=== PATIENT | female | born 1975 | race Caucasian/White ===

== ENCOUNTER 2018-06-28 20:27 | Observation (INO) | payer MEDICAID, SELFPAY ==
[2018-06-28 20:28] VITALS: BP 150/109; PULSE 119; RESP 19; TEMP 36.7; O2SAT 94; BMI 29.0
--- NOTE | 2018-06-28 20:49 | EKG12_ITS ---
Test Reason : Blood Pressure : / mmHG Vent. Rate : 109 BPM Atrial Rate : 109 BPM P-R Int : 140 ms QRS Dur : 074 ms QT Int : 334 ms P-R-T Axes : 060 033 069 degrees QTc Int : 449 ms Sinus tachycardia Possible Left atrial enlargement Borderline ECG Confirmed by FERNANDO TOPETE, ARUN ([id number]), editorial specialist ABDON KEITH ([id number]) on 07/03/2018 3:49:26 PM Referred By: Mani Rachel Confirmed By:ARNU KING MD
--- NOTE | 2018-06-28 20:49 | CT_ITS ---
STUDY: CT BRAIN WITHOUT CONTRAST REASON FOR EXAM: Female, 43 years old. Syncope RADIATION DOSAGE (If Supplied By Facility): CTDIvol = ( 44.99 ) mGy, DLP = ( 745.49 ) mGycm TECHNIQUE: Transaxial CT imaging of the brain was performed without administration of intravenous contrast material. Individualized dose optimization techniques were used for this CT. COMPARISON: None. FINDINGS: There are old left cerebellar infarct with encephalomalacia. There is no acute bleed or infarct. There are normal white matter tracts. The ventricles are normal in configuration. There is no hydrocephalus. The visualized paranasal sinuses are clear. The mastoid air cells are well aerated. There is no skull fracture. CT/Brain/Head without Contrast IMPRESSION: No acute intracranial abnormality. 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 Electronically Signed: Smith Crabtree, at 21:46 EST Tel , Service support ,
[2018-06-28 20:58] LABS: Absolute Lymphocyte Count 2.36 X10^3/ul (0.83-4.51); Absolute Neutrophil Count 4.5 X10^3/uL (2.0-7.7); Basophil# 0.14 X10^3/uL; Basophil% 1.5 % (0-1); Eosinophil# 1.28 X10^3/uL; Hematocrit 39.2 % (37-47); Hemoglobin 13.1 g/dl (12.0-15.0); Lymphocyte # 2.36 X10^3/ul (4.0); Lymphocyte % 25.8 % (19-41); Mean Corp Hgb Conc 33.4 g/gl (32-36); Mean Corpuscular Hgb 34.1 pg (27.0-32.0); Mean Corpuscular Volume 102.1 fL (81-99); Mean Platelet Vol. 10.7 fl (6.2-12.0); Monocyte# 0.89 X10^3/uL; Monocyte% 9.7 % (0-10); Neutrophil # 4.46 X10^3/uL (2.7-7.7); Neutrophil % 48.9 % (47-70); Platelet Count 368 K/mm3 (150-450); RBC Distribution Width CV 13.5 % (11.6-14.6); RBC Distribution Width SD 50.8 fl (35.1-43.9); Red Blood Count 3.84 M/mm3 (4.2-5.4); White Blood Count 9.1 K/mm3 (4.4-11.0)
[2018-06-28 20:59] LABS: POSITIVE COUNT NO; POSITIVE DIFFERENTIAL NO; POSITIVE MORPHOLOGY NO
--- NOTE | 2018-06-28 21:02 | ED.DCSUM_ITS ---
- ER Visit Summary Date of Service: 06/28/18 Chief Complaint: Syncope History of Present Illness: The patient is a 43 F who is brought in by EMS for syncope. Patient states the last thing she remembers was sitting on the couch watching a [employer] movie. Father states that he came down the stairs and found her on the ground on her back laid right next to the couch. She was unresponsive. He tried to stimulate her and was not successful. He states he went out to call 911 when he came back her eyes were open but she was not really responding then she was responding but confused and now seems to be back at her baseline. On the June 15 she went and had her last alcoholic drink. She went to rehab and was discharged on Sunday. While at rehab she was on phenobarbital. On Sunday she received a Vivitrol shot. She states that she did not have DTs. She had a seizure many years ago but is not currently treated for any. She denies any current pain. She denies any headache. She denies any bleeding or injuries from tonight's events. Physical Examination: 150/109 heart rate of 119 respirations are 19 and pulse ox is 94% and patient is afebrile Gen: Well-nourished well-developed Head: Normocephalic atraumatic Eyes: Perrl EOMI ENT: TMs clear no rhinorrhea moist mucous membranes Neck: Supple no lymphadenopathy no JVD nontender CVS: Regular rate tachycardia rhythm no murmurs normal S1-S2 Respiratory: No distress clear to auscultation bilaterally chest nontender Abdomen: Soft nontender nondistended normal bowel sounds no masses Back: Nontender Extremity: Nontender no edema Skin: Normal color no rash Neuro: alert orientated ?3 CN II-XII intact normal strength sensation reflexes gait cerebellar Psych: Normal affect normal mood Test Results: EKG demonstrates a sinus tachycardia at a rate of 109. Lactic acid is elevated 5.4. Troponin negative. Alcohol level negative. Toxicology shows barbiturates (most likely from phenobarbital). CT of the brain demonstrates a area in the left cerebellum shows some encephalomalacia. Emergency Department Course and Treatment: Seizure precautions were implemented. Patient was placed on the monitor. While in the department the patient had a approximate 30-minute generalized seizure with postictal period. She received a milligram of Ativan and 1 g of Keppra. I spoke with neurology who recommends admission for MRI EEG and recommend she be started on 750 mg of Keppra twice daily. Impression: 1. Seizure This note was generated with [employer] dictation software. It may contain incorrect words, spelling, and punctuation that were not noted in review of the chart prior to signing ED Disposition - Plan for ED Patient: Chief Complaint: Syncope Referrals: Nasima Zhu, MAGNETO SPECIALIST-C [Primary Care Provider] -
--- NOTE | 2018-06-28 21:05 | RAD_ITS ---
STUDY: X-RAY CHEST REASON FOR EXAM: Female, 43 years old. Syncope TECHNIQUE: Frontal and lateral views of the chest COMPARISON: None. FINDINGS: The lungs are clear. There are no pleural effusions. There is no pneumothorax. The heart is normal in size. The visualized osseous structures are within normal limits. RAD/Chest PA and Lateral IMPRESSION: No acute thoracic pathology. Electronically Signed: Smith Crabtree, at 21:23 EST Tel , Service support ,
[2018-06-28 21:22] VITALS: PULSE 97; RESP 18
[2018-06-28 21:22] LABS: AST(SGOT) 33 U/L (15-37); Alanine Aminotransfer ALT/SGPT 34 U/L (13-56); Albumin, Serum 3.8 g/dL (3.2-5.0); Alkaline Phosphatase 93 U/L (45-117); Anion Gap 15 (5-15); BUN 6 mg/dL (7-18); BUN/Creat Ratio 5.3 RATIO (10-20); Calcium,Total 8.9 mg/dL (8.5-10.1); Chloride 109 mmol/L (98-107); Creatinine, Serum 1.13 mg/dL (0.55-1.02); EST Glomerular Filtration Rate 56 mL/min (>60); Est Glom Filt Rate - Afr Amer 68 mL/min (>60); Estimated Creatinine Clearance 67.54 ml/min; Globulin 3.9 g/dL (2.2-4.2); Glucose 113 mg/dL (74-106); Potassium 4.1 mmol/L (3.5-5.1); Protein, Total 7.7 g/dL (6.4-8.2); Sodium Level 143 mmol/L (136-145)
[2018-06-28] MEDS: Ipratropium/Albuterol Sulfate 3 ML AMPUL.NEB INHALATION (21:22)
[2018-06-28 21:26] LABS: Lactic Acid 5.4 mmol/L (0.4-2.0)
[2018-06-28] MEDS: LORazepam 2 MG/ML Syringe 1 MG IV (21:57)
[2018-06-28] MEDS: 0.9% Normal Saline 1,000 ML 999 ML IV (21:57)
--- NOTE | 2018-06-28 22:05 | ED.RN ---
PATIENT HAD A 35 SECOND TONIC CLONIC SEIZURE. MADE AWARE AND ATIVAN WAS GIVEN.
[2018-06-28] MEDS: levETIRAcetam IV 1,000 MG/100 ML BAG 400 MG IV (22:08)
[2018-06-28 22:25] LABS: Bacteria 0 SEEN /hpf (None Seen); Mucous, Urine 0 SEEN /hpf (<or=2+); Red Blood Cells-Urine 0 SEEN /hpf (0-5); White Blood Cells 0 SEEN /hpf (0-5)
[2018-06-28 22:27] VITALS: BP 122/89; PULSE 109; RESP 19; O2SAT 97
[2018-06-28 22:29] LABS: Color, Urine Yellow (Yellow); Glucose, Dipstick Normal (Normal); Ketone-Dipstick 15 mg/dl (Negative); Leukocyte Esterase-Dipstick Negative /ul (Negative); Nitrite-Dipstick Negative (Negative); Occult Blood-Urine Negative /ul (Negative); Protein-Dipstick 15 mg/dl (Negative); Urine Bilirubin Dipstick Negative (Negative); Urine Clarity Clear (Clear); Urine Urobilinogen Normal (Normal)
[2018-06-28 22:34] LABS: Internal QC Validated? YES +Cl - CLEAR BKGD; Pregnancy, Urine Negative Negative
[2018-06-28 22:38] LABS: Squamous Epithelial Cells - UA 0-5 SEEN /hpf (5-10)
[2018-06-28 22:48] LABS: Amphetamine Urine VISTA NEGATIVE (<1000 ng/mL); Barbiturate Urine VISTA POSITIVE (< 200 ng/mL); Benzodiazepine Urine VISTA NEGATIVE (< 200 ng/mL); Cocaine Urine VISTA NEGATIVE (< 300 ng/mL); Ecstacy Urine VISTA NEGATIVE (< 500 ng/mL); Methadone Urine VISTA NEGATIVE (< 300 ng/mL); PCP Urine VISTA NEGATIVE (< 25 ng/mL); THC Urine VISTA NEGATIVE (< 50 ng/mL); Vista UDS pH Range 6
--- NOTE | 2018-06-28 23:25 | PCM.HP.STD ---
Problem List (1) Seizure Status: Acute (2) Moderate persistent asthma Status: Acute (3) Rhinitis Status: Acute History of Present Illness Date of Admission: 06/28/18 Chief Complaint: unresponsiveness The patient is a 43 year old F with a significant history of anxiety; hypertension; asthma; and previous alcoholism who presented to the emergency department because of unresponsiveness a few hours prior to presentation. Patient lives at home with his father. His father heard a noise like somebody falling for which reason patient's father checked on patient. Patient father realized that patient was lying down, incoherent and although was breathing she was not responding to commands. The paramedics were called. Patient actually got more responsive before arrival at the emergency department. At emergency department patient was coherent however she had a witnessed tonic clonic seizure. At no point did patient have any bowel or bladder incontinence; or a biting of the tongue. Her initial lactic acid at emergency department was 5.4. Patient reported that she spent 1 week at [place], [place], for detoxification from ethanol. She was discharged from detoxification center about 4 days ago. Six days ago patient took a dose of phenobarbital while at [facility] detoxification center. Also upon release from detoxification center patient took Vivitrol. Vivitrol was taken 2 days prior to presentation. She received the Vivitrol at 180. At emergency department EMANI 10 was positive for barbiturates. Because of the witness seizure at the ED, patient was given IV Ativan and a dose of Keppra while at the Emergency Department. Emergency Department doctor discussed case with neurologist. Emergency department doctor reported neurologist recommendation as: Keppra 750 mg twice daily; EEG; MRI of the brain; and no driving. Patient reported that when she was a child, at about age 8 years she had a one time episode of seizure. Further, patient reports that she has had increasing shortness of breath that she attributes to her asthma worsening secondary to the cold. At the emergency department she was given a breathing treatments because she complained of shortness of breath. Also, she reports rhinorrhea and cold sore on her mouth. Her cold sore on her mouth is improving. Reportedly patient had a divorce in February 2018 and has been more anxious; worsening her drinking behavior. However, she had a new niece in the family, for which reason she has been motivated to quit drinking Past Medical History Medical History: Medical History (Last Updated 06/29/18 @ 03:48 by Mani Rachel MD) Alcohol abuse F10.10 Asthma J45.909 Allergies amoxicillin Allergy (Verified 06/28/18 20:34) Hives Home Medications: Ambulatory Orders Medication Instructions Recorded Albuterol Inhaler [Ventolin Hfa 1 - 2 puff INHALATION Q4H PRN PRN 06/28/18 (SP)] Clonazepam 0.5 mg PO BID PRN 06/28/18 Lisinopril [Zestril] 10 mg PO DAILY 06/28/18 Pantoprazole Sodium [Protonix] 40 mg PO BID 06/28/18 Norgestimate-Ethinyl Estradiol 1 tab PO DAILY 06/29/18 [Previfem] Surgical History: tonsillectomy, - - Surgery on the face to remove precancerous birthmark Lives: With Family Smoking Status: Never smoker Alcohol: Sober - *Family History Paternal Family History: Family History (Last Reviewed 06/29/18 @ 05:07 by Mani Rachel MD) Father Myocardial infarction Review of Systems Constitutional: Denies: Chills, Fever, Weight Change HEENT: Reports: Sinus Drainage. Denies: Head Aches Cardiovascular: Denies: Chest Pain, Palpitations Respiratory: Reports: Shortness of Breath. Denies: Cough Gastrointestinal: Denies: Abdominal Pain, Nausea, Vomiting Genitourinary: Denies: Dysuria Musculoskeletal: Denies: Joint Pain, Joint Tenderness Skin: Denies: Rash, Wounds Neurological: Denies: Numbness, Tingling, Focal weakness Psychiatric: Denies: Anxiety, Depression, Homicidal Ideations, Suicidal Ideations Hematologic/ Lymphatic: Denies: Easy Bruising, Easy Bleeding VTE Information - Inpt Only VTE Present on Admission: No VTE Mechan Device Prophylaxis: None VTE Pharm Prophylaxis ordered?: Yes Patient Problems: Active and Suspected Problems (Last Updated 06/29/18 @ 03:48 by Mani Rachel MD) Seizure (Acute) Moderate persistent asthma (Acute) Rhinitis (Acute) - Physical Exam General: Alert, Oriented x3, Cooperative HEENT: Atraumatic, PERRLA, EOMI, Normocephalic, - - blister on lip Neck: Supple, No JVD, Negative Carotid Bruits Lungs: Clear to auscultation, Normal air movement Cardiovascular: Regular rate, No murmurs Abdomen: Bowel Sounds Present, Soft, Non Tender Extremities: No edema, Capillary Refill Less than 3 Seconds Skin: No rashes, No breakdown Musculoskeletal: No Tenderness to Palpation of Joints or Extremities Neurological: Neuro grossly intact Psych/Mental Status: Normal Affect, Appropriate Vital Signs Temp Pulse Resp BP Pulse Ox 98.1 F 109 H 19 H 122/89 H 97 06/28/18 20:28 06/28/18 22:27 06/28/18 22:27 06/28/18 22:27 06/28/18 22:27 Oxygen Delivery Method Room Air Weight: 65.3 kg Body Mass Index (BMI) 29.0 Laboratory Tests Past 24 Hrs 06/28/18 06/28/18 06/28/18 20:34 20:34 20:34 WBC 9.1 RBC 3.84 L Hgb 13.1 Hct 39.2 MCV 102.1 H MCH 34.1 H MCHC 33.4 RDW 13.5 RDW Differential 50.8 H Plt Count 368 MPV 10.7 Immature Gran % (Auto) 0.100 Neut % (Auto) 48.9 Lymph % (Auto) 25.8 Estill % (Auto) 9.7 Eos % (Auto) 14.0 H Baso % (Auto) 1.5 H Absolute Neuts (auto) 4.5 Absolute Lymphs (auto) 2.36 Total Counted Not Reportable Sodium 143 Potassium 4.1 Chloride 109 H Carbon Dioxide 19.0 L Anion Gap 15 BUN 6 L Creatinine 1.13 H Estim Creat Clear Calc 67.54 Est GFR (MDRD) Af Amer 68 Est GFR (MDRD) Non-Af 56 L BUN/Creatinine Ratio 5.3 L Glucose 113 H Lactic Acid 5.4 H* Calcium 8.9 Total Bilirubin 0.20 AST 33 ALT 34 Alkaline Phosphatase 93 Troponin I < 0.015 Total Protein 7.7 Albumin 3.8 Globulin 3.9 Albumin/Globulin Ratio 1.0 Urine Color Urine Clarity Urine pH Ur Specific [place] Urine Protein Urine Glucose (UA) Urine Ketones Urine Occult Blood Urine Nitrite Urine Bilirubin Urine Urobilinogen Ur Leukocyte Esterase Urine RBC Urine WBC Ur Squamous Epith Cells Urine Bacteria Urine Mucus Urine Test Urine Opiates Screen Urine Methadone Screen Ur Barbiturates Screen Ur Phencyclidine Scrn Ur Amphetamines Screen U Methamphetamin-MDMA U Benzodiazepines Scrn Urine Cocaine Screen U Cannabinoids Screen Ur Drug Screen Comment Ethyl Alcohol 06/28/18 06/28/18 06/28/18 21:00 22:20 22:20 WBC RBC Hgb Hct MCV MCH MCHC RDW RDW Differential Plt Count MPV Immature Gran % (Auto) Neut % (Auto) Lymph % (Auto) Estill % (Auto) Eos % (Auto) Baso % (Auto) Absolute Neuts (auto) Absolute Lymphs (auto) Total Counted Sodium Potassium Chloride Carbon Dioxide Anion Gap BUN Creatinine Estim Creat Clear Calc Est GFR (MDRD) Af Amer Est GFR (MDRD) Non-Af BUN/Creatinine Ratio Glucose Lactic Acid Calcium Total Bilirubin AST ALT Alkaline Phosphatase Troponin I Total Protein Albumin Globulin Albumin/Globulin Ratio Urine Color Yellow Urine Clarity Clear Urine pH 6.0 Ur Specific [place] 1.020 Urine Protein 15 H Urine Glucose (UA) Normal Urine Ketones 15 H Urine Occult Blood Negative Urine Nitrite Negative Urine Bilirubin Negative Urine Urobilinogen Normal Ur Leukocyte Esterase Negative Urine RBC 0 SEEN Urine WBC 0 SEEN Ur Squamous Epith Cells 0-5 SEEN Urine Bacteria 0 SEEN Urine Mucus 0 SEEN Urine Test Negative Urine Opiates Screen Urine Methadone Screen Ur Barbiturates Screen Ur Phencyclidine Scrn Ur Amphetamines Screen U Methamphetamin-MDMA U Benzodiazepines Scrn Urine Cocaine Screen U Cannabinoids Screen Ur Drug Screen Comment Ethyl Alcohol 3.0 06/28/18 22:20 WBC RBC Hgb Hct MCV MCH MCHC RDW RDW Differential Plt Count MPV Immature Gran % (Auto) Neut % (Auto) Lymph % (Auto) Estill % (Auto) Eos % (Auto) Baso % (Auto) Absolute Neuts (auto) Absolute Lymphs (auto) Total Counted Sodium Potassium Chloride Carbon Dioxide Anion Gap BUN Creatinine Estim Creat Clear Calc Est GFR (MDRD) Af Amer Est GFR (MDRD) Non-Af BUN/Creatinine Ratio Glucose Lactic Acid Calcium Total Bilirubin AST ALT Alkaline Phosphatase Troponin I Total Protein Albumin Globulin Albumin/Globulin Ratio Urine Color Urine Clarity Urine pH Ur Specific [place] Urine Protein Urine Glucose (UA) Urine Ketones Urine Occult Blood Urine Nitrite Urine Bilirubin Urine Urobilinogen Ur Leukocyte Esterase Urine RBC Urine WBC Ur Squamous Epith Cells Urine Bacteria Urine Mucus Urine Test Urine Opiates Screen NEGATIVE Urine Methadone Screen NEGATIVE Ur Barbiturates Screen POSITIVE H Ur Phencyclidine Scrn NEGATIVE Ur Amphetamines Screen NEGATIVE U Methamphetamin-MDMA NEGATIVE U Benzodiazepines Scrn NEGATIVE Urine Cocaine Screen NEGATIVE U Cannabinoids Screen NEGATIVE Ur Drug Screen Comment Ethyl Alcohol Assessment/Plan All Active Problems (Last Updated 06/29/18 @ 03:48 by Mani Rachel MD) Seizure (Acute) Moderate persistent asthma (Acute) Rhinitis (Acute) The patient is a 43 year old F with a significant history of anxiety; hypertension; asthma; and alcoholism who is trying to turn her life around from alcoholism and was recently released from detoxification center where she received phenobarbital ; and Vivitrol after discharge; and with a remote one-time episode of seizure at age 8 years who fell at home and was unresponsive for a while; and later had a witnessed seizure at the emergency department. Seizure With lactic acidosis; increased anion gap metabolic acidosis and a witnessed seizure likely her first episode of falling and incoherence was also from a seizure. Patient received Keppra 1000 mg IV at emergency department. Will follow neurologist recommendation and start patient on Keppra p.o. 750 mg twice daily; EEG; and MRI. Per neurologist patient is not to drive. Neurology to clarify how long patient to stay without driving. Ativan as needed for seizure Seizure precautions in place. Will consult neurologist. Lactic acidosis Likely secondary to seizure Resolved with IV fluids. Anion gap metabolic acidosis Likely due to lactic acidosis. Trend BMP. Anticipate it will resolve with resolved lactic acidosis. Moderate persistent asthma. Because of her increasing symptoms likely her asthma is worsening because of the weather. Will escalate her asthma regimen by adding inhaled corticosteroids. Scheduled Albuterol and as needed. On discharged consider long-acting beta agonists and inhaled corticosteroids to her home as needed beta agonist ZANE Patient with creatinine of 1.13 and with GFR of 56. Mild Likely prerenal from seizures. Anticipate resolution with IV fluids after the emergency department Trend BMP. We will continue lisinopril at this time. Rhinitis Flonase ordered. Alcoholism Patient counseled not to go back and drink. Hypertension On admission blood pressure was not within goal. Continue home lisinopril If creatinine increases any further consider discontinuing lisinopril. Trend blood pressure and adjust blood pressure medication as necessary. Anxiety Klonopin continued DVT prophylaxis Subcutaneous heparin.. Code Visit Inpatient E&M: 03391 Init Hosp L3
[2018-06-29] VITALS (13 sets, daily range): BP systolic 114–134; BP diastolic 75–89; PULSE 72–106; RESP 18–20; TEMP 36.6–36.9; O2SAT 96–99; BMI 28.0
[2018-06-29 00:54] LABS: Reflex Lactate? Y
[2018-06-29 01:41] LABS: Lactic Acid 0.9 mmol/L (0.4-2.0)
--- NOTE | 2018-06-29 02:23 | MRI_ITS ---
STUDY: MRI BRAIN WITH AND WITHOUT CONTRAST REASON FOR EXAM: Female, 43 years old. Seizure TECHNIQUE: Standardized multiplanar fat and water weighted pulse sequences were obtained. 6 ml of Gadavist contrast material was administered intravenously for the contrast portion of the examination. COMPARISON: Head CT 06/28/2018 FINDINGS: Normal size of the ventricles and extra-axial spaces for the patient's age. Normal white matter tracts of the supratentorial brain. Normal bilateral basal ganglia. Normal thalami. There is no extra-axial fluid accumulation. Normal flow voids within the major intracranial circulation suggesting patency by spin echo criteria. Normal venous enhancement. There is no enhancing intra-axial or extra-axial abnormality. Normal sella turcica, pituitary gland, infundibular stalk, optic chiasm and hypothalamus. Normal tectal plate and pineal gland. Normal midbrain, susana and medulla. 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 Normal basal cisterns. Normal bilateral temporal bones. Normal bilateral internal auditory canals. No demonstrated orbital abnormality, within the constraints of a routine brain study. Normal visualized paranasal sinuses. Normal calvarium and skull base. Normal visualized soft tissue structures. Normal visualized upper cervical spine. MRI/Brain W/WO Contrast IMPRESSION: No evidence of acute infarct, hemorrhage, mass, or abnormal enhancement. No temporal lobe lesions are seen. 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 Electronically Signed: Serg Portillo MD at 0:42 EST Tel , Service support ,
[2018-06-29] MEDS: Albuterol 2.5 MG/3 ML VIAL.NEB. INHALATION ×4 (04:08→15:13)
[2018-06-29] MEDS: Budesonide Respules 0.5 MG/2 ML AMPUL.NEB. INHALATION (04:08)
[2018-06-29 08:15] LABS: Anion Gap 9 (5-15); BUN 4 mg/dL (7-18); BUN/Creat Ratio 6.3 RATIO (10-20); Calcium,Total 8.4 mg/dL (8.5-10.1); Chloride 112 mmol/L (98-107); Creatinine, Serum 0.64 mg/dL (0.55-1.02); EST Glomerular Filtration Rate 110 mL/min (>60); Est Glom Filt Rate - Afr Amer 133 mL/min (>60); Glucose 95 mg/dL (74-106); Potassium 3.8 mmol/L (3.5-5.1); Sodium Level 144 mmol/L (136-145)
[2018-06-29] MEDS: Fluticasone 0.05% 1 SPRAY NASAL.SRY NASAL (09:16)
[2018-06-29] MEDS: Pantoprazole Sodium 40 MG Tablet PO (09:17)
[2018-06-29] MEDS: Lisinopril 10 MG Tablet PO (09:17)
[2018-06-29] MEDS: levETIRAcetam 750 MG Tablet PO ×2 (09:17→17:58)
[2018-06-29] MEDS: clonazePAM 0.5 MG Tablet PO (10:43)
--- NOTE | 2018-06-29 11:34 | DCINST_ITS ---
- Discharge Diagnoses Current Active Problems: Current Active and Chronic Problems (Last Updated 06/29/18 @ 03:48 by Mani Rachel MD) Seizure (Acute) Moderate persistent asthma (Acute) Rhinitis (Acute) You will use the following diet at home:: Cardiac, Other - no alcohol at all Your food should be the consistency of: Regular Your liquids should be the consistency of: Regular/Thin Discharge Activity: Return to Normal Activity Additional Instructions: NO Driving until cleared to drive by Neurology. Allergies/Adverse Reactions: Allergies amoxicillin Allergy (Verified 06/28/18 20:34) Hives Medications to take at Discharge Albuterol Inhaler [Ventolin Hfa] 1 - 2 puff INHALATION Q4H PRN PRN 06/28/18 Clonazepam 0.5 mg PO BID PRN 06/28/18 Lisinopril [Zestril] 10 mg PO DAILY 06/28/18 Pantoprazole Sodium [Protonix] 40 mg PO BID 06/28/18 Norgestimate-Ethinyl Estradiol [Previfem] 1 tab PO DAILY 06/29/18 levETIRAcetam tablet [Keppra tablet] 750 mg PO BID #60 tablet 06/29/18 The following prescriptions were given: levETIRAcetam tablet [Keppra tablet] 750 mg PO BID #60 tablet Primary Care Physician: Nasmia Zhu NP-C [Primary Care Provider] - Please follow up with your Primary Care Physician in: 1-2 weeks Test Results: Test results from this visit will be discussed in further detail at your follow- up appointment, if applicable. Please Follow Up With: Gerald Acosta MD When: 1-2 weeks Proposed Discharge Date: 06/29/18
--- NOTE | 2018-06-29 13:12 | CASEMGMT ---
SOCIAL WORK: Referral identified by nursing staff this date; patient expressed concerns about not being allowed to drive due to diagnosis of seizure. Chart reviewed. This SW met with patient in her room; she voiced agreement with this SW talking with her with father and sister present in the room. Introduced self and SW role at [facility]. Patient plans to return home with her Dad upon discharge. She shares that she was just released from [facility] on 06/24/18, after a week long stay for inpatient detox for alcoholism. She reports that she has already had an intake and assessment appointment at [facility] and that she has a counseling appointment there on 07/01/18. She has [facility] Medicaid however does not currently have any income. She voices being upset about the driving restriction until being cleared by Neurologist. Her Dad spoke up and confirmed that he is completely available to assist with all transportation needs for his daughter until she is cleared to drive. This SW reinforced importance of following medical recommendation for personal safety and safety of others until cleared by physician to drive, and patient voiced understanding and agreement. Father and sister also voiced that they are able to help patient financially until she is able to find a job. Patient's pharmacy of preference is [facility]. She is active with [facility]. CM provided her with listing of local physicians in this area in the event that she would like to transition to a PCP office. She is aware of need to call providers to ask if they are a provider for her [facility] Medicaid. Patient denies any other needs, issues or concerns. No issues identified by family. Niurka PACHECO,KEVIN
--- NOTE | 2018-06-29 18:30 | DS.PCM_ITS ---
Discharge Date and Diagnosis - Problem List Patient Problems: Active and Suspected Problems (Last Updated 06/29/18 @ 03:48 by Mani Rachel MD) Seizure (Acute) Moderate persistent asthma (Acute) Rhinitis (Acute) Date of Admission: 06/28/18 Date of Discharge: 06/29/18 - Primary Discharge Diagnosis Active and Suspected Problems (Last Updated 06/29/18 @ 03:48 by Mani Rachel MD) Seizure Alcoholism with recent detox ZANE metabolic acidosis 2/2 seizure HTN Moderate persistent asthma (Acute) Rhinitis (Acute) Hospital Course and Treatment Imaging Results: CT/Brain/Head without Contrast IMPRESSION: No acute intracranial abnormality. 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 RAD/Chest PA and Lateral IMPRESSION: No acute thoracic pathology. MRI final report pending EEG final report pending. Consults: [facility] - Neuro Procedures: Electroencephalogram Summary of Care Provided: Hospital Course: The patient is a 43 year old F with pmhx of seizure during childhood, alcoholism with recent detox, asthma, htn, anxiety, who presented to the ER with c/o seizure. Hear father heard her collapse and went to check on her, found her unconscious, not shaking. She awoke after several minutes of him trying to wake her, when she came to she was very confused and gradually returned to normal. She then later had a witnessed episode where she became unresponsive while sitting had muscle contractions and shaking. She also gradually returned to normal after waking up confused. No incontinence. She had recently been discharged from [facility] where she was treated for alcohol withdrawal. She had received phenobarb and most recently vivitrol. She had been sober since discharge per her father. She was admitted for seizure. She had elevated lactate and meatbolic acidosis. She also had ZANE. She was given fluids and keppra. Acidosis and ZANE resolved overnight. Neuro was consulted. CT brain was negative, followed by negative MRI brain and EEG (which final reports are pending at this time - reportedly normal per neuro). She had no further seizure activity. She was cleared by neurology for discharge on keppra 750 BID, and she was dc'd home in stable condition. She was placed on a driving restriction. She will need follow up with her PCP and Neurologist. Alcohol abstinence was re- emphasized. This patient was seen by Donell Pittman PA-C under the supervision of Dr. Carey [] Patient Problems: Active and Suspected Problems (Last Updated 06/29/18 @ 03:48 by Mani Rachel MD) Seizure (Acute) Moderate persistent asthma (Acute) Rhinitis (Acute) - Physical Exam General: Alert, Oriented x3, Cooperative HEENT: Atraumatic, PERRLA, EOMI, Normocephalic Neck: Supple, No JVD, Negative Carotid Bruits Lungs: Clear to auscultation, Normal air movement Cardiovascular: Regular rate, No murmurs Abdomen: Bowel Sounds Present, Soft, Non Tender Extremities: No edema, Capillary Refill Less than 3 Seconds Skin: No rashes, No breakdown Musculoskeletal: No Tenderness to Palpation of Joints or Extremities Neurological: Cranial nerves II-XII grossly intact Psych/Mental Status: Normal Affect, Appropriate, Alert and oriented to time, place, person, mood and affect Vital Signs Temp Pulse Resp BP Pulse Ox 98.3 F 83 18 119/80 99 06/29/18 17:54 06/29/18 17:54 06/29/18 17:54 06/29/18 17:54 06/29/18 17:54 Oxygen Delivery Method Room Air Weight: 139 lb 3.198 oz Body Mass Index (BMI) 28.0 Intake and Output for Last 24 Hours 06/27/18 06/28/18 06/29/18 23:59 23:59 23:59 Intake Total 960 / 960 Balance 960 / 960 Laboratory Tests Past 24 Hrs 06/28/18 06/28/18 06/28/18 20:34 20:34 20:34 WBC 9.1 RBC 3.84 L Hgb 13.1 Hct 39.2 MCV 102.1 H MCH 34.1 H MCHC 33.4 RDW 13.5 RDW Differential 50.8 H Plt Count 368 MPV 10.7 Immature Gran % (Auto) 0.100 Neut % (Auto) 48.9 Lymph % (Auto) 25.8 Gordon % (Auto) 9.7 Eos % (Auto) 14.0 H Baso % (Auto) 1.5 H Absolute Neuts (auto) 4.5 Absolute Lymphs (auto) 2.36 Total Counted Not Reportable Sodium 143 Potassium 4.1 Chloride 109 H Carbon Dioxide 19.0 L Anion Gap 15 BUN 6 L Creatinine 1.13 H Estim Creat Clear Calc 67.54 Est GFR (MDRD) Af Amer 68 Est GFR (MDRD) Non-Af 56 L BUN/Creatinine Ratio 5.3 L Glucose 113 H Lactic Acid 5.4 H* Calcium 8.9 Total Bilirubin 0.20 AST 33 ALT 34 Alkaline Phosphatase 93 Troponin I < 0.015 Total Protein 7.7 Albumin 3.8 Globulin 3.9 Albumin/Globulin Ratio 1.0 Urine Color Urine Clarity Urine pH Ur Specific [place] Urine Protein Urine Glucose (UA) Urine Ketones Urine Occult Blood Urine Nitrite Urine Bilirubin Urine Urobilinogen Ur Leukocyte Esterase Urine RBC Urine WBC Ur Squamous Epith Cells Urine Bacteria Urine Mucus Urine Test Urine Opiates Screen Urine Methadone Screen Ur Barbiturates Screen Ur Phencyclidine Scrn Ur Amphetamines Screen U Methamphetamin-MDMA U Benzodiazepines Scrn Urine Cocaine Screen U Cannabinoids Screen Ur Drug Screen Comment Ethyl Alcohol 06/28/18 06/28/18 06/28/18 21:00 22:20 22:20 WBC RBC Hgb Hct MCV MCH MCHC RDW RDW Differential Plt Count MPV Immature Gran % (Auto) Neut % (Auto) Lymph % (Auto) Gordon % (Auto) Eos % (Auto) Baso % (Auto) Absolute Neuts (auto) Absolute Lymphs (auto) Total Counted Sodium Potassium Chloride Carbon Dioxide Anion Gap BUN Creatinine Estim Creat Clear Calc Est GFR (MDRD) Af Amer Est GFR (MDRD) Non-Af BUN/Creatinine Ratio Glucose Lactic Acid Calcium Total Bilirubin AST ALT Alkaline Phosphatase Troponin I Total Protein Albumin Globulin Albumin/Globulin Ratio Urine Color Yellow Urine Clarity Clear Urine pH 6.0 Ur Specific [place] 1.020 Urine Protein 15 H Urine Glucose (UA) Normal Urine Ketones 15 H Urine Occult Blood Negative Urine Nitrite Negative Urine Bilirubin Negative Urine Urobilinogen Normal Ur Leukocyte Esterase Negative Urine RBC 0 SEEN Urine WBC 0 SEEN Ur Squamous Epith Cells 0-5 SEEN Urine Bacteria 0 SEEN Urine Mucus 0 SEEN Urine Test Negative Urine Opiates Screen Urine Methadone Screen Ur Barbiturates Screen Ur Phencyclidine Scrn Ur Amphetamines Screen U Methamphetamin-MDMA U Benzodiazepines Scrn Urine Cocaine Screen U Cannabinoids Screen Ur Drug Screen Comment Ethyl Alcohol 3.0 06/28/18 06/29/18 06/29/18 22:20 01:10 06:47 WBC RBC Hgb Hct MCV MCH MCHC RDW RDW Differential Plt Count MPV Immature Gran % (Auto) Neut % (Auto) Lymph % (Auto) Gordon % (Auto) Eos % (Auto) Baso % (Auto) Absolute Neuts (auto) Absolute Lymphs (auto) Total Counted Sodium 144 Potassium 3.8 Chloride 112 H Carbon Dioxide 23.0 Anion Gap 9 BUN 4 L Creatinine 0.64 Estim Creat Clear Calc 115.30 Est GFR (MDRD) Af Amer 133 Est GFR (MDRD) Non-Af 110 BUN/Creatinine Ratio 6.3 L Glucose 95 Lactic Acid 0.9 Calcium 8.4 L Total Bilirubin AST ALT Alkaline Phosphatase Troponin I Total Protein Albumin Globulin Albumin/Globulin Ratio Urine Color Urine Clarity Urine pH Ur Specific [place] Urine Protein Urine Glucose (UA) Urine Ketones Urine Occult Blood Urine Nitrite Urine Bilirubin Urine Urobilinogen Ur Leukocyte Esterase Urine RBC Urine WBC Ur Squamous Epith Cells Urine Bacteria Urine Mucus Urine Test Urine Opiates Screen NEGATIVE Urine Methadone Screen NEGATIVE Ur Barbiturates Screen POSITIVE H Ur Phencyclidine Scrn NEGATIVE Ur Amphetamines Screen NEGATIVE U Methamphetamin-MDMA NEGATIVE U Benzodiazepines Scrn NEGATIVE Urine Cocaine Screen NEGATIVE U Cannabinoids Screen NEGATIVE Ur Drug Screen Comment Ethyl Alcohol Discharge Diet: Low fat/ Low Cholesterol, 2000 mg Sodium Diet Discharge Activity: - - No driving, no alcohol Home Medications: Medications to take at Discharge Albuterol Inhaler [Ventolin Hfa] 1 - 2 puff INHALATION Q4H PRN PRN 06/28/18 Clonazepam 0.5 mg PO BID PRN 06/28/18 Lisinopril [Zestril] 10 mg PO DAILY 06/28/18 Pantoprazole Sodium [Protonix] 40 mg PO BID 06/28/18 Norgestimate-Ethinyl Estradiol [Previfem] 1 tab PO DAILY 06/29/18 levETIRAcetam tablet [Keppra tablet] 750 mg PO BID #60 tablet 06/29/18 Following Prescrptions Were Given to Patient: levETIRAcetam tablet [Keppra tablet] 750 mg PO BID #60 tablet Primary Care Physician: Nasima Zhu NP-C [Primary Care Provider] - Please follow up with your Primary Care Physician in: 1-2 weeks Please Follow Up With: Gerald Acosta MD When: 1-2 weeks Disposition: Home Minutes spent on discharge:: 40 Patient Condition:: Stable Medical Necessity - Tobacco Use Smoking Status: Never smoker Meaningful Use Info Meaningful Use Diagnoses (Choose all that apply): None applicable
--- NOTE | 2018-06-30 13:15 | EEG ---
- Electroencephalogram Date of service 06/29/18 This is an 18 channel electron esophagram performed utilizing the International 10-20 electrode placement protocol on this 43-year-old female with history of seizure and possible withdrawal. Hyperventilation, photic stimulation and EKG reference leads were also obtained. The patient did experience light sleep during the recording. Background activity is 9 Hz symmetrically in the posterior leads which attenuates with eye-opening. Hyperventilation is performed for 2 minutes with good effort with no lateralizing or epileptiform changes and the post hyperventilatory phase is unremarkable. The patient did drowse during the recording with no lateralizing or epileptiform changes. EKG is normal sinus rhythm throughout the recording. Extremity relation generates a normal symmetric driving response. Impression: Normal awake and asleep electroencephalogram.
--- OUTSIDE RECORDS SUMMARY | 2018-10-02 07:52 | XMS RPT_ITS | Clinical Summary ---
:1975 Author Organization Formerly [facility], [facility] Address [address] [place] [phone] Phone Care Team Providers Name Role Phone Kateryna Liang Unavailable Unavailable Conditions or Problems Problem Name Problem Onset Status Entry Provider Comment Standard Annotate Code Date Date Description Alcohol abuse 59621300 Active Perry A Alcohol abuse (SNOMED CT) / Garrett BUFFET ATTENDANT-C Hypokalemia 10099239 Active Perry A Hypokalemia (SNOMED CT) / Garrett BUFFET ATTENDANT-C Elevated ALT 209577138 Active Perry A ALT (SGPT) (SNOMED CT) / Garrett level raised BUFFET ATTENDANT-C Alcoholic 347971636 Active Perry A Alcoholic hepatitis (SNOMED CT) / Garrett hepatitis BUFFET ATTENDANT-C Jaundice 86815896 Active Perry A Jaundice (SNOMED CT) / Garrett BUFFET ATTENDANT-C Tachycardia 9239753 Active Perry A Tachycardia (SNOMED CT) / Garrett BUFFET ATTENDANT-C Cough 92782789 Active Perry A Cough (SNOMED CT) / Garrett BUFFET ATTENDANT-C Acute 15399939 Active Kosta D Acute sinusitis (SNOMED CT) / Jeramie YEE sinusitis Asthma, with 376048149 Active Kosta D Exacerbation acute (SNOMED CT) / Jeramie YEE of asthma exacerbation Medications Medication Instructions Start Stop Generic Name NDC Provider Date Date DOXYCYCLINE One tablet by / DOXYCYCLINE [id number] Perry A MONOHYDRATE mouth twice 22 MONOHYDRATE Garrett 100 MG CAPS daily BUFFET ATTENDANT-C PREDNISONE 20 Two tablet by / PREDNISONE 78556591842 Perry A MG TABS mouth daily 22 Garrett BUFFET ATTENDANT-C ZITHROMAX Take 2 pills on AZITHROMYCIN 84870304452 Kosta James Z-TAZ 250 MG day 1 then 1 08/06 Jeramie YEE TABS pill days 2 through 5 MEDROL 4 MG Take as METHYLPREDNISOLONE 07337113618 Kosta D TBPK directed 08/06 Jeramie YEE DILTIAZEM HCL One tablet by / DILTIAZEM HCL TABS 96534427469 Perry A TABS mouth daily 22 Garrett BUFFET ATTENDANT-C KLONOPIN 1 MG One tablet by / CLONAZEPAM 24885140007 Perry A TABS mouth daily as 22 Garrett needed BUFFET ATTENDANT-C SINGULAIR 10 One tablet by / MONTELUKAST SODIUM 12954641425 Perry A MG TABS mouth daily 22 Garrett BUFFET ATTENDANT-C DOXYCYCLINE One tablet by DOXYCYCLINE 10175655792 Perry A MONOHYDRATE mouth twice 08/06 MONOHYDRATE Garrett 100 MG CAPS daily BUFFET ATTENDANT-C VENTOLIN HFA as directed / ALBUTEROL SULFATE 11286594302 Flor N AERS 17 AERS Johnny FIELD PLACEMENT DIRECTOR SPRINTEC 28 as directed / NORGESTIMATE-ETH [id number] Flor Marlow TABS 17 ESTRADIOL TABS Johnny FIELD PLACEMENT DIRECTOR KLOR-CON M20 One tablet by / POTASSIUM CHLORIDE 01380704346 Perry A 20 MEQ CR-TABS mouth daily 22 CHRISTIE ER Garrett BUFFET ATTENDANT-C Medications Administered No information available. Allergies, Adverse Reactions, Alerts Allergy Name Reaction Description Start Date Severity Status Provider AMOXICILLIN hives Critical Active Flor Turner FIELD PLACEMENT DIRECTOR Results Date Name Value Unit Range Flag Description Office Visit: Asthma exacerbation, sinusitis alcoholic hepatitis, elevated AST MEDS REVIEW Done Documentation of current medications (procedure) FALLRSKASSES No Fall risk assessment SMOK STATUS Never smoker Tobacco use [facility] Lab Report: CBC W/Diff, Automated LYMPHCT AUTO 1.18 X10 3/UL 10*3/mm3 0.83-4.51 lymphocyte count, blood, automated ANC 6.4 X10 3/UL 10*3/mm3 2.0-7.7 neutrophil count, blood IMM GRANU % 0.400 % 0.0-0.9 immature granulocytes, percentage of total cells, blood BASOPHIL % 0.4 % 0-1 basophils as percent of blood leukocytes EOSINOPHIL % 0.1 % 0-5 eosinophils as percent of blood leukocytes MONOCYTE % 9.2 % 0-10 monocytes as percent of blood leukocytes LYMPHS % 14.1 % 19-41 L lymphocytes as percent of blood leukocytes PMN % 75.8 % 47-70 H neutrophils as percent of blood leukocytes MPV 12.3 fL 6.2-12.0 H mean platelet volume PLATELETS 149 10*3/mm3 150-450 L platelet count RDW-SD 54.6 fL 35.1-43.9 H red blood cell distribution width, size density RDW 14.3 % 11.6-14.6 red blood cell distribution width MCHC RBC 33.4 G/GL g/dL 32-36 mean corpuscular hemoglobin concentration, RBC MCH 35.8 pg 27.0-32.0 H mean corpuscular hemoglobin, RBC MCV 107.1 fL 81-99 H mean corpuscular volume, RBC HCT 44.0 % 37-47 hematocrit, blood HGB 14.7 g/dL 12.0-15.0 hemoglobin, blood RBC M/UL 4.11 10*6/uL 4.2-5.4 L red blood count WBC BLOOD 8.4 10*9/L 4.4-11.0 leukocyte (white blood cells) count, blood Plan of Care Type Date Detail Appointment 09:30 AM Perry JENKINS-Kelley, [address] [facility], [address], [place], [address], Appointment 01:00 PM Toni Serrano MD, [address] [facility], [address], [place], [address], Referral Gastroenterology Referral Damir Rowley, [address] [facility], [address], [place], [address] Pending order *CMP Complete Metabolic Panel Pending order GGT Pending order Amylase Pending order *Lipase Pending order Follow Up Appt 2 weeks Pending order X-Ray, Chest, PA & Lateral Pending order *CBC with Differential Pending order *CMP Complete Metabolic Panel Pending order *TSH Pending order *T4 free Pending order GGT Pending order Follow Up with Primary Care Physician Procedures Code Procedure Name Date Entry Date 183-07 *CBC with Differential Vital Signs Date Name Value Unit Description BMI (Body Mass Index) 28.71 kg/m2 Body Mass Index [Ratio] Body Temperature 96.7 [degF] temperature E&M BP Diastolic 78 mm[Hg] blood pressure, diastolic - 8462-4 BP Systolic 118 mm[Hg] blood pressure, systolic - 8480-6 Heart Rate 118 /min pulse rate E&M - 8867-4 Height 60 [in_us] height E&M - 8302-2 Respiratory Rate 16 /min respiratory rate E&M - 9279-1 Weight Measured 147 [lb_av] weight E&M - 3141-9
--- OUTSIDE RECORDS SUMMARY | 2018-10-02 07:52 | XMS RPT_ITS | Clinical Summary ---
:1975 Author Organization Formerly [facility] Address [address] [place] [address] Phone Care Team Providers Name Role Phone Kosta Ortega Unavailable Conditions or Problems Problem Name Problem Onset Status Entry Provider Comment Standard Annotate Code Date Date Description Acute 52614792 Active Kosta James Acute sinusitis (SNOMED CT) / Jeramie YEE sinusitis Asthma, with 094076678 Active Kosta James Exacerbation acute (SNOMED CT) / Jeramie YEE of asthma exacerbation Medications Medication Instructions Start Stop Generic Name NDC Provider Date Date ZITHROMAX Take 2 pills on AZITHROMYCIN [id number] Kosta James Z-TAZ 250 MG day 1 then 1 Jeramie YEE TABS pill days 2 through 5 MEDROL 4 MG Take as METHYLPREDNISOLONE 30411692778 Kosta James TBPK directed Jeramie YEE VENTOLIN HFA as directed / ALBUTEROL SULFATE 58942754442 Flor Marlow AERS 17 AERS Johnny GENERAL EDUCATION INSTRUCTOR SPRINTEC 28 as directed / NORGESTIMATE-ETH 47042410561 Flor Marlow TABS 17 ESTRADIOL TABS Johnny GENERAL EDUCATION INSTRUCTOR Medications Administered No information available. Allergies, Adverse Reactions, Alerts Allergy Name Reaction Description Start Date Severity Status Provider AMOXICILLIN hives Critical Active Flor Marlow Johnny GENERAL EDUCATION INSTRUCTOR Results Date Name Value Unit Range Flag Description Office Visit: UC: URI MEDS REVIEW Done Documentation of current medications (procedure) FALLRSKASSES No Fall risk assessment SMOK STATUS Never smoker Tobacco use [facility] Plan of Care Type Date Detail Pending order Follow Up with Primary Care Physician Procedures No information available. Vital Signs Date Name Value Unit Description BMI (Body Mass Index) 30.45 kg/m2 Body Mass Index [Ratio] Body Temperature 98.2 [degF] temperature E&M BP Diastolic 84 mm[Hg] blood pressure, diastolic - 8462-4 BP Systolic 124 mm[Hg] blood pressure, systolic - 8480-6 Heart Rate 108 /min pulse rate E&M - 8867-4 Height 59 [in_us] height E&M - 8302-2 Respiratory Rate 15 /min respiratory rate E&M - 9279-1 Weight Measured 150.8 [lb_av] weight E&M - 3141-9
--- OUTSIDE RECORDS SUMMARY | 2018-10-02 07:52 | XMS RPT_ITS | Clinical Summary ---
:1975 Author Organization [facility], [facility] Address [address] [place] [address] Phone Care Team Providers Name Role Phone Garrett HOMELAND SECURITY PROGRAM SPECIALIST-C, Perry A Unavailable 330 Conditions or Problems Problem Name Problem Onset Status Entry Provider Comment Standard Annotate Code Date Date Description Alcohol abuse 28648569 Active Perry A Alcohol abuse (SNOMED CT) / Garrett HOMELAND SECURITY PROGRAM SPECIALIST-C Hypokalemia 86189908 Active Perry A Hypokalemia (SNOMED CT) / Garrett HOMELAND SECURITY PROGRAM SPECIALIST-C Elevated ALT 116862550 Active Perry A ALT (SGPT) (SNOMED CT) / Garrett level raised HOMELAND SECURITY PROGRAM SPECIALIST-C Alcoholic 673687103 Active Perry A Alcoholic hepatitis (SNOMED CT) / Garrett hepatitis HOMELAND SECURITY PROGRAM SPECIALIST-C Jaundice 24262537 Active Perry A Jaundice (SNOMED CT) / Garrett HOMELAND SECURITY PROGRAM SPECIALIST-C Tachycardia 5199020 Active Perry A Tachycardia (SNOMED CT) / Garrett HOMELAND SECURITY PROGRAM SPECIALIST-C Cough 30616208 Active Perry A Cough (SNOMED CT) / Garrett HOMELAND SECURITY PROGRAM SPECIALIST-C Acute 63816005 Active Kosta D Acute sinusitis (SNOMED CT) / Jeramie YEE sinusitis Asthma, with 503781849 Active Kosta D Exacerbation acute (SNOMED CT) / Jeramie YEE of asthma exacerbation Medications Medication Instructions Start Stop Generic Name NDC Provider Date Date DOXYCYCLINE One tablet by / DOXYCYCLINE 20932206068 Perry A MONOHYDRATE mouth twice 22 MONOHYDRATE Garrett 100 MG CAPS daily HOMELAND SECURITY PROGRAM SPECIALIST-C PREDNISONE 20 Two tablet by / PREDNISONE 24967151412 Perry A MG TABS mouth daily 22 Garrett HOMELAND SECURITY PROGRAM SPECIALIST-C ZITHROMAX Take 2 pills on AZITHROMYCIN 06825901292 Kosta James Z-TAZ 250 MG day 1 then 1 08/06 Jeramie YEE TABS pill days 2 through 5 MEDROL 4 MG Take as METHYLPREDNISOLONE 75476007076 Kosta James TBPK directed 08/06 Jeramie YEE DILTIAZEM HCL One tablet by / DILTIAZEM HCL TABS 76321580373 Perry A TABS mouth daily 22 Garrett HOMELAND SECURITY PROGRAM SPECIALIST-C KLONOPIN 1 MG One tablet by / CLONAZEPAM 32130507887 Perry A TABS mouth daily as 22 Garrett needed HOMELAND SECURITY PROGRAM SPECIALIST-C SINGULAIR 10 One tablet by / MONTELUKAST SODIUM 12625374069 Perry A MG TABS mouth daily 22 Garrett HOMELAND SECURITY PROGRAM SPECIALIST-C DOXYCYCLINE One tablet by DOXYCYCLINE 81901948375 Perry A MONOHYDRATE mouth twice 08/06 MONOHYDRATE Garrett 100 MG CAPS daily HOMELAND SECURITY PROGRAM SPECIALIST-C VENTOLIN HFA as directed / ALBUTEROL SULFATE 37934971625 Flor N AERS 17 AERS Johnny SERVICE DEPARTMENT MANAGER SPRINTEC 28 as directed / NORGESTIMATE-ETH 54606963814 Flor Marlow TABS 17 ESTRADIOL TABS Johnny SERVICE DEPARTMENT MANAGER KLOR-CON M20 One tablet by / POTASSIUM CHLORIDE 22181470304 Perry A 20 MEQ CR-TABS mouth daily 22 CHRSITIE ER Garrett HOMELAND SECURITY PROGRAM SPECIALIST-C Medications Administered No information available. Allergies, Adverse Reactions, Alerts Allergy Name Reaction Description Start Date Severity Status Provider AMOXICILLIN hives Critical Active Flor Turner LPN Results Date Name Value Unit Range Flag Description Office Visit: Asthma exacerbation, sinusitis alcoholic hepatitis, elevated AST MEDS REVIEW Done Documentation of current medications (procedure) FALLRSKASSES No Fall risk assessment SMOK STATUS Never smoker Tobacco use [facility] Lab Report: CBC W/Diff, Automated LYMPHCT [...] 4.4-11.0 leukocyte (white blood cells) count, blood Lab Report: Thyroid Stim Hormone (TSH) TSH 3.91 u[iU]/mL 0.358-3.74 H thyroid stimulating hormone, serum Lab Report: T4 Free Direct T4, FREE 1.29 ng/dL 0.76-1.46 thyroxine, serum, free Replaced Document: Comprehensive Metabolic Profil ANION GAP 15 5-15 anion gap, serum CO2 29.0 mmol/L 21.0-32.0 carbon dioxide, venous blood CHLORIDE 91 mmol/L 98-107 L chloride, serum POTASSIUM 3.6 mmol/L 3.5-5.1 potassium, serum SODIUM 135 mmol/L 136-145 L sodium, serum BILI TOTAL 12.50 mg/dL 0.20-1.00 H bilirubin, serum, total SGPT (ALT) 124 U/L 12-78 H alanine aminotransferase (SGPT), serum ALK PHOS 241 U/L 45-117 H alkaline phosphatase, serum SGOT (AST) 195 U/L 15-37 H aspartate aminotransferase (SGOT), serum CALCIUM 9.7 mg/dL 8.5-10.1 calcium, serum A/G RATIO 0.7 RATIO 0.9-2.4 L albumin/globulin ratio, serum GLOBULIN TOT 3.5 g/dL 2.2-4.2 globulins, serum, total ALBUMIN 2.5 g/dL 3.4-5.0 L albumin, serum PROTEIN, TOT 6.0 g/dL 6.4-8.2 L protein, total, serum BUN/CREAT 7.1 RATIO 10-20 L urea nitrogen/creatinine ratio, serum GFRAA 69 mL/min >60 Glomerular Filtration rate GFR EST 57 mL/min >60 L estimated glomerular filtration rate CREATININE 1.12 mg/dL 0.55-1.02 H creatinine, serum BUN 8 mg/dL 7-18 urea nitrogen, blood GLUCOSE SER 91 mg/dL 70-110 blood glucose Lab Report: Amylase AMYLASE 47 U/L 25-115 amylase, serum Lab Report: Lipase LIPASE SERUM 217 U/L 73-393 lipase, serum Lab Report: GGTP GGT 4151 U/L 5-55 H gamma glutamyl transferase, serum Plan of Care Type Date Detail Appointment 01:00 PM Toni Serrano MD, [address] [facility], [address], [place], [address], Referral Gastroenterology Referral Lolialfred Hugheswilber, [address] [facility], [address], [place], [address] Pending order *CMP Complete Metabolic Panel Pending [...] Procedures Code Procedure Name Date Entry Date CPT-61564 GGT CPT-90706 Amylase 3040-3 *Lipase 0786-1 *CMP Complete Metabolic Panel 0786-1 *CMP Complete Metabolic Panel 3024-7 *T4 free 3016-3 *TSH 0184-1 *CBC with Differential CPT-05228 X-Ray, Chest, PA & Lateral CPT-76885 GGT [id number] Gastroenterology Referral FUA 2 weeks Follow Up Appt 2 weeks Vital Signs Date Name Value Unit Description [...]
--- OUTSIDE RECORDS SUMMARY | 2018-10-02 07:52 | XMS RPT_ITS | Clinical Summary ---
:1975 Author Organization [facility] Address [address] [place] [address] Phone Care Team Providers Name Role Phone Jeramie YEE, Kosta James Unavailable Conditions or Problems Problem Name Problem Onset Status Entry Provider Comment Standard Annotate Code Date Date Description Acute 81918418 Active Kosta James Acute sinusitis (SNOMED CT) / Jeramie YEE sinusitis Asthma, with 636462657 Active Kosta James Exacerbation acute (SNOMED CT) / Jeramie YEE of asthma exacerbation Medications Medication Instructions Start Stop Generic Name NDC Provider Date Date ZITHROMAX Take 2 pills on AZITHROMYCIN 81259375601 Kosta James Z-TAZ 250 MG day 1 then 1 Jeramie YEE TABS pill days 2 through 5 MEDROL 4 MG Take as METHYLPREDNISOLONE 63040959031 Kosta D TBPK directed Jeramie YEE VENTOLIN HFA as directed / ALBUTEROL SULFATE 06680689492 Flor Marlow AERS 17 AERS Johnny SENIOR CLINICAL DATA COORDINATOR SPRINTEC 28 as directed / NORGESTIMATE-ETH 11566752264 Flor Marlow TABS 17 ESTRADIOL TABS Johnny SENIOR CLINICAL DATA COORDINATOR Medications Administered No information available. Allergies, Adverse Reactions, Alerts Allergy Name Reaction Description Start Date Severity Status Provider AMOXICILLIN hives Critical Active Flor Marlow Johnny SENIOR CLINICAL DATA COORDINATOR Results Date Name Value Unit Range Flag Description Office Visit: UC: URI MEDS REVIEW Done Documentation of current medications (procedure) FALLRSKASSES No Fall risk assessment SMOK STATUS Never smoker Tobacco use [facility] Plan of Care Type Date Detail Appointment 09:30 AM Perry JENKINS-Kelley, [address] [facility], [address], [place], [address], Pending order Follow Up with Primary Care [...]
--- OUTSIDE RECORDS SUMMARY | 2018-10-02 07:53 | XMS RPT_ITS | Clinical Summary ---
:1975 Author Organization [facility], [facility] Address [address] [place] [address] Phone Care Team Providers Name Role Phone Ivette Prakash LPN Unavailable Conditions or Problems Problem Name Problem Onset Status Entry Provider Comment Standard Annotate Code Date Date Description Alcohol abuse 50399363 Active Perry A Alcohol abuse (SNOMED CT) / Garrett FRONT DESK PERSON-C Hypokalemia 43832987 Active Perry A Hypokalemia (SNOMED CT) / Garrett FRONT DESK PERSON-C Elevated ALT 264158362 Active Perry A ALT (SGPT) (SNOMED CT) / Garrett level raised FRONT DESK PERSON-C Alcoholic 965095407 Active Perry A Alcoholic hepatitis (SNOMED CT) / Garrett hepatitis FRONT DESK PERSON-C Jaundice 94325599 Active Perry A Jaundice (SNOMED CT) / Garrett FRONT DESK PERSON-C Tachycardia 5470590 Active Perry A Tachycardia (SNOMED CT) / Garrett FRONT DESK PERSON-C Cough 69782329 Active Perry A Cough (SNOMED CT) / Garrett FRONT DESK PERSON-C Acute 66267922 Active Kosta D Acute sinusitis (SNOMED CT) / Jeramie YEE sinusitis Asthma, with 656592942 Active Kosta D Exacerbation acute (SNOMED CT) / Jeramie YEE of asthma exacerbation Medications Medication Instructions Start Stop Generic Name NDC Provider Date Date DOXYCYCLINE One tablet by / DOXYCYCLINE 52828550001 Perry A MONOHYDRATE mouth twice 22 MONOHYDRATE Garrett 100 MG CAPS daily FRONT DESK PERSON-C PREDNISONE 20 Two tablet by / PREDNISONE 01687235729 Perry A MG TABS mouth daily 22 Garrett FRONT DESK PERSON-C ZITHROMAX Take 2 pills on AZITHROMYCIN 00385576160 Kosta James Z-TAZ 250 MG day 1 then 1 08/06 Jeramie YEE TABS pill days 2 through 5 MEDROL 4 MG Take as METHYLPREDNISOLONE 80608327262 Kosta James TBPK directed 08/06 Jeramie YEE DILTIAZEM HCL One tablet by / DILTIAZEM HCL TABS 27374820736 Perry A TABS mouth daily 22 Garrett FRONT DESK PERSON-C KLONOPIN 1 MG One tablet by / CLONAZEPAM 88801333291 Perry A TABS mouth daily as 22 Garrett needed FRONT DESK PERSON-C SINGULAIR 10 One tablet by / MONTELUKAST SODIUM 08431461432 Perry A MG TABS mouth daily 22 Garrett FRONT DESK PERSON-C DOXYCYCLINE One tablet by DOXYCYCLINE 18928197748 Perry A MONOHYDRATE mouth twice 08/06 MONOHYDRATE Garrett 100 MG CAPS daily FRONT DESK PERSON-C VENTOLIN HFA as directed / ALBUTEROL SULFATE 08532596875 Flor N AERS 17 AERS Johnny KNIFE CHANGER SPRINTEC 28 as directed / NORGESTIMATE-ETH 52624482875 Flor Marlow TABS 17 ESTRADIOL TABS Johnny KNIFE CHANGER KLOR-CON M20 One tablet by / POTASSIUM CHLORIDE 28861750650 Perry A 20 MEQ CR-TABS mouth daily 22 CHRISTIE ER Garrett FRONT DESK PERSON-C Medications Administered No information available. Allergies, Adverse Reactions, Alerts Allergy Name Reaction Description Start Date Severity Status Provider AMOXICILLIN hives Critical Active Flor Turner KNIFE CHANGER Results Date Name Value Unit Range Flag Description Office Visit: Asthma exacerbation, sinusitis alcoholic hepatitis, elevated AST MEDS REVIEW Done Documentation of current medications (procedure) FALLRSKASSES No Fall risk assessment SMOK STATUS Never smoker Tobacco smoking status [facility] Lab Report: CBC W/Diff, Automated LYMPHCT AUTO [...] serum Plan of Care Type Date Detail Referral Gastroenterology Referral Damir Rowley, [address] [facility], [address], [place], [address] Pending order Liver Pending order *CMP Complete Metabolic Panel Pending [...] Procedures Code Procedure Name Date Entry Date CPT-67306 GGT CPT-12489 Amylase 3040-3 *Lipase 0786-1 *CMP Complete Metabolic Panel 0786-1 *CMP Complete Metabolic Panel 3024-7 *T4 free 3016-3 *TSH 0184-1 *CBC with Differential CPT-37131 X-Ray, Chest, PA & Lateral CPT-70972 GGT [id number] Gastroenterology Referral FUA 2 weeks Follow Up [...]
--- OUTSIDE RECORDS SUMMARY | 2018-10-02 07:53 | XMS RPT_ITS ---
:1975 Author Organization OHIP Care Team Providers Name Role Phone CECELIA AGUILAR ([employer]) Attending Unavailable MALACHI KEARNEY ([employer]) Referring Unavailable Hali Gaxiola . Attending Unavailable PROVIDER, UNKNOWN Referring Unavailable No, PCP Primary Care Unavailable Nasima Pat Primary Care Unavailable Agyepong, Mani Admitting Unavailable Agyepong, Mani Referring Unavailable Jani, Meri S. Consulting Unavailable Irene Carey Attending Unavailable Agyepong, Mani Admitting Unavailable Agyepong, Mani Attending Unavailable Agyepong, Mani Referring Unavailable Audra ELLIS, Nasima Primary Care Unavailable Jani, Meri S. Consulting Unavailable Agyepong, Mani Consulting Unavailable Damir Rowley Attending Unavailable Primay Care Physicia, No Primary Care Unavailable Agyepong, Mani Admitting Unavailable Agyepong, Mani Referring Unavailable Audra ELLIS, Nasima Primary Care Unavailable Jani, Meri S. Consulting Unavailable Agyepong, Mani Attending Unavailable Irene Carey Consulting Unavailable PROBLEMS PROBLEMS DATE TYPE CONDITION / CODE ATTENDING STATUS SOURCE 07/11/2018 Unknown R55 - Syncope Agrsoepong, Mani Active [place] and collapse / Community R55(ICD-10) Hospital Repository PROCEDURES PROCEDURES No Procedure Records FoundRESULTS RESULTS DISCHARGE SUMMARY Observed: 07/11/2018 Status: F Source: [place] 2:40 PM [facility] REPOSITORY [facility] Medical Records Department [address] [place] [address] Discharge Summary 06/29/18 1820 MR#: [id number] Acct: [id number] Name: NANCY HELLER Rep #: [id number] : 1975 43 From: Donell YEE PCP: Nasima Pat Status: DIS NAYANA Y Location: [place] [address] ADDENDUM by Irene Carey on 07/11/18 at 1440 Code Visit This patient was seen in conjunction with Zain YEE. I have independently interviewed and examined the patient and reviewed pertinent historical, laboratory and other data. Please refer to discharge summary note for details of this patient's presentation, findings and recommendations. I have reviewed Donell's note and concur fully with documented findings. In brief, patient is a 43YO male admitted with seizure. she has been abusing ETOH but, had not had a drink in at least 3 weeks and this made ETOH withdrawal very unlikely. Lactic acid was elevated at 5.4 at admission and the serum bicarb was 19. She was afebrile with a white blood cell count of 9.1 and 14% eosinophils. An EEG was done and was a normal awake and asleep EEG. CT brain was a negative. MRI of the brain showed no evidence of acute infarct, hemorrhage, mass or abnormal enhancement. There was a remote infarct in the left cerebellar hemisphere. She had no seizure activity while in the hospital. She was seen by neurology and was discharged on 750 mg of Keppra twice daily. She was instructed not to drive until seen in follow-up by neurology. Physical examination: I agree with the physical examination as documented by Donell Pittman below. Cranial nerves II were grossly intact and the remainder of the neuro exam was unremarkable. Assessment: 1. Probable seizure disorder 2. History of EtOH abuse -but the seizure was not in close approximation to the recent detox and discontinuation of alcohol consumption. I have discussed my assessment with Donell and orders have been written. OBSV E AND M: [id number] Observation care discharge 07/11/18 1440 <Electronically signed by Madi aCrey DO> Date Madi Carey DO cc: JOSELITO Pittman; Irene Carey; Nasima ELLIS; Gerald Acosta MD * Signed Discharge Date and Diagnosis - Problem List Patient Problems: Active and Suspected Problems (Last Updated 06/29/18 @ 03:48 by Mani Rachel MD) Seizure (Acute) Moderate persistent asthma (Acute) Rhinitis (Acute) Date of Admission: 06/28/18 Date of Discharge: 06/29/18 - Primary Discharge Diagnosis Active and Suspected Problems (Last Updated 06/29/18 @ 03:48 by Mani Rachel MD) Seizure Alcoholism with recent detox ZANE metabolic acidosis 2/2 seizure HTN Moderate persistent asthma (Acute) Rhinitis (Acute) Hospital Course and Treatment Imaging Results: CT/Brain/Head without Contrast IMPRESSION: No acute intracranial abnormality. 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 RAD/Chest PA and Lateral IMPRESSION: No acute thoracic pathology. MRI final report pending EEG final report pending. Consults: Karla - Neuro Procedures: Electroencephalogram Summary of Care Provided: Hospital Course: The patient is a 43 year old F with pmhx of seizure during childhood, alcoholism with recent detox, asthma, htn, anxiety, who presented to the ER with c/o seizure. Hear father heard her collapse and went to check on her, found her unconscious, not shaking. She awoke after several minutes of him trying to wake her, when she came to she was very confused and gradually returned to normal. She then later had a witnessed episode where she became unresponsive while sitting had muscle contractions and shaking. She also gradually returned to normal after waking up confused. No incontinence. She had recently been discharged from [facility] where she was treated for alcohol withdrawal. She had received phenobarb and most recently vivitrol. She had been sober since discharge per her father. She was admitted for seizure. She had elevated lactate and meatbolic acidosis. She also had ZANE. She was given fluids and keppra. Acidosis and ZANE resolved overnight. Neuro was consulted. CT brain was negative, followed by negative MRI brain and EEG (which final reports are pending at this time - reportedly normal per neuro). She had no further seizure activity. She was cleared by neurology for discharge on keppra 750 BID, and she was dc'd home in stable condition. She was placed on a driving restriction. She will need follow up with her PCP and Neurologist. Alcohol abstinence was re-emphasized. This patient was seen by Donell Pittman PA-C under the supervision of Dr. Carey [] Patient Problems: Active and Suspected Problems (Last Updated 06/29/18 @ 03:48 by Mani Rachel MD) Seizure (Acute) Moderate persistent asthma (Acute) Rhinitis (Acute) - Physical Exam General: Alert, Oriented x3, Cooperative HEENT: Atraumatic, PERRLA, EOMI, Normocephalic Neck: Supple, No JVD, Negative Carotid Bruits Lungs: Clear to auscultation, Normal air movement Cardiovascular: Regular rate, No murmurs Abdomen: Bowel Sounds Present, Soft, Non Tender Extremities: No edema, Capillary Refill Less than 3 Seconds Skin: No rashes, No breakdown Musculoskeletal: No Tenderness to Palpation of Joints or Extremities Neurological: Cranial nerves II-XII grossly intact Psych/Mental Status: Normal Affect, Appropriate, Alert and oriented to time, place, person, mood and affect Vital Signs Temp Pulse Resp BP Pulse Ox 98.3 F 83 18 119/80 99 06/29/18 17:54 06/29/18 17:54 06/29/18 17:54 06/29/18 17:54 06/29/18 17:54 Oxygen Delivery Method Room Air Weight: 139 lb 3.198 oz Body Mass Index (BMI) 28.0 Intake and Output for Last 24 Hours Intake Total 960 / 960 Balance 960 / 960 Laboratory Tests Past 24 Hrs WBC 9.1 RBC 3.84 L WBC RBC Hgb Hct MCV MCH MCHC RDW RDW Differential Plt Count MPV Immature Gran % (Auto) WBC RBC Hgb Hct MCV MCH MCHC RDW RDW Differential Plt Count MPV Immature Gran % (Auto) Discharge Diet: Low fat/ Low Cholesterol, 2000 mg Sodium Diet Discharge Activity: - - No driving, no alcohol Home Medications: Medications to take at Discharge Albuterol Inhaler [Ventolin Hfa] 1 - 2 puff INHALATION Q4H PRN PRN 06/28/18 Clonazepam 0.5 mg PO BID PRN 06/28/18 Lisinopril [Zestril] 10 mg PO DAILY 06/28/18 Pantoprazole Sodium [Protonix] 40 mg PO BID 06/28/18 Norgestimate-Ethinyl Estradiol [Previfem] 1 tab PO DAILY 06/29/18 levETIRAcetam tablet [Keppra tablet] 750 mg PO BID #60 tablet 06/29/18 Following Prescrptions Were Given to Patient: levETIRAcetam tablet [Keppra tablet] 750 mg PO BID #60 tablet Primary Care Physician: Nasima Zhu NP-C [Primary Care Provider] - Please follow up with your Primary Care Physician in: 1-2 weeks Please Follow Up With: Gerald Acosta MD When: 1-2 weeks Disposition: Home Minutes spent on discharge:: 40 Patient Condition:: Stable Medical Necessity - Tobacco Use Smoking Status: Never smoker Meaningful Use Info Meaningful Use Diagnoses (Choose all that apply): None applicable 06/29/18 298 <Electronically signed by Donell YEE> Date Donell YEE 07/11/18 1434<Electronically signed by Madi Carey DO> Cosigner Signature (if applicable): Date Madi Carey DO CC: JOSELITO Pittman; Irene Carey; Nasima ELLIS; Gerald Acosta MD Signed 12 LEAD ELECTROCARDIOGRAM Observed: 07/03/2018 Status: F Source: [place] 3:50 PM [facility] REPOSITORY [facility] Cardiovascular Services [address] [place] [address] 12 Lead EKG 06/28/182038 MR#: [id number] Acct: [id number] Name: NANCY HELLER Rep #: [id number] : 1975 43 From: Greg Edwards MD Attending Dr: Irene Carey Status: DIS NAYANA Ordering Dr: Ronni Santos DO Date: 06/28/18 Location: [facility] Sex: F C Admitted: 06/29/18 Test Reason : Blood Pressure : / mmHG Vent. Rate : 109 BPM Atrial Rate : 109 BPM P-R Int : 140 ms QRS Dur : 074 ms QT Int : 334 ms P-R-T Axes : 060 033 069 degrees QTc Int : 449 ms Sinus tachycardia Possible Left atrial enlargement Borderline ECG Confirmed by GREG EDWARDS MD ([id number]), photographic editor ABDON KEITH ([id number]) on 07/03/2018 3:49:26 PM Referred By: Mani Rachel Confirmed By:GREG EDWARDS MD 07/03/18 1549 Date Greg Edwards MD CC: Irene Carey; Ronni Santos DO; Nasima ELLIS; Mani Rachel MD Signed EMERGENCY DEPARTMENT Observed: 07/02/2018 Status: F Source: [place] SUMMARY 12:00 AM [facility] REPOSITORY [facility] Medical Records Department [address] [place] [address] Emergency Department Summary 06/28/182058 MR#: [id number] Acct: [id number] Name: NANCY HELLER Rep #: [id number] : 1975 43 From: Ronni Santos DO PCP: Nasima Pat Status: DIS NAYANA - ER Visit Summary Date of Service: 06/28/18 Chief Complaint: Syncope History of Present Illness: The patient is a 43 F who is brought in by EMS for syncope. Patient states the last thing she remembers was sitting on the couch watching a [employer] movie. Father states that he came down the stairs and found her on the ground on her back laid right next to the couch. She was unresponsive. He tried to stimulate her and was not successful. He states he went out to call 911 when he came back her eyes were open but she was not really responding then she was responding but confused and now seems to be back at her baseline. On the June 15 she went and had her last alcoholic drink. She went to rehab and was discharged on Sunday. While at rehab she was on phenobarbital. On Sunday she received a Vivitrol shot. She states that she did not have DTs. She had a seizure many years ago but is not currently treated for any. She denies any current pain. She denies any headache. She denies any bleeding or injuries from tonight's events. Physical Examination: 150/109 heart rate of 119 respirations are 19 and pulse ox is 94% and patient is afebrile Gen: Well-nourished well-developed Head: Normocephalic atraumatic Eyes: Perrl EOMI ENT: TMs clear no rhinorrhea moist mucous membranes Neck: Supple no lymphadenopathy no JVD nontender CVS: Regular rate tachycardia rhythm no murmurs normal S1-S2 Respiratory: No distress clear to auscultation bilaterally chest nontender Abdomen: Soft nontender nondistended normal bowel sounds no masses Back: Nontender Extremity: Nontender no edema Skin: Normal color no rash Neuro: alert orientated 3 CN II-XII intact normal strength sensation reflexes gait cerebellar Psych: Normal affect normal mood Test Results: EKG demonstrates a sinus tachycardia at a rate of 109. Lactic acid is elevated 5.4. Troponin negative. Alcohol level negative. Toxicology shows barbiturates (most likely from phenobarbital). CT of the brain demonstrates a area in the left cerebellum shows some encephalomalacia. Emergency Department Course and Treatment: Seizure precautions were implemented. Patient was placed on the monitor. While in the department the patient had a approximate 30-minute generalized seizure with postictal period. She received a milligram of Ativan and 1 g of Keppra. I spoke with neurology who recommends admission for MRI EEG and recommend she be started on 750 mg of Keppra twice daily. Impression: 1. Seizure This note was generated with [employer] dictation software. It may contain incorrect words, spelling, and punctuation that were not noted in review of the chart prior to signing ED Disposition - Plan for ED Patient: Chief Complaint: Syncope Referrals: Nasima Zhu, [employer]YMAN-C [Primary Care Provider] - What to do if you have Problems For any increased pain, shortness of breath, bleeding, nausea or vomiting, chest pain, or any unexpected problems, contact your Primary Care Provider. Call [facility] ([phone]) or report to the closest Emergency Room. Call 911 if necessary. 07/02/18 0000 <Electronically signed by Ronni Santos DO> Date Ronni Santos DO Cosigner Signature (If Indicated): Date CC: Nasima ELLIS ELECTROENCEPHALOGRAM Observed: 06/30/2018 Status: F Source: [place] 2:03 PM [facility] REPOSITORY [facility] Pulmonary Services/Neurology [address] [place] [address] MR#: [id number] Acct: [id number] Name: NANCY HELLER Rep #: [id number] : 1975 43 From: Gerald Acosta MD Referring Dr: Irene Carey Status: DIS IN Ordering Dr: Date: Location: [address] Sex: F C - Electroencephalogram Date of service 06/29/18 This is an 18 channel electron esophagram performed utilizing the International 10-20 electrode placement protocol on this 43-year-old female with history of seizure and possible withdrawal. Hyperventilation, photic stimulation and EKG reference leads were also obtained. The patient did experience light sleep during the recording. Background activity is 9 Hz symmetrically in the posterior leads which attenuates with eye-opening. Hyperventilation is performed for 2 minutes with good effort with no lateralizing or epileptiform changes and the post hyperventilatory phase is unremarkable. The patient did drowse during the recording with no lateralizing or epileptiform changes. EKG is normal sinus rhythm throughout the recording. Extremity relation generates a normal symmetric driving response. Impression: Normal awake and asleep electroencephalogram. 06/30/18 1403 <Electronically signed by Gerald cAosta MD> Date Gerald Acosta MD CC: Irene Carey; Nasima ELLIS; Mani Rachel MD; Gerald Acosta MD Date Dictated: 06/30/18 131 Date Transcribed: 06/30/181314 Director Of Retention: GRECIA Signed DISCHARGE INSTRUCTION Observed: 06/29/2018 Status: F Source: [place] 11:34 AM [facility] REPOSITORY [facility] Medical Records Department [address] [place] [id number] Instructions for Home/Discharge Instructions 06/29/18 1133 MR#: [id number] Acct: [id number] Name: NANCY HELLER Rep #: [id number] : 1975 43 From: Donell YEE PCP: Nasima Pat Status: ADM IN - Discharge Diagnoses Current Active Problems: Current Active and Chronic Problems (Last Updated 06/29/18 @ 03:48 by Mani Rachel MD) Seizure (Acute) Moderate persistent asthma (Acute) Rhinitis (Acute) You will use the following diet at home:: Cardiac, Other - no alcohol at all Your food should be the consistency of: Regular Your liquids should be the consistency of: Regular/Thin Discharge Activity: Return to Normal Activity Additional Instructions: NO Driving until cleared to drive by Neurology. Allergies/Adverse Reactions: Allergies amoxicillin Allergy (Verified 06/28/18 20:34) Hives Medications to take at Discharge Albuterol Inhaler [Ventolin Hfa] 1 - 2 puff INHALATION Q4H PRN PRN 06/28/18 Clonazepam 0.5 mg PO BID PRN 06/28/18 Lisinopril [Zestril] 10 mg PO DAILY 06/28/18 Pantoprazole Sodium [Protonix] 40 mg PO BID 06/28/18 Norgestimate-Ethinyl Estradiol [Previfem] 1 tab PO DAILY 06/29/18 levETIRAcetam tablet [Keppra tablet] 750 mg PO BID #60 tablet 06/29/18 The following prescriptions were given: levETIRAcetam tablet [Keppra tablet] 750 mg PO BID #60 tablet Primary Care Physician: Nasima Zhu, ADDIE-C [Primary Care Provider] - Please follow up with your Primary Care Physician in: 1-2 weeks Test Results: Test results from this visit will be discussed in further detail at your follow-up appointment, if applicable. Please Follow Up With: Gerald Acosta MD When: 1-2 weeks Proposed Discharge Date: 06/29/18 06/29/18 1134 <Electronically signed by Donell YEE> Date Donell YEE CC: Suellen Gunter MD; Nasima ELLIS BASIC METABOLIC Collected: 06/29/2018 Status: F Source: [place] PROFILE (BMP) 6:47 AM [facility] REPOSITORY TYPE CODE TESTS RESULT OUT OF RANGE REFERENCE UNITS LAB L501.0100 74-106 mg/dL Normal GLU 95 Result Comment: Please note revised GLUCOSE reference range effective 2017. LAB L501.1000 7-18 mg/dL Low BUN 4 LAB L501.1100 0.55-1.02 mg/dL Normal CREAT,SERUM 0.64 Result Comment: The validity of the calculated GFR AND GFRAA in patients over 70 years has not been determined. Clinical correlation is essential. LAB L501.1110 >60 mL/min Normal EST GFR 110 Result Comment: Non- GFR Calc LAB L501.1115 >60 mL/min Normal EST GFR - AA 133 Result Comment: GFR Calc LAB L501.1255 ml/min Normal Estimated CRCL 115.30 LAB L501.1300 10-20 RATIO Low BUN/CRE 6.3 LAB L501.2200 8.5-10 mg/dL Low .1 CA 8.4 LAB L501.5300 136-14 mmol/L 5 NA Normal 144 LAB L501.5600 3.5-5. mmol/L 1 K Normal 3.8 LAB L501.5900 98-107 mmol/L High CL 112 LAB L501.6100 21.0-3 mmol/L 2.0 CO2 Normal 23.0 LAB L501.6200 5-15 GAP Normal 9 Performed By: #### L500.2500 #### [facility] [address] [place], [address] HISTORY AND PHYSICAL Observed: 06/29/2018 Status: F Source: [place] EXAM 5:13 AM [facility] REPOSITORY [facility] Medical Records Department [address] [place] [address] History and Physical 06/28/18 2325 MR#: [id number] Acct: [id number] Name: NANCY HELLER Rep #: [id number] : 1975 43 From: Mani Rachel MD PCP: Nasima Pat Status: ADM IN Location: [place] [id number] Problem List (1) Seizure Status: Acute (2) Moderate persistent asthma Status: Acute (3) Rhinitis Status: Acute History of Present Illness Date of Admission: 06/28/18 Chief Complaint: unresponsiveness The patient is a 43 year old F with a significant history of anxiety; hypertension; asthma; and previous alcoholism who presented to the emergency department because of unresponsiveness a few hours prior to presentation. Patient lives at home with his father. His father heard a noise like somebody falling for which reason patient's father checked on patient. Patient father realized that patient was lying down, incoherent and although was breathing she was not responding to commands. The paramedics were called. Patient actually got more responsive before arrival at the emergency department. At emergency department patient was coherent however she had a witnessed tonic clonic seizure. At no point did patient have any bowel or bladder incontinence; or a biting of the tongue. Her initial lactic acid at emergency department was 5.4. Patient reported that she spent 1 week at [place], [place], for detoxification from ethanol. She was discharged from detoxification center about 4 days ago. Six days ago patient took a dose of phenobarbital while at [facility] detoxification center. Also upon release from detoxification center patient took Vivitrol. Vivitrol was taken 2 days prior to presentation. She received the Vivitrol at 180. At emergency department EMANI 10 was positive for barbiturates. Because of the witness seizure at the ED, patient was given IV Ativan and a dose of Keppra while at the Emergency Department. Emergency Department doctor discussed case with neurologist. Emergency department doctor reported neurologist recommendation as: Keppra 750 mg twice daily; EEG; MRI of the brain; and no driving. Patient reported that when she was a child, at about age 8 years she had a one time episode of seizure. Further, patient reports that she has had increasing shortness of breath that she attributes to her asthma worsening secondary to the cold. At the emergency department she was given a breathing treatments because she complained of shortness of breath. Also, she reports rhinorrhea and cold sore on her mouth. Her cold sore on her mouth is improving. Reportedly patient had a divorce in February 2018 and has been more anxious; worsening her drinking behavior. However, she had a new niece in the family, for which reason she has been motivated to quit drinking Past Medical History Medical History: Medical History (Last Updated 06/29/18 @ 03:48 by Mani Rachel MD) Alcohol abuse F10.10 Asthma J45.909 Allergies amoxicillin Allergy (Verified 06/28/18 20:34) Hives Home Medications: Ambulatory Orders Medication Instructions Recorded Albuterol Inhaler [Ventolin Hfa 1 - 2 puff INHALATION Q4H PRN PRN 06/28/18 (SP)] Clonazepam 0.5 mg PO BID PRN 06/28/18 Surgical History: tonsillectomy, - - Surgery on the face to remove precancerous birthmark Lives: With Family Smoking Status: Never smoker Alcohol: Sober - *Family History Paternal Family History: Family History (Last Reviewed 06/29/18 @ 05:07 by Mani Rachel MD) Father Myocardial infarction Review of Systems Constitutional: Denies: Chills, Fever, Weight Change HEENT: Reports: Sinus Drainage. Denies: Head Aches Cardiovascular: Denies: Chest Pain, Palpitations Respiratory: Reports: Shortness of Breath. Denies: Cough Gastrointestinal: Denies: Abdominal Pain, Nausea, Vomiting Genitourinary: Denies: Dysuria Musculoskeletal: Denies: Joint Pain, Joint Tenderness Skin: Denies: Rash, Wounds Neurological: Denies: Numbness, Tingling, Focal weakness Psychiatric: Denies: Anxiety, Depression, Homicidal Ideations, Suicidal Ideations Hematologic/ Lymphatic: Denies: Easy Bruising, Easy Bleeding VTE Information - Inpt Only VTE Present on Admission: No VTE Mechan Device Prophylaxis: None VTE Pharm Prophylaxis ordered?: Yes Patient Problems: Active and Suspected Problems (Last Updated 06/29/18 @ 03:48 by Mani Rachel MD) Seizure (Acute) Moderate persistent asthma (Acute) Rhinitis (Acute) - Physical Exam General: Alert, Oriented x3, Cooperative HEENT: Atraumatic, PERRLA, EOMI, Normocephalic, - - blister on lip Neck: Supple, No JVD, Negative Carotid Bruits Lungs: Clear to auscultation, Normal air movement Cardiovascular: Regular rate, No murmurs Abdomen: Bowel Sounds Present, Soft, Non Tender Extremities: No edema, Capillary Refill Less than 3 Seconds Skin: No rashes, No breakdown Musculoskeletal: No Tenderness to Palpation of Joints or Extremities Neurological: Neuro grossly intact Psych/Mental Status: Normal Affect, Appropriate Vital Signs Temp Pulse Resp BP Pulse Ox 98.1 F 109 H 19 H 122/89 H 97 06/28/18 20:28 06/28/18 22:27 06/28/18 22:27 06/28/18 22:27 06/28/18 22:27 Oxygen Delivery Method Room Air Weight: 65.3 kg Body Mass Index (BMI) 29.0 Laboratory Tests Past 24 Hrs WBC 9.1 RBC 3.84 L WBC RBC Hgb Hct MCV MCH MCHC RDW RDW Differential Plt Count MPV Immature Gran % (Auto) WBC RBC Hgb Hct MCV MCH MCHC RDW RDW Differential Plt Count MPV Immature Gran % (Auto) Neut % (Auto) Assessment/Plan All Active Problems (Last Updated 06/29/18 @ 03:48 by Mani Rachel MD) Seizure (Acute) Moderate persistent asthma (Acute) Rhinitis (Acute) The patient is a 43 year old F with a significant history of anxiety; hypertension; asthma; and alcoholism who is trying to turn her life around from alcoholism and was recently released from detoxification center where she received phenobarbital ; and Vivitrol after discharge; and with a remote one-time episode of seizure at age 8 years who fell at home and was unresponsive for a while; and later had a witnessed seizure at the emergency department. Seizure With lactic acidosis; increased anion gap metabolic acidosis and a witnessed seizure likely her first episode of falling and incoherence was also from a seizure. Patient received Keppra 1000 mg IV at emergency department. Will follow neurologist recommendation and start patient on Keppra p.o. 750 mg twice daily; EEG; and MRI. Per neurologist patient is not to drive. Neurology to clarify how long patient to stay without driving. Ativan as needed for seizure Seizure precautions in place. Will consult neurologist. Lactic acidosis Likely secondary to seizure Resolved with IV fluids. Anion gap metabolic acidosis Likely due to lactic acidosis. Trend BMP. Anticipate it will resolve with resolved lactic acidosis. Moderate persistent asthma. Because of her increasing symptoms likely her asthma is worsening because of the weather. Will escalate her asthma regimen by adding inhaled corticosteroids. Scheduled Albuterol and as needed. On discharged consider long-acting beta agonists and inhaled corticosteroids to her home as needed beta agonist ZANE Patient with creatinine of 1.13 and with GFR of 56. Mild Likely prerenal from seizures. Anticipate resolution with IV fluids after the emergency department Trend BMP. We will continue lisinopril at this time. Rhinitis Flonase ordered. Alcoholism Patient counseled not to go back and drink. Hypertension On admission blood pressure was not within goal. Continue home lisinopril If creatinine increases any further consider discontinuing lisinopril. Trend blood pressure and adjust blood pressure medication as necessary. Anxiety Klonopin continued DVT prophylaxis Subcutaneous heparin.. Code Visit Inpatient E AND M: 24640 Init Hosp L3 06/29/18 0513 <Electronically signed by Mani Rachel MD> Date [facility] Rachel MD [facility] Signature: Date (if applicable) CC: Nasima ELLIS; Mani Rachel MD Signed BRAIN W/WO CONTRAST Observed: 06/29/2018 Status: F Source: [place] 2:24 AM [facility] REPOSITORY [facility] Imaging Services [address] [place] [address] Brain W/WO Contrast MR#: [id number] Acct: [id number] Name: NANCY HELLER Rep #: [id number] : 1975 F 43 From: Serg Portillo MD PCP: Nasima Pat Status: DIS IN Study: Brain W/WO Contrast Date of Exam: 06/29/18 Exam# [id number] Ordering Dr: Mani Rachel MD STUDY: MRI BRAIN WITH AND WITHOUT CONTRAST REASON FOR EXAM: Female, 43 years old. Seizure TECHNIQUE: Standardized multiplanar fat and water weighted pulse sequences were obtained. 6 ml of Gadavist contrast material was administered intravenously for the contrast portion of the examination. COMPARISON: Head CT 06/28/2018 FINDINGS: Normal size of the ventricles and extra-axial spaces for the patient's age. Normal white matter tracts of the supratentorial brain. Normal bilateral basal ganglia. Normal thalami. There is no extra-axial fluid accumulation. Normal flow voids within the major intracranial circulation suggesting patency by spin echo criteria. Normal venous enhancement. There is no enhancing intra-axial or extra-axial abnormality. Normal sella turcica, pituitary gland, infundibular stalk, optic chiasm and hypothalamus. Normal tectal plate and pineal gland. Normal midbrain, susana and medulla. 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 Normal basal cisterns. Normal bilateral temporal bones. Normal bilateral internal auditory canals. No demonstrated orbital abnormality, within the constraints of a routine brain study. Normal visualized paranasal sinuses. Normal calvarium and skull base. Normal visualized soft tissue structures. Normal visualized upper cervical spine. MRI/Brain W/WO Contrast IMPRESSION: No evidence of acute infarct, hemorrhage, mass, or abnormal enhancement. No temporal lobe lesions are seen. 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 Electronically Signed: Serg Portillo MD at 0:42 EST Tel , Service support , CC: Nasima ELLIS; Mani Rachel MD Director Of Retention: Signed LACTIC ACID Collected: 06/29/2018 Status: F Source: [place] 1:10 AM [facility] REPOSITORY TYPE CODE TESTS RESULT OUT OF RANGE REFERENCE UNITS LAB L503.6005 0.4-2.0 mmol/L Normal LACTIC ACID 0.9 Performed By: #### L503.6005 #### [facility] [address] [place], [place], [id number] URINE DRUG SCREEN Collected: 06/28/2018 Status: F Source: [place]IANE (VISTA) 10:20 PM [facility] REPOSITORY TYPE CODE TESTS RESULT OUT OF RANGE REFERENCE UNITS LAB L505.0075 TO BE Normal CONFIRMED Result Comment: CONFIRMATORY TESTING FOR ALL POSITIVE URINE DRUG SCREEN RESULTS WILL ONLY BE SENT OUT UPON PHYSICIAN ORDER. VISTA Urine Drug Screen methods provide only preliminary analytical test results. A more specific alternate chemical method must be used in order to obtain a confirmed analytical result. Gas chromatography/mass spectrometery (GC/MS) is the preferred confirmatory method. Clinical consideration and professional judgement should be applied to any drug of abuse test result, particularly when preliminary positive results are used. URINE TCA TESTING MUST BE ORDERED SEPARATELY. USE TEST MNEMONIC: [facility] LAB L505.5005 VISTA UDS PH 6 Normal LAB L505.5015 <1000 ng/mL AMPHETAMINES Normal NEGATIVE LAB L505.5025 < 200 High ng/mL BARBITIURATES POSITIVE LAB L505.5035 < 200 ng/mL BENZODIAZIPINE Normal NEGATIVE LAB L505.5045 < 300 ng/mL COCAINE Normal NEGATIVE LAB L505.5055 < 500 ng/mL ECSTACY Normal NEGATIVE LAB L505.5065 < 300 ng/mL METHADONE Normal NEGATIVE LAB L505.5075 < 300 ng/mL OPIATES Normal NEGATIVE LAB L505.5085 < 25 ng/mL PCP Normal NEGATIVE LAB L505.5095 < 50 ng/mL THC Normal NEGATIVE Performed By: #### L505.5000 #### [facility] [address] [facility]. [place], [place], [id number] URINALYSIS, COMPLETE Collected: 06/28/2018 Status: F Source: [place] 10:20 PM [facility] REPOSITORY Order Comment: How was Urine Obtained? CLEAN CATCH TYPE CODE TESTS RESULT OUT OF RANGE REFERENCE UNITS LAB L400.3000 Yellow COLOR Normal Yellow LAB L400.3050 Clear Normal CLARITY Clear LAB L400.3200 Normal mg/dl Normal GLUCOSE, UR Normal LAB L400.3300 Negative mg/dL Normal BILIRUBIN URINE Negative LAB L400.3400 Negative mg/dl High 15 KETONE UR LAB L400.3465 1.002-1.030 Normal SP.GR. DIPSTX 1.020 LAB L400.3550 5.0 - 8.0 pH UR Normal 6.0 LAB L400.3600 Negative mg/dl High PROT 15 DIPSTX LAB L400.3700 Normal mg/dl Normal UROBILI Normal LAB L400.3750 Negative Normal NITRITE UR Negative LAB L400.3780 Negative /ul Normal OCCULT BLOOD-UR Negative LAB L400.3800 Negative /ul LEUK Normal ESTERASE Negative LAB L400.4050 0-5 /hpf WBC 0 Normal SEEN LAB L400.4100 0-5 /hpf 0 Normal RBC-UA SEEN LAB L400.4150 5-10 /hpf SQUAM Normal EPI 0-5 SEEN LAB L400.4300 None Seen /hpf 0 Normal BACTERIA SEEN LAB L400.4350 <or=2+ /hpf 0 Normal MUCUS, URINE SEEN Performed By: #### L400.0001 #### [facility] [address] [facility]. [place], [place], [id number] ,URINE Collected: 06/28/2018 Status: F Source: [place] 10:20 PM [facility] REPOSITORY TYPE CODE TESTS RESULT OUT OF REFERENCE UNITS RANGE LAB L400.8000 Negative Normal HCGUQUAL Negative Result Comment: Very dilute urine specimens, as indicated by a low specific gravity, may not contain appeals representative levels of hCG. If is still suspected, a first morning urine specimen should be collected 48 hours later and tested. Performed By: #### L400.7600 #### [facility] [address] [facility] [place], [address] ALCOHOL, BLOOD Collected: 06/28/2018 Status: F Source: [place] (MEDICAL)-SERUM 9:00 PM [facility] REPOSITORY TYPE CODE TESTS RESULT OUT OF RANGE REFERENCE UNITS LAB L501.9100 mg/dL Normal SERUM 3.0 ETOH Result Comment: The serum:whole blood ethanol ratio is approximately 1.14 and varies slightly with hematocrit. Medical Alcohol reference interval and critical value in non-tolerant individuals; 50 - 100 Impairment 100 Intoxication 100 - 250 Severe Poisoning 250 - 400 Deep/possible fatal coma Performed By: #### L501.9100 #### [facility] [address] [place], [address] CHEST PA AND LATERAL Observed: 06/28/2018 Status: F Source: [place] 8:50 PM [facility] REPOSITORY [facility] Imaging Services [address] [place] [address] Chest PA and Lateral MR#: [id number] Acct: [id number] Name: NANCY HELLER Rep #: [id number] : 1975 F 43 From: Smith Crabtree MD PCP: Nasima Pat Status: REG ER Study: Chest PA and Lateral Date of Exam: 06/28/18 Exam# [id number] Ordering Dr: Ronni Santos DO STUDY: X-RAY CHEST REASON FOR EXAM: Female, 43 years old. Syncope TECHNIQUE: Frontal and lateral views of the chest COMPARISON: None. FINDINGS: The lungs are clear. There are no pleural effusions. There is no pneumothorax. The heart is normal in size. The visualized osseous structures are within normal limits. RAD/Chest PA and Lateral IMPRESSION: No acute thoracic pathology. Electronically Signed: Smith Crabtree, at 21:23 EST Tel , Service support , CC: Ronni Santos DO; Nasima ELLIS Director Of Retention: Signed BRAIN/HEAD WITHOUT Observed: 06/28/2018 Status: F Source: [place] CONTRAST 8:50 PM [facility] REPOSITORY [facility] Imaging Services [address] [place] [address] Brain/Head without Contrast MR#: [id number] Acct: [id number] Name: NANCY HELLER Rep #: [id number] : 1975 F 43 From: Smith Crabtree MD PCP: Nasima Pat Status: REG ER Study: Brain/Head without Contrast Date of Exam: 06/28/18 Exam# [id number] Ordering Dr: Ronni Santos DO STUDY: CT BRAIN WITHOUT CONTRAST REASON FOR EXAM: Female, 43 years old. Syncope RADIATION DOSAGE (If Supplied By Facility): CTDIvol = ( 44.99 ) mGy, DLP = ( 745.49 ) mGycm TECHNIQUE: Transaxial CT imaging of the brain was performed without administration of intravenous contrast material. Individualized dose optimization techniques were used for this CT. COMPARISON: None. FINDINGS: There are old left cerebellar infarct with encephalomalacia. There is no acute bleed or infarct. There are normal white matter tracts. The ventricles are normal in configuration. There is no hydrocephalus. The visualized paranasal sinuses are clear. The mastoid air cells are well aerated. There is no skull fracture. CT/Brain/Head without Contrast IMPRESSION: No acute intracranial abnormality. 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 Electronically Signed: Smith Crabtree, at 21:46 EST Tel , Service support , CC: Ronni ELLIS Director Of Retention: Signed CBC W/DIFF, AUTOMATED Collected: 06/28/2018 Status: F Source: [place] 8:34 PM [facility] REPOSITORY TYPE CODE TESTS RESULT OUT OF RANGE REFERENCE UNITS LAB L100.1000 4.4-11.0 K/mm3 Normal WBC 9.1 LAB L100.1200 4.2-5.4 M/mm3 Low RBC 3.84 LAB L100.1300 12.0-15.0 g/dl Normal HGB 13.1 LAB L100.1400 37-47 % Normal HCT 39.2 LAB L100.1500 81-99 fL High MCV 102.1 LAB L100.1600 27.0-32.0 pg High MCH 34.1 LAB L100.1700 32-36 g/gl Normal MCHC 33.4 LAB L100.1810 11.6-14.6 % Normal RDW CV 13.5 LAB L100.1820 35.1-43.9 fl High RDW SD 50.8 LAB L100.1900 150-450 K/mm3 Normal PLT 368 LAB L100.2000 6.2-12.0 fl Normal MPV 10.7 LAB L100.2100 47-70 % Normal NEUT% 48.9 LAB L100.2200 19-41 % Normal LY% 25.8 LAB L100.2300 0-10 % Normal MONO% 9.7 LAB L100.2400 0-5 % High EO% 14.0 LAB L100.2500 0-1 % High BASO% 1.5 LAB L100.2550 0.0-0.9 % Normal IM GRAN % 0.100 Result Comment: IG% - Immature Granulocytes (promyelocytes, myelocytes and metamyelocytes) > 1% indicates that a LEFT SHIFT is Present. LAB L100.2620 2.0-7.7 X10 3/uL Normal Absolute Neut 4.5 LAB L100.2720 0.83-4.51 X10 3/ul Normal Absolute Lymph 2.36 Performed By: #### L100.0100 #### [facility] [address] [place], [address] COMPREHENSIVE METABOLIC Collected: 06/28/2018 Status: F Source: [place]E [place]EL[place] 8:34 PM [facility] REPOSITORY TYPE CODE TESTS RESULT OUT OF RANGE REFERENCE UNITS LAB L501.0100 74-106 mg/dL High GLU 113 Result Comment: Fasting Glucose result from 100 to 125 mg/dL suggests IMPAIRED HOMEOSTASIS per A.D.A. criteria. Please note revised GLUCOSE reference range effective 2017. LAB L501.1000 7-18 mg/dL Low BUN 6 LAB L501.1100 0.55-1.02 mg/dL High CREAT,SERUM 1.13 Result Comment: The validity of the calculated GFR AND GFRAA in patients over 70 years has not been determined. Clinical correlation is essential. LAB L501.1110 >60 mL/min Low EST GFR 56 Result Comment: Non- GFR Calc LAB L501.1115 >60 mL/min Normal EST GFR - AA 68 Result Comment: GFR Calc LAB L501.1255 ml/min Normal Estimated CRCL 67.54 LAB L501.1300 10-20 RATIO Low BUN/CRE 5.3 LAB L501.1500 6.4-8. g/dL Normal 2 T PROT 7.7 LAB L501.1800 3.2-5. g/dL Normal 0 ALB 3.8 LAB L501.1950 2.2-4. g/dL Normal 2 GLOB 3.9 LAB L501.2000 0.9-2. RATIO Normal 4 A/G 1.0 LAB L501.2200 8.5-10 mg/dL Normal .1 CA 8.9 LAB L501.4100 15-37 U/L Normal AST 33 LAB L501.4305 45-117 U/L Normal ALK P 93 LAB L501.4405 13-56 U/L Normal ALT 34 LAB L501.4600 0.20-1 mg/dL Normal .00 T BILI 0.20 LAB L501.5300 136-14 mmol/L Normal 5 NA 143 LAB L501.5600 3.5-5. mmol/L Normal 1 K 4.1 LAB L501.5900 98-107 mmol/L High CL 109 LAB L501.6100 21.0-3 mmol/L Low 2.0 CO2 19.0 LAB L501.6200 5-15 Normal GAP 15 Performed By: #### L500.4050, L501.4010 #### [facility] [address] [place], [address] TROPONIN-I Collected: 06/28/2018 Status: F Source: [place] 8:34 PM [facility] REPOSITORY TYPE CODE TESTS RESULT OUT OF RANGE REFERENCE UNITS LAB L501.4010 <0.045 ng/mL Normal < 0.015 TROPONIN-I Result Comment: TROPONIN-I EXPECTED VALUES <0.045 Negative 0.045 - 0.590 Consistent with Cardiac Damage > OR = 0.600 Critical Value Not every elevated troponin is indicative of DE. These values should be used with clinical judgement in examining the patient's clinical picture for diagnosis. To establish a diagnosis of DE versus myocardial injury, there must be a demonstrated rise and/or fall in the troponin values, in addition to ischemic symptoms, EKG changes, new regional wall motion abnormality, and/or angiographical evidence. PLEASE NOTE: REFERENCE RANGES EDITED 17 Performed By: #### L500.4050, L501.4010 #### [facility] [address] [facility] [place], [address] LACTIC ACID Collected: 06/28/2018 Status: F Source: [place] 8:34 [facility] REPOSITORY Order Comment: Yes/No query for Sepsis Lactate Rule Y TYPE CODE TESTS RESULT OUT OF REFERENCE UNITS RANGE LAB L503.6005 0.4-2.0 mmol/L High alert LACTIC ACID 5.4 Result Comment: Critical Result(s) Called at: 21:27:34 06/28/2018 by: Emy WU Performed By: #### L503.6005 #### [facility] [address] [facility]. [place], [place], [address] ADD ON TEST FROM Collected: 06/17/2018 Status: F Source: [place] [facility] 10:02 PM SYSTEM REPOSITORY TYPE CODE TESTS RESULT OUT OF REFERENCE UNITS RANGE LAB ADDON NA Add Accepted on test from HIS Result Comment: Specimen available & acceptable for analysis. Performed By: #### ADDON #### [id number] [address] [place] [phone] HEMOGRAM Collected: 06/17/2018 Status: F Source: [place] 12:40 PM SYSTEM REPOSITORY TYPE CODE TESTS RESULT OUT OF RANGE REFERENCE UNITS LAB IWBC 3.6-10.7 10*3/uL WBC Normal 9.1 LAB RBC 3.80-5.20 10*6/uL Low RBC 3.74 LAB HGB 11.7-16.0 g/dL Normal Hemoglobin 13.4 LAB HCT 35.0-47.0 % Normal Hematocrit 39.0 LAB MCV 79.0-98.0 fL High MCV 104.2 LAB MCH 26.0-34.0 pg High MCH 35.8 LAB MCHC 32.0-36.0 % MCHC Normal 34.3 LAB RDW 11.5-14.5 % High RDW 15.7 LAB PLT 140-440 10*3/uL Platelet Normal 315 LAB MPV 7.4-10.4 fL MPV Normal 8.9 Performed By: #### HEMOG, CMP3, ETOH4 #### [facility] [address] [place] [phone] COMP METABOLIC PANEL Collected: 06/17/2018 Status: F Source: [place] 12:40 PM SYSTEM REPOSITORY TYPE CODE TESTS RESULT OUT OF RANGE REFERENCE UNITS LAB NA3 137-145 mmol/L Sodium Normal 138 LAB K3 3.5-5.1 mmol/L Normal Potassium 3.7 LAB CL3 98-107 mmol/L Chloride Normal 105 LAB CO23 22-30 mmol/L Carbon Normal Dioxide 22 LAB ANIN3 NA Anion Gap 12 LAB GLUC3 70-100 mg/dL Glucose Normal 77 LAB BUN3 7-20 mg/dL Urea Normal Nitrogen 9 LAB CRET3 0.52-1.25 mg/dL Normal Creatinine 0.71 LAB GF3BR >60 mL/min eGFR > 60.0 LAB GF3WR >60 mL/min eGFR OTHER > 60.0 Result Comment: Source- MDRD equation with creatinine calibration to IDMS(NKDEP) eGFR not recommended for drug dose adjustment LAB CA3 8.4-10.4 mg/dL Calcium Normal 8.7 LAB ALB3 3.5-5.0 g/dL Albumin, Serum Normal 4.5 LAB TP3 6.3-8.2 g/dL Total Protein Normal 7.7 LAB BILT3 0.2-1.3 mg/dL Normal Bilirubin,Total 0.7 LAB ALKP3 38-126 U/L Alkaline Normal Phosphatase 75 LAB ALT3 13-69 U/L ALT (SGPT) Normal 51 LAB AST3 15-46 U/L High AST (SGOT) 67 Performed By: #### HEMOG, CMP3, ETOH4 #### [id number] [address] [place] [phone] ETHANOL SERUM/PLASMA Collected: 06/17/2018 Status: F Source: [place] 12:40 PM SYSTEM REPOSITORY TYPE CODE TESTS RESULT OUT OF RANGE REFERENCE UNITS LAB ETOH3 0.000-0.010 g/dL Normal < 0.010 Ethanol-Seru m/Plasma Result Comment: NOTE: This result is for medical treatment only. Analysis performed using non-forensic procedures. Performed By: #### HEMOG, CMP3, ETOH4 #### [id number] [address] [place] [phone] URINALYSIS,MACRO Collected: 06/17/2018 Status: F Source: [place] 12:40 PM SYSTEM REPOSITORY TYPE CODE TESTS RESULT OUT OF REFERENCE UNITS RANGE LAB APPUR Clear NA Appearance Clear LAB COLUR Lt. Yellow NA Color Yellow LAB USG 1.005-1.030 NA Specific Normal [place],Urine 1.020 LAB UPH 5.0-8.0 NA pH,Urine Normal 5.0 LAB ULUK Negative NA Leukocytes NEG LAB UNIT Negative NA Nitrites NEG LAB UPRO Negative mg/dL Total Protein,Urine 25 LAB UGLU Negative mg/dL Glucose,Urine NORM LAB UKET Negative mg/dL Ketone,Urine 1 + LAB UURO 0-1 mg/dL Urobilinogen 1 LAB UBIL Negative NA Bilirubin,Ur 1 LAB UBLD Negative {RBC}/uL Occult Blood,Ur NEG Performed By: #### UAMAC, UAMIC, DRGA4, HCGUR, C/UR #### [id number] [address] [place] [phone] URINALYSIS,MICROSCOPIC Collected: Status: F Source: [place] 06/17/2018 12:40 PM [facility] REPOSITORY TYPE CODE TESTS RESULT OUT OF REFERENCE UNITS RANGE LAB WBCU 0-5 /[HPF] 0 WBC,Urine - 2 LAB RBCU 0-2 /[HPF] 0 RBC,Urine - 2 LAB EPIU 3-5 /[HPF] 11 Epithelial Cells - 25 LAB SCARLETT Negative NA Bacteria Moderate (6-50) LAB MUC Negative NA Mucous Threads Moderate LAB HYL 0-1 /[LPF] Cast, 0 Hyaline - 2 Performed By: #### UAMAC, UAMIC, DRGA4, HCGUR, C/UR #### [id number] [address] [place] [address] DRUGS OF ABUSE Collected: 06/17/2018 Status: F Source: [place] 12:40 PM SYSTEM REPOSITORY TYPE CODE TESTS RESULT OUT OF REFERENCE UNITS RANGE LAB AMP3 NA Amphetamines, Ur Negative LAB BARB3 NA Barbiturates, Ur Negative LAB BENZ3 NA Benzodiazepines, Negative Ur LAB COC3 NA Cocaine, Ur Negative LAB METH3 NA Methadone, Ur Negative LAB OPI3 NA Opiates, Ur Negative LAB OXY3 NA Oxycodone/Oxymorph Negative ine,Ur LAB PCP3 NA Phencyclidine (PCP), Ur Negative Result Comment: The expected value for all of the drugs listed above is Negative. The following drugs or drug groups have been screened for by Immunoassay at the following thresholds: Amphetamine class (1000 ng/mL), Barbiturates (200 ng/mL), Benzodiazepines (200 ng/mL), Cocaine (300 ng/mL), Methadone (300 ng/mL), Opiates (300 ng/mL), Oxycodone (100 ng/mL), and PCP (25 ng/mL). NOTE: These results are for medical treatment only. Analysis performed using non-forensic procedures. POSITIVE results are NOT confirmed by a more specific alternative method unless requested. If confirmation is needed, request confirmation under separate order. Performed By: #### UAMAC, UAMIC, DRGA4, HCGUR, C/UR #### [id number] [address] [place] [address] HCG,URINE QUAL Collected: 06/17/2018 Status: F Source: [place] 12:40 PM SYSTEM REPOSITORY TYPE CODE TESTS RESULT OUT OF REFERENCE UNITS RANGE LAB HCGUR Negative NA Negative HCG,Urine Qual Result Comment: is the most common reason for HCG in urine, although choriocarcinoma, hydatidiform mole, and certain nontropho- blastic malignancies also result in detectable urinary HCG levels. Sensitivity = 20mIU/mL. Performed By: #### UAMAC, UAMIC, DRGA4, HCGUR, C/UR #### [employer] [facility] [employer] [facility] [address] [place] [address] Observed: 06/17/2018 Status: F Source: [place] CULTURE URINE 12:40 PM SYSTEM REPOSITORY CULTURE URINE --> Status: F Normal urogenital maikol present. Performed By: #### UAMAC, UAMIC, DRGA4, HCGUR, C/UR #### [employer] [facility] [employer] [facility] [address] [place] [address] ED PROVIDER NOTE Observed: 06/17/2018 Status: F Source: [place] 11:34 AM SYSTEM REPOSITORY Emergency Department Encounter [facility] EMERGENCY DEPT Patient: Nancy Heller : 1975 Date of Evaluation: 06/17/2018 ED Supervising Physician: Hali Gaxiola MD I independently examined and evaluated Nancy Heller. In brief, Nancy Heller is a 43 y.o. female that presents to the emergency department complaining of needing detox from alcohol, she drinks 5-6 glasses of wine daily, last drink was Sunday, she does feel some mild withdrawal symptoms Focused exam: No resting tremor, heart tachycardic initially but improved on reassessment Brief ED course/MDM: Patient given Ativan, phenobarbital, medically cleared for detox admission electrocardiogram interpreted by me shows sinus tachycardia 117 bpm, QTC 461, QRS 89, no acute ST or T-wave changes, no old electrocardiogram immediately available for comparison Diagnosis/Plan: Alcohol dependence and withdrawal All diagnostic, treatment, and disposition decisions were made by myself in conjunction with the CADEN/Resident. For all further details of the patient's emergency department visit, please see their documentation. Comment: Please note this report has been produced using speech recognition software and may contain errors related to that system including errors in grammar, punctuation, and spelling, as well as words and phrases that may be inappropriate. If there are any questions or concerns please feel free to contact the dictating provider for clarification. Hali Gaxiola MD Acute Care [facility] Hali Gaxiola MD 06/17/18 1359 ED PROVIDER NOTE Observed: 06/17/2018 Status: F Source: [place] 11:34 AM SYSTEM REPOSITORY Emergency DepartmentEncounter [facility] EMERGENCY DEPT Patient: Nancy Heller : 1975 Date of Evaluation: 06/17/2018 ED CADEN Provider: DAGMAR Sifuentes CNP ED care was supervised by Dr. Gaxiola who independently examined and evaluated the patient. Please see their attestation note for further details. Chief Complaint Chief Complaint Patient presents with ? Other Detox from ETOH. Drinks 5-6 drinks daily. Last drink Sunday. Appears asymptomatic MARSHALL Nancy Heller is a 43 y.o. female who presents to the emergency department for detox from alcohol. The patient was called this morning by [facility] staff and was told she has a detox bed. She reports that she has been drinking regularly (near daily) since July, approximately 5-6 drinks per day, mostly wine but she states that she recently switched to vodka. She states that she recently got in February, which triggered her drinking habits. Her last drink was on Sunday or Sunday, she is not entirely sure. She states that she feels a little anxious, otherwise she has no other medical complaints. She denies street drug use.The patient has no other medical complaints. Review of systems otherwise negative. ROS: Review of Systems At least 10 systems reviewed and otherwise acutely negative except as in the MARSHALL. Past History No past medical history on file. No past surgical history on file. Social History Social History ? Marital status: Spouse name: N/A ? Number of children: N/A ? Years of education: N/A Social History Main Topics ? Smoking status: Not on file ? Smokeless tobacco: Not on file ? Alcohol use Not on file ? Drug use: Unknown ? Sexual activity: Not on file Other Topics Concern ? Not on file Social History Narrative ? No narrative on file Medications/Allergies Previous Medications No medications on file Allergies Allergen Reactions ? Pcn [Penicillins] Rash Physical Exam ED Triage Vitals [06/17/18 1223] BP Temp Temp Source Pulse Resp SpO2 Height Weight (!) 135/116 98 ?F (36.7 ?C) Oral 137 20 100 % 4' 11 (1.499 m) 135 lb (61.2 kg) Physical Exam General: No apparent distress, answers questions appropriately HEENT: Normocephalic atraumatic, sclera white. Nose patent bilaterally. Mucous membranes pink and moist. Neck: Supple. Trachea midline. Lungs: Clear to auscultation bilaterally. No use of accessory muscles. Heart: Tachycardic and regular. No obvious murmur. Abdomen: Soft, nontender Extremities: No clubbing, cyanosis or edema. Neuro: No motor/sensory or focal deficits. Psych: Normal affect. Calm and cooperative. Diagnostics Labs: Results for orders placed or performed during the hospital encounter of 06/17/18 Comprehensive Metabolic Panel Result Value Ref Range Sodium 138 137 - 145 mmol/L Potassium 3.7 3.5 - 5.1 mmol/L Chloride 105 98 - 107 mmol/L CO2 22 22 - 30 mmol/L Anion Gap 12 NA Glucose 77 70 - 100 mg/dL BUN 9 7 - 20 mg/dL CREATININE 0.71 0.52 - 1.25 mg/dL eGFR >60.0 >60 mL/min EGFR IF NonAfrican Togolese >60.0 >60 mL/min Calcium 8.7 8.4 - 10.4 mg/dL Albumin,Serum 4.5 3.5 - 5.0 g/dL Total Protein 7.7 6.3 - 8.2 g/dL Total Bilirubin 0.7 0.2 - 1.3 mg/dL Alkaline Phosphatase 75 38 - 126 U/L ALT 51 13 - 69 U/L AST 67 (H) 15 - 46 U/L Hemogram (CBC) Result Value Ref Range WBC 9.1 3.6 - 10.7 10*3/uL RBC 3.74 (L) 3.80 - 5.20 10*6/uL Hemoglobin 13.4 11.7 - 16.0 g/dL Hematocrit 39.0 35.0 - 47.0 % MCV 104.2 (H) 79.0 - 98.0 fL MCH 35.8 (H) 26.0 - 34.0 pg MCHC 34.3 32.0 - 36.0 % RDW 15.7 (H) 11.5 - 14.5 % Platelets 315 140 - 440 10*3/uL MPV 8.9 7.4 - 10.4 fL Ethanol Result Value Ref Range Ethanol Lvl <0.010 0.000 - 0.010 g/dL Urine Drug Screen Result Value Ref Range Amphetamines, urine Negative NA Barbiturates, Ur Negative NA Benzodiazepine Ur Qual Negative NA Cocaine Metabolites, Ur Negative NA Methadone, Urine Negative NA Opiates, Urine Negative NA Oxycodone Screen, Ur Negative NA PCP, Urine Negative NA Urinalysis Result Value Ref Range Appearance Clear Clear NA Color, UA Yellow Lt. Yellow NA Specific [place], Urine 1.020 1.005 - 1.030 NA pH, Urine 5.0 5.0 - 8.0 NA LEUKOCYTES, UA NEG Negative NA Nitrite, Urine NEG Negative NA Total Protein, Urine 25 Negative mg/dL Glucose, Ur NORM Negative mg/dL Ketones, Urine 1+ Negative mg/dL Urobilinogen, Urine 1 0 - 1 mg/dL Bilirubin, Urine 1 Negative NA Occult Blood,Urine NEG Negative [RBC]/uL Urinalysis with Microscopic Result Value Ref Range WBC, UA 0-2 0 - 5 /[HPF] RBC, UA 0-2 0 - 2 /[HPF] Epithelial Cells 11-25 3 - 5 /[HPF] Bacteria, UA Moderate (6-50) Negative NA MUCOUS THREADS #/AREA URNS HPF Moderate Negative NA Hyaline Casts, UA 0-2 0 - 1 /[LPF] Radiographs: No results found. EKG: All EKG's areinterpreted by the Emergency Department Physician in the absence of a sign maintenance.?Please see their note for interpretation of EKG. ED Course and MDM The patient was initially seen by the triage provider, labs, diagnostics and medications ordered- please see triage note for further details. This patient's case was staffed with Dr. Gaxiola - see attending note for further details. See lab results and diagnostic reports. Urine culture was sent. Patient was medicated with 1 mg of Ativan po and oral phenobarbital the ED. Repeat vital signs within normal limits. Heart rate 88. At this point, the patient will be transferred to [facility] for detox, further evaluation and management. The patient was accepted by Dr. Zacarias. She is in stable condition and in agreement with treatment plan. ED Medication Orders Start Ordered Status Ordering Provider 06/17/18 1230 06/17/18 1224 PHENobarbital (LUMINAL) tablet 97.2 mg ONCE Last SEP action: Given - by FRANCESCO RUIZ on 06/17/18 at 1329 HALI GAXIOLA 06/17/18 1230 06/17/18 1224 LORazepam (ATIVAN) tablet 1 mg ONCE Last MAR action: Given - by FRANCESCO RUIZ on 06/17/18 at 1329 HALI GAXIOLA Final Impression 1. Uncomplicated alcohol dependence (HCC) DISPOSITION Admitted 06/17/2018 04:20:00 PM (Please note that portions of this note may have been completed with a voice recognition program. Efforts were made to edit the dictations but occasionally words aremis-transcribed.) DAGMAR Sifuentes CNP [employer] DAGMAR Sifuentes CNP 06/17/18 1627 PROGRESS Observed: 08/20/2017 Status: COMPLETED Source: [place] 9:19 AM [facility] [place] REPOSITORY HNO ID: [id number] Author: Cecelia (Naida) Bess Service: (none) Author Type: Nurse Practitioner Type: Progress Notes Filed: 08/20/2017 10:37 AM Note Text: 08/20/2017 Patient presents with: 2 week f/u: tachycardia SUBJECTIVE: This is a 42 year old that is here today for follow up BP. She states that she has been diagnosed with hypertension in the past and was on diltizem. She stopped taking the medication due to the fact that her soon to be ex- convinced her that she did not need them. She does not check her BP at home. She states that she was given a script for a BP cuff at last visit, but has not gotten it yet. She agrees to get one after this visit. She denies CP, SOB, palpitations, STACK, change in vision, lightheadedness, dizziness. She did check her BP at a pharmacy since her last visit and it was elevated with systolic in 150s. She also has anxiety and was previously treated with prozac and wellbutrin. She states that her soon to be ex was also a factor in this decision to stop. She states that he convinced her that she didn't need them and that she was becoming dependent on them. He lives in [place], she moved here to start over. She states that she is doing relatively well dealing with the stress, but admits that it could be a factor in her anxiety and BP. She states that she has not used any klonopin since last visit. She is open to restarting an SSRI if needed. She is concerned that she has not heard back from Dr. Aguayo after seeing him after her hospitalization for GI bleed. She states that he did labs and she has not heard back to see if she needs further testing. She would like a referral to a [facility] provider. She denies any bleeding or symptoms that she had when she went to the hospital. She is not drinking any alcohol. PAST MEDICAL HISTORY Diagnosis Date - Alcohol abuse - Asthma - Depression - Hematemesis 06/17/2017 Added automatically from request for surgery [id number] - High anion gap metabolic acidosis 06/17/2017 - Hypertension - Hypokalemia 06/17/2017 - Lactic acidosis 06/17/2017 - Macrocytosis 06/17/2017 - Prolonged Q-T interval on ECG 06/17/2017 - Seizure in childhood (HCC) One seizure when patient was 8 y/o, no further seizures - Spina bifida occulta ALLERGIES Amoxicillin MEDICATIONS Current Outpatient Prescriptions: pantoprazole DR (PROTONIX) 40 mg tablet Take 1 tablet by mouth twice daily before meals (0600/1600). albuterol HFA (PROAIR HFA) 90 mcg/actuation inhaler Inhale 1 Puff as instructed every 4 hours as needed for Wheezing/Shortness of Breath. clonazePAM (KLONOPIN) 0.5 mg tablet Take 1 tablet by mouth twice daily as needed for Anxiety for up to 90 days. Blood Pressure Monitor (BLOOD PRESSURE KIT) kit Dx: R03.0 montelukast (SINGULAIR) 10 mg tablet Take 1 tablet by mouth daily at bedtime. SPRINTEC 0.25-35 mg-mcg per tablet Take 1 tablet by mouth once daily. No current facility-administered medications for this visit. Medications and allergies reviewed by this provider. SOCIAL HISTORY Social History Marital status: Spouse name: Years of education: Number of children: Social History Main Topics Smoking status: Never Smoker Smokeless status: Never Used Alcohol use: Yes 4.5 oz/week 3 Glasses of Wine (5oz) per week Comment: Stopped drinking 06/18 Drug use: No REVIEW OF SYSTEMS GENERAL: No weight loss, malaise or fevers RESPIRATORY: Negative for cough, hemoptysis, wheezing, COPD, dyspnea or shortness of breath CARDIOVASCULAR: Hypertension, See HPI GI: No nausea, vomiting, or diarrhea, No heartburn or reflux symptoms and See HPI PSYCH: See HPI NEURO: No history of headaches, syncope, paralysis, seizures or tremors OBJECTIVE: BP 136/100 (BP Site: Left Arm, BP Position: Sitting, BP Cuff Size: Regular Adult) Pulse 102 Temp 36.8 ?C (98.2 ?F) (Right Tympanic) Resp 16 Wt 63 kg (138 lb 12.8 oz) LMP 08/13/2017 (Exact Date) SpO2 98% BMI 28.03 kg/m2. Vital signs reviewed by this provider. PHYSICAL EXAMINATION: General appearance: Well appearing, alert, in no acute distress, well-hydrated, well nourished. Skin: Skin color, texture, turgor normal, no suspicious rashes or lesions Lungs: Lungs clear to auscultation. No wheezing, rhonchi, rales Heart: RRR without murmur, gallop, or rubs. No ectopy Extremities: No deformities, edema, skin discoloration, clubbing or cyanosis. Good capillary refill. , Pulses: 2+ Neuro: Gait normal. Sensation grossly intact., Negative findings: speech normal, mental status intact, muscle tone normal, muscle strength normal Appearance: well dressed well groomed, slightly tense posture, cooperative and pleasant Behavior: good eye contact Speech: fluent and coherent Mood: euthymic Affect: appropriate Perceptions: none Thought process: goal directed Thought Content: normal Intelligence level: normal Insight: good Judgment: good ASSESSMENT/PLAN: 1. Hypertension, essential - ICD9: 401.9, ICD10: I10 (primary diagnosis) - poor control - factors affecting control of BP include stress and anxiety - Add lisinopril (Zestril/Prinivil) - Encouraged dietary sodium restriction/DASH diet - Recommended regular aerobic exercise. - Recommend home blood pressure monitoring, to bring results in on next visit - Recheck in 2 weeks with nurse visit, sooner should new symptoms or problems arise. - Reviewed risks of HTN and principles of treatment - Goal of BP <140/90 - Recommended no refined sugar, low refined starch, healthy oil intake (olive oil), healthy protein (fish) along the lines of the Mediterranean diet. - LISINOPRIL 10 MG TABLET- discussed Reason for taking medications and treatment goals. Benefits of medication therapy. How medications work. Potential side effects of medications. Importance of regularly filling prescriptions and taking medications. 2. Anxiety - ICD9: 300.00, ICD10: F41.9 - would like to start with BP control because she states that she thinks the anxiety is improving now that she is away from her soon to be ex . - discussed that the SSRI are less risk for dependence than the klonopin and reminded her that the klonopin will have this risk. - suggested that she follow up if she feels that the anxiety is not controlled and will consider restarting prozac or another SSRI for management. 3. History of GI bleed - ICD9: V12.79, ICD10: Z87.19 - stable at this time, but do not know what repeat labs showed when she was seen at outside provider. Offered lab orders, but she would like to try and get results and wait to see what may be needed by new GI provider when she schedules - CONSULT TO GASTROENTEROLOGY 4. Screening for breast cancer - ICD9: V76.10, ICD10: Z12.31 - Discussed recommendations for mammogram starting at age 40. She agrees to schedule now since she will not be establishing for a couple of months with Dr. Storm. - JONA SCREENING Cecelia Aguilar CNP The majority of the visit was spent counseling and/or coordinating care for the patient. Qxvs-ix-ejtp time was 25 minutes. PROGRESS Observed: 08/20/2017 Status: COMPLETED Source: [place] 9:16 AM [facility] REPOSITORY HNO ID: [id number] Author: Rose Mcfarland Ma Service: (none) Author Type: (none) Type: Progress Notes Filed: 08/20/2017 10:37 AM Note Text: Repeat Blood Pressure BP Pulse HR Site Cuff Size Time Date 135/100 106 --- Left Arm Regular 09:11 AM 08/20/2017 135/101 103 --- Left Arm Regular 09:11 AM 08/20/2017 BP KIMBRELY AVERAGE 136/100 102 --- Left Arm Regular 09:11 AM 08/20/2017 139/100 101 --- Left Arm Regular 09:10 AM 08/20/2017 137/98 101 --- Left Arm Regular 09:10 AM 08/20/2017 136/103 100 --- Left Arm Regular 09:10 AM 08/20/2017 144/105 99 --- Left Arm Regular 09:10 AM 08/20/2017 No orthostatic vitals data filed. No peak flow data filed. No waist measurement recorded. ALLERGIES ALLERGIES DATE TYPE / CODE NAME / CODE REACTION SEVERITY SOURCE 06/28/2018 Drug amoxicillin/I88088 Hives Unknown [facility] Allergy/416 3678(RXNORM) [facility] [id number]([facility] ED CT) Repository 04/20/2016 DRUG AMOXICILLIN HIVES [facility] INGREDI/[address] [address]645([facility] Repository ED CT) ENCOUNTERS ENCOUNTERS ADMIT/DISCHARGE ACCOUNT NUMBER ADMITTING ENCOUNTER LOCATION SOURCE CLASS 06/29/2018/06/29/20 [id number] [place], Ambulatory [place] [address] [place] [address] ding:PCURoom Repository : [id number]: 1 06/29/2018 [id number] [place], Ambulatory BMSBuilding: Christiane Singleton BMS.[facility] Repository 06/29/2018 [id number] Agy[place], Ambulatory BMSBuilding: Christiane Singleton [facility] Repository 06/17/2018 [id number] Emergency [facility] [place] [address] ERRoom: System [id number]: Repository [id number] 08/24/2017 [id number] Ambulatory [facility] ding:LAB.FUT Repository URE 08/20/2017/08/20/19 [id number] Ambulatory [address] Repository PAYERS PAYERS ENCOUNTER GUARANTOR PAYER SUBSCRIBER SOURCE 06/29/2018 NANCY Minaya Primary Insurance:[facility]ANCY HELLER818 [facility] [place] Number: [id number], [place] [id number] Repository [address]Low: (043) Date:1452-42-52ES [phone] () [address] [place] [address] [id number]: 06/29/2018 Secondary NOT GIVENUNK [place] Insurance:SELF PAY [facility] Number: Effective Repository Date:2018-06-28 06/29/2018 NANCY Minaya Primary Insurance:[facility] NANCY HELLER818 [facility] SCOVEL Number: [id number], [place] [id number] Repository 16166Vjd: (113) Date:4389-07-11WA [phone] () [address] [place] [address] [id number]: 06/29/2018 Secondary NOT GIVENUNK Christiane Insurance:SELF PAY [facility] Number: Effective Repository Date:2018-06-28 06/29/2018 NANCY Minaya Primary Insurance:[facility] NANCY [place] [id number] [facility] STARLINGDOB: Community SCOVEL Number: [id number], [place] [id number] Repository 699[address]Utw: (373) Date:6178-47-49MU [phone] () [address] [place] [address] 01827QE: 06/29/2018 Secondary NOT GIVENUNK Christiane Insurance:SELF PAY [facility] Number: Effective Repository Date:2018-06-29 06/17/2018 Nancy Minaya Primary [facility] StarlingDOB: [facility] [id number] [facility] [id number] Repository [place] Number: Effective [place], [place] Date: [address]Ljl: (HP) 08/24/2017 NANCY Minaya Primary KAM [place] [id number] [place] Insurance:ANTHEMPolicy BALEONDOB: [place] Number: [id number] 17[address]Izw: (865) [id number] Repository [phone] (HP) Date:8765-06-53[address], [place] [address]GR: 08/24/2017 Secondary NOT GIVENUNK [place] Insurance:SELF PAY [facility] Number: Effective Repository Date:2017-08-24
== END 2018-06-29 18:20 | disposition home or self-care (01) ==
LOC: ED 22:06 → PCU 06-29 00:24
PROVIDERS: Admitting Provider Hospitalist; Emergency Provider Emergency Medicine; Family Provider Nurse Practitioner Family; PCP Nurse Practitioner Family; Referring Provider Hospitalist; Visit Provider Internal Medicine
DX: R55 Syncope and collapse (principal); J45.40 Moderate persistent asthma, uncomplicated; I10 Essential (primary) hypertension; F10.21 Alcohol dependence, in remission; R56.9 Unspecified convulsions; F10.20 Alcohol dependence, uncomplicated; F41.9 Anxiety disorder, unspecified; Z79.899 Other long term (current) drug therapy; E87.2 Acidosis; N17.9 Acute kidney failure, unspecified; J31.0 Chronic rhinitis
CPT/HCPCS: 36415; 70450; 70553; 71046; 80048; 80053; 80307; 80320; 81001; 81025; 83605; 84484; 85025; 93005; 94640; 95819; 96365; 96375; 97802; 99218; 99285; A9585; J7030; A4216; G0378; G0480

== ENCOUNTER 2018-08-12 13:12 | Observation (INO) | payer MEDICAID, SELFPAY ==
[2018-06-29 00:07] VITALS: BMI 28.0
--- NOTE | 2018-08-12 13:29 | PCM.HP.STD ---
Problem List (1) Alcohol abuse Status: Chronic (2) Alcohol withdrawal Status: Acute Qualifiers: Complication of substance-induced condition: with unspecified complication Qualified Code(s): F10.239 - Alcohol dependence with withdrawal, unspecified (3) Seizure Status: Chronic (4) Moderate persistent asthma Status: Chronic Qualifiers: Asthma complication type: uncomplicated Qualified Code(s): J45.40 - Moderate persistent asthma, uncomplicated History of Present Illness Date of Admission: 08/12/18 Chief Complaint: Nausea, vomiting, tremors The patient is a 43 year old F past medical history of hypertension, seizure disorder, anxiety/depression, chronic alcohol dependence, drinks about 8 ounces of wine every day who comes in with complaints of nausea, vomiting, tremors for medical stabilization in the [facility] protocol. She last drank alcohol on 08/11/2018. Admits to last having a seizure on July 08, 2018, believes it was related to alcohol. Vital signs stable. Past Medical History Past Medical History (Chronic Problems): Chronic Problems (Last Updated 06/29/18 @ 03:48 by Mani Rachel MD) Seizure (Chronic) Moderate persistent asthma (Chronic) Alcohol abuse (Chronic) Medical History: Medical History (Last Updated 06/29/18 @ 03:48 by Mani Rachel MD) Alcohol abuse F10.10 Asthma J45.909 Allergies amoxicillin Allergy (Verified 06/28/18 20:34) Hives Home Medications: Ambulatory Orders Medication Instructions Recorded Albuterol Inhaler [Ventolin Hfa] 1 - 2 puff INHALATION Q4H PRN PRN 06/28/18 Clonazepam 0.5 mg PO BID PRN 06/28/18 Lisinopril [Zestril] 10 mg PO DAILY 06/28/18 Pantoprazole Sodium [Protonix] 40 mg PO DAILY 06/28/18 Norgestimate-Ethinyl Estradiol 1 tab PO DAILY 06/29/18 [Previfem] levETIRAcetam tablet [Keppra 750 mg PO BID 08/12/18 tablet] Surgical History: tonsillectomy, - - Surgery on the face to remove precancerous birthmark Psychiatric History: Anxiety [employer]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 Denies: Anorexia, Chills, Fever, Weight Change Eyes: Denies: Blurred vision, Cataracts, Conjunctivae Inflammation, Pain, Redness, Vision Change HEENT: Denies: Difficulty Swallowing, Head Aches, Hearing Changes, Sinus Congestion, Sinus Drainage Cardiovascular: Denies: Chest Pain, Claudication, Heaviness, Light Headedness, Orthopnea, Palpitations Respiratory: Denies: Cough, Shortness of Breath, Shortness of breath at rest, Shortness of breath upon exertion, Sputum production, Wheezing Gastrointestinal: Reports: Nausea, Vomiting. Denies: Abdominal Pain, Constipation Genitourinary: Denies: Dysuria, Frequency, Incontinence Musculoskeletal: Denies: Joint Pain, Joint Tenderness, Neck Pain, Shoulder Pain Skin: Denies: Pruritis, Rash, Wounds Neurological: Denies: Difficulty swallowing, Focal weakness, Numbness, Tingling Psychiatric: Denies: Anxiety, Depression, Homicidal Ideations, Suicidal Ideations Hematologic/ Lymphatic: Denies: Easy Bruising, Easy Bleeding VTE Information - Inpt Only VTE Present on Admission: No VTE Pharm Prophylaxis ordered?: Yes Patient Problems: Active and Suspected Problems (Last Updated 06/29/18 @ 03:48 by Mani Rachel MD) Alcohol withdrawal (Acute) - Physical Exam General: Alert, Oriented x3, Cooperative, No apparent distress, - - appears slightly anxious HEENT: Atraumatic, PERRLA, EOMI, Normocephalic Neck: Supple, No JVD, Negative Carotid Bruits Lungs: Clear to auscultation, Normal air movement Cardiovascular: Regular rate, Regular Rhythm, Normal S1, Normal S2, No murmurs Abdomen: Bowel Sounds Present, Soft, Non Tender, Non-Distended Extremities: No edema Skin: No rashes, No breakdown Musculoskeletal: No Tenderness to Palpation of Joints or Extremities Lymphatic: No Cervical, Supraclavicular, or Inguinal Adenopathy Neurological: Cranial nerves II-XII grossly intact, Neuro grossly intact Psych/Mental Status: Normal Affect, Appropriate Body Mass Index (BMI) 28.0 Assessment/Plan All Active Problems (Last Updated 06/29/18 @ 03:48 by Mani Rachel MD) Rhinitis (Acute) Alcohol withdrawal (Acute) 43 year old F past medical history of hypertension, seizure disorder, anxiety/depression, chronic alcohol dependence, drinks about 8 ounces of wine every day who comes in with complaints of nausea, vomiting, tremors for medical stabilization in the [facility] protocol. 1. Acute alcohol withdrawal, CIWA score is 23, will continue to monitor per [facility] protocol wit Ativan. Will monitor for seizures whilst patient is withdrawing. 2. Hypertension, continue on home Lisinopril, continue to monitor vitals 3. Seizure disorder, on Keppra, will check Keppra levels 4. Asthma, no signs of acute exacerbation, will monitor prn 5. Anxiety/depression, on Clonazepam 6. DVT PPx- Lovenox SC Code Visit Inpatient E&M: 12410 Init Hosp L2
[2018-08-12 13:52] VITALS: BMI 26.5
[2018-08-12 14:00] VITALS: BP 143/101; PULSE 101; RESP 18; TEMP 36.5
[2018-08-12 14:16] VITALS: PULSE 101
[2018-08-12 15:07] LABS: Absolute Lymphocyte Count 0.74 X10^3/ul (0.83-4.51); Absolute Neutrophil Count 7.6 X10^3/uL (2.0-7.7); Basophil# 0.06 X10^3/uL; Basophil% 0.7 % (0-1); Eosinophil# 0.06 X10^3/uL; Eosinophils% 0.7 % (0-5); Hematocrit 38.3 % (37-47); Hemoglobin 12.8 g/dl (12.0-15.0); Lymphocyte # 0.74 X10^3/ul (4.0); Lymphocyte % 8.1 % (19-41); Mean Corp Hgb Conc 33.4 g/gl (32-36); Mean Corpuscular Hgb 32.7 pg (27.0-32.0); Mean Platelet Vol. 9.7 fl (6.2-12.0); Monocyte# 0.58 X10^3/uL; Monocyte% 6.4 % (0-10); Neutrophil # 7.64 X10^3/uL (2.7-7.7); Neutrophil % 83.9 % (47-70); Platelet Count 189 K/mm3 (150-450); RBC Distribution Width CV 13.9 % (11.6-14.6); RBC Distribution Width SD 48.6 fl (35.1-43.9); Red Blood Count 3.91 M/mm3 (4.2-5.4); White Blood Count 9.1 K/mm3 (4.4-11.0)
[2018-08-12 15:20] LABS: Alcohol, Blood (Medical)-Serum < 3.0 mg/dL
[2018-08-12 15:21] LABS: Amphetamine Urine VISTA NEGATIVE (<1000 ng/mL); Barbiturate Urine VISTA NEGATIVE (< 200 ng/mL); Benzodiazepine Urine VISTA POSITIVE (< 200 ng/mL); Cocaine Urine VISTA NEGATIVE (< 300 ng/mL); Ecstacy Urine VISTA NEGATIVE (< 500 ng/mL); Methadone Urine VISTA NEGATIVE (< 300 ng/mL); PCP Urine VISTA NEGATIVE (< 25 ng/mL); THC Urine VISTA NEGATIVE (< 50 ng/mL); Vista UDS pH Range 6
[2018-08-12 15:24] LABS: POSITIVE COUNT NO; POSITIVE DIFFERENTIAL NO; POSITIVE MORPHOLOGY NO
[2018-08-12 15:25] LABS: ALB/GLOB Ratio 1.2 RATIO (0.9-2.4); AST(SGOT) 30 U/L (15-37); Alanine Aminotransfer ALT/SGPT 23 U/L (13-56); Albumin, Serum 4.1 g/dL (3.2-5.0); Alkaline Phosphatase 84 U/L (45-117); Anion Gap 11 (5-15); BUN 9 mg/dL (7-18); BUN/Creat Ratio 12.4 RATIO (10-20); Calcium,Total 8.8 mg/dL (8.5-10.1); Chloride 106 mmol/L (98-107); Creatinine, Serum 0.72 mg/dL (0.55-1.02); EST Glomerular Filtration Rate 94 mL/min (>60); Est Glom Filt Rate - Afr Amer 114 mL/min (>60); Estimated Creatinine Clearance 96.68 ml/min; Globulin 3.5 g/dL (2.2-4.2); Glucose 113 mg/dL (74-106); Potassium 3.5 mmol/L (3.5-5.1); Protein, Total 7.6 g/dL (6.4-8.2); Sodium Level 141 mmol/L (136-145)
[2018-08-12] MEDS: LORazepam 1 MG Tablet PO ×2 (17:25→21:13)
[2018-08-12 17:39] VITALS: BP 145/106; PULSE 99; RESP 18; TEMP 36.7; O2SAT 100
[2018-08-12 20:16] VITALS: PULSE 109
[2018-08-12 21:10] VITALS: BP 137/99; PULSE 96; RESP 16; TEMP 36.6
[2018-08-12] MEDS: traZODone 50 MG Tablet PO (21:13)
[2018-08-13] VITALS (7 sets, daily range): BP systolic 121–138; BP diastolic 87–99; PULSE 79–99; RESP 14–16; TEMP 36.5–36.7; O2SAT 98–100
[2018-08-13] MEDS: LORazepam 1 MG Tablet PO ×5 (01:44→21:12)
[2018-08-13] MEDS: 0.9% NaCl Peripheral Flush Adult/Peds IV (01:45)
[2018-08-13] MEDS: Folic Acid 1 MG Tablet PO (09:36)
[2018-08-13] MEDS: Thiamine Hydrochloride 100 MG Tablet PO (09:36)
[2018-08-13] MEDS: Multivitamins,Therapeutic Tablet 1 TABLET PO (09:36)
[2018-08-13] MEDS: Ibuprofen 600 MG Tablet PO (09:40)
--- NOTE | 2018-08-13 12:28 | PCM.PROGNOTE ---
Patient Problems: Active and Suspected Problems (Last Updated 06/29/18 @ 03:48 by Mani Rachel MD) Alcohol withdrawal (Acute) Subjective: 43-year-old female with a history of alcohol dependence admitted to the [facility] program on 08/12/2018 for medical stabilization for acute alcohol withdrawal. She went through rehab in early June 2018 and was sober for 1-1/2 months. She was following with AA and at 180. Recently her dog and she began drinking again. She has been living at home with her parents. She is not consistently employed. She does have a history of anxiety/depression/panic attacks beginning in 2010. She has been treated with Klonopin and fluoxetine but has never had counseling. She moved in with her parents a few years ago when she moved to [place] from [place] because of trouble in her marriage and she has since been . No children. 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 Not currently on an anti-depressant. Admits to decreased appetite and trouble sleeping. Wants to go to a a residential facility at [place]. She slept well last night with the Trazodone. She denies nausea, vomiting, abdominal pain, hallucinations. No seizures. She has mild tremors. Objective: PHYSICAL EXAM: GENERAL: alert, oriented X 3, Cooperative, NAD ORAL: moist mucosa, no mucosal lesions NECK: No JVD, supple, trachea midline LUNGS: CTA, symmetric chest expansion HEART: RRR, Normal S1 and S2, no rub, no gallop ABDOMEN: soft, NT, ND, BS present, no guarding with palpation EXTREMITIES: no edema, no cyanosis, no calf tenderness SKIN: No rashes, no breakdown NEUROLOGIC: no focal neurologic deficits, minimal tremors PSYCH: appropriate, normal affect, pleasant - Physical Exam Vital Signs Temp Pulse Resp BP Pulse Ox 97.8 F 84 16 125/90 H 100 08/13/18 09:54 08/13/18 09:54 08/13/18 09:56 08/13/18 09:54 08/13/18 09:54 Oxygen Delivery Method Room Air Weight: 131 lb 4.8 oz Body Mass Index (BMI) 26.5 Intake and Output for Last 24 Hours 08/11/18 08/12/18 08/13/18 23:59 23:59 23:59 Intake Total 400 / 400 980 / 980 Output Total 1000 / 1000 Balance -600 / -600 980 / 980 Laboratory Tests Past 24 Hrs 08/12/18 08/12/18 08/12/18 14:40 14:40 14:40 WBC 9.1 RBC 3.91 L Hgb 12.8 Hct 38.3 MCV 98.0 MCH 32.7 H MCHC 33.4 RDW 13.9 RDW Differential 48.6 H Plt Count 189 MPV 9.7 Immature Gran % (Auto) 0.200 Neut % (Auto) 83.9 H Lymph % (Auto) 8.1 L Wood % (Auto) 6.4 Eos % (Auto) 0.7 Baso % (Auto) 0.7 Absolute Neuts (auto) 7.6 Absolute Lymphs (auto) 0.74 L Total Counted Not Reportable Sodium Potassium Chloride Carbon Dioxide Anion Gap BUN Creatinine Estim Creat Clear Calc Est GFR (MDRD) Af Amer Est GFR (MDRD) Non-Af BUN/Creatinine Ratio Glucose Calcium Total Bilirubin AST ALT Alkaline Phosphatase Total Protein Albumin Globulin Albumin/Globulin Ratio Urine Opiates Screen NEGATIVE Urine Methadone Screen NEGATIVE Ur Barbiturates Screen NEGATIVE Levetiracetam Ur Phencyclidine Scrn NEGATIVE Ur Amphetamines Screen NEGATIVE U Methamphetamin-MDMA NEGATIVE U Benzodiazepines Scrn POSITIVE H Urine Cocaine Screen NEGATIVE U Cannabinoids Screen NEGATIVE Ur Drug Screen Comment Ethyl Alcohol < 3.0 08/12/18 08/12/18 14:40 14:40 WBC RBC Hgb Hct MCV MCH MCHC RDW RDW Differential Plt Count MPV Immature Gran % (Auto) Neut % (Auto) Lymph % (Auto) [place] % (Auto) Eos % (Auto) Baso % (Auto) Absolute Neuts (auto) Absolute Lymphs (auto) Total Counted Sodium 141 Potassium 3.5 Chloride 106 Carbon Dioxide 24.0 Anion Gap 11 BUN 9 Creatinine 0.72 Estim Creat Clear Calc 96.68 Est GFR (MDRD) Af Amer 114 Est GFR (MDRD) Non-Af 94 BUN/Creatinine Ratio 12.4 Glucose 113 H Calcium 8.8 Total Bilirubin 1.00 AST 30 ALT 23 Alkaline Phosphatase 84 Total Protein 7.6 Albumin 4.1 Globulin 3.5 Albumin/Globulin Ratio 1.2 Urine Opiates Screen Urine Methadone Screen Ur Barbiturates Screen Levetiracetam Pending Ur Phencyclidine Scrn Ur Amphetamines Screen U Methamphetamin-MDMA U Benzodiazepines Scrn Urine Cocaine Screen U Cannabinoids Screen Ur Drug Screen Comment Ethyl Alcohol Medical Necessity - Tobacco Use Smoking Status: Never smoker Tobacco Use: Non-smoker Assessment/Plan All Active Problems (Last Updated 06/29/18 @ 03:48 by Mani Rachel MD) Rhinitis (Acute) Alcohol withdrawal (Acute) Impressions 1. Acute alcohol withdrawal 2. Alcohol dependence 3. Depression 4. Seizure disorder 5. History of asthma Start Sertraline 50 mg daily Vistril PRN for anxiety Continue the Trazodone at HS She needs to have counselling in conjunction with medication for long standing Anx/dep Told her that I would not be able to prescribe her Benzo's at [place] Continue the [facility] protocol for acute alcohol withdrawal Code Visit Inpatient E&M: 12749 Subs Hosp L2
--- NOTE | 2018-08-13 12:33 | PN_ITS ---
Patient Problems: Active and Suspected Problems (Last Updated 06/29/18 @ 03:48 by Mani Rachel MD) Alcohol withdrawal (Acute) Subjective: 43-year-old female with a history of alcohol dependence admitted to the [facility] program on 08/12/2018 for medical stabilization for acute alcohol withdrawal. She went through rehab in early June 2018 and was sober for 1- 1/2 months. She was following with AA and at [facility]. Recently her dog and she began drinking again. She has been living at home with her parents. She is not consistently employed. She does have a history of anxiety/depression/panic attacks beginning in 2010. She has been treated with Klonopin and fluoxetine but has never had counseling. She moved in with her parents a few years ago when she moved to [place] from [place] because of trouble in her marriage and she has since been . No children. 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 Not currently on an anti-depressant. Admits to decreased appetite and trouble sleeping. Wants to go to a a residential facility at [place]. She slept well last night with the Trazodone. She denies nausea, vomiting, abdominal pain, hallucinations. No seizures. She has mild tremors. Objective: PHYSICAL EXAM: GENERAL: alert, oriented X 3, Cooperative, NAD ORAL: moist mucosa, no mucosal lesions NECK: No JVD, supple, trachea midline LUNGS: CTA, symmetric chest expansion HEART: RRR, Normal S1 and S2, no rub, no gallop ABDOMEN: soft, NT, ND, BS present, no guarding with palpation EXTREMITIES: no edema, no cyanosis, no calf tenderness SKIN: No rashes, no breakdown NEUROLOGIC: no focal neurologic deficits, minimal tremors PSYCH: appropriate, normal affect, pleasant - Physical Exam Vital Signs Temp Pulse Resp BP Pulse Ox 97.8 F 84 16 125/90 H 100 08/13/18 09:54 08/13/18 09:54 08/13/18 09:56 08/13/18 09:54 08/13/18 09:54 Oxygen Delivery Method Room Air Weight: 131 lb 4.8 oz Body Mass Index (BMI) 26.5 Intake and Output for Last 24 Hours 08/11/18 08/12/18 08/13/18 23:59 23:59 23:59 Intake Total 400 / 400 980 / 980 Output Total 1000 / 1000 Balance -600 / -600 980 / 980 Laboratory Tests Past 24 Hrs 08/12/18 08/12/18 08/12/18 14:40 14:40 14:40 WBC 9.1 RBC 3.91 L Hgb 12.8 Hct 38.3 MCV 98.0 MCH 32.7 H MCHC 33.4 RDW 13.9 RDW Differential 48.6 H Plt Count 189 MPV 9.7 Immature Gran % (Auto) 0.200 Neut % (Auto) 83.9 H Lymph % (Auto) 8.1 L Faulkner % (Auto) 6.4 Eos % (Auto) 0.7 Baso % (Auto) 0.7 Absolute Neuts (auto) 7.6 Absolute Lymphs (auto) 0.74 L Total Counted Not Reportable Sodium Potassium Chloride Carbon Dioxide Anion Gap BUN Creatinine Estim Creat Clear Calc Est GFR (MDRD) Af Amer Est GFR (MDRD) Non-Af BUN/Creatinine Ratio Glucose Calcium Total Bilirubin AST ALT Alkaline Phosphatase Total Protein Albumin Globulin Albumin/Globulin Ratio Urine Opiates Screen NEGATIVE Urine Methadone Screen NEGATIVE Ur Barbiturates Screen NEGATIVE Levetiracetam Ur Phencyclidine Scrn NEGATIVE Ur Amphetamines Screen NEGATIVE U Methamphetamin-MDMA NEGATIVE U Benzodiazepines Scrn POSITIVE H Urine Cocaine Screen NEGATIVE U Cannabinoids Screen NEGATIVE Ur Drug Screen Comment Ethyl Alcohol < 3.0 08/12/18 08/12/18 14:40 14:40 WBC RBC Hgb Hct MCV MCH MCHC RDW RDW Differential Plt Count MPV Immature Gran % (Auto) Neut % (Auto) Lymph % (Auto) Faulkner % (Auto) Eos % (Auto) Baso % (Auto) Absolute Neuts (auto) Absolute Lymphs (auto) Total Counted Sodium 141 Potassium 3.5 Chloride 106 Carbon Dioxide 24.0 Anion Gap 11 BUN 9 Creatinine 0.72 Estim Creat Clear Calc 96.68 Est GFR (MDRD) Af Amer 114 Est GFR (MDRD) Non-Af 94 BUN/Creatinine Ratio 12.4 Glucose 113 H Calcium 8.8 Total Bilirubin 1.00 AST 30 ALT 23 Alkaline Phosphatase 84 Total Protein 7.6 Albumin 4.1 Globulin 3.5 Albumin/Globulin Ratio 1.2 Urine Opiates Screen Urine Methadone Screen Ur Barbiturates Screen Levetiracetam Pending Ur Phencyclidine Scrn Ur Amphetamines Screen U Methamphetamin-MDMA U Benzodiazepines Scrn Urine Cocaine Screen U Cannabinoids Screen Ur Drug Screen Comment Ethyl Alcohol Medical Necessity - Tobacco Use Smoking Status: Never smoker Tobacco Use: Non-smoker Assessment/Plan All Active Problems (Last Updated 06/29/18 @ 03:48 by Mani Rachel MD) Rhinitis (Acute) Alcohol withdrawal (Acute) Impressions 1. Acute alcohol withdrawal 2. Alcohol dependence 3. Depression 4. Seizure disorder 5. History of asthma Start Sertraline 50 mg daily Vistril PRN for anxiety Continue the Trazodone at [facility] She needs to have counselling in conjunction with medication for long standing Anx/dep Told her that I would not be able to prescribe her Benzo's at [place] Continue the [facility] protocol for acute alcohol withdrawal Code Visit Inpatient E&M: 65312 Subs Hosp L2
[2018-08-13] MEDS: Sertraline 50 MG Tablet PO (15:18)
[2018-08-13] MEDS: Acetaminophen 500 MG Tablet PO (15:30)
--- NOTE | 2018-08-13 15:54 | CHAPLAIN ---
Type of Pastoral Visit _x__ Initial Visit ___ Follow-up Visit ___ On-call Visit ___ General Patient Visit ___ Spiritual Assessment ___ Family Conference ___ Bereavement ___ Rapid Response ___ Code Blue ___ Other (describe below) Pastoral Care Referral From _x__ Patient ___ Family ___ Nurse ___ Physician ___ Vulcanizer ___ Joint Terminal Attack Controller ___ Other (describe below) Sacrament/Intervention _x__ Active listening ___ Anointing ___ Religious ___ Bereavement ___ Communion _x__ Luma exploration ___ _x__ Life review _x__ Prayer ___ Reconciliation ___ Sacrament of Sick _x__ Supportive presence ___ Wedding ___ Other (describe below) Pastoral Comments patient discloses some issues that she has been dealing with and the stress that has caused; pt admits choices have been detrimental; pt makes her own suggestion that she needs to explore the spiritual/tenriism help that has been missing in her life; pt requests a Bible and asks questions about luma and God; pt welcomes prayer and further support as available
[2018-08-13] MEDS: traZODone 50 MG Tablet PO (21:12)
[2018-08-14] MEDS: LORazepam 1 MG Tablet PO ×3 (03:44→17:34)
[2018-08-14 03:45] VITALS: BP 119/87; PULSE 94; RESP 16; TEMP 36.6; O2SAT 100
[2018-08-14 04:11] VITALS: BP 119/87; PULSE 94; RESP 18; TEMP 36.6
--- NOTE | 2018-08-14 06:29 | PCM.PROGNOTE ---
Patient Problems: Active and Suspected Problems (Last Updated 06/29/18 @ 03:48 by Mani Rachel MD) Alcohol withdrawal (Acute) Subjective: All events the past 24 hours been reviewed. She is afebrile. Blood pressures are improving. No tachycardia. She is c/o some nausea today and decreased appetite but no vomiting. Slept well again last night with the Trazodone Objective: GENERAL: alert, oriented X 3, Cooperative, NAD ORAL: moist mucosa, no mucosal lesions NECK: No JVD, supple, trachea midline LUNGS: CTA, symmetric chest expansion HEART: RRR, Normal S1 and S2, no rub, no gallop ABDOMEN: soft, NT, ND, BS present and normal, no guarding with palpation EXTREMITIES: no edema, no cyanosis, no calf tenderness SKIN: No rashes, no breakdown, she has either Rosaea or Acne on her face.......favor rosacea. She has erythema, papules and some pustules. NEUROLOGIC: no focal neurologic deficits, minimal tremors PSYCH: appropriate, normal affect, pleasant - Physical Exam Vital Signs Temp Pulse Resp BP Pulse Ox 97.8 F 94 18 119/87 H 100 08/14/18 04:11 08/14/18 04:11 08/14/18 04:11 08/14/18 04:11 08/14/18 03:45 Oxygen Delivery Method Room Air Weight: 131 lb 4.8 oz Body Mass Index (BMI) 26.5 Intake and Output for Last 24 Hours 08/12/18 08/13/18 08/14/18 23:59 23:59 23:59 Intake Total 400 / 400 980 / 980 300 / 300 Output Total 1000 / 1000 Balance -600 / -600 980 / 980 300 / 300 Medical Necessity - Tobacco Use Smoking Status: Never smoker Tobacco Use: Non-smoker Assessment/Plan All Active Problems (Last Updated 06/29/18 @ 03:48 by Mani Rachel MD) Rhinitis (Acute) Alcohol withdrawal (Acute) Impressions 1. Acute alcohol withdrawal 2. Alcohol dependence 3. Depression 4. Seizure disorder - no seizures 5. History of asthma 6. rosacea - suspected Continue Sertraline and Trazodone at [place] No inpt female available in a residential facility right now........looks good for the next week though. She will be going home with her father in the interim. RX Metrogel at [place] for rosacea and have her follow up with her PCP in a few weeks. Has not had to take any Vistaril for anxiety Code Visit Inpatient E&M: 22946 Subs Hosp L2
--- NOTE | 2018-08-14 09:12 | NEWVISION ---
Patient will go to [facility] for individual counseling to address depression, anxiety, and alcohol use. Patient would like to continue with inpatient treatment. At this time inpatient facilities for females are at full capacity. Patient was given further information on these facilities so that she may continue to check in with them and continue with inpatient treatment as soon as there is a bed opening. Patient will be transported home by family at time of discharge.
[2018-08-14] MEDS: Folic Acid 1 MG Tablet PO (09:25)
[2018-08-14] MEDS: Sertraline 50 MG Tablet PO (09:25)
[2018-08-14] MEDS: Multivitamins,Therapeutic Tablet 1 TABLET PO (09:25)
[2018-08-14] MEDS: Ibuprofen 600 MG Tablet PO ×2 (09:25→17:34)
[2018-08-14] MEDS: Thiamine Hydrochloride 100 MG Tablet PO (09:25)
[2018-08-14 09:31] VITALS: BP 132/84; PULSE 84; RESP 16; TEMP 36.6
[2018-08-14] MEDS: Ondansetron 8 MG Tablet PO (09:39)
[2018-08-14 17:27] VITALS: BP 117/82; PULSE 84; RESP 18; TEMP 36.8; O2SAT 97
[2018-08-14] MEDS: Acetaminophen 500 MG Tablet PO (19:18)
[2018-08-14] MEDS: Magnesium Hydroxide 30 ML UDC PO (20:53)
[2018-08-14] MEDS: traZODone 50 MG Tablet PO (20:56)
[2018-08-14 22:00] VITALS: BP 118/74; PULSE 96; RESP 16; TEMP 36.9
[2018-08-15 02:00] VITALS: BP 109/81; PULSE 75; RESP 16; TEMP 36.6; O2SAT 98
[2018-08-15] MEDS: LORazepam 1 MG Tablet PO ×2 (02:00→09:53)
[2018-08-15 06:00] VITALS: RESP 16
--- NOTE | 2018-08-15 08:07 | PCM.PROGNOTE ---
Patient Problems: Active and Suspected Problems (Last Updated 06/29/18 @ 03:48 by Mani Rachel MD) Alcohol withdrawal (Acute) Subjective: All events of the past 24 hours of been reviewed. Afebrile since admission Vital signs stable, no tachycardia, blood pressure is normal Complaining she had a difficult time sleeping last night due to cough when she lies down. She is additionally complaining of right ear pain nausea with emesis and lower abdominal cramping. She denies any dysuria, urinary frequency or urinary urgency. She has not had a bowel movement since admission. Objective: PHYSICAL EXAM: GENERAL: alert, oriented X 3, Cooperative, NAD, lying comfortably in bed HEENT: moist mucosa, no mucosal lesions, no pharyngeal injection or exudates, bilateral TMs are normal with good cone of light and no erythema. NECK: No JVD, supple, trachea midline LUNGS: CTA, symmetric chest expansion, good air exchange HEART: RRR, Normal S1 and S2, no rub, no gallop ABDOMEN: soft, Tender in the lower quadrants , ND, normal BS present, no guarding with palpation EXTREMITIES: no edema, no cyanosis, no calf tenderness SKIN:, Pustules and papules, no breakdown NEUROLOGIC: no focal neurologic deficits PSYCH: appropriate, normal affect, pleasant - Physical Exam Vital Signs Temp Pulse Resp BP Pulse Ox 97.8 F 75 16 109/81 H 98 08/15/18 02:00 08/15/18 02:00 08/15/18 06:00 08/15/18 02:00 08/15/18 02:00 Oxygen Delivery Method Room Air Weight: 131 lb 4.8 oz Body Mass Index (BMI) 26.5 Intake and Output for Last 24 Hours 08/13/18 08/14/18 08/15/18 23:59 23:59 23:59 Intake Total 980 / 980 950 / 950 1060 / 1060 Balance 980 / 980 950 / 950 1060 / 1060 Medical Necessity - Tobacco Use Smoking Status: Never smoker Tobacco Use: Non-smoker Assessment/Plan All Active Problems (Last Updated 06/29/18 @ 03:48 by Mani Rachel MD) Rhinitis (Acute) Alcohol withdrawal (Acute) Impressions 1. Acute alcohol withdrawal 2. Alcohol dependence 3. Depression 4. Seizure disorder - no seizures 5. History of asthma 6. rosacea - suspected 7. URI suspected - likely viral 8. N/V/constipation Respiratory panel Change diet to clear liquid Add Phenergan for nausea and discontinue Zofran Milk of magnesia 30 cc now Probable DC later today if nausea and vomiting resolve with change in diet and Phenergan Code Visit Inpatient E&M: 81713 Subs Hosp L2
[2018-08-15] MEDS: Thiamine Hydrochloride 100 MG Tablet PO (08:51)
[2018-08-15] MEDS: Folic Acid 1 MG Tablet PO (08:51)
[2018-08-15] MEDS: Multivitamins,Therapeutic Tablet 1 TABLET PO (08:51)
[2018-08-15] MEDS: Sertraline 50 MG Tablet PO (08:52)
[2018-08-15] MEDS: Magnesium Hydroxide 30 ML UDC PO (08:55)
[2018-08-15 10:00] VITALS: BP 110/76; PULSE 84; RESP 18; TEMP 37.1; O2SAT 98
[2018-08-15 14:00] VITALS: BP 130/92; PULSE 92; RESP 18; TEMP 36.8; O2SAT 98
--- NOTE | 2018-08-15 15:48 | DCINST_ITS ---
- Discharge Diagnoses Current Active Problems: Current Active and Chronic Problems (This Medical Record has been edited. Action required.) Alcohol abuse (Chronic) Alcohol withdrawal (Acute) Acute rhinovirus You will use the following diet at home:: No restrictions Discharge Activity: Return to Normal Activity Call your doctor if you observe: Shortness of breath, Dizziness, Fainting spells, Chest pain Allergies/Adverse Reactions: Allergies amoxicillin Allergy (Verified 08/15/18 13:35) Hives Medications to take at Discharge Albuterol Inhaler [Ventolin Hfa] 1 - 2 puff INHALATION Q4H PRN PRN 06/17/17 Control Pills 1 tab PO DAILY 06/17/17 Albuterol Inhaler [Ventolin Hfa] 1 - 2 puff INHALATION Q4H PRN PRN 06/28/18 Clonazepam 0.5 mg PO BID PRN 06/28/18 Lisinopril [Zestril] 10 mg PO DAILY 06/28/18 Pantoprazole Sodium [Protonix] 40 mg PO DAILY 06/28/18 Norgestimate-Ethinyl Estradiol [Previfem] 1 tab PO DAILY 06/29/18 levETIRAcetam tablet [Keppra tablet] 750 mg PO BID 08/12/18 Sertraline HCl [Zoloft] 50 mg PO DAILY #30 tab 08/15/18 traZODone [Desyrel] 50 mg PO QHS #30 tab 08/15/18 The following prescriptions were given: Sertraline HCl [Zoloft] 50 mg PO DAILY #30 tab traZODone [Desyrel] 50 mg PO QHS #30 tab Primary Care Physician: Nasima Zhu NP-C [Primary Care Provider] - Please follow up with your Primary Care Physician in: 1 Week Test Results: Test results from this visit will be discussed in further detail at your follow- up appointment, if applicable. Proposed Discharge Date: 08/15/18
--- NOTE | 2018-08-15 16:07 | DS.PCM_ITS ---
Discharge Date and Diagnosis Date of Admission: 08/12/18 Date of Discharge: 08/15/18 - Primary Discharge Diagnosis Active and Suspected Problems (This Medical Record has been edited. Action required.) 1. Acute alcohol withdrawal with chronic alcohol dependence 2. Acute URI secondary to acute rhinovirus 3. Depression/anxiety 4. History of seizure disorder 5. History of asthma 6. Suspected rosacea 7. Hypertension - Secondary Discharge Diagnosis Chronic Problems (This Medical Record has been edited. Action required.) Seizure (Chronic) Moderate persistent asthma (Chronic) Alcohol abuse (Chronic) Hospital Course and Treatment Operations: None Procedures: None Summary of Care Provided: The patient is a 43 year old F admitted 08/12/2018 due to nausea, vomiting, tremors. She has a past medical history of hypertension, history of seizure disorder, anxiety, depression, chronic alcohol dependence, asthma. 1. Acute alcohol withdrawal with chronic alcohol dependence-medical stabilization per [facility] protocol. CIWA/Ativan protocol. Per [facility] front office representative, plan is for patient to go to [facility] for outpatient counseling. Patient would like to attend inpatient treatment however facilities for females are currently at full capacity. Patient was given information regarding these facilities that she can follow-up with at discharge. 2. Acute URI secondary to acute rhinovirus-continue home PRN albuterol inhaler as needed for shortness of breath/wheezing. OTC management for sx. 3. Depression/anxiety-started on Zoloft and trazodone. 4. History of seizure disorder-continue home Keppra regimen. 5. History of asthma-no acute exacerbation. Continue as needed albuterol. 6. Suspected rosacea-address with PCP. 7. Hypertension-stable, continue home lisinopril regimen. General: Alert, Oriented x3, Cooperative, No apparent distress HEENT: Atraumatic, PERRLA, EOMI, Normocephalic Neck: Supple, No JVD, Negative Carotid Bruits Lungs: Clear to auscultation, Normal air movement Cardiovascular: Regular rate, Regular Rhythm, Normal S1, Normal S2, No murmurs Abdomen: Bowel Sounds Present, Soft, Non Tender, Non-Distended Extremities: No edema Skin: No rashes, No breakdown Musculoskeletal: No Tenderness to Palpation of Joints or Extremities Lymphatic: No Cervical, Supraclavicular, or Inguinal Adenopathy Neurological: Cranial nerves II-XII grossly intact, Neuro grossly intact Psych/Mental Status: Normal Affect, Appropriate Patient seen and examined prior to discharge. Physical assessment as noted above. Patient is stable for discharge with follow up recommendations as noted above. This patient was seen by KE Joshi under the supervision of Dr. Carey. - Physical Exam Vital Signs Temp Pulse Resp BP Pulse Ox 98.2 F 92 18 130/92 H 98 08/15/18 14:00 08/15/18 14:00 08/15/18 14:00 08/15/18 14:00 08/15/18 14:00 Oxygen Delivery Method Room Air Weight: 131 lb 4.8 oz Body Mass Index (BMI) 26.5 Intake and Output for Last 24 Hours 08/13/18 08/14/18 08/15/18 23:59 23:59 23:59 Intake Total 980 / 980 950 / 950 1810 / 1810 Balance 980 / 980 950 / 950 1810 / 1810 Microbiology Past 72 Hours 08/15/18 09:10 Respiratory Panel (PCR) - Final Mucosa - Nose Rhinovirus Discharge Diet: No Restrictions Discharge Activity: Return to Normal Activity Call your doctor if you observe: Shortness of breath, Dizziness, Fainting spells, Chest pain Home Medications: Medications to take at Discharge Albuterol Inhaler [Ventolin Hfa] 1 - 2 puff INHALATION Q4H PRN PRN 06/17/17 Control Pills 1 tab PO DAILY 06/17/17 Albuterol Inhaler [Ventolin Hfa] 1 - 2 puff INHALATION Q4H PRN PRN 06/28/18 Clonazepam 0.5 mg PO BID PRN 06/28/18 Lisinopril [Zestril] 10 mg PO DAILY 06/28/18 Pantoprazole Sodium [Protonix] 40 mg PO DAILY 06/28/18 Norgestimate-Ethinyl Estradiol [Previfem] 1 tab PO DAILY 06/29/18 levETIRAcetam tablet [Keppra tablet] 750 mg PO BID 08/12/18 Ondansetron HCl [Zofran] 4 mg PO Q6H PRN #16 tab 08/15/18 Sertraline HCl [Zoloft] 50 mg PO DAILY #30 tab 08/15/18 traZODone [Desyrel] 50 mg PO QHS #30 tab 08/15/18 Following Prescrptions Were Given to Patient: Sertraline HCl [Zoloft] 50 mg PO DAILY #30 tab traZODone [Desyrel] 50 mg PO QHS #30 tab Ondansetron HCl [Zofran] 4 mg PO Q6H PRN #16 tab PRN Reason: Nausea Primary Care Physician: Nasima Zhu NP-C [Primary Care Provider] - Please follow up with your Primary Care Physician in: 1 Week Disposition: Home Minutes spent on discharge:: 35 Patient Condition:: Stable Medical Necessity - Tobacco Use Smoking Status: Never smoker Tobacco Use: Non-smoker Meaningful Use Info Meaningful Use Diagnoses (Choose all that apply): None applicable
[2018-08-15 16:43] VITALS: BP 134/89; PULSE 95; RESP 18; TEMP 37.2; O2SAT 100
[2018-08-16 11:17] LABS: KEPPRA (LEVETIRACETAM) 2.1 ug/mL (10.0-40.0)
--- OUTSIDE RECORDS SUMMARY | 2019-01-03 14:57 | XMS RPT_ITS | CCD ---
:1975 External Reference #:[id number] Author Organization [facility] Team Providers Name Role Phone Unavailable Unavailable Unavailable Allergies Reported Allergen Reaction(s) Severity Date of Onset Location amoxicillin hives, AOF Critical, Critical 04-20-2016 - [facility] radha Translations: [ (39181) AMOXICILLIN, AMOXICILLIN, AMOXICILLIN] Medications Medication Name Sig Date Prescriber Location albuterol VENTOLIN HFA AERS as 06-01-2017 [facility] (03160) directed ALBUTEROL SULFATE AERS [id number] Flor Turner CAREER TECHNOLOGY TEACHER VENTOLIN HFA AERS as directed 06-01-2017 [facility] (62588) ALBUTEROL SULFATE AERS [id number] Flor Stilesall CAREER TECHNOLOGY TEACHER VENTOLIN HFA AERS as directed 06-01-2017 [facility] (54733) ALBUTEROL SULFATE AERS [id number] Flor Stilesall CAREER TECHNOLOGY TEACHER VENTOLIN HFA AERS as directed 06-01-2017 [facility] (05603) ALBUTEROL SULFATE AERS [id number] Flor Turner CAREER TECHNOLOGY TEACHER VENTOLIN HFA AERS as directed 06-01-2017 [facility] (24367) ALBUTEROL SULFATE AERS [id number] Flor Turner LPN azithromycin ZITHROMAX Z-TAZ 250 MG 06-01-2017 - Kosta Bobo [facility] Now Clinic TABS Take 2 pills on 06-06-2017 [place] (65579) day 1 then 1 pill days 2 through 5 AZITHROMYCIN [id number] Kosta Bobo [place] clonazePAM KLONOPIN 1 MG TABS One 06-06-2017 [facility] N ow Clinic tablet by mouth daily (76772 ) as needed CLONAZEPAM [id number] Perry A Garrett [employer]ER [employer]-C KLONOPIN 1 MG TABS One tablet by mouth daily as 06-06-2017 [facility] Now Clinic (12884) needed CLONAZEPAM [id number] Perry A Garrett [employer] KLONOPIN 1 MG TABS One tablet by mouth daily as 06-06-2017 [facility] Now Clinic (31187) needed CLONAZEPAM [id number] Perry A Garrett [employer] dilTIAZem DILTIAZEM HCL TABS One tablet by mouth 06-06-2017 [facility] Now Clinic (58504) daily DILTIAZEM HCL TABS [id number] Perry A Garrett [employer] DILTIAZEM HCL TABS One tablet by mouth daily 06-06-2017 [facility] Now Clinic (20055) DILTIAZEM HCL TABS [id number] Perry A Garrett [employer] DILTIAZEM HCL TABS One tablet by mouth daily 06-06-2017 [facility] Now Clinic (33705) DILTIAZEM HCL TABS [id number] Perry A Garrett [employer] doxycycline DOXYCYCLINE MONOHYDRATE 06-06-2017 - 06-06-2017 [facility] Now Clinic 100 MG CAPS One tablet by (4 4691) mouth twice daily DOXYCYCLINE MONOHYDRATE [id number] Perry A Garrett [employer] DOXYCYCLINE MONOHYDRATE 100 MG 06-06-2017 Perry A Garrett [employer]- C [facility] Now Clinic (57086) CAPS One tablet by mouth twice daily DOXYCYCLINE MONOHYDRATE [id number] Perry A Garrett [employer] methylprednisoLONE MEDROL 4 MG TBPK Take as 06-01-2017 - Kosta James [facility] Now directed 06-06-2017 [facility] (21382) METHYLPREDNISOLONE [id number] Kosta YEE montelukast SINGULAIR 10 MG TABS One 06-06-2017 [facility] Now tablet by mouth daily Clinic MONTELUKAST (4469 1) SODIUM [id number] Perry A Garrett [employer] SINGULAIR 10 MG TABS One tablet by mouth daily 06-06-2017 [facility] Now Clinic (45431) MONTELUKAST SODIUM [id number] Perry A Garrett [employer] SINGULAIR 10 MG TABS One tablet by mouth daily 06-06-2017 [facility] Now Clinic (80444) MONTELUKAST SODIUM [id number] Perry A Garrett [employer] NORGESTIMATE-ETH ESTRADIOL SPRINTEC 28 TABS as 06-01-2017 [facility] Now Clinic TABS directed (86836) NORGESTIMATE-ETH ESTRADIOL TABS [id number] Flor Turner CAREER TECHNOLOGY TEACHER SPRINTEC 28 TABS as directed 06-01-2017 [facility] Now Clinic (86112) NORGESTIMATE-ETH ESTRADIOL TABS [id number] Flor N Johnny CAREER TECHNOLOGY TEACHER SPRINTEC 28 TABS as directed 06-01-2017 [facility] Now Clinic (48369) NORGESTIMATE-ETH ESTRADIOL TABS [id number] Flor N Johnny CAREER TECHNOLOGY TEACHER SPRINTEC 28 TABS as directed 06-01-2017 [facility] Now Clinic (90129) NORGESTIMATE-ETH ESTRADIOL TABS [id number] Flor N Johnny CAREER TECHNOLOGY TEACHER SPRINTEC 28 TABS as directed 06-01-2017 [facility] Now Clinic (10818) NORGESTIMATE-ETH ESTRADIOL TABS [id number] Flor Turner CAREER TECHNOLOGY TEACHER potassium chloride KLOR-CON M20 20 MEQ CR-TABS 06-06-2017 [facility] Now Clinic (19524) One tablet by mouth daily POTASSIUM CHLORIDE CHRISTIE ER [id number] Perry A Garrett [employer] KLOR-CON M20 20 MEQ CR-TABS One tablet by mouth 06-06-2017 [facility] Now Clinic (53952) daily POTASSIUM CHLORIDE CHRISTIE ER [id number] Perry A Garrett [employer] KLOR-CON M20 20 MEQ CR-TABS One tablet by mouth 06-06-2017 [facility] Now Clinic (22136) daily POTASSIUM CHLORIDE CHRISTIE ER [id number] Perry A Garrett [employer] predniSONE PREDNISONE 20 MG TABS Two 06-06-2017 Perry A Garrett FN P-C [facility] Now Clinic tablet by mouth daily (24088 ) PREDNISONE [id number] Perry A Garrett [employer] PREDNISONE 20 MG TABS Two tablet 06-06-2017 Perry A Garrett FN P-C [facility] Now Clinic (36041) by mouth daily PREDNISONE [id number] Perry A Garrett [employer] PREDNISONE 20 MG TABS Two tablet 06-06-2017 Perry A Garrett FN P-C [facility] Now Clinic (24331) by mouth daily PREDNISONE [id number] Perry A Garrett [employer] Problems Active Problems Category Problem Name Status Date Location Alcohol-related Alcohol abuse Active 06-06-2017 - [facility] Now Cli cara disorders (44067) Asthma Exacerbation of asthma Active 06-01-2017 - [facility] N ow Clinic (26175) Other hematologic Other specified Active 06-17-2017 - [facility] conditions diseases of blood and [facility] blood-forming organs (94754) Screening or history of Alcoholic hepatitis Active 06-06-2017 - [facility] mental health and (40201) substance abuse Septicemia Sepsis, unspecified Active 06-17-2017 - [place] (52354) Unclassified Unknown / UNK(Unknown) Active 06-17-2017 - [facility] (88941) Past or Other Problems Category Problem Name Status Date Location Acute posthemorrhagic Acute posthemorrhagic Completed 06-17-2017 [facility] (52098) Biliary tract disease Acute cholecystitis Completed 06-17-2017 [facility] (00024) Cardiac dysrhythmias Tachycardia Completed 06-06-2017 [facility] Now Clinic - (05161) Fluid and electrolyte Hypokalemia Completed 06-06-2017 [facility] No w Clinic disorders - (92132) Gastrointestinal Gastrointestinal Completed 06-17-2017 [facility] hemorrhage hemorrhage, unspecified - [facility] (13432) Other liver diseases ALT (SGPT) level raised Completed 7 [facility] Now Clinic - (92257) Other lower respiratory Cough Completed 06-06-2017 [facility] Now Clinic disease - (95505) Other upper respiratory Acute sinusitis Completed 06-01-2017 [facility] infections - (25287) Unclassified Abnormal Completed 06-17-2017 [facility] electrocardiogram [ECG] [facility] [EKG] (05811) Results Result Name Value Range Unit Interpretation Flag Date Location hemogram/diff on 01-07-05 Abs Immature Grans 0.09 0.00-0.05 thou/cmm High 06-19-2017 [facility] (00 000) Comment: Performed By: #### LAC ####A [address] [address] Abs. Baso 0.05 0.01-0.08 thou/cmm Normal 06-19-2017 [facility] (76895) Comment: Performed By: #### LAC ####A [address] [address] Abs. [place] 0.27 0.27-0.70 thou/cmm Normal 06-19-2017 [facility] (37431) Comment: Performed By: #### LAC ####A [address] [address] Abs. Neut 2.93 1.56-6.13 thou/cmm Normal 06-19-2017 [facility] (14514) Comment: Performed By: #### LAC ####A [address] [address] Basophils/100 WBC Auto (Bld) 1.2 % Normal 1 08-20-2016 [facility] (09273) Comment: Performed By: #### LAC ####A [address] [address] Eosinophils 0.11 0.00-0.31 thou/cmm Normal 06-19-[address] [facility] (92508) Comment: Performed By: #### LAC ####A [address] [address] Eosinophils/100 leukocytes 2.6 % Normal [facility] (79729) Comment: Performed By: #### LAC ####A [facility] [place], [place] [address] Erythrocyte distribution 15.8 11.7-14.4 % High 06-19 [facility] Auto Ratio (RBC) System (64694) Comment: Performed By: #### LAC ####A [facility] [place], [place] [address] Erythrocytes (RBC) 2.22 3.93-5.22 mil/cmm Low 06-19-2017 [facility] (94780) Comment: Performed By: #### LAC ####A [address] [address] Hematocrit (HCT) 25.1 34.1-44.9 % Low 06-19-2017 [facility] (58194) Comment: Performed By: #### LAC ####A [address] [address] Hemoglobin mass conc (Bld) 8.1 11.2-15.7 g/dL Low [facility] (00 000) Comment: Performed By: #### LAC ####A [address] [address] Immature Grans 2.10 % Normal 06-19-2017 [facility] (64844) Comment: Performed By: #### LAC ####A [address] [address] Lymphocytes 0.79 1.18-3.74 thou/cmm Low 06-19-2017 [facility] (67424) Comment: Performed By: #### LAC ####A [address] [address] Lymphocytes/100 leukocytes 18.6 % Normal [facility] (10799) Comment: Performed By: #### LAC ####A [address] [address] MCH 36.5 25.6-32.2 pg High 06-19-2017 [facility] (46591) Comment: Performed By: #### LAC ####A [facility] [place], [place] [address] MCHC mass conc (RBC) 32.3 31.6-34.8 % Normal 7 [facility] (64563) Comment: Performed By: #### LAC ####A [facility] [place], [place] [address] MCV 113.1 79.4-94.8 fl High 06-19-2017 [facility] (96929) Comment: Performed By: #### LAC ####A [address] [address] Monocytes/100 leukocytes 6.4 % Normal 06-19 [facility] (93879) Comment: Performed By: #### LAC ####A [address] [address] Platelet mean volume (PMV) 12.0 9.4-12.3 fl Normal [facility] (00 000) Comment: Performed By: #### LAC ####A [address] [address] Platelets 169 182-369 thou/cmm Low 06-19-2017 [facility] (07739) Comment: Performed By: #### LAC ####A [address] [address] RDW SD 65.0 36.4-46.3 fl High 06-19-2017 [facility] (34487) Comment: Performed By: #### LAC ####A [address] [address] Seg Neutrophil 69.1 % Normal 06-19-2017 [facility] (25496) Comment: Performed By: #### LAC ####A [address] [address] WBC (Leukocytes) 4.24 3.98-10.04 thou/cmm Normal 06-19-2017 [facility] (00 000) Comment: Performed By: #### LAC ####A [address] [address] office visit: uc: uri on null Documentation of Done Invalid 06-01-2017 - [facility] Now current medications Interpretation Code 06-01-2017 Clinic (procedure) (94322) Fall risk assessment No Invalid [facility] Now Interpretation Code 06-01-2017 Clinic (32294) Tobacco use CPHS Never smoker Invalid 06-01-2017 - [facility] Now Interpretation Code 06-01-2017 Clinic (21837) replaced document: comprehensive metabol ic profil on null Alanine 124 12-78 U/L High 06-11-2017 - [facility] Now Clinic aminotransferase 06-11-2017 (4 4691) (ALT) Albumin 2.5 3.4-5.0 g/dL Low 06-11-2017 [facility] Now Clinic 06-11-2017 (35903) Albumin/Globulin 0.7 0.9-2.4 {ratio Low 06-11-2017 - [facility] Now Clinic Ratio RATIO } 06-11-2017 (91779) Alkaline 241 45-117 U/L High 06-11-2017 [facility] Now Clinic phosphatase (ALP) 06-11-2017 ( 37595) Anion gap 15 5-15 mmol/L Invalid 06-11-2017 - [facility] Now Clinic Interpretation 06-11-2017 (911 16) Code Aspartate 195 15-37 U/L High 06-11-2017 [facility] Now Clinic aminotransferase 06-11-2017 (4 4691) (AST) Bilirubin (total) 12.50 0.20-1.0 mg/dL High 06-11-2017 [facility] Now Clinic 0 06-11-2017 (94739) BUN/Creatinine 7.1 10-20 Low 06-11-2017 - [facility] Now Clinic Ratio RATIO 06-11-2017 (63870) Calcium 9.7 8.5-10.1 mg/dL Invalid 06-11-2017 - [facility] Now Clinic Interpretation 06-11-2017 (839 82) Code Chloride 91 98-107 mmol/L Low 06-11-2017 - [facility] Now Clinic 06-11-2017 (85544) CO2 29.0 21.0-32. mmol/L Invalid 06-11-2017 - [facility] Now Clinic 0 Interpretation 06-11-2017 (712 38) Code Creatinine 1.12 0.55-1.0 mg/dL High 06-11-2017 - [facility] No w Clinic 2 06-11-2017 (39465) eGFR (non-black) 57 >60 mL/min Low 06-11-2017 - [facility] Now Clinic 06-11-2017 (47685) eGFR (non-black) 69 >60 mL/min Invalid 06-11-2017 - [facility] Now Clinic Interpretation 06-11-2017 (446 91) Code Globulin 3.5 2.2-4.2 g/dL Invalid 06-11-2017 - [facility] Now Clinic Interpretation 06-11-2017 (446 91) Code Glucose 91 70-110 mg/dL Invalid 06-11-2017 - [facility] Now Clinic Interpretation 06-11-2017 (446 91) Code Glucose mass conc 91 70-110 mg/dL Invalid 06-11-2017 - [facility] Interpretation 06-11-2017 Inte rnal Code Medicine (36068) Potassium 3.6 3.5-5.1 mmol/L Invalid 06-11-2017 - [facility] Now Clinic Interpretation 06-11-2017 (446 91) Code Protein 6.0 6.4-8.2 g/dL Low 06-11-2017 - [facility] Now Clinic 06-11-2017 (90634) Sodium 135 136-145 mmol/L Low 06-11-2017 [facility] Now Clinic 06-11-2017 (16961) Urea nitrogen 8 7-18 mg/dL Invalid 06-11-2017 [facility] Now Clinic Interpretation 06-11-2017 (446 91) Code mdrd gfr on 2017-06 eGFR (non-black) >60 >60mL/min/1.73m2 mL/min/{1.73_m2} Normal 06-19-2017 [facility] (97143) Comment: Result Comment: If the patie nt is , multiply the result by 1.210. Performed By: #### LAC ####A [place] [address] culture urine on 02-07-04 CULTURE URINE CULTURE URINE --> Status: F Normal 06-18-2018 [facility] Normal urogenital maikol present. (63869) Comment: Performed By: #### UAMAC, UA ADALI, DRGA4, HCGUR, C/UR ####[facility] [place] [address] office visit: asthma exacerbation, sinus itis alcoholic hepatitis, elevated ast on null Documentation of Done Invalid 06-06-2017 [facility] Now [facility] current medications Interpretation Code 06-06-2017 (87523) (procedure) Fall risk No Invalid 06-06-2017 [facility] Now Clinic assessment Interpretation Code 7 (67444) Tobacco smoking Never smoker Invalid 06-06-2017 [facility] Now Clinic status MEIS Interpretation Code 06-06-20 17 (97728) Tobacco use [facility] Never smoker Invalid 06-06-2017 - [facility] Interpretation Code 06-06-2017 [facility] ( 21492) lab report: cbc w/diff, automated on null Absolute Neut 6.4 X10 2.0-7.7 Invalid [facility]2017 [facility]/UL Interpretation 06-06-2017 Inte rnal Code Medicine (36517) Basophils/100 0.4 0-1 % Invalid 06-06-2017 [facility] Now Clinic leukocytes Interpretation 06-06-2017 (44 691) Code Eosinophils/100 0.1 0-5 % Invalid 06-06-2017 - [facility] Now Clinic leukocytes Interpretation 06-06-2017 (44 691) Code Erythrocytes 4.11 4.2-5.4 10*6/u Low 06-06-2017 [facility] Now Clinic (RBC) L 06-06-2017 (55587) Hematocrit (HCT) 44.0 37-47 % Invalid 06-06-2017 [facility] Now Clinic Interpretation 06-06-2017 (446 91) Code Hemoglobin (HGB) 14.7 12.0-15.0 g/dL Invalid 06-06-2017 [facility] Now Clinic Interpretation 06-06-2017 (446 91) Code immature 0.400 0.0-0.9 % Invalid 06-06-2017 [facility] Now Clinic granulocytes, Interpretation 06-06-2017 (98063) percentage of Code total cells, blood Immature 0.400 0.0-0.9 % Invalid 06-06-2017 [facility] granulocytes/100 Interpretation 06-06-20 Internal WBC (Bld) Code Medicine (23038) Lymphocytes 1.18 X10 0.83-4.51 Invalid 06-06-2017 [facility] N ow Clinic 3/UL Interpretation 06-06-2017 (243 91) Code Lymphocytes/100 14.1 19-41 % Low 06-06-2017 - [facility] Now Clinic leukocytes 06-06-2017 (81980) MCH 35.8 27.0-32.0 pg High 06-06-2017 - [facility] Now Clinic 06-06-2017 (78981) MCHC 33.4 32-36 Invalid 06-06-2017 - [facility] Now Clinic G/GL Interpretation 06-06-2017 (284 91) Code MCV 107.1 81-99 fL High 06-06-2017 - [facility] Now Clinic 06-06-2017 (37076) Monocytes/100 9.2 0-10 % Invalid 06-06-2017 - [facility] Now Clinic leukocytes Interpretation 06-06-2017 (13 571) Code neutrophil 6.4 X10 2.0-7.7 Invalid 06-06-2017 - [facility] No w Clinic count, blood 3/UL Interpretation 06-06-2017 ( 39759) Code Neutrophils/100 75.8 47-70 % High 06-06-2017 - [facility] Now Clinic leukocytes 06-06-2017 (78751) Platelets 149 150-450 10*3/m Low 06-06-2017 - [facility] Now Clinic m3 06-06-2017 (24393) PMV by 12.3 6.2-12.0 fL High 06-06-2017 - [facility] Now Clinic Ramez-Maryam 06-06-2017 (65179) RDW SD 54.6 35.1-43.9 fL High 06-06-2017 - [place] 06-06-2017 [facility] (76861) RDW-CA 14.3 11.6-14.6 % Invalid 06-06-2017 - [facility] Now Clinic Interpretation 06-06-2017 (422 91) Code red blood cell 54.6 35.1-43.9 fL High 06-06-2017 - [facility] Now Clinic distribution 06-06-2017 (49703 ) width, size density WBC (Leukocytes) 8.4 4.4-11.0 10*9/L Invalid 06-06-2017 - [facility] Now Clinic Interpretation 06-06-2017 (895 25) Code lab report: thyroid stim hormone (tsh) on null Thyroid stimulating 3.91 0.358-3.74 u[iU]/mL High 7 - [facility] Now Clinic hormone (TSH) 06-06-2017 (4469 1) lab report: t4 free direct on null Thyroxine (T4) 1.29 0.76-1.46 ng/dL Invalid 06-06-2017 - [facility] Now free Interpretation Code 06-06-2017 Clinic (74495) lab report: lipase on null LIPASE 217 73-393 U/L Invalid 06-11-2017 - [facility] Interpretation Code 06-11-2017 Internal [facility] (79785) lipase, serum 217 73-393 U/L Invalid 06-11-2017 - [facility] Now Clinic Interpretation Code 06-11-2017 (39798) lab report: ggtp on null Gamma glutamyl 4151 5-55 U/L High 06-11-2017 - [facility] Now Clinic transferase (83161) lab report: amylase on null Amylase 47 25-115 U/L Invalid Interpretation 017 - [facility] Now Clinic Code 06-11-2017 (17427) strep pneumoniae ag on 2017-06-19 Strep pneumoniae Ag Test performed at [facility] 06-19-2017 [facility] (62338) for pneumococcal pneumonia, suggestingno current or recent pneumococcal infection. Infection dueto S. pneumoniae cannot be ruled out since the antigenpresent in the sample may be below the detection limit ofthe test. Comment: Performed By: #### LAC ####A [address] [address] drugs of abuse on Oxycodone/Oxymorphine,Ur Negative Normal 06-17 [facility] (22850) Comment: Performed By: #### UAMAC, UA ADALI, DRGA4, HCGUR, C/UR ####[place] [address] [place] [address] Opiates, Ur Negative Normal 06-17-2018 [facility] (57351) Comment: Performed By: #### UAMAC, UA ADALI, DRGA4, HCGUR, C/UR ####[place] [address] [place], [place] Phencyclidine (PCP), Ur Negative Normal 2017 [facility] (46319) Comment: Result Comment: The expected value for all of the drugs listedabove is Negative.The following drugs or drug groups have been screenedfor by Immunoassay at the following thresholds:Amphetamine class (1000 ng/mL), Barbiturates (200 ng/mL),Robert zodiazepines (200 ng/mL), Cocaine (300 ng/mL),Methadone (300 ng/mL) , Opiates (300 ng/mL),Oxycodone (100 ng/mL), and PCP (25 ng/mL).NOTE: These r esults are for medical treatment only.Analysis performed using non-forensic procedures.POSITIVE results are NOT confirmed by a more specificalternativ e method unless requested. If confirmation isneeded, request confirmati on under separate order. Performed By: #### UAMAC, UA ADALI, DRGA4, HCGUR, C/UR ####[address] Methadone, Ur Negative Normal 06-17-2018 [facility] (69050) Comment: Performed By: #### UAMAC, UA ADALI, DRGA4, HCGUR, C/UR ####[address] Benzodiazepines, Ur Negative Normal 06-17-2018 [facility] (47208) Comment: Performed By: #### UAMAC, UA ADALI, DRGA4, HCGUR, C/UR ####[place] [place], [place] Cocaine, Ur Negative Normal 06-17-2018 [facility] (54428) Comment: Performed By: #### UAMAC, UA ADALI, DRGA4, HCGUR, C/UR ####[place] [place], [place] Barbiturates, Ur Negative Normal 06-17-2018 [facility] (67232) Comment: Performed By: #### UAMAC, UA ADALI, DRGA4, HCGUR, C/UR ####[place] [place], [place] Amphetamines, Ur Negative Normal 06-17-2018 [facility] (76718) Comment: Performed By: #### UAMAC, UA ADALI, DRGA4, HCGUR, C/UR ####[place] [address] [place], [place] ethanol serum/plasma on 2018-06-17 Ethanol-Serum/Plasma < 0.010 0.000-0.010 Normal 018 [facility] (89842) Comment: Result Comment: NOTE: This r esult is for medical treatment only. Analysis performed using non-forensic procedures. Performed By: #### HEMOG, CM P3, ETOH4 ####[place] [address] [place] [place], [place] urinalysis,microscopic on 2018-06-17 Bacteria Moderate (6-50) Negative Normal 06-17-2018 [facility] (90699) Comment: Performed By: #### UAMAC, UA ADALI, DRGA4, HCGUR, C/UR ####[place] [address] [address] [place], [place] Cast, Hyaline 0 - 2 0-1 Normal 06-17-2018 [facility] (35590) Comment: Performed By: #### UAMAC, UA ADALI, DRGA4, HCGUR, C/UR ####[address] [place], [place] Epithelial Cells 11 - 25 3-5 Normal 06-17-2018 [facility] (53197) Comment: Performed By: #### UAMAC, UA ADALI, DRGA4, HCGUR, C/UR ####[place] [address] [place], [place] Mucous Threads Moderate Negative Normal 06-17-2018 [facility] (65359) Comment: Performed By: #### UAMAC, UA ADALI, DRGA4, HCGUR, C/UR ####[address] RBC LM.HPF #/area (Urine 0 - 2 0-2 Normal 06-17 [facility] (93853) sed) Comment: Performed By: #### UAMAC, UA ADALI, DRGA4, HCGUR, C/UR ####[place] [address] [place], [place] WBC LM.HPF #/area (Urine 0 - 2 0-5 Normal 06-17 [facility] (68963) sed) Comment: Performed By: #### UAMAC, UA DAALI, DRGA4, HCGUR, C/UR ####[address] [place], [place] urinalysis,macro on 2018-06-17 Appearance Clear Clear Normal 06-17-[address] [facility] [employer] [facility] (91995) Comment: Performed By: #### UAMAC, UA ADALI, DRGA4, HCGUR, C/UR ####[place] [address] . [place], [place] Color Yellow Lt. Yellow Normal 06-17-[address] [facility] [employer] [facility] (65298) Comment: Performed By: #### UAMAC, UA ADALI, DRGA4, HCGUR, C/UR ####[place] [address] [place], [place] Bilirubin,Ur 1 Negative Normal 06-17-2018 [facility] (74350) Comment: Performed By: #### UAMAC, UA ADALI, DRGA4, HCGUR, C/UR ####[id number] . [place], [place] Glucose Ql (U) NORM Negative Normal 06-17-2018 [facility] [employer] [facility] ([id number]) Comment: Performed By: #### UAMAC, UA ADALI, DRGA4, HCGUR, C/UR ####[address] [place], [place] Ketone,Urine 1 + Negative mg/dL Normal 06-17-2018 [facility] ([id number]) Comment: Performed By: #### UAMAC, UA ADALI, DRGA4, HCGUR, C/UR ####[address] [place], [place] Leukocytes NEG Negative Normal 06-17-2018 [facility] [employer] [facility] ([id number]) Comment: Performed By: #### UAMAC, UA ADALI, DRGA4, HCGUR, C/UR ####[id number] [place], [place] Nitrites NEG Negative Normal 06-17-2018 [facility] ([id number]) Comment: Performed By: #### UAMAC, UA ADALI, DRGA4, HCGUR, C/UR ####[address] [place] [address] Occult Blood,Ur NEG Negative Normal 06-17-2018 [facility] ([id number]) Comment: Performed By: #### UAMAC, UA ADALI, DRGA4, HCGUR, C/UR ####[address] pH Test strip (U) 5.0 5.0-8.0 Normal 06-17-2018 [facility] ([id number]) Comment: Performed By: #### UAMAC, UA ADALI, DRGA4, HCGUR, C/UR ####[address] Specific [place],Urine 1.020 1.005-1.030 Normal 06-17 [facility] ([id number]) Comment: Performed By: #### UAMAC, UA ADALI, DRGA4, HCGUR, C/UR ####[address] [place], [place] Total Protein,Urine 25 Negative mg/dL Normal 06-17-2018 [facility] ([id number]) Comment: Performed By: #### UAMAC, UA ADALI, DRGA4, HCGUR, C/UR ####[address] Urobilinogen 1 0-1 mg/dL Normal 06-17-2018 [facility] (45552) Comment: Performed By: #### UAMAC, UA ADALI, DRGA4, HCGUR, C/UR ####[address] hemogram on 2018-06 Erythrocyte distribution 15.7 11.5-14.5 % High 06-17 [facility] width Auto Ratio (RBC) (23810) Comment: Performed By: #### HEMOG, CM P3, ETOH4 ####[facility] [address] [place], [place] Hematocrit Auto Volume 39.0 35.0-47.0 % Normal 018 [facility] Fraction (Bld) (0000 0) Comment: Performed By: #### HEMOG, CM P3, ETOH4 ####[facility] [address], [place] Hemoglobin mass conc 13.4 11.7-16.0 g/dL Normal 8 [facility] (Bld) (61659) Comment: Performed By: #### HEMOG, CM P3, ETOH4 ####[facility] [address] [place], [place] MCH Auto Entitic mass 35.8 26.0-34.0 pg High 06-17-20 18 [facility] (RBC) (48669) Comment: Performed By: #### HEMOG, CM P3, ETOH4 ####[facility] [address] [place], [place] MCHC Auto mass conc 34.3 32.0-36.0 % Normal 06-17-2018 [facility] (RBC) (39171) Comment: Performed By: #### HEMOG, CM P3, ETOH4 ####[facility] [address] [place], [place] MCV Auto Entitic volume 104.2 79.0-98.0 fL High 2017 [facility] (RBC) (38000) Comment: Performed By: #### HEMOG, CM P3, ETOH4 ####[facility] [address] [place], [place] Platelet mean volume Auto 8.9 7.4-10.4 fL Normal [facility] Entitic volume (Bld) (76192) Comment: Performed By: #### HEMOG, CM P3, ETOH4 ####[address] [place], [place] Platelets Auto #/vol 315 140-440 10*3/uL Normal 8 [facility] (Bld) (74020) Comment: Performed By: #### HEMOG, CM P3, ETOH4 ####[address] [place], [place] RBC Auto #/vol (Bld) 3.74 3.80-5.20 10*6/uL Low 8 [facility] (64213) Comment: Performed By: #### HEMOG, CM P3, ETOH4 ####[address] [place], [place] WBC Auto #/vol (Bld) 9.1 3.6-10.7 10*3/uL Normal 8 [facility] (36215) Comment: Performed By: #### HEMOG, CM P3, ETOH4 ####[address] hcg,urine qual on HCG.beta subunit Negative Negative Normal 06-17-2018 [facility] ( test) Ql (U) (82032) Comment: Result Comment: is the most common reason for HCG in urine, althoughchoriocarcinoma, hyd atidiform mole, and certain nontropho-blastic malignancies also result in detectable urinary HCGlevels. Sensitivity = 20mIU/mL. Performed By: #### UAMAC, UA ADALI, DRGA4, HCGUR, C/UR ####[id number] [place], [place] ed provider note on 2018-06-17 Protein mass Emergency Department EncounterACH Nor mal 06-17-2018 [facility] EMERGENCY DEPTPatient: Nancy Villa ([id number]) ArronMRN: [id number]: 1975Date of Evaluation: 06/17/2018ED Supervising Physician: VINCE Farley independently examined and evaluated Nancy Heller.In brief, Nancy Heller is a 43 y.o. female that presents to the emergencydepartment complaining of needing detox from alcohol, she drinks 5-6 glasses ofwine daily, last drink was Sunday, she does feel some mild withdrawal symptomsFocused exam: No resting tremor, heart tachycardic initially but improved onreassessmentBrief ED course/MDM: Patient given Ativan, phenobarbital, medically cleared fordetox admissionelectrocardiogram interpreted by me shows sinus tachycardia 117 bpm, QTC 461,QRS 89, no acute ST or T-wave changes, no old electrocardiogram immediatelyavailable for comparisonDiagnosis/Plan: Alcohol dependence and withdrawalAll diagnostic, treatment, and disposition decisions were made by myself inconjunction with the CADEN/Resident. For all further details of the patient'semergency department visit, please see their documentation.Comment: Please note this report has been produced using speech recognitionsoftware and may contain errors related to that system including errors ingrammar, punctuation, and spelling, as well as words and phrases that may beinappropriate. If there are any questions or concerns please feel free tocontact the dictating provider for clarification.Hali Gaxiola MD Acute Care SolutionsHoly Cross Hospitaldinora Gaxiola MD06/17/18 1359 Protein mass Emergency DepartmentEncounterAAdventHealth [facility] 06-17-2018 [facility] EMERGENCY DEPTPatient: Nancy [facility] ([id number]) ArronMRN:[id number]: 1975Date of Evaluation: 06/17/2018ED CADEN Provider: DAGMAR Sifuentes CNPED care was supervised by Dr. Gaxiola who independently examined and evaluatedthe patient. Please see their attestation note for further details.Chief ComplaintChief ComplaintPatient presents with? Other Detox from ETOH. Drinks 5-6 drinks daily. Last drink Sunday. AppearsasymptoLisa Rei Heller is a 43 y.o. female who presents to the emergency departmentfor detox from alcohol. The patient was called this morning by [facility] and was told she has a detox bed. She reports that she has been drinkingregularly (near daily) since July, approximately 5-6 drinks per day, mostlywine but she states that she recently switched to vodka. She states that sherecently got in February, which triggered her drinking habits. Her lastdrink was on Sunday or Sunday, she is not entirely sure. She states that shefeels a little anxious, otherwise she has no other medical complaints. Shedenies street drug use.The patient has no other medical complaints. Review ofsystems otherwise negative.ROS:Review of SystemsAt least 10 systems reviewed and otherwise acutely negative except as in theHOPI.Past HistoryNo past medical history on file.No past surgical history on file.Social HistorySocial History? Marital status: Spouse name: N/A? Number of children: N/A? Years of education: N/ASocial History Main Topics? Smoking status: Not on file? Smokeless tobacco: Not on file? Alcohol use Not on file? Drug use: Unknown? Sexual activity: Not on fileOther Topics Concern? Not on fileSocial History Narrative? No narrative on fileMedications/AllergiesPrevious Medications No medications on fileAllergiesAllergen Reactions? Pcn [Penicillins] RashPhysical ExamED Triage Vitals [06/17/18 1223]BP Temp Temp Source Pulse Resp SpO2 Height Weight(!) 135/116 98 ?F (36.7 ?C) Oral 137 20 100 % 4' 11 (1.499 m) 135 lb (61.2 kg)Physical ExamGeneral: No apparent distress, answers questions appropriatelyHEENT: Normocephalic atraumatic, sclera white. Nose patent bilaterally. Mucousmembranes pink and moist.Neck: Supple. Trachea midline.Lungs: Clear to auscultation bilaterally. No use of accessory muscles.Heart: Tachycardic and regular. No obvious murmur.Abdomen: Soft, nontenderExtremities: No clubbing, cyanosis or edema.Neuro: No motor/sensory or focal deficits.Psych: Normal affect. Calm and cooperative.DiagnosticsLabs:Results for orders placed or performed during the hospital encounter of 06/17/18Comprehensive Metabolic PanelResult Value Ref Range Sodium 138 137 - 145 mmol/L Potassium 3.7 3.5 - 5.1 mmol/L Chloride 105 98 - 107 mmol/L CO2 22 22 - 30 mmol/L Anion Gap 12 NA Glucose 77 70 - 100 mg/dL BUN 9 7 - 20 mg/dL CREATININE 0.71 0.52 - 1.25 mg/dL eGFR >60.0 >60 mL/min EGFR IF NonAfrican Maldivian >60.0 >60 mL/min Calcium 8.7 8.4 - 10.4 mg/dL Albumin,Serum 4.5 3.5 - 5.0 g/dL Total Protein 7.7 6.3 - 8.2 g/dL Total Bilirubin 0.7 0.2 - 1.3 mg/dL Alkaline Phosphatase 75 38 - 126 U/L ALT 51 13 - 69 U/L AST 67 (H) 15 - 46 U/LHemogram (CBC)Result Value Ref Range WBC 9.1 3.6 - [...] 440 10*3/uL MPV 8.9 7.4 - 10.4 fLEthanolResult Value Ref Range Ethanol Lvl <0.010 0.000 - 0.010 g/dLUrine Drug ScreenResult Value Ref Range Amphetamines, urine Negative NA Barbiturates, Ur Negative NA Benzodiazepine Ur Qual Negative NA Cocaine Metabolites, Ur Negative NA Methadone, Urine Negative NA Opiates, Urine Negative NA Oxycodone Screen, Ur Negative NA PCP, Urine Negative NAUrinalysisResult Value Ref Range Appearance Clear Clear NA Color, UA Yellow Lt. Yellow NA Specific [place], Urine 1.020 1.005 - 1.030 NA pH, Urine 5.0 5.0 - 8.0 NA LEUKOCYTES, UA NEG Negative NA Nitrite, Urine NEG Negative NA Total Protein, Urine 25 Negative mg/dL Glucose, Ur NORM Negative mg/dL Ketones, Urine 1+ Negative mg/dL Urobilinogen, Urine 1 0 - 1 mg/dL Bilirubin, Urine 1 Negative NA Occult Blood,Urine NEG Negative [RBC]/uLUrinalysis with MicroscopicResult Value Ref Range WBC, UA 0-2 0 - 5 /[HPF] RBC, UA 0-2 0 - 2 /[HPF] Epithelial Cells 11-25 3 - 5 /[HPF] Bacteria, UA Moderate (6-50) Negative NA MUCOUS THREADS #/AREA URNS HPF Moderate Negative NA Hyaline Casts, UA 0-2 0 - 1 /[LPF]Radiographs:No results found.EKG: All EKG's areinterpreted by the Emergency Department Physician in theabsence of a pasteurizing supervisor.?Please see their note for interpretation of EKG.ED Course and MDMThe patient was initially seen by the triage provider, labs, diagnostics andmedications ordered- please see triage note for further details.This patient's case was staffed with Dr. Gaxiola - see attending note forfurther details.See lab results and diagnostic reports. Urine culture was sent. Patient wasmedicated with 1 mg of Ativan po and oral phenobarbital the ED. Repeat vitalsigns within normal limits. Heart rate 88.At this point, the patient will be transferred to [facility] for detox, furtherevaluation and management.The patient was accepted by Dr. Zacarias. She is in stable condition and inagreement with treatment plan.ED Medication Orders Start Ordered Status Ordering Provider 06/17/18 1230 06/17/18 1224 PHENobarbital (LUMINAL) tablet 97.2 mg ONCE Last MAR action: Given - by FRANCESCO RUIZ on 06/17/18 at 1329 RAMIRO GAXIOLA 06/17/18 1230 06/17/18 1224 LORazepam (ATIVAN) tablet 1 mg ONCE Last MAR action: Given - by FRANCESCO RUIZ on 06/17/18 at 1329 HALI GAXIOLARFinal Impression1. Uncomplicated alcohol dependence (HCC)DISPOSITION Admitted 06/17/2018 04:20:00 PM(Please note that portions of this note may have been completed with a voicerecognition program. Efforts were made to edit the dictations but occasionallywords aremis-transcribed.)Jacinta Orozco APRN - NAIDA Acute Care SolutionsJacinta Orozco APRN - NAIDA06/17/18 1627 add on test from his on 2018-06-18 Add on test from HIS Accepted Normal 8 [facility] ([id number]) Comment: Result Comment: Specimen spring ilable & acceptable for analysis. Performed By: #### ADDON ### #[facility] [place] [address] chest single view o n 2017-06-18 CHEST SINGLE VIEW Performed at [facility] 06-18-2017 [facility] APPROVED BY: [facility] Ronni Rosa MD ([id number]) EXAMINATION: CHEST RADIOGRAPH (SINGLE VIEW AP OR PA) Clinical History: Abnormal dullness to percussion of chest.M: XC1_3Comparison: None RESULT: Lines, tubes, and devices: Multiple leads and wires overlie the chest. Lungs and pleura: No pneumothorax is seen. No sizable pleural effusion or confluent infiltrate. Cardiomediastinal silhouette: Normal cardiomediastinal silhouette. Other: No acute bony abnormality is seen. IMPRESSION: No acute findings radiographically. cnov on 2017-08-07 CNOV Office Visit Normal 08-07-2017 [place] and (INTMWS) --------[facility] ([id number]) 1975 FDat e Time Provider Department08/07/17 2:40 PM LUCILA SPIVEY (NAIDA) INTMWS During Clev eland your visit today, we recorde d the following information about you: Temperature Pulse Respiration (60897) Blood pressure 99.7 degrees 150/minute 14/minute 152/108 Weight 61.2 kgNaz NAIDA Spivey 08/08/2017 3:11 PM SignedCC: Bud Layton is a 42 year old female who presents today for medication issue.[facility] pharmacy did no t get prescription for Klonopin or inhalers that werefilled on 06/26. Pharmacy was supposed to pearl l this office but [facility].Elevated blood pressure: Denies history of hypertensi on. Does not check BP'sgenerally. Denies any symptoms referable to elevated blood pressure.Spec ifically denies headache, chest pain, palpitations, dyspnea, peripheraledema and fatigue. Diet: Watches diet for salt (salty snacks, added salt,processed frozen/canned foods), sugary /sweet snacks, unhealthy fats: No.Caffeine: No Water intake: 4-5 glasses of water a day Alcohol intak e: NoLast 3 Encounter BP Readings: Date: BP: 08/07/2017 152/108 06/26/2017 124/86 06/17/2017 114/79Tachycardia: Patient denies palpitations, SOB, dizziness, lightheadedness.States she i s always anxious at that doctor's office and the room feels warm.Last 4 Encounter Pulse Readings: Da te: Pulse: 08/07/2017 150 06/26/2017 96 06/17/2017 109 04/20/2016 114[facility] MEDICAL HISTORYDiagnosis Date- Alcohol abuse- Asthma- Depression- Hematemesis 06/17/2017 Added automatically from request for surgery [id number] High anion gap metabolic acidosis 06/17/2017- Hyperten alok- Hypokalemia 06/17/2017- Lactic acidosis 06/17/2017- Macrocytosis 06/17/2017- Prolonged Q-T int erval on ECG 06/17/2017- Seizure in childhood (HCC) One seizure when patient was 8 y/o, no furthe r seizures- Spina bifida occultaPAST SURGICAL HISTORYProcedure Laterality Date- IR VASCULAR ACCESS TEAM PICC INSERTION RADIO 06/20/2017ALLERGIES AmoxicillinMEDICATIONSpantop razole DR (PROTONIX) 40 mg tablet Take 1 tablet by mouth twice dailybefore meals (0600/1600 ).albuterol HFA (PROAIR HFA) 90 mcg/actuation inhaler Inhale 1 Puff as instructedevery 4 hours as n eeded for Wheezing/Shortness of Breath.clonazePAM (KLONOPIN) 0.5 mg tablet Take 1 tablet by mout h twice daily asneeded for Anxiety for up to 90 days.montelukast (SINGULAIR) 10 mg tablet Elroy e 1 tablet by mouth daily at bedtime.SPRINTEC 0.25- 35 mg-mcg per tablet Take 1 tablet by mouth once daily.No family history on file.Social HistorySubstance Use Topics- Smoking status: Never Smoker - Smokeless tobacco: Never Used- Alcohol use 4.5 oz/week 3 Glasses of Wine (5oz) per week Comment: Stopped drinking 06/18PHYSICAL EXAMBP 152/108 Pulse (!) 139 Temp 37.6 ?C (99.7 ?F) (Temporal Artery) Resp 14 Wt 61.2 kg (135 lb) SpO2 99% BMI 27.27 kg/e2Twbitjp Appearance: wel l appearing, in no acute distress, alertLungs: Lungs clear to auscultation. No wheezing, r honchi, ralesHeart: Apical 150. RR without murmur, gallop, or rubs. No ectopyASSESSMENT/PLAN:1. Tonya vated blood pressure reading - ICD9: 796.2, ICD10: R03.0 (primarydiagnosis)Transient BP elevation vs anxiety- Encouraged dietary sodium restriction/DASH diet- Recommended regular ae robic exercise.- Recommend home blood pressure monitoring, to bring results in on next visit- Re check in 2 weeks, sooner if needed.- ECG COMPLETE W INTERPRETATION2. Tachycardia - ICD9: 785.0, I CD10: R00.0Elevated HR. EKG Sinus tachycardia with V rate 130Likely to due to anxiety and stressMon itor at home and follow-up next week- ECG COMPLETE W INTERPRETATION3. Medication monitoring encoun ter - ICD9: V58.83, ICD10: Z51.81Pharmacy reporting no record of refill on Klonopin of Albuterol inh aler.Refilled todayLucila Spivey CNPDiscussed diet with plenty fruits, vegetables, lean meats and h ealthyfats/oils. Avoid processed foods, trans fats, vegetable oils and simple sugars.Watch portion sizes.Prescription instructions reviewed with patient as applicable. Potential redflag symptoms d iscussed with the patient. Reviewed appropriate action plan totake if red flag symptoms occur. Pat ient agreeable to treatment plan.Lucila Spivey CNP 08/07/2017 2:59 PM SignedClaritin or Zyrtec ove r the counterReferring Provider: SELF [[id number]]Allergies As of Date: 08/07/2017 Noted Allergy [place] ctionAMOXICILLIN 04/20/2016 4 - Hives Comments: Tolerated ceftriaxone 06/18/17Date Reviewed: 2017Reviewed by: Naa Colon Enterer - Fully AssessedPrimary Visit Diagnosis:Elevated blood pre ssure reading [R03.0] Other Visit Diagnoses:Tachycardia [R00.0] Medication monitoring encoun ter [Z51.81]Order(s):pantoprazole DR (PROTONIX) 40 mg tabletTake 1 tablet by mouth twice daily before meals (0600/1600).Disp: 60 tabletRfl: 1 albuterol HFA (PROAIR HFA) 90 mcg/actuation inhale rInhale 1 Puff as instructed every 4 hours as needed for Wheezing/Shortness of Breath .Disp: 3 InhalerRfl: 1 clonazePAM (KLONOPIN) 0.5 mg tabletTake 1 tablet by mouth twice daily as need ed for Anxiety for up to 90 days.Disp: 14 tabletRfl: 0 ECG COMPLETE W INTERPRETATION [ECG01] Order #: [id number] FUTURE Blood Pressure Monitor (BLOOD PRESSURE KIT) kitDx: R03.0Disp: 1 KitRfl: 0Prescr iptions as of 08/07/2017 Sig: PANTOPRAZOLE 40 MG TABLET,DEL* Take 1 tablet by mouth twice * ALBU TEROL SULFATE HFA 90 MCG/* Inhale 1 Puff as instructed e* CLONAZEPAM 0.5 MG TABLET Take 1 tablet by m outh twice * MONTELUKAST 10 MG TABLET Take 1 tablet by mouth daily * SPRINTEC (28) 0.25 MG-35 MCG * Take 1 tablet by mouth once d* BLOOD PRESSURE MONITOR KIT Dx: R03.0Problem List As Of Date 08/07/2017 Noted Resolved Upper GI bleed [K92.2] INVALID FOR* Jaundice [R17] INVALID FOR* Transamin itis [R74.0] INVALID FOR* Gallbladder hydrops [K82.1] INVALID FOR* Acute blood loss anemia [D62] INVA LID FOR* Sepsis (HCC) [A41.9] INVALID FOR* Acute cholecystitis [K81.0] INVALID FOR* More... Other i nstructions from your clinician: Claritin or Zyrtec over the counterPrescriptions ordered this encounter Disp Refills Start End PANTOPRAZOLE 40 MG TABLET,DELAYED RE* 60 t* 1 08/07/2017 Route : ORAL Sig: Take 1 tablet by mouth twice daily before meals (0600/1600). ALBUTEROL SULFATE HFA 90 MCG /ACTUATI* 3 In* 1 08/07/2017 Route: INHALATION Sig: Inhale 1 Puff as instructed every 4 hours as needed for Wheezing/Shortness of Breath. CLONAZEPAM 0.5 MG TABLET 14 t* 0 08/07/2017 11/05/2017 Clas s: Print RX Route: ORAL Sig: Take 1 tablet by mouth twice daily as needed for Anxiety for up to 90 days. BLOOD PRESSURE MONITOR KIT 1 Kit 0 08/07/2017 Class: Print RX Sig: Dx: R03.0Medications Di scontinued During This Encounter folic acid 1 mg tablet 30 t* 0 06/26/2017 08/07/2017 Route: ORAL Sig: Take 1 tablet by mouth once daily. Disc: Reason for discontinue is not on file. pantoprazole DR (PROTONIX) 40 mg tab* 60 t* 0 06/26/2017 08/07/2017 Route: ORAL Sig: Take 1 tabl et by mouth twice daily before meals (0600/1600). Disc: Reason for discontinue is not on file. PROAIR HFA 90 mcg/actuation inhaler 3 In* 1 06/26/2017 08/07/2017 Route: INHALATION Sig: Inhale 1 Puf f as instructed every 4 hours as needed for Wheezing/Shortness of Breath. Disc: Reason for dis continue is not on file. clonazePAM (KLONOPIN) 0.5 mg tablet 14 t* 0 06/26/2017 08/07/2017 Class: Print RX Route: ORAL Sig: Take 1 tablet by mouth twice daily as needed for Anxiety. Disc: Reason fo r discontinue is not on file. Status:Closed by LUCILA SPIVEY CNP on 08/08/17 progress on 2017-08 PROGRESS HNO ID: [id number]: Caridad Rangel 08-20-2017 [facility] ([facility] [place] RuttiService: (none)Author Tony ([id number]) Type: Nurse PractitionerType: Progress NotesFiled: 08/20/2017 10:37 AMNote Text:08/20/2017Patient presents with:2 week f/u: tachycardiaSUBJECTIVE: This is a 42 year old that is here today for follow up BP. Shestates that she has been diagnosed with hypertension in the past and wason diltizem. She stopped taking the medication due to the fact that hersoon to be ex- convinced her that she did not need them. She doesnot check her BP at home. She states that she was given a script for a BPcuff at last visit, but has not gotten it yet. She agrees to get one afterthis visit. She denies CP, SOB, palpitations, STACK, change in vision,lightheadedness, dizziness. She did check her BP at a pharmacy since herlast visit and it was elevated with systolic in 150s.She also has anxiety and was previously treated with prozac andwellbutrin. She states that her soon to be ex was also a factor in thisdecision to stop. She states that he convinced her that she didn't needthem and that she was becoming dependent on them. He lives in [place], shemoved here to start over. She states that she is doing relatively welldealing with the stress, but admits that it could be a factor in heranxiety and BP. She states that she has not used any klonopin since lastvisit. She is open to restarting an SSRI if needed.She is concerned that she has not heard back from Dr. Aguayo after seeinghim after her hospitalization for GI bleed. She states that he did labsand she has not heard back to see if she needs further testing. She wouldlike a referral to a [facility] provider. She denies any bleeding or symptomsthat she had when she went to the hospital. She is not drinking anyalcohol.PAST MEDICAL HISTORYDiagnosis Date- Alcohol abuse- Asthma- Depression- Hematemesis 06/17/2017 Added automatically from request for surgery [id number] High anion gap metabolic acidosis 06/17/2017- Hypertension- Hypokalemia 06/17/2017- Lactic acidosis 06/17/2017- Macrocytosis 06/17/2017- Prolonged Q-T interval on ECG 06/17/2017- Seizure in childhood (HCC) One seizure when patient was 8 y/o, no further seizures- Spina bifida occultaALLERGIES AmoxicillinMEDICATIONSCurrent Outpatient Prescriptions:pantoprazole DR (PROTONIX) 40 mg tablet Take 1 tablet by mouth twice dailybefore meals (0600/1600).albuterol HFA (PROAIR HFA) 90 mcg/actuation inhaler Inhale 1 Puff asinstructed every 4 hours as needed for Wheezing/Shortness of Breath.clonazePAM (KLONOPIN) 0.5 mg tablet Take 1 tablet by mouth twice daily asneeded for Anxiety for up to 90 days.Blood Pressure Monitor (BLOOD PRESSURE KIT) kit Dx: R03.0montelukast (SINGULAIR) 10 mg tablet Take 1 tablet by mouth daily atbedtime.SPRINTEC 0.25-35 mg-mcg per tablet Take 1 tablet by mouth once daily.No current facility-administered medications for this visit.Medications and allergies reviewed by this provider.SOCIAL HISTORYSocial History Marital status: Spouse name: Years of education: Number of children:Social History Main Topics Smoking status: Never Smoker Smokeless status: Never Used Alcohol use: Yes 4.5 oz/week 3 Glasses of Wine (5oz) per week Comment: Stopped drinking 06/18 Drug use: NoREVIEW OF SYSTEMSGENERAL: No weight loss, malaise or feversRESPIRATORY: Negative for cough, hemoptysis, wheezing, COPD, dyspnea orshortness of breathCARDIOVASCULAR: Hypertension, See HPIGI: No nausea, vomiting, or diarrhea, No heartburn or reflux symptoms andSee HPIPSYCH: See HPINEURO: No history of headaches, syncope, paralysis, seizures or tremorsOBJECTIVE:BP 136/100 (BP Site: Left Arm, BP Position: Sitting, BP Cuff Size: RegularAdult) Pulse 102 Temp 36.8 ?C (98.2 ?F) (Right Tympanic) Resp 16 Wt 63 kg (138 lb 12.8 oz) LMP 08/13/2017 (Exact Date) SpO2 98% BMI28.03 kg/m2. Vital signs reviewed by this provider.PHYSICAL EXAMINATION:General appearance: Well appearing, alert, in no acute distress,well-hydrated, well nourished.Skin: Skin color, texture, turgor normal, no suspicious rashes or lesionsLungs: Lungs clear to auscultation. No wheezing, rhonchi, ralesHeart: RRR without murmur, gallop, or rubs. No ectopyExtremities: No deformities, edema, skin discoloration, clubbing orcyanosis. Good capillary refill. , Pulses: 2+Neuro: Gait normal. Sensation grossly intact., Negative findings: speechnormal, mental status intact, muscle tone normal, muscle strength normalAppearance: well dressed well groomed, slightly tense posture,cooperative and pleasantBehavior: good eye contactSpeech: fluent and coherentMood: euthymicAffect: appropriatePerceptions: noneThought process: goal directedThought Content: normalIntelligence level: normalInsight: goodJudgment: goodASSESSMENT/PLAN:1. Hypertension, essential - ICD9: 401.9, ICD10: I10 (primary diagnosis)- poor control- factors affecting control of BP include stress and anxiety- Add lisinopril (Zestril/Prinivil)- Encouraged dietary sodium restriction/DASH diet- Recommended regular aerobic exercise.- Recommend home blood pressure monitoring, to bring results in on nextvisit- Recheck in 2 weeks with nurse visit, sooner should new symptoms orproblems arise.- Reviewed risks of HTN and principles of treatment- Goal of BP <140/90- Recommended no refined sugar, low refined starch, healthy oil intake(olive oil), healthy protein (fish) along the lines of the Mediterraneandiet.- LISINOPRIL 10 MG TABLET- discussed Reason for taking medications andtreatment goals. Benefits of medication therapy. How medications work.Potential side effects of medications. Importance of regularly fillingprescriptions and taking medications.2. Anxiety - ICD9: 300.00, ICD10: F41.9- would like to start with BP control because she states that she thinksthe anxiety is improving now that she is away from her soon to be exhusband.- discussed that the SSRI are less risk for dependence than the klonopinand reminded her that the klonopin will have this risk.- suggested that she follow up if she feels that the anxiety is notcontrolled and will consider restarting prozac or another SSRI formanagement.3. History of GI bleed - ICD9: V12.79, ICD10: Z87.19- stable at this time, but do not know what repeat labs showed when shewas seen at outside provider. Offered lab orders, but she would like totry and get results and wait to see what may be needed by new GI providerwhen she schedules- CONSULT TO GASTROENTEROLOGY4. Screening for breast cancer - ICD9: V76.10, ICD10: Z12.31- Discussed recommendations for mammogram starting at age 40. She agreesto schedule now since she will not be establishing for a couple of monthswith Dr. Storm.- JONA Kellogg CNPThe majority of the visit was spent counseling and/or coordinating carefor the patient. Cdbk-zb-pdhm time was 25 minutes. PROGRESS HNO ID: [id number]: rTemaine Sandoval serenity 08-20-2017 [facility] Haumesser MaService: (none)Author Tony ([id number]) Type: (none)Type: Progress NotesFiled: 08/20/2017 10:37 AMNote Text:Repeat Blood PressureBP Pulse HR Site Cuff Size Time Unha396/100 106 --- Left Arm Regular 09:11 AM 08/20/2017135/101 103 --- Left Arm Regular 09:11 AM 08/20/2017BP KIMBERLY TKNZVET430/100 102 --- Left Arm Regular 09:11 AM 08/20/2017139/100 101 --- Left Arm Regular 09:10 AM 08/20/2017137/98 101 --- Left Arm Regular 09:10 AM 08/20/2017136/103 100 --- Left Arm Regular 09:10 AM 08/20/2017144/105 99 --- Left Arm Regular 09:10 AM 08/20/2017No orthostatic vitals data filed.No peak flow data filed.No waist measurement recorded. progress on 2017-07 PROGRESS HNO ID: [id number]: Lucila stiles 08-07-2017 Kingsley OlderService: (none)Author Type: Nurse Clinic PractitionerType: Progress NotesFiled: Kingsley 08/08/2017 3:11 PMNote Text:CC: ([id number]) Tato Layton is a 42 year old female who presents today for medicationissue. [facility] pharmacy did not get prescription for Klonopin or inhalersthat were filled on 06/26. Pharmacy was supposed to call this office butno phone record found in [place] [place].Elevated blood pressure: Denies history of hypertension. Does not checkBP's generally. Denies any symptoms referable to elevated blood pressure.Specifically denies headache, chest pain, palpitations, dyspnea,peripheral edema and fatigue. Diet: Watches diet for salt (salty snacks,added salt, processed frozen/canned foods), sugary/sweet snacks, unhealthyfats: No. Caffeine: No Water intake: 4-5 glasses of water a day Alcoholintake: NoLast 3 Encounter BP Readings: Date: BP: 08/07/2017 152/108 06/26/2017 124/86 06/17/2017 114/79Tachycardia: Patient denies palpitations, SOB, dizziness, lightheadedness.States she is always anxious at that doctor's office and the room feelswarm.Last 4 Encounter Pulse Readings: Date: Pulse: 08/07/2017 150 06/26/2017 96 06/17/2017 109 04/20/2016 114REVIEW OF [facility]ularHold[facility] [place] HPIPA MEDICAL HISTORYDiagnosis Date- Alcohol abuse- Asthma- Depression- Hematemesis 06/17/2017 Added automatically from request for surgery [id number]- High anion gap metabolic acidosis 06/17/2017- Hypertension- Hypokalemia 06/17/2017- Lactic acidosis 06/17/2017- Macrocytosis 06/17/2017- Prolonged Q-T interval on ECG 06/17/2017- Seizure in childhood (HCC) One seizure when patient was 8 y/o, no further seizures- Spina bifida occultaPAST SURGICAL HISTORYProcedure Laterality Date- IR VASCULAR ACCESS TEAM PICC INSERTION RADIO 06/20/2017ALLERGIES AmoxicillinMEDICATIONSpantoprazole DR (PROTONIX) 40 mg tablet Take 1 tablet by mouth twice dailybefore meals (0600/1600).albuterol HFA (PROAIR HFA) 90 mcg/actuation inhaler Inhale 1 Puff asinstructed every 4 hours as needed for Wheezing/Shortness of Breath.clonazePAM (KLONOPIN) 0.5 mg tablet Take 1 tablet by mouth twice daily asneeded for Anxiety for up to 90 days.montelukast (SINGULAIR) 10 mg tablet Take 1 tablet by mouth daily atbedtime.SPRINTEC 0.25-35 mg-mcg per tablet Take 1 tablet by mouth once daily.No family history on file.Social HistorySubstance Use Topics- Smoking status: Never Smoker- Smokeless tobacco: Never Used- Alcohol use 4.5 oz/week 3 Glasses of Wine (5oz) per week Comment: Stopped drinking 06/18PHYSICAL EXAMBP 152/108 Pulse (!) 139 Temp 37.6 ?C (99.7 ?F) (Temporal Artery) Resp 14 Wt 61.2 kg (135 lb) SpO2 99% BMI 27.27 kg/a7Iyddgrt Appearance: well appearing, in no acute distress, alertLungs: Lungs clear to auscultation. No wheezing, rhonchi, ralesHeart: Apical 150. RR without murmur, gallop, or rubs. No ectopyASSESSMENT/PLAN:1. Elevated blood pressure reading - ICD9: 796.2, ICD10: R03.0 (primarydiagnosis)Transient BP elevation vs anxiety- Encouraged dietary sodium restriction/DASH diet- Recommended regular aerobic exercise.- Recommend home blood pressure monitoring, to bring results in on nextvisit- Recheck in 2 weeks, sooner if needed.- ECG COMPLETE W INTERPRETATION2. Tachycardia - ICD9: 785.0, ICD10: R00.0Elevated HR. EKG Sinus tachycardia with V rate 130Likely to due to anxiety and stressMonitor at home and follow-up next week- ECG COMPLETE W INTERPRETATION3. Medication monitoring encounter - ICD9: V58.83, ICD10: Z51.81Pharmacy reporting no record of refill on Klonopin of Albuterol inhaler.Refilled todayNaz Older, CNPDiscussed diet with plenty fruits, vegetables, lean meats and healthyfats/oils. Avoid processed foods, trans fats, vegetable oils and simplesugars. Watch portion sizes.Prescription instructions reviewed with patient as applicable. Potentialred flag symptoms discussed with the patient. Reviewed appropriate actionplan to take if red flag symptoms occur. Patient agreeable to treatmentplan. comp metabolic panel on 2018-06-17 Calcium mass conc 8.7 8.4-10.4 mg/dL Normal 06-17-2018 [facility] ([id number]) Comment: Performed By: #### HEMOG, CM P3, ETOH4 ####[address] [place] [address] ALP enzyme act/vol 75 38-126 U/L Normal 06-17-[address] [facility] [employer] [facility] ([id number]) Comment: Performed By: #### HEMOG, CM P3, ETOH4 ####[facility] CenterArrively[address] [place] [address] ALT enzyme act/vol 51 13-69 U/L Normal 06-17-2018 [facility] (89455) Comment: Performed By: #### HEMOG, CM P3, ETOH4 ####[facility] [employer] [id number] [place], [place] Anion gap 3 molar conc 12 Normal 018 [facility] ([id number]) Comment: Performed By: #### HEMOG, CM P3, ETOH4 ####[address] [place], [place] AST enzyme act/vol 67 15-46 U/L High 06-17-2018 [facility] (04046) Comment: Performed By: #### HEMOG, CM P3, ETOH4 ####[address] [place], [place] Bilirubin mass conc 0.7 0.2-1.3 mg/dL Normal 06-17-2018 [facility] (06161) Comment: Performed By: #### HEMOG, CM P3, ETOH4 ####[facility] [employer] [address] CO2 molar conc 22 22-30 mmol/L Normal 06-17-2018 [facility] (87352) Comment: Performed By: #### HEMOG, CM P3, ETOH4 ####[facility] [employer] [id number] [place], [place] Creatinine mass conc 0.71 0.52-1.25 mg/dL Normal 8 [facility] (21192) Comment: Performed By: #### HEMOG, CM P3, ETOH4 ####[facility] [employer] [id number] [place], [place] GFR/1.73 sq M > 60.0 >60 mL/min/{1.73_m2} Normal 8 [facility] predicted among Syst em (47291) blacks MDRD vol rate/area (S/P/Bld) Comment: Performed By: #### HEMOG, CM P3, ETOH4 ####[address] [place], [place] GFR/1.73 sq M > 60.0 >60 mL/min/{1.73_m2} Normal 8 [facility] predicted among Syst em (59479) non-blacks MDRD vol rate/area (S/P/Bld) Comment: Result Comment: Source- MDRD equation with creatinine calibration to IDMS(NKDEP) eGFR not recomme nded for drug dose adjustment Performed By: #### HEMOG, CM P3, ETOH4 ####[address] [place] Glucose mass conc 77 70-100 mg/dL Normal 06-17-2018 [facility] (32514) Comment: Performed By: #### HEMOG, CM P3, ETOH4 ####[address] [employer] [place], [place] Protein mass conc 7.7 6.3-8.2 g/dL Normal 06-17-2018 [facility] (55698) Comment: Performed By: #### HEMOG, CM P3, ETOH4 ####[address] [place] Urea nitrogen mass conc 9 7-20 mg/dL Normal [address] [facility] [employer] [facility] (26065) Comment: Performed By: #### HEMOG, CM P3, ETOH4 ####[address] [place] Potassium molar conc 3.7 3.5-5.1 mmol/L Normal [address] [facility] [employer] [facility] (85852) Comment: Performed By: #### HEMOG, CM P3, ETOH4 ####[address] [place] Sodium molar conc 138 137-145 mmol/L Normal 06-17-2018 [facility] (25430) Comment: Performed By: #### HEMOG, CM P3, ETOH4 ####[address] [place] Albumin mass conc 4.5 3.5-5.0 g/dL Normal 06-17-2018 [facility] (01253) Comment: Performed By: #### HEMOG, CM P3, ETOH4 ####[address] [place] [address] Chloride molar conc 105 98-107 mmol/L Normal 06-17-2018 [facility] (20901) Comment: Performed By: #### HEMOG, CM P3, ETOH4 ####[facility] [place] [address] brief op not on 201 01-25-04 BRIEF OP HNO ID: [id number]: Kaden Mcallister No rmal 06-18-2017 [place] [facility] MirService: GastroenterologyAuthor Type: General PhysicianType: Brief Op NoteFiled: Medical 06/18/2017 1:47 PMNote Text:[facility] Center OPERATIVE / PROCEDURE NOTELOG ID: [id number]/PROCEDURE DATE: 06/18/2017SURGEON(S)/PROCEDURALIST(S) AND MANAGER SUPPORT SERVICES(S): Kaden Navas - PrimaryendoscopistINDICATION: Upper GI BLEEDINGPRE-OP/PRE-PROCEDURE DIAGNOSIS: Upper GI bleedingPOST-OP/POST-PROCEDURE DIAGNOSIS: 1. Ulcerative esophagitis 2. Slidinghiatal hernia 3. Multiple fresh gastric erosions, without currentbleeding. 4. No varicesPROCEDURE(S): upper endoscopyANESTHESIA: MACFINDINGS: 1. Numerous gastric erosions 2. Esophagitis with exudate, distalesophagus 3. No varicesESTIMATED BLOOD LOSS: NoneSPECIMENS: noneCOMPLICATIONS: NonePOST-PROCEDURE RECOMMENDATIONS/FOLLOW UP: 1. PPI Rx 2. DC octreotide # [id number]: Kaden Navas MD PATIENT NAME: Nancy LaytonDATE: 06/18/2017 : normal mdrd gfr on 2017-06 eGFR (non-black) >60 >60mL/min/1.73m2 mL/min/{1.73_m2} Normal 06-22-2017 [facility] ([id number]) Comment: Result Comment: If the patie nt is , multiply the result by 1.210. Performed By: #### HGBI #### [address] [address] cnov on 2017-06-26 CNOV Office Visit Normal 06-26-2017 Marline and (INTMWS) --------NANCY LAYTON [facility] E ([id number]) 1975 FDat e Time Provider Ttqwbbhphz06/12/17 7:40 AM LUCILA SPIVEY (RESOURCE ANALYST) GUANAKO Jimenez During your visit today, we recorded the following information about you: Temperature Pulse (54316) Respiration Blood pressure 9 8 degrees 96/minute 16/minute 124/86 Weight 67.6 kgNaz NAIDA Spivey 06/26/2017 9:08 AM SignedCC: Patient presents with:Recheck: hospital follow up vomiting bloodHPRicco Layton is a 6 0 year old female who presents today for hospitalfollow-up. Patient admitted to [facility] on 06/18 upp er GI bleed. Positive forjaundice, elevated LFT's and gall stones but no cholecystitis. Was initially in ICU. Hemoglobin stabilized, had EGD with results as documented in report, noactive bleeding. P soniacarine had admitted to heavy drinking starting a couple yearsago due to stress. Was up to 2 bottles of white wine daily but cut back to afew glasses of wine on the weekend about two months ago. During hospitaladmission there were no signs of etoh withdrawal. Discharged home on 06/22 onProtonix 40 m g BID and Folic acid. Strongly recommended abstinence fromalcohol. Also recommended FU with PCP in 1 week, GI in 2 weeks.Today patient reports she is feeling a lot better. Denies any further episodeso f hematemesis. Decreased appetite but normal for her. Denies abdominal pain,nausea, vomiting, black /bloody stools. No dizziness or lightheadedness. Stillhas some jaundice but improving. Has appointme nt with GI, Dr. Rowley, on 07/04.Has abstained from alcohol since discharge. Goes to [address] for c ounseling andalcohol abuse, next appointment Sunday. Will be trying to go once a week. Hadprescript ion for Kl[place] pr[place]ing [place] in c ase she has panic attack or severe anxiety secondary carmelina longer drinking alcohol.REVIEW OF S YSTEMSGeneral: no fevers and no chillsRespiratory: no wheezing, no shortness of breath. Positiv e for cough due toviral URI. History of asthma.Cardiovascular: no chest pain, no chest pressure, no palpitations and noswellingGI: No heartburn or reflux symptomsGU: Negative for dark or tea col ored urinePAST MEDICAL HISTORYDiagnosis Date- Alcohol abuse- Asthma- Depression- Hematemesis 06/17 Added automatically from request for surgery [id number]- High anion gap metabolic acidosis 2016- Hypertension- Hypokalemia 06/17/2017- Lactic acidosis 06/17/2017- Macrocytosis 06/17/2017- Prol onged Q-T interval on ECG 06/17/2017- Seizure in childhood (HCC)- Spina bifida occultaPAST SURGICAL HISTORYProcedure Laterality Date- IR VASCULAR ACCESS TEAM PICC INSERTION RADIO 06/20/2017ALLERGIES Car xicillinMEDICATIONSfolic acid 1 mg tablet Take 1 tablet by mouth once daily for [address] (PROTONIX) 40 mg tablet Take 1 tablet by mouth twice dailybefore meals (0600/1600) for 30 day s.PROAIR HFA 90 mcg/actuation inhaler Inhale 1 Puff as instructed every 4 hoursas needed for Wheezin g/Shortness of Breath.clonazePAM (KLONOPIN) 0.5 mg tablet Take 0.5 mg by mouth twice daily as neededf or Anxiety.montelukast (SINGULAIR) 10 mg tablet Take 10 mg by mouth daily at bedtime.SPRINTEC 0. 25-35 mg-mcg per tablet Take 1 tablet by mouth once daily.No family history on file.Social Histo rySubstance Use Topics- Smoking status: Never Smoker- Smokeless tobacco: Never Used- Alcohol use 4.5 oz/week 3 Glasses of Wine (5oz) per weekPHYSICAL EXAMBP 124/86 (BP Site: Left Arm, BP Position: Sitti ng, BP Cuff Size: RegularAdult) Pulse 96 Temp 36.7 ?C (98 ?F) (Temporal Artery) Resp 16 Wt 67.6kg (149 lb) BMI 30.09 kg/v5Htzcaez Appearance: well appearing, in no acute distr ess, alertPysch: mood and affect broad and appropriateSkin: Skin jaundiced. Texture, turgor n ormal for ageEyes: Conjunctival icterusLungs: Lungs clear to auscultation. No wheezing, r honchi, ralesHeart: RRR without murmur, gallop, or rubs. No ectopyAbdomen: Abdomen soft, non-tender. Bowel sounds normal. No masses, organomegalyExt: no edema in LE bilaterally, good dist al pulsesTETANUS due on 1988PAP EVERY 5 YEARS due on 2007HPV EVERY 5 YEARS due on 2007INFLUENZA(1) due on 03/16/2017MAMMOGRAM due on 2017ASSESSMENT/PLAN:Angelo jones will be establishing care with Dr. Storm in . Upper GI bleed - ICD9: 578.9, ICD10: K92.2 (primary diagnosis)Resolved. No alarm symptoms or exam findings today. Vitals stableContinue with Protonix and folic acid until follow-up with GI, can addresscontinuation at that timeFollow-up with GI and Dr. Storm as scheduled or sooner as needed2. Acute blood loss an emia - ICD9: 285.1, ICD10: K46Onbpss CBC per [facility]ITALlan as above3. Jaundice - ICD9: 782.4, ICD10: R17Res olvingRepeat LFT's per GIPlan as above4. ETOH abuse - ICD9: 305.00, ICD10: F10.10Continued absti nence and counseling at [address] encouragedWill refill Klonopin but only for limited quantity and no refi lls. Discussedpotential for abuse and addiction especially with history of alcohol abuse.Advised to use sparingly only for panic attacks or severe anxiety. If she hascontinued need for Klonop in she will need to follow-up in office to discussalternatives.OARRS website checked and validate d. All prescriptions have been APPROPRIATELYfilled. No suspicious activity was identified.- by Africa Monzon, CNPPrescription instructions reviewed with patient as caden licable. Potential redflag symptoms discussed with the patient. Reviewed appropriate action plan tota erasmo if red flag symptoms occur. Patient agreeable to treatment plan.Lucila Spivey CNP 06/26/2017 8:08 A M SignedOkay to take Robitussin DM or Mucinex DM for coughReferring Provider: SELF [[id number]]Allergie s As of Date: 06/26/2017 Noted Allergy ReactionAMOXICILLIN 04/20/2016 4 - Hives Comments: Tolerated ceftriaxone 06/18/17Date Reviewed: 06/26/2017Reviewed by: Adeola Clayton LPN - Fully AssessedReason f or Visit: Recheck [92] Cmt: hospital follow up vomiting bloodPrimary Visit Diagnosis:Upper GI ble ed [K92.2] Other Visit Diagnoses:Acute blood loss anemia [D62] Jaundice [R17] ETOH abuse [F10.10]Ord er(s):PROAIR HFA 90 mcg/actuation inhalerInhale 1 Puff as instructed every 4 hours as needed for Wheezing/Shortness of Breath.Disp: 3 InhalerRfl: 1 clonazePAM (KLONOPIN) 0.5 mg tabletTake 1 tablet b y mouth twice daily as needed for Anxiety.Disp: 14 tabletRfl: 0 montelukast (SINGULAIR) 10 m g tabletTake 1 tablet by mouth daily at bedtime.Disp: 90 tabletRfl: 1 SPRINTEC 0.25-35 mg-mcg per tabletTake 1 tablet by mouth once daily.Disp: 3 PackageRfl: [address] (PROTONIX) 4 0 mg tabletTake 1 tablet by mouth twice daily before meals (0600/1600).Disp: 60 tabletR fl: 0 folic acid 1 mg tabletTake 1 tablet by mouth once daily.Disp: 30 tabletRfl: 0Prescriptions as of 06/26/2017 Sig: PROAIR HFA 90 MCG/ACTUATION A* Inhale 1 Puff as instructed e* CLONAZEPAM 0.5 MG TABLET Take 1 tablet by mouth twice * MONTELUKAST 10 MG TABLET Take 1 tablet by mouth daily * SP RINTEC (28) 0.25 MG-35 MCG * Take 1 tablet by mouth once d* PANTOPRAZOLE 40 MG TABLET,DEL* Take 1 tab let by mouth twice * FOLIC ACID 1 MG TABLET Take 1 tablet by mouth once d*Problem List As Of Date Noted Resolved Upper GI bleed [K92.2] INVALID FOR* Jaundice [R17] INVALID FOR* Transamin itis [R74.0] INVALID FOR* Gallbladder hydrops [K82.1] INVALID FOR* Acute blood loss anemia [D62] INVA LID FOR* Sepsis (HCC) [A41.9] INVALID FOR* Acute cholecystitis [K81.0] INVALID FOR* More... Other i nstructions from your clinician: Okay to take Robitussin DM or Mucinex DM for coughPrescriptions or dered this encounter Disp Refills Start End PROAIR HFA 90 MCG/ACTUATION AEROSOL * 3 In* 1 06/26/2017 Route: INHALATION Sig: Inhale 1 Puff as instructed every 4 hours as needed for Wheezing/Shortnes s of Breath. CLONAZEPAM 0.5 MG TABLET 14 t* 0 06/26/2017 Class: Print RX Route: ORAL Sig: Take 1 tabl et by mouth twice daily as needed for Anxiety. MONTELUKAST 10 MG TABLET 90 t* 1 06/26/2017 Route: OR AL Sig: Take 1 tablet by mouth daily at bedtime. SPRINTEC (28) 0.25 MG-35 MCG TABLET 3 Pa* 1 06/2017 Route: ORAL Sig: Take 1 tablet by mouth once daily. PANTOPRAZOLE 40 MG TABLET,DELAYED RE* 60 t* 0 06/26/2017 Route: ORAL Sig: Take 1 tablet by mouth twice daily before meals (0600/1600). FO LIC ACID 1 MG TABLET 30 t* 0 06/26/2017 Route: ORAL Sig: Take 1 tablet by mouth once daily.Medicati ons Discontinued During This Encounter PROAIR HFA 90 mcg/actuation inhaler 04/17/2016 06/26/2017 Class: Historical Med Route: INHALATION Sig: Inhale 1 Puff as instructed every 4 hours as needed for Wheezing/Shortness of Breath. Disc: Reason for discontinue is not on file. clonazePAM (KLO NOPIN) 0.5 mg tablet 04/18/2016 06/26/2017 Class: Historical Med Route: ORAL Sig: Take 0.5 mg by faith th twice daily as needed for Anxiety. Disc: Reason for discontinue is not on file. montelukast (SI NGULAIR) 10 mg tablet 02/23/2016 06/26/2017 Class: Historical Med Route: ORAL Sig: Take 10 mg by mout h daily at bedtime. Disc: Reason for discontinue is not on file. SPRINTEC 0.25-35 mg-mcg per tablet 03/07/2016 06/26/2017 Class: Historical Med Route: ORAL Sig: Take 1 tablet by mouth once daily . Disc: Reason for discontinue is not on file. pantoprazole DR (PROTONIX) 40 mg tab* 60 t* 0 06/22/2017 06/26/2017 Class: Print RX Route: ORAL Sig: Take 1 tablet by mouth twice daily before dayanara ls (0600/1600) for 30 days. Disc: Reason for discontinue is not on file. folic acid 1 mg tablet 30 t* 0 06/23/2017 06/26/2017 Class: Print RX Route: ORAL Sig: Take 1 tablet by mouth once daily for 30 d ays. Disc: Reason for discontinue is not on file.Letter TextDepartment of Internal Egkhgzax[address] [place], [place] [address]Opguy: [phone] Rei WhatleySakid814 [facility] [address] 2016TO WHOM IT MAY CONCERN:This is to certify that Nancy Layton was unable to work fro 06/18 cbjisxo53/8 due to illness. Nancy may return to work on 06/26/17 with norestrictionsLucila Rosales CNPEncounter Number: [id number] Status:Closed by LUCILA SPIVEY CNP on 06/26/17 nutrition on 2016-07 NUTRITION HNO ID: [id number]: Judy Rangel 06-22-2017 Marlon Gorman (Rd) MICHELINE Turnerervice: [facility] TherapyAuthor Type: Registered ([id number]) DietitianType: NutritionFiled: 06/22/2017 11:41 AMNote Text:NUTRITION THERAPY PROGRESS NOTESERVICE DATE: 06/22/2017SERVICE TIME: 10:30RECOMMENDED DIAGNOSIS: NO MALNUTRITION IDENTIFIED per Registered Dietitianon 06/18/17NUTRITION CARE PLANIntervention:1. Encouraged PO intakeMonitor and Evaluation:Goal: Meet >75% of estimated needsMonitor labs, I/Os, vital signs, weightDischarge Nutrition Recommendations:To be determined, currently on soft GI diet per GI recommendations. GIrecommending complete cessation of ETOH.Per HPI: Ms Layton is a 42 year old white woman with PMH significant forasthma, GERD, HTN, anxiety depression, spinia bifida occulta, and alcoholabuse comes in for complaints of nausea, abdominal pain, jaundice, andbloody emesis. ?Jaundice started a day ago and the rest today. ?She hashad 10 bouts of emesis with dark red blood. ?She has had epigastric,constant abdominal pain and now getting better. ?ROS significant fordecreased appetite and weight loss. ?No prior GI bleed issues. ?Rest ROSis negative. Last alcohol drink was this afternoon. ?Used to drink 2bottles of wine?but now has cut down. ?Going through a divorce and sostressful.Interval History: Note patient s/p EGD with findings of esophagitis andgastric erosions, no varices. Soft GI diet started, patient taking 50-100%per nursing flowsheet. Patient states she is eating more than usual, butstill gets full easily. Getting discharged today.Present Diet Order: Gastrointestinal GISoftAdmission Weight: 66.6 kg (146 lb 13.2 oz)Current Weight: 67.5 kg (148 lb 12.8 oz)Body mass index is 30.05 kg/(m2). class 1 obesityCurrent Facility-Administered Medications:montelukast 10 mg tab(s) (SINGULAIR) 10 mg ORAL AT BEDTIMEmetoprolol tartrate (short acting) 12.5 mg tab(s) (LOPRESSOR) 12.5 mg ORALq 12 Hciprofloxacin HCl 500 mg tab(s) (CIPRO) 500 mg ORAL q 12 Hpill splitter (patient-specific) 1 Each Miscell. (Med.Supl.;Non-Drugs) PRNmetroNIDAZOLE 500 mg PREMIX piggyback (FLAGYL) 500 mg INTRAVENOUS q 8 HdiphenhydrAMINE 25 mg (BENADRYL) 25 mg ORAL q 6 H PRNpotassium chloride ER 40 mEq tab(s) (K-DUR, KLOR-CON) 40 mEq ORAL BID0.9% NaCl 10 mL 10 mL INTRAVENOUS q 12 H0.9% NaCl 20 mL 20 mL INTRAVENOUS PRNpill splitter (patient-specific) 1 Each Miscell. (Med.Supl.;Non-Drugs) PRNpotassium-sodium phosphates 1 Packet (NEUTRA-PHOS,PHOS-NAK) 1 Packet ORALTID after MEALSfolic acid 1 mg tab(s) [address] 40 mg tab(s) (PROTONIX) 40 mg ORAL BID AC (0600/1600)albuterol HFA 90 mcg/actuation 2 Puff (PROVENTIL HFA, VENTOLIN HFA) 2 PuffINHALATION q 4 H PRNpotassium chloride 80-120 mEq oral liquid 80-120 mEq ORAL/FEEDING TUBE PRNpotassium chloride iv piggyback 20 mEq in sterile water 100 mL 20 mEqINTRAVENOUS PRNmagnesium sulfate in water 2 g in sterile water 50 ml 2 g INTRAVENOUS PRNsodium phosphate 45 mmol in NaCl 0.9% 250 mL 45 mmol INTRAVENOUS PRNcalcium gluconate 4 g in NaCl 0.9% 250 mL 4 g INTRAVENOUS PRNLORazepam 2 mg (ATIVAN) 2 mg ORAL q 1 H PRNOrLORazepam 2 mg injection (ATIVAN) 2 mg INTRAVENOUS q 1 H PRNLORazepam 4 mg (ATIVAN) 4 mg ORAL q 1 H PRNOrLORazepam 4 mg injection (ATIVAN) 4 mg INTRAVENOUS q 1 H PRNondansetron 4 mg tab(s) (ZOFRAN) 4 mg ORAL q 6 H PRNOrondansetron (PF) 4 mg injection (ZOFRAN) 4 mg INTRAVENOUS q 6 H PRNMNT Billing Type: Re-assess/15 min 2 unitsSIGNATURE: Judy Turner RD PATIENT NAME: Nancy LaytonDATE: June 22, 2017 : 8:29 AM PAGER: [phone] progress on 2017-06 PROGRESS HNO ID: [id number]: Lucila (Medical Insurance Claims Processor) Meir stiles 06-26-2017 Kingsley OlderService: (none)Author Type: Nurse Clinic PractitionerType: Progress NotesFiled: Kingsley 06/26/2017 9:08 AMNote Text:CC: Patient ([id number]) presents with:Recheck: hospital follow up vomiting Sonya Layton is a 42 year old female who presents today for hospitalfollow-up. Patient admitted to [facility] on 06/18 upper GI bleed. Positive forjaundice, elevated LFT's and gall stones but no cholecystitis. Wasinitially in ICU. Hemoglobin stabilized, had EGD with results asdocumented in report, no active bleeding. Patient had admitted to [facility] starting a couple years ago due to stress. Was up to 2 bottles ofwhite wine daily but cut back to a few glasses of wine on the weekendabout two months ago. During hospital admission there were no signs ofetoh withdrawal. Discharged home on 06/22 on Protonix 40 mg BID and Folicacid. Strongly recommended abstinence from alcohol. Also recommended FUwith PCP in 1 week, GI in 2 weeks.Today patient reports she is feeling a lot better. Denies any furtherepisodes of hematemesis. Decreased appetite but normal for her. Deniesabdominal pain, nausea, vomiting, black/bloody stools. No dizziness orlightheadedness. Still has some jaundice but improving. Has appointmentwith GI, Dr. Rowley, on 07/04. Has abstained from alcohol since discharge.Goes to [facility] for counseling and alcohol abuse, next appointment Sunday.Will be trying to go once a week. [place] Requesting refill in case she haspanic attack or severe anxiety secondary to no longer drinking alcohol.REVIEW OF SYSTEMSGeneral: no fevers and no chillsRespiratory: no wheezing, no shortness of breath. Positive for cough dueto viral URI. History of asthma.Cardiovascular: no chest pain, no chest pressure, no palpitations and noswellingGI: No heartburn or reflux symptomsGU: Negative for dark or tea colored urinePAST MEDICAL HISTORYDiagnosis Date- Alcohol abuse- Asthma- Depression- Hematemesis 06/17/2017 Added automatically from request for surgery [id number]- High anion gap metabolic acidosis 06/17/2017- Hypertension- Hypokalemia 06/17/2017- Lactic acidosis 06/17/2017- Macrocytosis 06/17/2017- Prolonged Q-T interval on ECG 06/17/2017- Seizure in childhood (HCC)- Spina bifida occultaPAST SURGICAL HISTORYProcedure Laterality Date- IR VASCULAR ACCESS TEAM PICC INSERTION RADIO 06/20/2017ALLERGIES AmoxicillinMEDICATIONSfolic acid 1 mg tablet Take 1 tablet by mouth once daily for [address] (PROTONIX) 40 mg tablet Take 1 tablet by mouth twice dailybefore meals (0600/1600) for 30 days.PROAIR HFA 90 mcg/actuation inhaler Inhale 1 Puff as instructed every 4hours as needed for Wheezing/Shortness of Breath.clonazePAM (KLONOPIN) 0.5 mg tablet Take 0.5 mg by mouth twice daily asneeded for Anxiety.montelukast (SINGULAIR) 10 mg tablet Take 10 mg by mouth daily at bedtime.SPRINTEC 0.25-35 mg-mcg per tablet Take 1 tablet by mouth once daily.No family history on file.Social HistorySubstance Use Topics- Smoking status: Never Smoker- Smokeless tobacco: Never Used- Alcohol use 4.5 oz/week 3 Glasses of Wine (5oz) per weekPHYSICAL EXAMBP 124/86 (BP Site: Left Arm, BP Position: Sitting, BP Cuff Size: RegularAdult) Pulse 96 Temp 36.7 ?C (98 ?F) (Temporal Artery) Resp 16 Wt67.6 kg (149 lb) BMI 30.09 kg/j3Fiqzfck Appearance: well appearing, in no acute distress, alertPysch: mood and affect broad and appropriateSkin: Skin jaundiced. Texture, turgor normal for ageEyes: Conjunctival icterusLungs: Lungs clear to auscultation. No wheezing, rhonchi, ralesHeart: RRR without murmur, gallop, or rubs. No ectopyAbdomen: Abdomen soft, non-tender. Bowel sounds normal. No masses,organomegalyExt: no edema in LE bilaterally, good distal pulsesTETANUS due on 1988PAP EVERY 5 YEARS due on 2007HPV EVERY 5 YEARS due on 2007INFLUENZA(1) due on 03/16/2017MAMMOGRAM due on 2017ASSESSMENT/PLAN:Patient will be establishing care with Dr. Storm in . Upper GI bleed - ICD9: 578.9, ICD10: K92.2 (primary diagnosis)Resolved. No alarm symptoms or exam findings today. Vitals stableContinue with Protonix and folic acid until follow-up with GI, can addresscontinuation at that timeFollow-up with GI and Dr. Storm as scheduled or sooner as needed2. Acute blood loss anemia - ICD9: 285.1, ICD10: W84Giwhoi CBC per GIPlan as above3. Jaundice - ICD9: 782.4, ICD10: R80SgsvfhqpyKrfofa LFT's per GIPlan as above4. ETOH abuse - ICD9: 305.00, ICD10: F10.10Continued abstinence and counseling at 180 encouragedWill refill Klonopin but only for limited quantity and no refills.Discussed potential for abuse and addiction especially with history ofalcohol abuse. Advised to use sparingly only for panic attacks or severeanxiety. If she has continued need for Klonopin she will need to follow-upin office to discuss alternatives.OARRS website checked and validated. All prescriptions have beenAPPROPRIATELY filled. No suspicious activity was identified.- 06/26/2017by Lucila Older, CNPNaz Older, CNPPrescription instructions reviewed with patient as applicable. Potentialred flag symptoms discussed with the patient. Reviewed appropriate actionplan to take if red flag symptoms occur. Patient agreeable to treatmentplan. lipase blood on 201 01-25-04 Lipase Blood 46 73-393 U/L Low 06-18-2017 [facility] ([id number]) Comment: Performed By: #### GFR ####A [address] [address] phosphorus blood on 2017-06-21 Phosphate 1.6 2.5-4.9 mg/dL Critically low 06-21-2017 [facility] ([id number]) Comment: Result Comment: RESULT RECHE CKED Performed By: #### HGBI #### [address] [address] cnds on 2017-06-22 CNDS HNO ID: [id number]: Renny Normal 06-22-2017 [facility] Type: PhysicianType: Discharge ([id number]) SummariesFiled: 06/22/2017 11:09 AMNote Text:DISCHARGE SUMMARYPATIENT NAME: Nancy LaytonMRN: [id number] Information Admission Information ADMIT DATE: 06/17/2017DISCHARGE DATE: 06/22/2017 DOCTORS AND MEDICAL TEAM:[facility] Doctor: Renny Donis Care Provider: Gillian Burk Medical Team Members: Treatment Team:Attending Provider: Renny Vegaing: Hayde Kentlting: Kaden Cook CONDITION AT DISCHARGE: StableREASON I WAS IN THE HOSPITAL: GI bleed, elevated LFTsSUMMARY OF WHAT HAPPENED WHILE I WAS IN THE HOSPITAL: patient presentedwith upper GI bleed, had elevated LFTs, had gall stones but nocholecystitis. Was initially in ICU. Hemoglobin stabilized, had EGD withresults as documented in report, no active bleeding. No signs of etohwithdrawal per exam. Strongly recommended abstinence from alcohol. Alsorecommended FU with PCP in 1 week, GI in 2 weeks.OTHER PROBLEMS/DIAGNOSIS:Principal Problem: HematemesisActive Problems: Upper GI bleed Jaundice La ctic acidosis High anion gap metabolic acidosis Transaminitis Gallbladder hydrops Acute blood loss anemia Macrocytosis Prolonged Q-T interval on ECG Sepsis (HCC) Acute cholecystitis Hypokalemia UGI bleedResolved Problems: * No resolved hospital problems. *OPERATIONS PERFORMED WHILE IN THE HOSPITAL: NONEIMPORTANT TEST/PROCEDURES:EGDTEST RESULTS NOT AVAILABLE AT THIS TIME:No pending results Admission Information ADMIT DATE: 06/17/2017DISCHARGE DATE: 06/22/2017 DOCTORS AND MEDICAL TEAM:[facility] Doctor: Renny Donis Care Provider: Gillian Burk Medical Team Members: Treatment Team:Attending Provider: Renny Mayolting: Hayde Moncadaing: Kaden Cook CONDITION AT DISCHARGE: StableREASON I WAS IN THE HOSPITAL: GI bleed, transaminitisSUMMARY OF WHAT HAPPENED WHILE I WAS IN THE HOSPITAL: Patient admittedwith acute upper GI bleed, had elevated liver enzymes likely due to etohhepatitis, had gall stones but no cholecystitis. Initially was in ICU, EGDperformed (details as in procedure note), Hb remained stable, LFTsimproving. Highly recommended to abstain from alcohol.OTHER PROBLEMS/DIAGNOSIS:Principal Problem: HematemesisActive Problems: Upper GI bleed Jaundice Lactic acidosis High anion gap metabolic acidosis Transaminitis Gallbladder hydrops Acute blood loss anemia Macrocytosis Prolonged Q-T interval on ECG Sepsis (HCC) Acute cholecystitis Hypokalemia UGI bleedResolved Problems: * No resolved hospital problems. *OPERATIONS PERFORMED WHILE IN THE HOSPITAL: NoneIMPORTANT TEST/PROCEDURES:EGDTEST RESULTS NOT AVAILABLE AT THIS TIME:No pending results Discharge Disposition Discharge Disposition: Home With Self Care Discharge Disposition Discharge Disposition: Home With Self CareActivity When You Leave the Hospital No driving for: 1 WEEK Other: TOLERATEDDiet Instructions Other: TOLERATEDReturn to Work In the following number of days: 7Call Your Doctor If You have a severe headache You have lightheadedness, fainting, or confusion You have persistent nausea/vomiting over 24 hours You have persistent or heavy bleeding Your temperature is greater than 101FFollow Up Appointments Follow-Up Appointment When: In 1 weekPatient/Parents to call for appointment?: Everett [phone] [address] [facility] [id number] Requested Referral Follow-Up Appointment When: In 2 weeksPatient/Parents to call for appointment?: Misael Mcallister [phone] [place] [address]BLP Requested ReferralAdditional Provider to Provider Information:Principal Problem: HematemesisActive Problems: Upper GI bleed POA: Yes Jaundice POA: Yes Lactic acidosis POA: Yes High anion gap metabolic acidosis POA: Yes Transaminitis POA: Yes Gallbladder hydrops POA: Yes Acute blood loss anemia POA: Yes Macrocytosis POA: Yes Prolonged Q-T interval on ECG POA: Yes Sepsis (HCC) POA: Yes Acute cholecystitis POA: Yes Hypokalemia POA: Yes UGI bleed POA: YesResolved Problems: * No resolved hospital problems. *FOLLOW-UP APPOINTMENTS ALREADY SCHEDULED WITH A [facility] PROVIDERFuture AppointmentsDate Time Provider Department Lgfrul7706/26/2017 7:40 AM Lucila (Naida) Allyssa [facility]10/31/2017 11:40 AM Celia Storm [facility]ERDISCHARGE MEDICATION: Current Discharge Medication ListSTART taking these medicationsfolic acid 1 mgTake 1 mg by mouth once daily.Qty: 30 tablet Refills: 0pantoprazole DR (PROTONIX) 40 mgTake 40 mg by mouth twice daily before meals (0600/1600).Qty: 60 tablet Refills: 0CONTINUE these medications which have NOT CHANGEDPROAIR HFA 1 PuffInhale 1 Puff as instructed every 4 hours as needed for Wheezing/Shortnessof Breath.clonazePAM (KlonoPIN) 0.5 mgTake 0.5 mg by mouth twice daily as needed for Anxiety.montelukast (SINGULAIR) 10 mgTake 10 mg by mouth daily at bedtime.Sprintec 1 tabletTake 1 tablet by mouth once daily.Discharge Physical Exam:VITAL SIGNS: BP 114/79 Pulse 109 Temp 36.8 ?C (98.2 ?F) (Oral) Resp18 Ht 149.9 cm (4' 11) Wt 67.5 kg (148 lb 12.8 oz) SpO2 100% BMI30.05 kg/c7GPUGFJN: Alert, no distress, cooperativeEYES: PERRLA, EOMINECK: No jugulovenous distention, No carotid bruits, Carotid pulse normalcontour, SuppleLUNGS: Lungs clear to auscultation, Good diaphragmatic excursionCARDIAC: Normal S1 and S2; no rubs, murmurs, or gallopsABDOMEN: Abdomen soft, non-tender, BS normal, No masses or organomegalyEXTREMITIES: Extremities normal, no deformities, edema, clubbing or skindiscoloration. Good capillary refill., No ulcersNEURO: Gait normal. Reflexes normal and symmetric. Sensation grosslyintact, Cranial nerves II-XII intactTIME OF CARE: Discharge Management: I personally spent greater than 30minutes involved in the discharge management of this patient.SIGNATURE: Renny Mccracken MD PAGER/CONTACT #:DATE: June 22, 2017TIME: 11:09 AM hepatic panel on 01-07-08 Alkaline phosphatase (ALP) 167 46-116 U/L High [facility] ([id number]) Comment: Performed By: #### HGBI #### [place] [address] Bilirubin Ql (U) 9.6 0.2-1.0 mg/dL High 06-22-2017 [facility] (40244) Comment: Performed By: #### HGBI #### [address] [address] Protein 4.3 6.4-8.2 g/dL Low 06-22-2017 [facility] (10688) Comment: Performed By: #### HGBI #### [address] [address] Alanine aminotransferase (ALT) 62 12-78 U/L Normal 06-22-2017 [facility] (00 000) Comment: Performed By: #### HGBI #### [address] [address] Aspartate aminotransferase (AST) 133 9-37 U/L High 06-22-2017 [facility] (00 000) Comment: Performed By: #### HGBI #### [address] [address] Bilirubin (total) 7.70 0.00-0.20 mg/dL High 06-22-2017 [facility] (37268) Comment: Performed By: #### HGBI #### [address] [address] Albumin 1.6 3.4-5.0 g/dL Low 06-22-2017 [facility] (54800) Comment: Performed By: #### HGBI #### [address] [address] case managem on 201 01-25-08 CASE MANAGEM HNO ID: [id number]: Normal 1 08-23-2016 [facility] Adrienne (Rn) NICOLLE Lopeservice: [facility] Care ManagementAuthor Type: ([id number]) Registered NurseType: Care Mgt Progress NoteFiled: 06/22/2017 9:04 AMNote Text:CARE MANAGEMENT PROGRESS NOTESERVICE DATE: 06/22/2017SERVICE TIME: 9:01 AM LOS: 5 daysChart reviewed. Per Hospital Medicine, possible discharge if HGB stabletoday. Hgb improved from 06/21/2017. Plan is for patient to return home. Noneeds.SIGNATURE: Adrienne Lopes RN PATIENT NAME: Nancy LaytonDATE: June 22, 2017 : 9:01 AM PAGER/CONTACT #: [phone] hemogram/diff on 01-07-08 Abs Immature Grans 0.17 0.00-0.05 thou/cmm High 06-22-2017 [facility] (00 000) Comment: Performed By: #### HGBI #### [facility] [place], [place] [address] Abs. Baso 0.05 0.01-0.08 thou/cmm Normal 06-22-2017 [facility] (44167) Comment: Result Comment: Smear scanne d; tech agrees with automated differential Performed By: #### HGBI #### [address] [address] Abs. [place] 0.60 0.27-0.70 thou/cmm Normal 06-22-2017 [facility] (56866) Comment: Performed By: #### HGBI #### [address] [address] Abs. Neut 4.69 1.56-6.13 thou/cmm Normal 06-22-2017 [facility] (92414) Comment: Performed By: #### HGBI #### [address] [address] Basophils/100 WBC Auto (Bld) 0.8 % Normal 1 08-23-2016 [facility] (88338) Comment: Performed By: #### HGBI #### [address] [address] Eosinophils 0.20 0.00-0.31 thou/cmm Normal 06-22-[address] [facility] (77584) Comment: Performed By: #### HGBI #### [address] [address] Eosinophils/100 leukocytes 3.0 % Normal [facility] (83249) Comment: Performed By: #### HGBI #### [facility] [place], [place] [address] Immature Grans 2.60 % Normal 06-22-2017 [facility] (60279) Comment: Performed By: #### HGBI #### [facility] [place], [place] [address] Lymphocytes 0.93 1.18-3.74 thou/cmm Low 06-22-2017 [facility] (12797) Comment: Performed By: #### HGBI #### [address] [address] Lymphocytes/100 leukocytes 14.0 % Normal [facility] (90545) Comment: Performed By: #### HGBI #### [address] [address] Monocytes/100 leukocytes 9.0 % Normal 06-22 [facility] (88041) Comment: Performed By: #### HGBI #### [address] [address] Seg Neutrophil 70.6 % Normal 06-22-2017 [facility] (50936) Comment: Performed By: #### HGBI #### [address] [address] Erythrocyte distribution 16.9 11.7-14.4 % High 06-22 [facility] width Auto Ratio (RBC) System (50600) Comment: Performed By: #### HGBI #### [address] [address] Erythrocytes (RBC) 2.35 3.93-5.22 mil/cmm Low 06-22-2017 [facility] (97167) Comment: Performed By: #### HGBI #### [address] [address] Hematocrit (HCT) 26.4 34.1-44.9 % Low 06-22-2017 [facility] (39503) Comment: Performed By: #### HGBI #### [address] [address] Hemoglobin mass conc (Bld) 9.0 11.2-15.7 g/dL Low [facility] (00 000) Comment: Performed By: #### HGBI #### [address] [address] MCH 38.3 25.6-32.2 pg High 06-22-2017 [facility] (53687) Comment: Performed By: #### HGBI #### [address] [address] MCHC mass conc (RBC) 34.1 31.6-34.8 % Normal 7 [facility] (96735) Comment: Performed By: #### HGBI #### [place] [address] MCV 112.3 79.4-94.8 fl High 06-22-2017 [facility] (18013) Comment: Performed By: #### HGBI #### [place] [address] Platelet mean volume (PMV) 11.4 9.4-12.3 fl Normal [facility] (00 000) Comment: Performed By: #### HGBI #### [address] [address] Platelets 147 182-369 thou/cmm Low 06-22-2017 [facility] (38203) Comment: Performed By: #### HGBI #### [place] [address] RDW SD 68.6 36.4-46.3 fl High 06-22-2017 [facility] (05007) Comment: Performed By: #### HGBI #### [place] [id number] WBC (Leukocytes) 6.65 3.98-10.04 thou/cmm Normal 06-22-2017 [facility] (00 000) Comment: Performed By: #### HGBI #### [place] [id number] social work on 2016 SOCIAL WORK HNO ID: [id number]: Natalie ([facility]) Normal 06-21-2017 Marlon Brennerervice: Social WorkAuthor Type: General TherapistType: Social WorkFiled: Medical 06/21/2017 12:55 PMNote Text:SOCIAL WORK Center CONSULT NOTESERVICE DATE: () 06/21/2017SERVICE TIME: 1120Referred by: PhysicianLance for visit:Substance AbuseALCOHOL USE HISTORY:1. Consumption ScreeningFemale4 or more drinks in one session:YesMore than 1 drink per day:YesMore than 7 drinks per week:Yes2. Have you ever felt you should cut down on your drinking? Yes3. Have people annoyed you by criticizing your drinking? Yes4. Have you ever felt bad or guilty about drinking? Yes5. Have you ever had a drink first thing in the morning to steady yournerves or get rid of a hangover (eye civil estimator)? No6. CAGE Screening? Yes7. If patient has a positive screen CAGE or Consumption, what is theirtotal number of drinks per day? Reports consumed up to 2 bottles dailyuntil 2 months ago8. Date of last alcohol use: 2017ALCOHOL/DRUG HISTORY:AlcoholHas drinking/drug use affected your work performance? NoHas drinking/drug use caused you to miss work? NoHas drinking/drug use affected your relationships? YesHas drinking/drug use affected your health? NoHas drinking/drug use had legal consequences? DUIDo you have a history of substance abuse treatment? NoMENTAL HEALTH HISTORY:Do you have a history of mental health issues? Yes. Was it related tosubstance abuse? No What type of treatment did you receive?pharmocologicalHave you ever had any behavioral problems/anger management issues? NoPSYCHOSOCIAL ASSESSMENT:Current living situation: Lives with fatherSocial supports: familyDo you have a family history of alcohol/drug use? YesDo you have a family history of mental health issues? NoSignificant childhood events (trauma, abuse, neglect)? NoCurrent or past history of abuse/neglect? YesCultural beliefs related to alcohol/drug use? NoSelf care issues? NoDifficulty communicating with others? NoFinancial difficulties? YesCurrently employed? NoStudent? NoPast or present ? NoPLAN/RECOMMENDATIONS:Patient Education: Information and feedback about screening results andMethods for reducing or stopping drinkingRecommended/Reviewed Abstinence for the following: Contraindicated medicalcondition presentMotivation to seek treatment at this time: LowBarriers to seeking treatment: No barriers identifiedTreatment Referral: [facility]/ADRCOther Referrals: Alcoholics AnonymousLiving Arrangement: Home, Family Member Home FatherLives With: FatherFinancial Resources: UnemployedPrimary Contact:Extended Emergency Contact InformationPrimary Emergency Contact: Olivia Heller Zwyrkkum: FatherSecondary Emergency Contact: PaulieWhitney marionGlobal Data Management Software Erxkjxuz: MotherSupportive: YesOther Important Patient Contacts: NoneHealth Insurance: Minor Layton is a 42 year old female who endorses progressive daily useof alcohol since late . Patient provided education and feedbackregarding screening results and preventative measures to promoteabstinence and healthy functioning. Discussed AOD recommendations andsober support. Resources with contact information providedOutcome/Recommendations:See Above Substance Abuse Brief Intervention AssessmentTime spent (minutes): 30SIGNATURE: Natalie Rosa [facility], MILK DELIVERY DRIVER PATIENT NAME: Nancy LaytonDATE: June 21, 2017 : 12:48 PM PAGER/CONTACT#: [phone] SOCIAL WORK HNO ID: [id number]: Smiley () Normal 06-21-2017 Struthersalfreda HoopernumService: Social WorkAuthor Type: General Social WorkerType: Social WorkFiled: Medical 06/21/2017 11:20 AMNote Text:SOCIAL WORK Center CONSULT NOTESERVICE DATE: () 06/21/2017SERVICE TIME: 0945Referred by: PhysicianReason for visit:Advance DirectivesLiving Arrangement: HomeLives With: FatherFinancial Resources: Employed:Primary Contact:Extended Emergency Contact InformationPrimary Emergency Contact: Olivia Heller Cqyhldoj: FatherSecondary Emergency Contact: PaulieWhitneyGlobal Data Management Software Lfvhjmla: MotherSupportive: YesOther Important Patient Contacts: NoneHealth Insurance: Blue Card Hina Layton is a 42 year old female. Received consult interest inAdvance Directives. Met with patient at bedside to review documents.Completed both the HCPOA and Living Will today. Copy to [employer] and on Chart.Original Advance Directives left with patient. Patient named her Elsy Apodaca as primary agent and her father, Fredi Heller as alternate.Patient shared she is interested in discussing chemical dependencyresources. Patient admits to drinking 1-2 bottles of wine a day. Perpatient, her alcohol use has greatly reduced and [facility] Dicussed having Natalie- ChemicalDependency Liaison to meet with patient during this admission. Patientagreeable and Natalie informed of consult. Social Work to follow as needed.Outcome/Recommendations:Advance Directive/CompletedTime spent (minutes): 90SIGNATURE: ROHIT Roman PATIENT NAME: Nancy LaytonDATE: June 21, 2017 : 11:12 AM PAGER/CONTACT#: [phone] progress on 2017-06 PROGRESS HNO ID: [id number]: Renny Rangel 06-21-2017 Marlon MccrackenService: [facility] Type: PhysicianType: Progress NotesFiled: Center 06/21/2017 6:24 PMNote Text:DEPARTMENT OF ([id number]) [facility] MEDICINEPROGRESS NOTESERVICE DATE: 06/21/2017SERVICE TIME: 6:20 PMHospital Medicine/Primary Attending: Renny Mccracken MDNIGHT AND WEEKEND COVERAGE:From 7am - 7pm, please call white teamAfter 7pm, please call cross cover pager #[phone] HPI: patient reports no further GI bleed, feels better. Deniesdizzy/lightheaded, SOB.MEDICATIONS: ReviewedOBJECTIVEPHYSICAL EXAM: BP 112/96 Pulse 114 Temp (Src) 98.6 (Oral) Resp 18 Ht 4' 11 (1.50m) Wt 162 lb 14.7 oz (73.9kg) SpO2 100% BMI 32.89kg/(m2).GENERAL: Alert, no distress, cooperativeEYES: PERRLA, EOMINECK: No jugulovenous distention, No carotid bruits, Carotid pulse normalcontour, SuppleLUNGS: Lungs clear to auscultation, Good diaphragmatic excursionCARDIAC: Normal S1 and S2; no rubs, murmurs, or gallopsABDOMEN: Abdomen soft, non-tender, BS normal, No masses or organomegalyEXTREMITIES: Extremities normal, no deformities, edema, clubbing or skindiscoloration. Good capillary refill., No ulcersNEURO: Gait normal. Reflexes normal and symmetric. Sensation grosslyintact, Cranial nerves II-XII intactPULSES: 2+ posterial tibialDATA:Diagnostic tests reviewed for today's visit:Most recent labs and imaging results.ASSESSMENT/PLANPrincipal Problem: Hematemesis Assessment AND Plan: S/P EGD, Hb stable, likely DC am after repeat HbActive Problems: Upper GI bleed POA: Yes Assessment AND Plan: plan as above Jaundice POA: Yes Assessment AND Plan: ? etoh hepatitis, recommended to quit ETOH, FUwith GI as OP Lactic acidosis POA: Yes Assessment AND Plan: acidosis resolved. Acute blood loss anemia POA: Yes Assessment AND Plan: hb stableVTE Prophylaxis: Pneumatic Compression DeviceDisposition: HomePlan of care discussed with: PatientSIGNATURE: Renny Mccracken MD PATIENT NAME: Nancy LaytonDATE: June 21, 2017 : 6:20 PM PAGER/CONTACT #: PROGRESS HNO ID: [id number]: Jeet queen 06-21-2017 Marlon Gorman (Medical Insurance Claims Processor) NAIDA LakeService: Medical GastroenterologyAuthor Type: Nurse Center PractitionerType: Progress NotesFiled: ([id number]) 06/21/2017 1:36 PMNote Text:CONSULT PROGRESS NOTESERVICE DATE: 06/21/2017SERVICE TIME: 1:00 PMCONSULTING SERVICE: GASTROENTEROLOGYSUBJECTIVEINTERVAL HPI: Patient denied nausea, vomiting, hematemesis, melena,hematochezia, or abdominal pain. She's tolerating her diet. Last bowelmovement was this morning.Current hospital medications:montelukast 10 mg tab(s) (SINGULAIR) 10 mg ORAL AT BEDTIMEmetoprolol tartrate (short acting) 12.5 mg tab(s) (LOPRESSOR) 12.5 mg ORALq 12 Hciprofloxacin HCl 500 mg tab(s) (CIPRO) 500 mg ORAL q 12 Hpill splitter (patient-specific) 1 Each Miscell. (Med.Supl.;Non-Drugs) PRNmetroNIDAZOLE 500 mg PREMIX piggyback (FLAGYL) 500 mg INTRAVENOUS q 8 HdiphenhydrAMINE 25 mg (BENADRYL) 25 mg ORAL q 6 H PRNpotassium chloride ER 40 mEq tab(s) (K-DUR, KLOR-CON) 40 mEq ORAL BID0.9% NaCl 10 mL 10 mL INTRAVENOUS q 12 H0.9% NaCl 20 mL 20 mL INTRAVENOUS PRNpill splitter (patient-specific) 1 Each Miscell. (Med.Supl.;Non-Drugs) PRNpotassium-sodium phosphates 1 Packet (NEUTRA-PHOS,PHOS-NAK) 1 Packet ORALTID after MEALSfolic acid 1 mg tab(s) [address] 40 mg tab(s) (PROTONIX) 40 mg ORAL BID AC (0600/1600)albuterol HFA 90 mcg/actuation 2 Puff (PROVENTIL HFA, VENTOLIN HFA) 2 PuffINHALATION q 4 H PRNpotassium chloride 80-120 mEq oral liquid 80-120 mEq ORAL/FEEDING TUBE PRNpotassium chloride iv piggyback 20 mEq in sterile water 100 mL 20 mEqINTRAVENOUS PRNmagnesium sulfate in water 2 g in sterile water 50 ml 2 g INTRAVENOUS PRNsodium phosphate 45 mmol in NaCl 0.9% 250 mL 45 mmol INTRAVENOUS PRNcalcium gluconate 4 g in NaCl 0.9% 250 mL 4 g INTRAVENOUS PRNLORazepam 2 mg (ATIVAN) 2 mg ORAL q 1 H PRNLORazepam 2 mg injection (ATIVAN) 2 mg INTRAVENOUS q 1 H PRNLORazepam 4 mg (ATIVAN) 4 mg ORAL q 1 H PRNLORazepam 4 mg injection (ATIVAN) 4 mg INTRAVENOUS q 1 H PRNondansetron 4 mg tab(s) (ZOFRAN) 4 mg ORAL q 6 H PRNondansetron (PF) 4 mg injection (ZOFRAN) 4 mg INTRAVENOUS q 6 H PRNOBJECTIVEPHYSICAL EXAM: GENERAL: Alert and oriented X 3 in no distress, cooperativeand following commandsEYES: PERRLA, EOMI with very mild scleral icterus (improved)LUNGS: Lungs clear to auscultationCARDIAC: Normal S1 and S2; no rubs, murmurs, or gallopsABDOMEN: Abdomen soft, non-tender with + BS X 4, no distention, guarding,rebound, masses or organomegalyPatient Vitals for the past 24 hrs: BP Temp Temp src Pulse Resp RsH32206/21/17 0700 115/78 37.4 ?C (99.3 ?F) Oral 104 18 100 %06/20/17 2300 95/66 36.7 ?C (98.1 ?F) Temporal Art 114 18 100 %06/20/17 2125 155/75 36.6 ?C (97.9 ?F) Temporal Art 117 18 99 %06/20/17 1556 101/73 36.6 ?C (97.9 ?F) - 67 18 100 %Body mass index is 32.91 kg/(m2).DATA:Diagnostic tests reviewed for today's visit:Most recent labsIMPRESSION/RECOMMENDATIONS Hematemesis-resolved s/p EGD (esophagitis and gastric erosions with noactive bleeding and no varices) Assessment AND Plan: Continue PPI Alcoholic hepatitis-no need for steroids at this time, jaundice improving Assessment AND Plan: Hepatic panel ordered, total cessation of alcoholencouraged (will follow up outpatient for support, also have familysupport), if LFT's are improving ok to discharge home and follow up inoutpatient with GISIGNATURE: Jeet Lake CNP PATIENT NAME: Nancy FlanneryTE: June 21, 2017 : 1:26 PM PAGER: PROGRESS HNO ID: [id number]: Abby Hi) Normal 06-21-2017 Marlon Melchor CNPService: Pulmonary Medical DiseaseAuthor Type: Nurse Center PractitionerType: Progress NotesFiled: ([id number]) 06/21/2017 9:44 AMNote Text: ---Attestation signed by Lali Yeboah at 06/21/2017 7:37 PMPt nontoxic. Affect bright. Coherent. Calm and cooperative. Sclera isicteric.Abdomen is soft, nontender.Labs show stable hemoglobin.No further ICU or pulmonary issues will sign off.Patient encouraged to stop drinking alcohol.I have personally seen and examined the patient and I personally participatedin the camacho components. Agree with the note/findings. I have discussed the caseand management of the patent's care with EQUITIES ANALYST/resident. The following commentsrevise or confirm relevant camacho components of the note. ---PULMONARY PROGRESS NOTE CCAGHSSERVICE DATE: 06/21/2017SERVICE TIME: 9:26 AMSUBJECTIVEPatient denies any complaints other than lower abdominal cramping. Ithink I'm about to start my period. She denies any shortness of breath,wheezing, cough, phlegm, chest pain, fevers, chills or hematemesis.OBJECTIVECurrent Facility-Administered Medications:metoprolol tartrate (short acting) 12.5 mg tab(s) (LOPRESSOR) 12.5 mg ORALq 12 H Viral Rudick 12.5 mg at 06/21/17 0754ciprofloxacin HCl 500 mg tab(s) (CIPRO) 500 mg ORAL q 12 H Viral Rudick 500mg at 06/21/17 0753pill splitter (patient-specific) 1 Each Miscell. (Med.Supl.;Non-Drugs) PRNEunice Susanne-QuichometroNIDAZOLE 500 mg PREMIX piggyback (FLAGYL) 500 mg INTRAVENOUS q 8 HAastha (Res) Jasrotia 500 mg at 06/21/17 0600diphenhydrAMINE 25 mg (BENADRYL) 25 mg ORAL q 6 H PRN Michelle (Res)Jasrotia 25 mg at 06/21/17 0627potassium chloride ER 40 mEq tab(s) (K-DUR, KLOR-CON) 40 mEq ORAL BIDAastha (Res) Jasrotia 40 mEq at 06/21/17 06616.9% NaCl 10 mL 10 mL INTRAVENOUS q 12 H Michelle (Res) Jasrotia 10 mL at108/22/16 96677.9% NaCl 20 mL 20 mL INTRAVENOUS PRN Michelle (Res) Jasrotiapill splitter (patient-specific) 1 Each Miscell. (Med.Supl.;Non-Drugs) PRNAlan Rudickpotassium-sodium phosphates 1 Packet (NEUTRA-PHOS,PHOS-NAK) 1 Packet ORALTID after MEALS Michelle (Res) Jasrotia 1 Packet at 06/21/17 0753folic acid 1 mg tab(s) 1 mg ORAL DAILY Michelle (Res) Jasrotia 1 mg at108/22/[address] 40 mg tab(s) (PROTONIX) 40 mg ORAL BID AC (599/1599)Kaden Nabi Yosef 40 mg at 06/21/17 0619albuterol HFA 90 mcg/actuation 2 Puff (PROVENTIL HFA, VENTOLIN HFA) 2 PuffINHALATION q 4 H PRN Vidushani (Res) Pererapotassium chloride 80-120 mEq oral liquid 80-120 mEq ORAL/FEEDING TUBE PRNVidushani (Res) Stacie 40 mEq at 06/19/17 1305potassium chloride iv piggyback 20 mEq in sterile water 100 mL 20 mEqINTRAVENOUS PRN Vidushani (Res) Stacie 20 mEq at 06/19/17 0900magnesium sulfate in water 2 g in sterile water 50 ml 2 g INTRAVENOUS PRNVidushani (Res) Pererasodium phosphate 45 mmol in NaCl 0.9% 250 mL 45 mmol INTRAVENOUS PRNVidushani (Res) Stacie 45 mmol at 06/18/17 1123calcium gluconate 4 g in NaCl 0.9% 250 mL 4 g INTRAVENOUS PRN Vidushani(Res) Stacie 4 g at 06/19/17 0836LORazepam 2 mg (ATIVAN) 2 mg ORAL q 1 H PRN Vidushani (Res) PereraOrLORazepam 2 mg injection (ATIVAN) 2 mg INTRAVENOUS q 1 H PRN Vidushani(Res) PereraLORazepam 4 mg (ATIVAN) 4 mg ORAL q 1 H PRN Vidushani (Res) PereraOrLORazepam 4 mg injection (ATIVAN) 4 mg INTRAVENOUS q 1 H PRN Vidushani(Res) Pereraondansetron 4 mg tab(s) (ZOFRAN) 4 mg ORAL q 6 H PRN Vidushani (Res)PereraOrondansetron (PF) 4 mg injection (ZOFRAN) 4 mg INTRAVENOUS q 6 H PRNVidushani (Res) PereraINTAKE AND OUTPUTIntake/Output Summary (Last 24 hours) at 06/21/17 0927Last data filed at 06/20/17 2300 Gross per 24 hourIntake 1402 mlOutput 0 mlNet 1402 mlNew Radiology Films:CXR 06/18: No acute findings radiographically.New Micro:Blood Cultures 06/17 - negative x 3 daysNew Labs:BMP:Glucose (mg/dL)Date Value06/21/2017 90 Potassium (mEq/L)Date Value06/21/2017 4.1 Sodium (mEq/L)Date Value06/21/2017 140 Chloride (mEq/L)Date Value06/21/2017 111 CO2 (mEq/L)Date Value06/21/2017 22 Creatinine (mg/dL)Date Value06/21/2017 0.52 BUN (mg/dL)Date Value06/21/2017 2 Anion Gap (no units)Date Value06/21/2017 11 Calcium (mg/dL)Date Value06/21/2017 7.5 CBC:HGB (g/dL)Date Value06/21/2017 8.712/12/2016 8.512 8.1 Hematocrit (%)Date Value06/21/2017 25.212/12/2016 24.512/11/2016 25.1 WBC (thou/cmm)Date Value06/21/2017 6.1812 4.8212 4.24 Vital Signs 556 125 300 700BP: 101/73 155/75 95/66 115/78Pulse: 67 117 114 104Resp: 18 18 18 18Temp: 36.6 ?C (97.9 ?F) 36.6 ?C (97.9 ?F) 36.7 ?C (98.1 ?F) 37.4 ?C (99.3?F)TempSrc: Temporal Artery Temporal Artery OralSpO2: 100% 99% 100% 100%Weight:Height:PHYSICAL EXAM:GENERAL: AAOx3, pleasant, resting in bed, NAD, family at bedsideRESPIRATORY: CTAB, even/unlabored respirations at rest. No wheezing,accessory muscle use, pursed lip breathing or conversational dyspnea.Patient is stable on room air.CARDIOVASCULAR: Normal S1S2, RRRGI: Abdomen soft, nondistended, nontender, bowel sounds present [id number]: No clubbing or edema. Bilateral UE bruising. Moves allextremities equal x 4. RUE PICC line, dressing C/D/I?Assessment and Plan:?1) Acute blood loss anemia 2/2 #2 - improved/stable. No further signs orsymptoms of bleeding.2) UGIB with hematemesis s/p EGD 06/18 with ulcerative esophagitis /multiple fresh gastric erosions (no varices notes) - octreotide (dc'd108/19). C/w PPI. GI follows.3) Acute alcoholic hepatitis - GI Follows, no need for steroids as LFTsimproved.4) ETOH abuse - cessation encouraged.5) Hydropic appearing gallbladder on CT - US WNL. No acute surgicalintervention per surgery. C/w empiric flagyl / cipro6) H/o Asthma - stable w/o acute exacerbation. C/w prn albuterol. Restarthome Singulair.7) MMP - Per primary8) Discharge Planning - Patient is stable out of ICU from aPulmonary/Critical Care standpoint. Will sign off. Please call with anyquestions/concerns.SIGNATURE:Abby Melchor CNP PATIENT NAME:Nancy FlanneryTE:June 21, 2017 :9:26 AM PAGER/CONTACT #:[id number] basic panel on 2016 Urea nitrogen 1 7-18 mg/dL Low 06-22-2017 [facility] ([id number]) Comment: Performed By: #### HGBI #### [address] [address] Creatinine 0.46 0.51-0.95 mg/dL Low 06-22-[address] [facility] ([id number]) Comment: Performed By: #### HGBI #### [address] [address] Anion gap 13 8-16 mmol/L Normal 06-22-2017 [facility] ([id number]) Comment: Performed By: #### HGBI #### [address] [address] CO2 20 21-32 mEq/L Low 06-22-2017 [facility] ([id number]) Comment: Performed By: #### HGBI #### [address] [address] Glucose mass conc 95 70-99 mg/dL Normal 06-22-2017 [facility] ([id number]) Comment: Performed By: #### HGBI #### [address] [address] Calcium 7.3 8.5-10.1 mg/dL Low 06-22-2017 [facility] ([id number]) Comment: Performed By: #### HGBI #### [place] [address] Chloride 109 98-107 mEq/L High 06-22-2017 [facility] ([id number]) Comment: Performed By: #### HGBI #### [place] [address] Potassium molar conc 3.7 3.5-5.1 mEq/L Normal 7 [facility] ([id number]) Comment: Performed By: #### HGBI #### [facility] [place], [place] [address] Sodium 138 136-145 mEq/L Normal 06-22-2017 [facility] ([id number]) Comment: Performed By: #### HGBI #### [facility] [place], [place] [address] operative no on 201 -06-18 OPERATIVE NO HNO ID: [id number]: Kaden Cannonjose Normal 06-18-2017 [facility] MirService: GastroenterologyAuthor Type: General PhysicianType: Operative ReportFiled: Medical 06/18/2017 10:37 PMNote Text:[facility] - Operative ReportSURGEON: ([id number]) SERGIO ArteagaATIENT NAME: NANCY LAYTON EMRN: [id number] CSN: [id number] OF SURGERY: 06/18/2017DATE OF : 1975 SEX/AGE: F/42PATIENT TYPE: I HOSP SVC: PULM LOCATION: [id number] OF SURGERY: 06/18/2017SURGEON: SERGIO ArteagaROCEDURE PERFORMED: Esophagogastroduodenoscopy.MEDICATIONS GIVEN: Fentanyl 100 mcg IV and Versed 3 mg IV.INSTRUMENT USED: Olympus GIF video endoscope.PREOPERATIVE DIAGNOSIS: Acute upper gastrointestinal bleeding, causeundetermined.POSTOPERATIVE DIAGNOSES:1. Ulcerative esophagitis, distal esophagus.2. Multiple gastric erosions.3. NG tube-induced gastric erosions.4. No active bleeding.5. No esophageal or gastric varices.Scope was advanced to the second part of duodenum.COMPLICATIONS NOTED: None.INDICATION FOR THE PROCEDURE: This 42-year-old female patient wasadmitted to the critical care unit with history of upper GI bleeding andnew onset of jaundice. The patient has underlying history of alcohol use.TECHNIQUE: Informed consent was obtained. The patient was placed in leftlateral position in the critical care unit bed. Vital signs weremonitored throughout the procedure.A video endoscope was passed per oral route into the esophagus andadvanced down to the second part of duodenum without any difficulty.Retroflexion was performed in the stomach to see cardia and fundus well.The scope was then slowlywithdrawn, and the patient was allowed to recover. She tolerated theprocedure well.FINDINGS:1. Esophagus revealed multiple erosions with whitish exudate in the lower3 cm. At the EG junction, the ulceration was circumferential. No activebleeding was seen. No stigmata of recent bleeding were noted. The Z-line wasnoted at 31 cm from lips. There was no Leda-Acosta tear, and no esophagealvarices. 2. Stomach showed a 3 cm sliding hiatal hernia with erosions andulcerations in the body and fundus of the stomach. Some of them at least secondaryto NG tube-induced erosions. The rest of the stomach was noted to benormal. No active bleeding was noted.3. Duodenum was noted to be normal. No ulcerations were noted in theduodenum. No AV malformations were seen.RECOMMENDATIONS:1. She can resume clear liquid diet.2. Discontinue IV octreotide.3. To continue on the p.o. PPIs.4. Watch for further signs of bleeding.Kaden Navas MDGastroenterologyGM:modlD: 06/18/2017 13:46:46T: 06/18/2017 21:32:06Job #: [id number]:Kaden Navas MD progress on 2017-06 PROGRESS HNO ID: [id number]: Jeet Thrasher bernice 06-20-2017 [facility] ([facility] [place]) NAIDA LakeService: Medical GastroenterologyAuthor Type: Nurse Center PractitionerType: Progress NotesFiled: ([id number]) 06/20/2017 2:56 PMNote Text:CONSULT PROGRESS NOTESERVICE DATE: 06/20/2017SERVICE TIME: 2:49 PMCONSULTING SERVICE: GASTROENTEROLOGYSUBJECTIVEINTERVAL HPI: Patient denied nausea, vomiting, abdominal pain, melena,hematochezia, or hematemesis. S/P EGD revealed esophagitis and gastricerosions with no active bleeding, no varices.Current hospital medications:metoprolol tartrate (short acting) 12.5 mg tab(s) (LOPRESSOR) 12.5 mg ORALq 12 Haztreonam 2 g in D5W 100 mL (AZACTAM) 2 g INTRAVENOUS q 8 HmetroNIDAZOLE 500 mg PREMIX piggyback (FLAGYL) 500 mg INTRAVENOUS q 8 HdiphenhydrAMINE 25 mg (BENADRYL) 25 mg ORAL q 6 H PRNpotassium chloride ER 40 mEq tab(s) (K-DUR, KLOR-CON) 40 mEq ORAL BID0.9% NaCl 10 mL 10 mL INTRAVENOUS q 12 H0.9% NaCl 20 mL 20 mL INTRAVENOUS PRNpill splitter (patient-specific) 1 Each Miscell. (Med.Supl.;Non-Drugs) PRNvancomycin iv piggyback 1 g in D5W 200 mL (VANCOCIN) 1 g INTRAVENOUS q 12HRpotassium-sodium phosphates 1 Packet (NEUTRA-PHOS,PHOS-NAK) 1 Packet ORALTID after MEALSfolic acid 1 mg tab(s) [address] mg tab(s) (PROTONIX) 40 mg ORAL BID AC (0600/1600)albuterol HFA 90 mcg/actuation 2 Puff (PROVENTIL HFA, VENTOLIN HFA) 2 PuffINHALATION q 4 H PRNpotassium chloride 80-120 mEq oral liquid 80-120 mEq ORAL/FEEDING TUBE PRNpotassium chloride iv piggyback 20 mEq in sterile water 100 mL 20 mEqINTRAVENOUS PRNmagnesium sulfate in water 2 g in sterile water 50 ml 2 g INTRAVENOUS PRNsodium phosphate 45 mmol in NaCl 0.9% 250 mL 45 mmol INTRAVENOUS PRNcalcium gluconate 4 g in NaCl 0.9% 250 mL 4 g INTRAVENOUS PRNLORazepam 2 mg (ATIVAN) 2 mg ORAL q 1 H PRNLORazepam 2 mg injection (ATIVAN) 2 mg INTRAVENOUS q 1 H PRNLORazepam 4 mg (ATIVAN) 4 mg ORAL q 1 H PRNLORazepam 4 mg injection (ATIVAN) 4 mg INTRAVENOUS q 1 H PRNondansetron 4 mg tab(s) (ZOFRAN) 4 mg ORAL q 6 H PRNondansetron (PF) 4 mg injection (ZOFRAN) 4 mg INTRAVENOUS q 6 H PRNOBJECTIVEPHYSICAL EXAM: GENERAL: Alert and oriented X 3 in no distress, cooperativeand following commandsSKIN: Skin warm, dry, and intact with mild jaundice upper chestEYES: PERRLA, EOMI with improving scleral icterus b/lLUNGS: Lungs clear to auscultation and unlaboredCARDIAC: Normal S1 and S2; no rubs, murmurs, or gallopsABDOMEN: Abdomen soft, non-tender, + BS X 4, no distention, guarding,rebound, masses or organomegalyPatient Vitals for the past 24 hrs: BP Temp Temp src Pulse Resp SpO2 Lhtoey87/06/17 1300 118/80 36.6 ?C (97.9 ?F) Oral 104 20 100 % -06/20/17 1200 113/83 - - (!) 124 22 98 % -06/20/17 1100 121/85 - - 110 20 98 % -06/20/17 1000 116/76 - - 115 20 99 % -06/20/17 0721 - 37.7 ?C (99.9 ?F) Axillary - - - -06/20/17 0600 103/70 - - 107 16 94 % -06/20/17 0500 117/94 - - 110 22 97 % 73.9 kg (162 lb 14.7 oz)06/20/17 0400 120/89 37.5 ?C (99.5 ?F) Axillary 120 23 99 % -06/20/17 0300 114/87 - - 114 18 98 % -06/20/17 0200 105/77 - - 109 19 96 % -06/20/17 0100 102/69 - - 111 17 97 % -06/20/17 0000 109/74 37.2 ?C (99 ?F) Axillary 114 24 99 % -06/19/17 2300 115/82 - - 112 22 96 % -06/19/17 2200 109/79 - - 111 23 98 % -06/19/17 2100 104/77 - - 112 19 100 % -06/19/17 2000 85/65 - - 114 18 100 % -06/19/17 1945 - 37.4 ?C (99.3 ?F) Axillary - - - -06/19/17 1900 105/64 - - 112 19 97 % -06/19/17 1800 106/76 - - 116 20 100 % -06/19/17 1600 106/76 36.2 ?C (97.2 ?F) - - - - -Body mass index is 32.91 kg/(m2).DATA:Diagnostic tests reviewed for today's visit:Most recent labsIMPRESSION/RECOMMENDATIONS1). Hematemesis s/p EGD (esophagitis and gastric erosions with no activebleeding, no varices)-resolved Assessment AND Plan: Continue PPI2). Alcoholic hepatitis-LFT's improving, no need for steroids at this time Assessment AND Plan: Monitor LFT's3). Jaundice 2/2 #1 Assessment AND Plan: Monitor LFT's4). Acute blood loss anemia-H/H stable Assessment AND Plan: Continue to monitor H/H, transfuse as needed,continue PPISIGNATURE: Jeet Lake CNP PATIENT NAME: Nancy FlanneryTE: June 20, 2017 : 2:49 PM PAGER: PROGRESS HNO ID: [id number]: Viral Rangel 06-20-2017 [facility] RudickService: Critical CareAuthor Type: Medical PhysicianType: Progress NotesFiled: Center 06/20/2017 11:29 AMNote Text:[facility] - ([id number]) PROGRESS NOTESERVICE DATE: 06/20/2017SERVICE TIME: 11:23 AMAdmission Date: 06/17/2017AGE: 42 year oldLOS: 3 daysSUBJECTIVEREASON FOR ICU ADMISSION: GI BleedingOBJECTIVEClinically stable. Overall feeling better. No abdominal pain. Nocomplaints of dyspneaPROBLEMS: ACTIVE PROBLEM LISTUpper GI BleedJaundiceLactic AcidosisHigh Anion Gap Metabolic AcidosisTransaminitisGallbladder HydropsAcute Blood Loss AnemiaMacrocytosisProlonged Q-T Interval On EcgSepsis (Hcc)Acute CholecystitisHypokalemiaUgi BleedHematemesisPAST MEDICAL HISTORYDiagnosis Date- Alcohol abuse- Asthma- Depression- Hypertension- Seizure in childhood (HCC)- Spina bifida occultaPAST SURGICAL HISTORYProcedure Laterality Date- IR VASCULAR ACCESS TEAM PICC INSERTION RADIO 06/20/2017Social History Marital status: Spouse name: Years of education: Number of children:Social History Main Topics Smoking status: Never Smoker Smokeless status: Never Used Alcohol use: Yes 4.5 oz/week 3 Glasses of Wine (5oz) per week Drug use: NoVITAL SIGNS (last 24hrs min/max):Temp Av.2 ?C (98.9 ?F) Min: 36.2 ?C (97.2 ?F) Max: 37.7 ?C (99.9?F)Pulse Av.5 Min: 107 Max: 120No Data RecordedCuff BP Min: 85/65 Max: 120/89Pain Score: 0/10Vital signs reviewed.BP 116/76 Pulse 115 Temp (Src) 99.9 (Axillary) Resp 20 Ht 4' 11(1.50m) Wt 162 lb 14.7 oz (73.9kg) SpO2 99% BMI 32.89 kg/(m2).Temp (24hrs), Av.2 ?C (98.9 ?F), Min:36.2 ?C (97.2 ?F), Max:37.7 ?C(99.9 ?F)NET FLUID BALANCEIntake/Output Summary (Last 24 hours) at 06/20/17 1123Last data filed at 06/20/17 1000 Gross per 24 hourIntake 3528 mlOutput 2650 mlNet 878 mlMEDICATIONSCurrent Facility-Administered Medications:metoprolol tartrate (short acting) 12.5 mg tab(s) (LOPRESSOR) 12.5 mg ORALq 12 Haztreonam 2 g in D5W 100 mL (AZACTAM) 2 g INTRAVENOUS q 8 HmetroNIDAZOLE 500 mg PREMIX piggyback (FLAGYL) 500 mg INTRAVENOUS q 8 HdiphenhydrAMINE 25 mg (BENADRYL) 25 mg ORAL q 6 H PRNpotassium chloride ER 40 mEq tab(s) (K-DUR, KLOR-CON) 40 mEq ORAL BID0.9% NaCl 10 mL 10 mL INTRAVENOUS q 12 H0.9% NaCl 20 mL 20 mL INTRAVENOUS PRNpill splitter (patient-specific) 1 Each Miscell. (Med.Supl.;Non-Drugs) PRNvancomycin iv piggyback 1 g in D5W 200 mL (VANCOCIN) 1 g INTRAVENOUS q 12HRpotassium-sodium phosphates 1 Packet (NEUTRA-PHOS,PHOS-NAK) 1 Packet ORALTID after MEALSfolic acid 1 mg tab(s) [address] 40 mg tab(s) (PROTONIX) 40 mg ORAL BID AC (0600/1600)albuterol HFA 90 mcg/actuation 2 Puff (PROVENTIL HFA, VENTOLIN HFA) 2 PuffINHALATION q 4 H PRNpotassium chloride 80-120 mEq oral liquid 80-120 mEq ORAL/FEEDING TUBE PRNpotassium chloride iv piggyback 20 mEq in sterile water 100 mL 20 mEqINTRAVENOUS PRNmagnesium sulfate in water 2 g in sterile water 50 ml 2 g INTRAVENOUS PRNsodium phosphate 45 mmol in NaCl 0.9% 250 mL 45 mmol INTRAVENOUS PRNcalcium gluconate 4 g in NaCl 0.9% 250 mL 4 g INTRAVENOUS PRNLORazepam 2 mg (ATIVAN) 2 mg ORAL q 1 H PRNOrLORazepam 2 mg injection (ATIVAN) 2 mg INTRAVENOUS q 1 H PRNLORazepam 4 mg (ATIVAN) 4 mg ORAL q 1 H PRNOrLORazepam 4 mg injection (ATIVAN) 4 mg INTRAVENOUS q 1 H PRNondansetron 4 mg tab(s) (ZOFRAN) 4 mg ORAL q 6 H PRNOrondansetron (PF) 4 mg injection (ZOFRAN) 4 mg INTRAVENOUS q 6 H PRNthiamine 100 mg injection 100 mg OTHER TIDLines, Drains, and Airways Line Peripheral 06/19/17 Right Forearm 22 Gauge 1 day Central Line Double Lumen 06/20/17 1022 Peripherally Inserted (PICC)Right Arm 5.0 Yoruba less than 1 dayPHYSICAL EXAM PERFORMED:Appears slightly less jaundiced today. PERRLA, EOMICardiovascular: Regular rhythm, [id number]/ minRespiratory: Clear to auscultationNo Data RecordedAbdomen: Soft, Nontender and Positive bowel sounds. Liver p[alpab le 3-4cm below costal marginExtremities: Edema- NoNeurologic: Awake, oriented, Alert, Follows commands and Moving allextremitiesRespiratory/Nursing Documentation:O2 Therapy: Room Air (06/20/17 1000)HEMODYNAMIC DATA: ReviewedNUTRITION:Enteral Feeds: NoRegular dietDATA: Diagnostic tests reviewed for today's visit, films/specimens werepersonally reviewed by me:Most recent labs and imaging results.LABS:Recent Labs 06/19/1709111330WOO 4.82 -- -- < > --RBC 2.27* -- -- < > --HB 8.5* -- -- < > --HCT 24.5* -- -- < > --MCV 107.9* -- -- < > --PLT 153* -- -- < > --GLUC 93 -- -- < > --BUN 2* -- -- < > --CREAT 0.47* -- -- < > --NA 140 -- -- < > --K 3.8 < > -- < > --CHLOR 113* -- -- < > --CO2 17* -- -- < > --TPROT -- -- 4.2* -- 4.2*ALB -- -- 1.6* -- 1.6*CA 7.5* -- -- < > --ALKPHOS -- -- 157* -- 170*TBILI -- -- 9.9* -- 12.0*AST -- -- 182* -- 178*ALT -- -- 71 -- 70PTSEC -- -- -- -- 12.2*APTT -- -- -- -- 24.5INR -- -- -- -- 1.16MG -- -- 2.0 -- --< > = values in this interval not displayed.ABG:Recent Labs PH 7.388ASSESSMENT/PLANIMPRESSION:Critical Care Documentation: The patient has the following organ/systemimpairment(s): Acute GI bleed, EtOH liver disease, hydrops gallbladderASSESSMENT/PLAN:1. Acute blood loss anemia - ICD9: 285.1, ICD10: D622. Acute cholecystitis - ICD9: 575.0, ICD10: K81.03. Gallbladder hydrops - ICD9: 575.3, ICD10: K82.14. High anion gap metabolic acidosis - ICD9: 276.2, ICD10: E87.25. Hypokalemia - ICD9: 276.8, ICD10: E87.66. Jaundice - ICD9: 782.4, ICD10: R177. Lactic acidosis - ICD9: 276.2, ICD10: E87.28. Macrocytosis - ICD9: 289.89, ICD10: D75.899. Prolonged Q-T interval on ECG - ICD9: 794.31, ICD10: R94.3110. Sepsis, due to unspecified organism (HCC) - ICD9: 038.9, 995.91,ICD10: A41.911. Transaminitis - ICD9: 790.4, ICD10: R74.012. Upper GI bleed - ICD9: 578.9, ICD10: K92.213. Hematemesis - ICD9: 578.0, ICD10: K92.014. Hematemesis with nausea - ICD9: 578.0, 787.02, ICD10: K92.0CRITICAL CARE PLAN:Antibiotics , IV fluids and Replace electrolytesStart l.ow dose of LopressorTransfer to floorDiscussed with patient and her mother at bedside.This patient has a high probability of sudden, clinically significantdeterioration, which requires the highest level of physician preparednessto intervene urgently. I managed/supervised life or organ supportinginterventions that required frequent physician assessment. I devoted myfull attention to the direct care of this patient for the amount of timeindicated below. Time I spent with family or surrogate(s) is includedonly if the patient was incapable of providing the necessary informationor participating in medical decision making. Time devoted to teaching isnot included.Discussed with staff/patient/familyTime spent providing critical care services: 20 minutes excludingprocedures.SIGNATURE: Viral Osborn DO PATIENT NAME: Nancy LaytonDATE: June 20, 2017 : 11:23 AM mdrd gfr on 2017-06 eGFR (non-black) >60 >60mL/min/1.73m2 mL/min/{1.73_m2} Normal 06-21-2017 [facility] (79814) Comment: Result Comment: If the patie nt is , multiply the result by 1.210. Performed By: #### HGBI #### [place] [address] pt ed on 2017-06-20 PT ED HNO ID: [id number]: Belen (Rn) Price queen 06-20-2017 StruthersNICOLLE Nobleervice: PICC TeamAuthor Type: Medical Center Registered NurseType: Patient ([id number]) EducationFiled: 06/20/2017 10:21 AMNote Text:PATIENT EDUCATION TOPIC: PROCEDURE / SURGERY: Procedure/Surgery:Peripherally Inserted Central CatheterPATIENT NAME: Nancy LaytonMRN: [id number] LOCATION: [place] [address]/[place] [address]*READINESS TO LEARNCOGNITIVE ABILITY: Alert and orientedMOTIVATION TO LEARN: InterestedFAMILY SUPPORT: Unable to assess - Family not presentINSTRUCTION PROVIDED TO: PatientPATIENT LEARNS BEST BY: Individual InstructionFACTORS AFFECTING LEARNING: NonePHYSICAL LIMITATIONS AFFECTING LEARNING: NoneLEARNING RESPONSEDIAGNOSIS: ADULT: sepsisPATIENT/FAMILY RESPONSE: Verbalizes understanding of: XAOD-HDJRAMYSVKENSDXRNTFZI-Kwutmnf actions to take to reduce post procedurecomplicationsPRE-PROCEDURE INSTRUCTIONS-Correct action to take to follow pre-procedureinstructionsMETHOD OF INSTRUCTION: Individual instructionFOLLOW-UP PLAN: Follow-up with Primary CareINSTRUCTIONAL AIDS USED: Picc Line BookSUPPLEMENTAL MATERIAL PROVIDED TO PATIENT: [facility] information brochure and Catheter Associated Bloodstream InfectionsFact sheetREFERRAL (RECOMMENDATION): None Abs Immature Grans 0.13 0.00-0.05 thou/cmm High 06-21-2017 [facility] (00 000) Comment: Performed By: #### HGBI #### [place] [address] Abs. Baso 0.05 0.01-0.08 thou/cmm Normal 06-21-2017 [facility] (65438) Comment: Performed By: #### HGBI #### [place] [address] Abs. [place] 0.48 0.27-0.70 thou/cmm Normal 06-21-2017 [facility] (46204) Comment: Performed By: #### HGBI #### [address] [address] Abs. Neut 4.47 1.56-6.13 thou/cmm Normal 06-21-2017 [facility] (64487) Comment: Performed By: #### HGBI #### [facility] [place], [place] [address] Basophils/100 WBC Auto (Bld) 0.8 % Normal 1 08-22-2016 [facility] (14222) Comment: Performed By: #### HGBI #### [facility] [place], [place] [address] Eosinophils 0.19 0.00-0.31 thou/cmm Normal 06-21-[address] [facility] (83679) Comment: Performed By: #### HGBI #### [place] [address] Eosinophils/100 leukocytes 3.1 % Normal [facility] (29653) Comment: Performed By: #### HGBI #### [place] [address] Erythrocyte distribution 16.4 11.7-14.4 % High 06-21 [facility] (RBC[facility] (81320) Comment: Performed By: #### HGBI #### [place] [id number] Erythrocytes (RBC) 2.27 3.93-5.22 mil/cmm Low 06-21-2017 [facility] (48495) Comment: Performed By: #### HGBI #### [address] [address] Hematocrit (HCT) 25.2 34.1-44.9 % Low 06-21-2017 [facility] (76777) Comment: Performed By: #### HGBI #### [address] [address] Hemoglobin mass conc (Bld) 8.7 11.2-15.7 g/dL Low [facility] (00 000) Comment: Performed By: #### HGBI #### [address] [address] Immature Grans 2.10 % Normal 06-21-2017 [facility] (63630) Comment: Performed By: #### HGBI #### [facility] [place], [place] [address] Lymphocytes 0.85 1.18-3.74 thou/cmm Low 06-21-[address] [facility] (41356) Comment: Performed By: #### HGBI #### [address] [address] Lymphocytes/100 leukocytes 13.8 % Normal [facility] (95664) Comment: Performed By: #### HGBI #### [address] [address] MCH 38.3 25.6-32.2 pg High 06-21-2017 [facility] (73047) Comment: Performed By: #### HGBI #### [place] [address] MCHC mass conc (RBC) 34.5 31.6-34.8 % Normal 7 [facility] (35142) Comment: Performed By: #### HGBI #### [address] [address] MCV 111.0 79.4-94.8 fl High 06-21-2017 [facility] (95199) Comment: Performed By: #### HGBI #### [address] [address] Monocytes/100 leukocytes 7.8 % Normal 06-21 [facility] (07151) Comment: Performed By: #### HGBI #### [address] [address] Platelet mean volume (PMV) 11.7 9.4-12.3 fl Normal [facility] (00 000) Comment: Performed By: #### HGBI #### [address] [address] Platelets 147 182-369 thou/cmm Low 06-21-2017 [facility] (72805) Comment: Performed By: #### HGBI #### [facility] [place], [place] [address] RDW SD 66.1 36.4-46.3 fl High 06-21-2017 [facility] (50943) Comment: Performed By: #### HGBI #### [facility] [place], [place] [address] Seg Neutrophil 72.4 % Normal 06-21-2017 [facility] (90551) Comment: Performed By: #### HGBI #### [address] [address] WBC (Leukocytes) 6.18 3.98-10.04 thou/cmm Normal 06-21-2017 [facility] (00 000) Comment: Performed By: #### HGBI #### [address] [address] hepatic panel on 01-07-07 Alkaline phosphatase (ALP) 164 46-116 U/L High [facility] (03989) Comment: Performed By: #### HGBI #### [address] [address] Bilirubin Ql (U) 9.2 0.2-1.0 mg/dL High 06-21-2017 [facility] (23621) Comment: Performed By: #### HGBI #### [address] [address] Protein 4.2 6.4-8.2 g/dL Low 06-21-2017 [facility] (40756) Comment: Performed By: #### HGBI #### [address] [address] Alanine aminotransferase (ALT) 73 12-78 U/L Normal 06-21-2017 [facility] (00 000) Comment: Performed By: #### HGBI #### [address] [address] Aspartate aminotransferase (AST) 155 9-37 U/L High 06-21-2017 [facility] (00 000) Comment: Performed By: #### HGBI #### [place] [address] Bilirubin (total) 7.92 0.00-0.20 mg/dL High 06-21-2017 [facility] (09562) Comment: Performed By: #### HGBI #### [place] [address] Albumin 1.6 3.4-5.0 g/dL Low 06-21-2017 [facility] (71767) Comment: Performed By: #### HGBI #### [place] [address] basic panel on 2016 Creatinine 0.52 0.51-0.95 mg/dL Normal 06-21-[address] [facility] (26583) Comment: Performed By: #### HGBI #### [place] [address] Anion gap 11 8-16 mmol/L Normal 06-21-2017 [facility] (52407) Comment: Performed By: #### HGBI #### [place] [address] CO2 22 21-32 mEq/L Normal 06-21-2017 [facility] (71163) Comment: Performed By: #### HGBI #### [place] [address] Glucose mass conc 90 70-99 mg/dL Normal 06-21-2017 [facility] (41224) Comment: Performed By: #### HGBI #### [place] [address] Urea nitrogen 2 7-18 mg/dL Low 06-21-2017 [facility] (46974) Comment: Performed By: #### HGBI #### [place] [address] Calcium 7.5 8.5-10.1 mg/dL Low 06-21-2017 [facility] (12059) Comment: Performed By: #### HGBI #### [address] [place], [place] [address] Chloride 111 98-107 mEq/L High 06-21-2017 [facility] (48939) Comment: Performed By: #### HGBI #### [facility] [place], [place] [address] Potassium molar conc 4.1 3.5-5.1 mEq/L Normal 7 [facility] (57651) Comment: Performed By: #### HGBI #### [address] [address] Sodium 140 136-145 mEq/L Normal 06-21-2017 [facility] (65947) Comment: Performed By: #### HGBI #### [address] [address] nursing prog on 01-24-07 NURSING HNO ID: [id number]: Bharti santos (Rn) AdanService: NursingAuthor Type: Registered NurseType: Normal 06-21-2017 [facility] PRO Nursing Progress NoteFiled: 06/21/2017 8:58 AMNote Text: Nursing Progress NotePatient Name: Nancy wolff [facility] centerMRN: [id number] Location: [place] [address]/[place] [address]-* This Center note was completed by: Vito Aguillon, IGNACIONotified sound physician that patient's phos 1.6 today. (0 0000) Awaiting neworders at this time. vitamin b12 on 2016 Cobalamins (Vitamin B12) 924 193-986 pg/mL Normal 06-18 [facility] (00 000) Comment: Performed By: #### P14 ####A [address] [address] potassium blood on 2017-06-19 Potassium molar conc 4.9 3.5-5.1 mEq/L Normal 7 [facility] (78055) Comment: Result Comment: SPECIMEN SLI GHTLY HEMOLYZED Performed By: #### K ####[facility] [place], [place] [address] procedure on 2016-07 PROCEDURE HNO ID: [id number]: Belen Normal 06-20-2017 [facility] (Rn) [place], RNService: [facility] Medical Center TeamAuthor Type: Registered ([id number]) NurseType: ProceduresFiled: 06/20/2017 10:34 AMNote Text:PICC NURSE INSERTION NOTEDATE OF PROCEDURE: June 20, 2017TIME OF PROCEDURE: 1005ORDERING PHYSICIAN: Matthias CONSENT: Obtained per hospital policy.INDICATION FOR LINE PLACEMENT: Poor veins/circulatory systemCONDITION OF LINE PLACEMENT: SterilePRIMARY PROCEDURALIST:Julia Wyatt RNASSISTANT: Belen Ibrahim RNPRE-PROCEDURE REVIEWALLERGIESAllergen Reactions- Amoxicillin Hives Tolerated ceftriaxone 06/18/17Known History of Venous Thrombosis: NoKnown History of Permanent Pacemaker or Automated Implanted CardiacDevice: NoPrevious Breast Surgery of Lymph Node Dissection: NoHistory of Renal Disease with Arterio-Venous Fistula in Place or Planned:NoUltrasound Assessment Complete: YesPROCEDURE NARRATIVESAFE PRACTICEHand Hygiene per Hospital Policy: YesSkin Preparation Unit Dose Applicator Used: Chloraprep (CHG + alcohol),allowed to dry.Procedure Surface Cleansed with Antimicrobial Wipes: YesBarriers Used by Proceduralist and all Assisting Personnel: YesUNIVERSAL PROTOCOL / SAFETY CHECKLISTProcedure to be performed: Peripherally Inserted Central CatheterSign in Communication: CompletedTime Out: Team Confirms the Correct Patient, Correct Procedure, CorrectSite and Site Marking, Correct Position (if applicable), Prep and Dry Time(if applicable). Time: 1005Affirmation of Time Out: N/ASign Out Discussion: CompletedBelen Ibrahim RNCATHETER PLACEMENTBrand: Bard Lot: [id number] of Lumens: 2Type of PICC: Power Injectable PICCLumen Size: 5 FrenchPLACEMENT TECHNIQUELidocaine: Yes. Strength: 1% Volume 2ccModified Seldinger Technique Used to Place Line via the Right BasilicUltrasound Guidance: YesNumber of Attempts at Insertion: 1Internal Length: 37 cm External Length: 2 cm Trim Length: 39 cmMid-Arm Circumference Above Insertion Site: 26 centimetersPost Insertion Pain Level Related to Procedure: 0Action Taken to Address Pain: None neededVerified Placement: Blood return and Tip location system or deviceindicates the tip is located in the SVC/CAJ.Line was Flushed with 20 cc normal salineLine Secured with: Securement deviceSterile Dressing Applied and Dated: YesSterile Caps on all Ports Prior to Leaving Procedure Area: YesSPECIMENS: NoneCOMPLICATIONS: NonePatient Education Materials: Placed in chart [facility] Central Line Insertion ChecklistQUESTIONS or PROBLEMS: Call [phone]: Belen Ibrahim RN PATIENT NAME: Nancy LaytonDATE: June 20, 2017 : 10:31 AM PAGER/CONTACT PHONE: case managem on 01-24-06 CASE MANAGEM HNO ID: [id number]: Normal 1 08-21-2016 [facility] ([facility] sleep centerService: [facility] Care ManagementAuthor Type: ([id number]) Nurse PractitionerType: Care Mgt Progress NoteFiled: 06/20/2017 9:43 AMNote Text:CARE MANAGEMENT PROGRESS NOTESERVICE DATE: 06/20/2017SERVICE TIME: 9:43 AM LOS: 3 daysD/c plan return home no needs PT rec's homeSIGNATURE: Allyson Garcia APRN PATIENT NAME: Nancy FlanneryTE: June 20, 2017 : 9:43 AM PAGER/CONTACT #: [phone] rapid influenza a/b ag on 2017-06-19 Rapid Influenza A/B Test performed at [facility] 06-19-2017 [facility] CenterPresumptive negative (71757) for the presence of Influenza A antigen.Presumptive negative for the presence of Influenza B antigen.It is suggested that negative test results should beconfirmed by cell culture, if warranted. Comment: Performed By: #### LAC ####[place] [address] nursing prog on 01-24-06 NURSING HNO ID: [id number]: Bharti Watkins) Pablo: NursingAuthor Type: Registered NurseType: Normal 06-20-2017 [facility] PRO Nursing Progress NoteFiled: 06/20/2017 4:08 PMNote Text: Nursing Progress NotePatient Name: Nancy wolff BadeepMRN: [id number] Location: [place] [address]/[place] [address] This Center note was completed by: Charles Judge on phone with [facility] resident. Asked if patient ([id number]) needed a telemetryorder. No new order at this time. NURSING HNO ID: [id number]: Bharti Watkins) Pablo: NursingAuthor Type: Registered NurseType: Normal 06-20-2017 [facility] PRO Nursing Progress NoteFiled: 06/20/2017 3:16 PMNote Text: Nursing Progress NotePatient Name: Nancy wolff KinjalMRN: [id number] Location: [place] [address]/[place] [address] This Center note was completed by: Nedra Arellano RNRT called about E KG order. ([id number]) NURSING HNO ID: [id number]: Marya hammond (Rn) Monty Orellana: NursingAuthor Type: Registered NurseType: Normal 06-20-2017 [facility] PRO Nursing Progress NoteFiled: 06/20/2017 10:35 AMNote Text: Nursing Progress NotePatient Name: Nancy Minaya KinjalMRN: [id number] Location: [place] [id number]/[facility]* Daily Center Note:R upper arm picc insertedThis note was completed by: Clemente Orellana RN ([id number]) basic panel on 2016 Creatinine 0.47 0.51-0.95 mg/dL Low 06-20-[address] [facility] (04370) Comment: Performed By: #### P8 ####[facility] [place], [place] [address] Anion gap 14 8-16 mmol/L Normal 06-20-2017 [facility] (35462) Comment: Performed By: #### P8 ####[address] [address] CO2 17 21-32 mEq/L Low 06-20-2017 [facility] (16121) Comment: Performed By: #### P8 ####[address] [address] Glucose mass conc 93 70-99 mg/dL Normal 06-20-2017 [facility] (95300) Comment: Performed By: #### P8 ####[address] [address] Urea nitrogen 2 7-18 mg/dL Low 06-20-2017 [facility] (37170) Comment: Performed By: #### P8 ####[address] [address] Calcium 7.5 8.5-10.1 mg/dL Low 06-20-2017 [facility] (34707) Comment: Performed By: #### P8 ####[address] [address] Chloride 113 98-107 mEq/L High 06-20-2017 [facility] (26646) Comment: Performed By: #### P8 ####[facility] [place], [place] [address] Potassium molar conc 3.8 3.5-5.1 mEq/L Normal 7 [facility] (03003) Comment: Performed By: #### P8 ####[facility] [place], [place] [address] Sodium 140 136-145 mEq/L Normal 06-20-2017 [facility] (83814) Comment: Performed By: #### P8 ####[facility] [place], [place] [address] progress on 2017-06 PROGRESS HNO ID: [id number]: Viral Normal 06-19-2017 [facility] Tammyervice: Critical CareAuthor Type: General PhysicianType: Progress NotesFiled: Medical 06/19/2017 2:55 PMNote Text:MICU - PROGRESS Center NOTESERVICE DATE: 06/19/2017SERVICE TIME: (02282) 8:48 AMAdmission Date: 06/17/2017AGE: 42 year oldLOS: 2 daysSUBJECTIVEREASON FOR ICU ADMISSION: GI BleedingNo acute overnight events per staff or patient. Patient states that shefeels much improved today. Tolerating clear liquid diet withoutdifficulty. No nausea. Passing flatus - no BM. States that abdominal painis much improved. Patient does complain of some generalized aches fromlying in bed too much. Denies chest pain/shortness ofbreath/headache/fevers/chills/night sweats/difficulties with urination.OBJECTIVEPROBLEMS: ACTIVE PROBLEM LISTUpper GI BleedJaundiceLactic AcidosisHigh Anion Gap Metabolic AcidosisTransaminitisGallbladder HydropsAcute Blood Loss AnemiaMacrocytosisProlonged Q-T Interval On EcgSepsis (Hcc)Acute CholecystitisHypokalemiaUgi BleedHematemesisPAST MEDICAL HISTORYDiagnosis Date- Alcohol abuse- Asthma- Depression- Hypertension- Seizure in childhood (HCC)- Spina bifida occultaNo past surgical history on file.Social History Marital status: Spouse name: Years of education: Number of children:Social History Main Topics Smoking status: Never Smoker Smokeless status: Never Used Alcohol use: Yes 4.5 oz/week 3 Glasses of Wine (5oz) per week Drug use: NoVITAL SIGNS (last 24hrs min/max):Temp Av.5 ?C (97.7 ?F) Min: 36.2 ?C (97.2 ?F) Max: 36.7 ?C (98.1?F)Pulse Av.2 Min: 97 Max: 107No Data RecordedCuff BP Min: 95/72 Max: 163/65Pain Score: 0/10Vital signs reviewed.BP 107/80 Pulse 99 Temp (Src) 97.5 (Axillary) Resp 19 Ht 4' 11(1.50m) Wt 165 lb 12.6 oz (75.2kg) SpO2 95% BMI 33.47 kg/(m2).Temp (24hrs), Av.5 ?C (97.7 ?F), Min:36.2 ?C (97.2 ?F), Max:36.7 ?C(98.1 ?F)NET FLUID BALANCEIntake/Output Summary (Last 24 hours) at 06/19/17 0848Last data filed at 06/19/17 0800 Gross per 24 hourIntake 7459 mlOutput 2670 mlNet 4789 mlMEDICATIONSCurrent Facility-Administered Medications:NaCl 0.9% iv infusion 75 mL/hr INTRAVENOUS CONTINUOUSdiphenhydrAMINE 25 mg injection (BENADRYL) 25 mg INTRAVENOUS q 6 H PRNpotassium-sodium phosphates 1 Packet (NEUTRA-PHOS,PHOS-NAK) 1 Packet ORALTID after MEALSfolic acid 1 mg tab(s) 1 mg ORAL DAILYvancomycin 1.25 g in D5W 250 mL (VANCOCIN) 1.25 g INTRAVENOUS q [address] 40 mg tab(s) (PROTONIX) 40 mg ORAL BID AC (0600/1600)ciprofloxacin 400 mg in D5W 200 mL (CIPRO) 400 mg INTRAVENOUS q 12 Halbuterol HFA 90 mcg/actuation 2 Puff (PROVENTIL HFA, VENTOLIN HFA) 2 PuffINHALATION q 4 H PRNpotassium chloride 80-120 mEq oral liquid 80-120 mEq ORAL/FEEDING TUBE PRNpotassium chloride iv piggyback 20 mEq in sterile water 100 mL 20 mEqINTRAVENOUS PRNmagnesium sulfate in water 2 g in sterile water 50 ml 2 g INTRAVENOUS PRNsodium phosphate 45 mmol in NaCl 0.9% 250 mL 45 mmol INTRAVENOUS PRNcalcium gluconate 4 g in NaCl 0.9% 250 mL 4 g INTRAVENOUS PRNLORazepam 2 mg (ATIVAN) 2 mg ORAL q 1 H PRNOrLORazepam 2 mg injection (ATIVAN) 2 mg INTRAVENOUS q 1 H PRNLORazepam 4 mg (ATIVAN) 4 mg ORAL q 1 H PRNOrLORazepam 4 mg injection (ATIVAN) 4 mg INTRAVENOUS q 1 H PRNondansetron 4 mg tab(s) (ZOFRAN) 4 mg ORAL q 6 H PRNOrondansetron (PF) 4 mg injection (ZOFRAN) 4 mg INTRAVENOUS q 6 H PRNmetroNIDAZOLE 500 mg PREMIX piggyback (FLAGYL) 500 mg INTRAVENOUS q 8 Hthiamine 100 mg injection 100 mg OTHER TIDLines, Drains, and Airways Line Peripheral 06/17/17 Admission to Hospital Right Arm 22 Gauge 2 days Peripheral 06/19/17 Right Forearm 22 Gauge less than 1 dayPHYSICAL EXAM PERFORMED:Cardiovascular: Regular rhythm. Rate 90-110 on telemetry. No M/G/R.Peripheral pulses palpable.Respiratory: Clear to auscultation. Decreased breath sounds to BLL. Onroom air.Abdomen: Soft, minimally distended. Minimal tenderness to palpation toRUQ. Positive bowel sounds. No peritoneal signs.Extremities: Edema- NoNeurologic: Awake, oriented, alert. Follows commands. Moves allextremities.Respiratory/Nursing Documentation:O2 Therapy: Room Air (06/19/17 0800)HEMODYNAMIC DATA: ReviewedNUTRITION:Enteral Feeds: NoNPO and Clear liquidsDATA: Diagnostic tests reviewed for today's visit, films/specimens werepersonally reviewed by me:Most recent labs and imaging results.LABS:Recent Labs 06/18/1711WBC 4.24 -- -- < > --RBC 2.22* -- -- < > --HB 8.1* < > -- < > 9.9*HCT 25.1* < > -- < > 27.1*MCV 113.1* -- -- < > --PLT 169* -- -- < > --GLUC 104* -- -- < > --BUN 4* -- -- < > --CREAT 0.50* -- -- < > --NA 141 -- -- < > --K 2.9* -- -- < > --CHLOR 112* -- -- < > --CO2 18* -- -- < > --TPROT -- -- 4.2* -- --ALB -- -- 1.6* -- --CA 6.2* -- -- < > --ALKPHOS -- -- 170* -- --TBILI -- -- 12.0* -- --AST -- -- 178* -- --ALT -- -- 70 -- --PTSEC -- -- 12.2* -- --APTT -- -- 24.5 -- --INR -- -- 1.16 -- --MG -- -- -- -- 1.7< > = values in this interval not displayed. Ref. Range 06/18/2017 11:15 06/18/2017 22:00HAV Ab IgM Latest Ref Range: Negative NegativeHb Core Ab IgM Latest Ref Range: Negative NegativeInfluenza A AND B: negativeLegionella/S. Pneumoniae: negativeBlood Culture: negative @ 1 dayABG:Recent Labs 500PH 7.388TSH: 0.694Lipase 46Lactate: 5.5 (1800) -> 5.7 (1920) -> 4.4 (0015) -> 3.7 (0500)iCa: 3.5ASSESSMENT/PLANIMPRESSION:Critical Care Documentation: The patient has the following organ/systemimpairment(s): Acute blood loss and Severe protein-calorie malnutrition1. Acute Blood Loss Anemia 2/2 Upper GI Bleed- EGD on 06/18/17 demonstrating: Ulcerative esophagitis, Multiple freshgastric erosions w/o active bleeding. Sliding hiatal hernia. No varices.- Hb 10.4 -> 8.1; hemodynamically stable and decrease likely has adilutional component. Will obtain q8h Hb.- Octreotide infusion d/c and- PO PPI daily.- Patient tolerating clear liquid diet.- NG removed.- NS at 75 mL/hr for IVFM until adequate PO intake.- Appreciate GI consultation.?2. Acute Alcoholic Hepatitis- Patient jaundiced w/ scleral icterus.- Continue PO Benadryl for itching.- Transaminitis - Will recheck hepatic panel.- Await hepatitis panel.- Lipase/TSH WNL.- Will need U/S to evaluate liver parenchyma.?3. Sepsis 2/2 Possible Acute Cholecystitis w/ Gallbladder Hydrops- Will follow lactate trend. Ranging from 3.7-5.5 since 06/18/17 @ 1800.Stable.- IVF maintenance w/ NS @ 75 mL/hr. Monitor chloride.- Patient slightly tachycardic, but hemodynamically stable. Not onpressors.- Will monitor CBC/temperature. Afebrile.- Patient on Vanco, Flagyl, Aztreonam. Will get Vanco pre-dose level.- Await blood culture results. No growth @ 1 day.?4. Hyperbilirubinemia- As above in # 2, 3.- Will recheck hepatic panel.?5. Lactic Acidosis (High Anion Gap Metabolic Acidosis) 2/2 GI Bleed vsAlcoholic Liver Disease vs Sepsis- Lactate 9->5.1->3.8->2.5 -> 5.5 -> 5.7 -> 4.4 -> 3.7. Will trend.- Continue IVF maintenance.?6. Possible Acute Cholecystitis AND Gallbladder Hydrops- CT from OSH: gallbladder wall thickening.- US RUQ: Hepatic steatosis; No cholelithiasis, thickening, orpericholecystic fluid.- Consult general surgery - appreciate recommendations. No acute surgicalintervention.- Patient on Vanco, Flagyl, Aztreonam.?7. Hypokalemia (2.9), Hypophosphatemia, Hypomagnesemia- Likely 2/2 vomiting and poor oral intake.- Replete as instructed.- Recheck BMP, PO4, Mg in AM.?8. Tachycardia w Prolonged QT Interval On EKG- Likely 2/2 #7.- Will replete electrolytes and continue IVF.- Will repeat EKG and monitor QTc.- Will monitor for medications causing prolonged QTc.?9. Macrocytosis 2/2 EtOH Abuse AND Folate Deficiency- Replete Folate AND Thiamine.- Encourage EtOH cessation.?10. Alcohol Abuse- Encouraged and educated patient on importance of alcohol cessation.- CIWA protocol.- No current s/s of alcohol withdrawal.- Consult Social Work.?11. Hypoalbuminemia (1.6)/Malnourishment 2/2 #10.- Dietary consultation.- Clear liquid diet continued.?12. History of Asthma- Not in any current respiratory distress. On room air. Continue tomonitor.- Decreased breath sounds BLL.- Albuterol PRN.?13. History of Depression AND Anxiety- Stable; continue to monitor.?14. DVT + GI ppx- Will use SCD for DVT ppx- Patient receiving PO Protonix - will continue.This patient has a high probability of sudden, clinically significantdeterioration, which requires the highest level of physician preparednessto intervene urgently. I managed/supervised life or organ supportinginterventions that required frequent physician assessment. I devoted myfull attention to the direct care of this patient for the amount of timeindicated below. Time I spent with family or surrogate(s) is includedonly if the patient was incapable of providing the necessary informationor participating in medical decision making. Time devoted to teaching isnot included.Discussed with staff/patient/familyTime spent providing critical care services: 30 minutes excludingprocedures.SIGNATURE: Kaleigh De Jesus MD PATIENT NAME: Nancy LaytonDATE: June 19, 2017 : 8:48 [facility] STAFF PHYSICIAN NOTE OF PERSONAL INVOLVEMENT IN CAREI have reviewed the progress note obtained and documented by the residentand I personally participated in the camacho components. I have discussed thecase and management of the patient's care. The following comments reviseor confirm relevant camacho components of the note.IMPRESSION:ASSESSMENT/PLAN:1. Acute blood loss anemia - ICD9: 285.1, ICD10: D622. Acute cholecystitis - ICD9: 575.0, ICD10: K81.03. Gallbladder hydrops - ICD9: 575.3, ICD10: K82.14. High anion gap metabolic acidosis - ICD9: 276.2, ICD10: E87.25. Hypokalemia - ICD9: 276.8, ICD10: E87.66. Jaundice - ICD9: 782.4, ICD10: R177. Lactic acidosis - ICD9: 276.2, ICD10: E87.28. Macrocytosis - ICD9: 289.89, ICD10: D75.899. Prolonged Q-T interval on ECG - ICD9: 794.31, ICD10: R94.3110. Sepsis, due to unspecified organism (HCC) - ICD9: 038.9, 995.91,ICD10: A41.911. Transaminitis - ICD9: 790.4, ICD10: R74.012. Upper GI bleed - ICD9: 578.9, ICD10: K92.213. Hematemesis - ICD9: 578.0, ICD10: K92.014. Hematemesis with nausea - ICD9: 578.0, 787.02, ICD10: K92.015. EtOH use16. Folic acid deficiencyPLAN:Change antibiotics to Flagyl, AztreonamTransfer to floorFurther care per GISupplement potassiumPatient/Family Updated: Patient, Nancy Layton, updated regarding thegoals of care, medical plan for the day, medical record consultant recommendations,medical disposition and current medical condition/prognosis as and ifclinically indicated. All questions and concerns were answered andaddressed at this juncture.They were notified on June 19, 2017 at 10:00 am. The duration of theconversation was 10 minutes.This patient has a high probability of sudden, clinically significantdeterioration, which requires the highest level of physician preparednessto intervene urgently. I managed/supervised life or organ supportinginterventions that required frequent physician assessment. I devoted myfull attention to the direct care of this patient for the amount of timeindicated below. Time I spent with family or surrogate(s) is includedonly if the patient was incapable of providing the necessary informationor participating in medical decision making. Time devoted to teaching andto any procedures I billed separately is not included.Critical Care Documentation: The patient has the following organ/systemimpairment(s): Acute blood loss and acute cholecystitis, Hydrops gallbladder, acutr upper GI bleedingTime spent providing critical care services: 25 minutes.SIGNATURE: DAVIS Moralez INSTITUTEPAGER:[id number] of SERVICE: 06/19/17TIME of SERVICE: 2:49 PM PROGRESS HNO ID: [id number]: Liza warren 06-19-2017 Marlon Caroice: General SurgeryAuthor General Type: ResidentType: Progress NotesFiled: Medical 06/19/2017 6:40 [facility] Text: ([id number]) -Attestation signed by Serg Silva at 06/19/2017 5:59 PMAttending NoteI evaluated the patient and personally participated in the camacho components. Iagree with the resident's findings and plan as documented and have discussedthe case and management of the patient's care with the resident.The patient was examined on AM rounds.Ms. Nancy Layton expressed significant interval improvement in symptoms sinceyesterday. EGD with biopsy results pending noted. Images reviewed in bedsidechart. No role for surgical intervention at this time.Will sign off. Please call if any questions or concerns arise.Thank you for allowing us to participate in the care of this patient.Signature: Serg Silva, MDDate: 06/19/2017Time: 5:56 PM Ge neral Surgery Progress NoteSERVICE DATE: 06/19/2017SUBJECTIVE:No acute issues overnight- patient denies pain this am. ToleratingCLD-reports improved appetite. +Flatus Denies BM. EGD yesterday showedulcerative esophagitis with multiple fresh gastric erosions, no varices oractive bleeding.Tolerating diet DIET LIQUIDOBJECTIVE:Vitals:Temp (24hrs), Av.4 ?C (97.6 ?F), Min:36.1 ?C (97 ?F), Max:36.7 ?C(98.1 ?F)BP 107/80 Pulse 99 Temp 36.6 ?C (97.9 ?F) (Axillary) Resp 19 Ht149.9 cm (4' 11) Wt 75.2 kg (165 lb 12.6 oz) SpO2 95% BMI 33.48kg/m2O2 Therapy: Room AirIANDO:Date 06/18/17699 - 06/19/17 0659 06/19/17699 - 06/20/17 0659Shift 6027-8167 8759-9788 9649-4003 24 Hour Total 9267-1502 [id number] 24 Hour TotalINTAKE PO 720 720 PO 720 720 IV 697 4190 1102 5989 IVPB 650 150 800 NS 0.9% 3900 652 4552 Vancomycin IV 250 250 Cipro IV 200 200 Octreotide IV 47 40 87 Flagyl IV 100 100 Shift Total 697 4910 1102 6709OUTPUT Urine 310 838 128 2642 Void (ml) 310 611 843 7973 Shift Total 310 925 970 2205Weight (kg) 69.2 69.2 75.2 75.2 75.2 75.2 75.2 75.2MEDICATIONSCurrent Facility-Administered Medications:NaCl 0.9% iv infusion 75 mL/hr INTRAVENOUS CONTINUOUSdiphenhydrAMINE 25 mg injection (BENADRYL) 25 mg INTRAVENOUS q 6 H PRNpotassium-sodium phosphates 1 Packet (NEUTRA-PHOS,PHOS-NAK) 1 Packet ORALTID after MEALSfolic acid 1 mg tab(s) 1 mg ORAL DAILYvancomycin 1.25 g in D5W 250 mL (VANCOCIN) 1.25 g INTRAVENOUS q [address] 40 mg tab(s) (PROTONIX) 40 mg ORAL BID AC (0600/1600)ciprofloxacin 400 mg in D5W 200 mL (CIPRO) 400 mg INTRAVENOUS q 12 Halbuterol HFA 90 mcg/actuation 2 Puff (PROVENTIL HFA, VENTOLIN HFA) 2 PuffINHALATION q 4 H PRNpotassium chloride 80-120 mEq oral liquid 80-120 mEq ORAL/FEEDING TUBE PRNpotassium chloride iv piggyback 20 mEq in sterile water 100 mL 20 mEqINTRAVENOUS PRNmagnesium sulfate in water 2 g in sterile water 50 ml 2 g INTRAVENOUS PRNsodium phosphate 45 mmol in NaCl 0.9% 250 mL 45 mmol INTRAVENOUS PRNcalcium gluconate 4 g in NaCl 0.9% 250 mL 4 g INTRAVENOUS PRNLORazepam 2 mg (ATIVAN) 2 mg ORAL q 1 H PRNOrLORazepam 2 mg injection (ATIVAN) 2 mg INTRAVENOUS q 1 H PRNLORazepam 4 mg (ATIVAN) 4 mg ORAL q 1 H PRNOrLORazepam 4 mg injection (ATIVAN) 4 mg INTRAVENOUS q 1 H PRNondansetron 4 mg tab(s) (ZOFRAN) 4 mg ORAL q 6 H PRNOrondansetron (PF) 4 mg injection (ZOFRAN) 4 mg INTRAVENOUS q 6 H PRNmetroNIDAZOLE 500 mg PREMIX piggyback (FLAGYL) 500 mg INTRAVENOUS q 8 Hthiamine 100 mg injection 100 mg OTHER TIDLabs:Recent Labs 015 920 800 115 450 030 [id number] -- -- -- -- -- 138 -- 137K -- -- -- -- -- 3.2* -- 2.7*CHLOR -- -- -- -- -- 104 -- 100CO2 -- -- -- -- -- 21 -- 20*BUN -- -- -- -- -- 8 -- 11CREAT -- -- -- -- -- 0.71 -- 0.75GLUC -- -- -- -- -- 86 -- 97ANION -- -- -- -- -- 16 -- 20*CA -- -- -- -- -- 6.5* -- 7.0*MG -- -- -- -- -- -- 1.7 --P -- -- -- -- -- -- 2.0* --ALB -- -- -- -- 1.6* -- -- 1.6*AST -- -- -- -- 178* -- -- 175*ALT -- -- -- -- 70 -- -- 78ALKPHOS -- -- -- -- 170* -- -- 181*TBILI -- -- -- -- 12.0* -- -- 12.9*WBC 4.24 -- -- -- -- 6.26 -- 8.18HB 8.1* -- -- 8.5* -- 9.1* 9.9* 10.4*HCT 25.1* -- -- 24.9* -- 26.0* 27.1* 28.7*PLT 169* -- -- -- -- 156* -- 200LACT -- 4.4* 5.7* 5.5* 3.0* 2.5* 3.8* 5.1*INR -- -- -- -- 1.16 -- -- --PH 7.388 -- -- -- -- -- -- --Exam:GENERAL: No distress, AlertNEURO: AANDOx3, CN II-XII grossly intactHEENT: normocephalic, atraumaticLUNGS: Unlabored breathingCARDIAC: Regular rate and rhythm as aboveABDOMEN: Soft,- mildly TTP epigastrium, RUQ, mildly-distendedEXTREMITIES: ROJAS, No deformities, No edemaSKIN: Skin color, texture, turgor normal, No rashes or lesionsASSESSMENT AND PLAN:Active Hospital Problems Diagnosis Date Noted- Hematemesis 06/17/2017 Overview Note: Added automatically from request for surgery [id number]- Upper GI bleed 06/17/2017- Jaundice 06/17/2017- Lactic acidosis 06/17/2017- High anion gap metabolic acidosis 06/17/2017- Transaminitis 06/17/2017- Gallbladder hydrops 06/17/2017- Acute blood loss anemia 06/17/2017- Macrocytosis 06/17/2017- Prolonged Q-T interval on ECG 06/17/2017- Sepsis (HCC) 06/17/2017- Acute cholecystitis 06/17/2017- Hypokalemia 06/17/2017- UGI bleed 06/17/201742 year old female with alcoholic hepatitis, hyperbilirubinemia, UGIB?- US wnl - no stones, no thickening, no pericholecystic fluid; improvingclinically- No acute surgical intervention- Care per MICUSIGNATURE: Liza Schwartz MD PATIENT NAME: Nancy LaytonDATE: June 19, 2017 : 6:36 AM Pager: [phone] mdrd gfr on 2017-06 eGFR (non-black) >60 >60mL/min/1.73m2 mL/min/{1.73_m2} Normal 06-20-2017 [facility] ([id number]) Comment: Result Comment: If the patie nt is , multiply the result by 1.210. Performed By: #### GFR ####A [place] [address] vancomycin,trough o n 2017-06-19 Vancomycin,Trough 21.4 10.0-20.0 mg/L Critically high 2016 [facility] (00 000) Comment: Performed By: #### VANCT ### #[place] [address] hemogram/diff on 01-07-06 Abs Immature Grans 0.10 0.00-0.05 thou/cmm High 06-20-2017 [facility] (00 000) Comment: Performed By: #### CBCD1 ### #[place] [address] Abs. Baso 0.04 0.01-0.08 thou/cmm Normal 06-20-2017 [facility] (28289) Comment: Result Comment: Smear ronyne d; tech agrees with automated differential Performed By: #### CBCD1 ### #[place] [address] Abs. [place] 0.36 0.27-0.70 thou/cmm Normal 06-20-2017 [facility] (26811) Comment: Performed By: #### CBCD1 ### #[place] [address] Abs. Neut 3.20 1.56-6.13 thou/cmm Normal 06-20-2017 [facility] (51765) Comment: Performed By: #### CBCD1 ### [address], [place] [address] Basophils/100 WBC Auto (Bld) 0.8 % Normal 1 08-21-2016 [facility] (22142) Comment: Performed By: #### CBCD1 ### [address] [address] Eosinophils 0.13 0.00-0.31 thou/cmm Normal 06-20-2017 [facility] (55867) Comment: Performed By: #### CBCD1 ### [address] [address] Eosinophils/100 leukocytes 2.7 % Normal [facility] (09659) Comment: Performed By: #### CBCD1 ### [address] [address] Immature Grans 2.10 % Normal 06-20-2017 [facility] (37784) Comment: Performed By: #### CBCD1 ### [address] [address] Lymphocytes 0.99 1.18-3.74 thou/cmm Low 06-20-2017 [facility] (48716) Comment: Performed By: #### CBCD1 ### [address] [address] Lymphocytes/100 leukocytes 20.5 % Normal [facility] (19866) Comment: Performed By: #### CBCD1 ### [address] [address] Monocytes/100 leukocytes 7.5 % Normal 06-20 [facility] (29638) Comment: Performed By: #### CBCD1 ### [address] [address] Seg Neutrophil 66.4 % Normal 06-20-2017 [facility] (66487) Comment: Performed By: #### CBCD1 ### [address] [address] Erythrocyte distribution 15.9 11.7-14.4 % High 06-20 [facility] width Auto Ratio (RBC) System (46239) Comment: Performed By: #### CBCD1 ### [address] [address] Erythrocytes (RBC) 2.27 3.93-5.22 mil/cmm Low 06-20-2017 [facility] (57680) Comment: Performed By: #### CBCD1 ### [address] [address] Hematocrit (HCT) 24.5 34.1-44.9 % Low 06-20-2017 [facility] (75016) Comment: Performed By: #### CBCD1 ### [address] [address] Hemoglobin mass conc (Bld) 8.5 11.2-15.7 g/dL Low [facility] (00 000) Comment: Performed By: #### CBCD1 ### #[place] [address] MCH 37.4 25.6-32.2 pg High 06-20-2017 [facility] (86615) Comment: Performed By: #### CBCD1 ### #[place] [address] MCHC mass conc (RBC) 34.7 31.6-34.8 % Normal 7 [facility] (09998) Comment: Performed By: #### CBCD1 ### #[place] [address] MCV 107.9 79.4-94.8 fl High 06-20-2017 [facility] (32958) Comment: Performed By: #### CBCD1 ### #[place] [address] Platelet mean volume (PMV) 11.5 9.4-12.3 fl Normal [facility] (00 000) Comment: Performed By: #### CBCD1 ### [address] [address] Platelets 153 182-369 thou/cmm Low 06-20-2017 [facility] (30047) Comment: Performed By: #### CBCD1 ### [address] [address] RDW SD 63.0 36.4-46.3 fl High 06-20-2017 [facility] (40457) Comment: Performed By: #### CBCD1 ### [address] [address] WBC (Leukocytes) 4.82 3.98-10.04 thou/cmm Normal 06-20-2017 [facility] (00 000) Comment: Performed By: #### CBCD1 ### #[place] [address] mycoplasma igm ab o n 2017-06-20 Mycoplasma IgM AB SEE BELOW Normal 06-20-2017 [facility] (63030) Comment: Result Comment: M. pneumo Ig M, Qual Positive A NEGATIgM antibodies specific to M. pneumoniae were detect ed. A reactivetest result indicates a past/present infection.Mycop lasma IgM AB 1.10 OD RatioIndex Values/OD Ratios are interpreted as follows:N egative: < or = 0.90Equivocal: 0.91 to 1.09Positive: > or = 1.10The magnitude of the measured result above the cutoff is not indicativeof t he total amount of antibody present and cannot be correlated to IFAtiters.P erforming Laboratory:[facility] [address] [place] [address] Performed By: #### MYCMX ### #[place] [address] type and screen on 2017-06-18 ABO group O Normal 06-18-2017 [facility] (59835) Comment: Performed By: #### P14 ####A [address] [address] Antibody Screen NEGATIVE Normal 06-18-2017 [facility] (42922) Comment: Performed By: #### P14 ####A [address] [address] Comment See Below Normal 06-18-2017 [facility] (27848) Comment: Result Comment: Screen &/or Xmatch expires in 3 days at 12 midnight. Redrawpatient at that time. Performed By: #### P14 ####A [address] [address] RH Type Positive Normal 06-18-2017 [facility] (81583) Comment: Performed By: #### P14 ####A [address] [address] consult on CONSULT HNO ID: [id number]: Kaden Normal 06-19-2017 [facility] MirService: [facility] GastroenterologyAuthor Type: ([id number]) PhysicianType: ConsultsFiled: 06/19/2017 7:50 AMNote Text:I have personally seen and examined this patient, and agree with thehistory, physical exam, impression, and plan as outlined above by the ANP.Decisions made independently RE: management. Discussed with family and Pt.Will schedule EGD today to define source of bleeding and possibility ofesophageal varices. Advised patient to abstain when she returns home. Willneed U/S to evaluate liver parenchyma.SIGNATURE: Kaden Navas MD PATIENT NAME: Nancy LaytonDATE: 06/19/17 : 7:46 AM hepatitis acute panel on 2017-06-19 HAV Ab IgM Negative Negative Normal 06-19-[address] [facility] (04660) Comment: Performed By: #### HEPP #### [address] [address] HB Core Ab IgM Negative Negative Normal 06-19-2017 [facility] (05578) Comment: Performed By: #### HEPP #### [address] [address] Hepatitis C Ab Negative Negative Normal 06-19-2017 [facility] (93391) Comment: Performed By: #### HEPP #### [address] [address] Hep.B Surface Ag Negative Negative Normal 06-19-2017 [facility] (33246) Comment: Performed By: #### HEPP #### [facility] [place], [place] [address] ionized calcium on 2017-06-19 Ionized Ca,PH7.4 3.48 4.36-4.73 mg/dL Low 06-19-2017 [facility] (76579) Comment: Performed By: #### LAC ####A [address] [address] Ionized Calcium 3.50 4.43-4.93 mg/dL Low 06-19-2017 [facility] (14003) Comment: Performed By: #### LAC ####A [address] [address] pH of blood 7.388 7.320-7.420 [pH] Normal 06-19-2017 [facility] (47333) Comment: Performed By: #### LAC ####A [address] [address] lactic acid on 2016 Lactate 4.7 0.4-2.0 mEq/L Critically high 06-19-2017 [facility] (44289) Comment: Performed By: #### LAC ####A [address] [address] Lactate 3.7 0.4-2.0 mEq/L Critically high 06-19-2017 [facility] (22538) Comment: Performed By: #### LAC ####A [place] [address] Lactate 4.4 0.4-2.0 mEq/L Critically high 06-19-2017 [facility] (39849) Comment: Performed By: #### LAC ####A [address] [address] legionella ag, urine on 2017-06-19 Legionella Ag, Test performed at [place] [address] [facility]-20-2016 [facility] (14284) for L. pneumophilia serogroup 1 antigenin urine, suggesting no recent or current infection.Infection due to Legionella cannot be ruled out since otherserogroups and species may cause disease, antigen may not bepresent in urine in early infection, and the level of antigenpresent in the urine may be below the detection limit of thetest. Comment: Performed By: #### LAC ####A [address] [address] hepatic panel on 01-07-05 Alkaline phosphatase (ALP) 157 46-116 U/L High [facility] (08924) Comment: Performed By: #### HEPAP ### [address] [address] Bilirubin Ql (U) 9.9 0.2-1.0 mg/dL High 06-19-2017 [facility] (63606) Comment: Performed By: #### HEPAP ### [address] [address] Protein 4.2 6.4-8.2 g/dL Low 06-19-2017 [facility] (59485) Comment: Performed By: #### HEPAP ### [address] [address] Alanine aminotransferase (ALT) 71 12-78 U/L Normal 06-19-2017 [facility] (00 000) Comment: Performed By: #### HEPAP ### [address] [address] Aspartate aminotransferase (AST) 182 9-37 U/L High 06-19-2017 [facility] (00 000) Comment: Performed By: #### HEPAP ### [address] [address] Bilirubin (total) 7.78 0.00-0.20 mg/dL High 06-19-2017 [facility] (34353) Comment: Performed By: #### HEPAP ### [address] [address] Albumin 1.6 3.4-5.0 g/dL Low 06-19-2017 [facility] (41633) Comment: Performed By: #### HEPAP ### [address] [address] magnesium blood on 2017-06-19 Magnesium 2.0 1.6-2.6 mg/dL Normal 06-19-2017 [facility] (46008) Comment: Performed By: #### MAG ####A [facility] [place], [place] [address] us abd right upper quadrant on 2017-06-18 US ABD RIGHT UPPER Performed at [facility] 06-18-2017 [facility] APPROVED BY: [facility] System ROBIN ZHENG MD ([id number]) ULTRASOUND OF THE RIGHT UPPER QUADRANT CLINICAL HISTORY: Right upper quadrant pain. TECHNIQUE: Ultrasound of the abdomen - ramos scale imaging of the right upper quadrant was performed. Images were obtained and stored in a permanent archive. Comparison: CT abdomen and pelvis earlier same day RESULT: Pancreas not well seen secondary to shadowing from bowel gas. There is no cholelithiasis. There is no gallbladder wall thickening or pericholecystic fluid. Sonographic Martínez sign is not reported by the formwork carpenter The intrahepatic and extrahepatic bile ducts are non dilated. The common bile duct measures 2 mm in diameter. The liver has increased echogenicity. There are no focal hepatic lesions. There is no right hydronephrosis. IMPRESSION: Hepatic steatosis No cholelithiasis basic panel on 2016 Creatinine 0.50 0.51-0.95 mg/dL Low 06-19-[address] [facility] (26505) Comment: Performed By: #### LAC ####A [address] [address] Calcium 6.2 8.5-10.1 mg/dL Low 06-19-2017 [facility] (71687) Comment: Performed By: #### LAC ####A [facility] [place], [place] [address] Glucose mass conc 104 70-99 mg/dL High 06-19-[address] [facility] (48297) Comment: Performed By: #### LAC ####A [address] [address] Urea nitrogen 4 7-18 mg/dL Low 06-19-2017 [facility] (29641) Comment: Performed By: #### LAC ####A [address] [address] Anion gap 14 8-16 mmol/L Normal 06-19-2017 [facility] (10668) Comment: Performed By: #### LAC ####A [address] [address] CO2 18 21-32 mEq/L Low 06-19-2017 [facility] (32450) Comment: Performed By: #### LAC ####A [address] [address] Chloride 112 98-107 mEq/L High 06-19-2017 [facility] (31215) Comment: Performed By: #### LAC ####A [address] [address] Potassium molar conc 2.9 3.5-5.1 mEq/L Low 7 [facility] (83435) Comment: Performed By: #### LAC ####A [address] [address] Sodium 141 136-145 mEq/L Normal 06-19-2017 [facility] (07258) Comment: Performed By: #### LAC ####A [address] [address] comprehensive panel on 2017-06-18 Alkaline phosphatase (ALP) 181 46-116 U/L High [facility] (11680) Comment: Performed By: #### P14 ####A [address] [address] Bilirubin Ql (U) 12.9 0.2-1.0 mg/dL High 06-18-2017 [facility] (45400) Comment: Performed By: #### P14 ####A [address] [address] Protein 4.5 6.4-8.2 g/dL Low 06-18-2017 [facility] (88029) Comment: Performed By: #### P14 ####A [place] [id number] Alanine aminotransferase (ALT) 78 12-78 U/L Normal 06-18-2017 [facility] (00 000) Comment: Performed By: #### P14 ####A [address] [address] Aspartate aminotransferase (AST) 175 9-37 U/L High 06-18-2017 [facility] (00 000) Comment: Performed By: #### P14 ####A [place] [address] Creatinine 0.75 0.51-0.95 mg/dL Normal 06-18-[address] [facility] (22782) Comment: Performed By: #### P14 ####[place] [address] Albumin 1.6 3.4-5.0 g/dL Low 06-18-2017 [facility] (56151) Comment: Performed By: #### P14 ####[place] [address] Glucose mass conc 97 70-99 mg/dL Normal 06-18-[address] [facility] (60290) Comment: Performed By: #### P14 ####[place] [address] Urea nitrogen 11 7-18 mg/dL Normal 06-18-2017 [facility] (45571) Comment: Performed By: #### P14 ####[address] [place] [address] Anion gap 20 8-16 mmol/L High 06-18-2017 [facility] (67009) Comment: Performed By: #### P14 ####[place] [address] Calcium 7.0 8.5-10.1 mg/dL Low 06-18-2017 [facility] (21037) Comment: Performed By: #### P14 ####[place] [address] CO2 20 21-32 mEq/L Low 06-18-2017 [facility] (70157) Comment: Performed By: #### P14 ####[facility] [place], [place] [address] Chloride 100 98-107 mEq/L Normal 06-18-2017 [facility] (75951) Comment: Performed By: #### P14 ####A [address] [address] Potassium molar conc 2.7 3.5-5.1 mEq/L Low 7 [facility] [facility] ([id number]) Comment: Performed By: #### P14 ####A [address] [address] Sodium 137 136-145 mEq/L Normal 06-18-2017 [facility] ([id number]) Comment: Performed By: #### P14 ####A [address] [address] consult on CONSULT HNO ID: [id number]: Jeet Lane ([facility] [place]) Normal 06-18-2017 [place] CNPService: GastroenterologyAuthor General Type: Nurse PractitionerType: Medical ConsultsFiled: 06/18/2017 9:39 AMNote Center Text:CONSULT: GASTROENTEROLOGY ([id number]) SERVICESERVICE DATE: 06/18/2017SERVICE TIME: 9:00 AMREASON FOR CONSULT: Upper GIB and alcoholic hepatitisREQUESTING PHYSICIAN: [facility] PHYSICIAN: Cayden BurkDevika Layton is a 42 year old female who presented to the ED for hematemesisand jaundiced. She was transferred to [facility] for evaluation ofabdominal CT. She stated her hematemesis started yesterday. She had about>10 acute episodes of maroon to coffee ground emesis. She stated drinkingheavy about 2 years ago. She was drinking about 2 bottles of white winedaily due to personal issues. She stated she cut back about 2 months agowhich she only drinks a glass of wine on weekends. Her last dose wasyesterday. She had nausea and LUQ abdominal pain associated with thehematemesis. Her pain was described as sharp and intermittent withoutradiation which her pain have now moved to RUQ. Her jaundiced also startedyesterday. She stated her father noticed her eyes were yellow and shethought she just had a caal. She stated this was the first time she hadhematemesis and jaundice. She did go to her PCP last month for a cough andwas told her LFT's were slightly elevated and she was anemic. She had EGDover 15 years ago for GERD.,FUNCTIONAL STATUS: IndependentPAST MEDICAL HISTORYDiagnosis Date- Alcohol abuse- Asthma- Depression- Hypertension- Seizure in childhood (HCC)- Spina bifida occultaNo past surgical history on file.No family history on file.Social HistorySubstance Use Topics- Smoking status: Never Smoker- Smokeless tobacco: Never Used- Alcohol use 4.5 oz/week 3 Glasses of Wine (5oz) per weekPrescriptions Prior to Admission:PROAIR HFA 90 mcg/actuation inhaler Disp: Rfl:buPROPion SR (ZYBAN SR; WELLBUTRIN SR) 150 mg 12 hr tablet Disp: Rfl:clonazePAM (KLONOPIN) 0.5 mg tablet Disp: Rfl:Diltiazem HCl 420 mg 24 hr capsule Disp: Rfl:FLUoxetine HCl (PROZAC) 40 mg capsule Disp: Rfl:montelukast (SINGULAIR) 10 mg tablet Disp: Rfl:SPRINTEC 0.25-35 mg-mcg per tablet Disp: Rfl:predniSONE (DELTASONE) 20 mg tablet Disp: Rfl:Lactobac. rhamnosus GG-inulin (CULTURELLE PROBIOTICS) 10 billion cell -200mg cpSP Take 1 capsule by mouth twice daily as needed. Disp: 30 capsuleRfl: 0Current hospital medications:diphenhydrAMINE 25 mg injection (BENADRYL) 25 mg INTRAVENOUS q 6 H PRNpantoprazole 40 mg injection (PROTONIX) 40 mg INTRAVENOUS q 12 HR[START ON 06/20/2017] pantoprazole 40 mg injection (PROTONIX) 40 mgINTRAVENOUS DAILY (6 AM)octreotide 500 mcg in D5W 100 mL (SandoSTATIN) 50 mcg/hr INTRAVENOUSCONTINUOUSalbuterol HFA 90 mcg/actuation 2 Puff (PROVENTIL HFA, VENTOLIN HFA) 2 PuffINHALATION q 4 H PRNpotassium chloride 80-120 mEq oral liquid 80-120 mEq ORAL/FEEDING TUBE PRNpotassium chloride iv piggyback 20 mEq in sterile water 100 mL 20 mEqINTRAVENOUS PRNmagnesium sulfate in water 2 g in sterile water 50 ml 2 g INTRAVENOUS PRNsodium phosphate 45 mmol in NaCl 0.9% 250 mL 45 mmol INTRAVENOUS PRNcalcium gluconate 4 g in NaCl 0.9% 250 mL 4 g INTRAVENOUS PRNLORazepam 2 mg (ATIVAN) 2 mg ORAL q 1 H PRNLORazepam 2 mg injection (ATIVAN) 2 mg INTRAVENOUS q 1 H PRNLORazepam 4 mg (ATIVAN) 4 mg ORAL q 1 H PRNLORazepam 4 mg injection (ATIVAN) 4 mg INTRAVENOUS q 1 H PRNondansetron 4 mg tab(s) (ZOFRAN) 4 mg ORAL q 6 H PRNondansetron (PF) 4 mg injection (ZOFRAN) 4 mg INTRAVENOUS q 6 H PRNciprofloxacin 400 mg in D5W 200 mL (CIPRO) 400 mg INTRAVENOUS q 12 HmetroNIDAZOLE 500 mg PREMIX piggyback (FLAGYL) 500 mg INTRAVENOUS q 8 HNaCl 0.9% iv infusion 100 mL/hr INTRAVENOUS CONTINUOUSthiamine 100 mg injection 100 mg OTHER TIDAllergies As of Date: 06/17/2017Allergen Noted ReactionAMOXICILLIN 04/20/2016 HivesFully Assessed 06/17/2017COMPLETE REVIEW OF SYSTEMS:PAIN ASSESSMENT: CURRENTLY HAVING PAIN; see HPIGENERAL: No weight loss, malaise or feversRESPIRATORY: Negative for hemoptysis, wheezing, COPD, dyspnea or shortnessof breathCARDIOVASCULAR: Negative for chest pain, leg swelling, hypertension, CHFor palpitationsGI: See HPIHEMATOLOGY/LYMPHOLOGY: Negative for prolonged bleeding, bruising easily orswollen nodesOBJECTIVEPHYSICAL EXAM: GENERAL: Alert and oriented X 3 in no acute distress,cooperative and following commandsSKIN: Skin color warm, dry, and intact with right upper arm ecchymoticarea and jaundiced in upper chestEYES: PERRLA, EOMI with b/l scleral icterusLUNGS: Lungs clear to auscultation and unlabored b/lCARDIAC: Normal S1 and S2 with no rubs, murmurs, or gallops,sinustachycardiaABDOMEN: Abdomen soft with + BS X 4, no distention, guarding, rebound,masses or organomegaly, RUQ tenderness on palpation, right nare NG-wallsuction with maroon/bilious drainagePULSES: 2+ radialPatient Vitals for the past 24 hrs: BP Temp Temp src Pulse Resp SpO2 Height Uycnnc11/04/17 0600 106/84 - - 115 19 96 % - -06/18/17 0400 111/79 36.3 ?C (97.3 ?F) A xillary 106 17 97 % - 69.2 kg(152 lb 8.9 oz)06/18/17 0200 105/72 - - 117 19 95 % - -06/18/17 0000 125/93 36.5 ?C (97.7 ?F) Axillary (!) 129 18 96 % - -06/17/17 2300 112/95 - - (!) 135 23 99 % - -06/17/17 2200 129/98 - - (!) 135 25 91 % - -06/17/17 2115 109/73 36.5 ?C (97.7 ?F) Axillary (!) 134 20 100 % 149.9 cm(4' 11) 66.6 kg (146 lb 13.2 oz)Body mass index is 30.81 kg/(m2).DATA:Diagnostic tests reviewed for today's visit:Most recent labs and imaging results.IMPRESSION/RECOMMENDATIONS1). Upper GI bleed r/o esophageal varices Assessment AND Plan: Continue PPI and octreotide, monitor H/H,transfuse as needed, EGD will discuss with Dr. Navas2). Alcoholic hepatitis Assessment AND Plan: Monitor LFT's, coags ordered, total cessationencouraged3) Jaundice likely secondary to # 2 Assessment AND Plan: Monitor LFT's4). Acute blood loss anemia Assessment AND Plan: Monitor H/H, transfuse as needed, continue PPISIGNATURE: [place]et [place], NAIDA PATIENT NAME: Nancy LaytonDATE: June 18, 2017 : 9:00 AM PAGER: CONSULT HNO ID: [id number]: Yg (Etta) [place] warren 06-18-2017 Marlon Melgar: General SurgeryAuthor General Type: ResidentType: ConsultsFiled: Medical 06/18/2017 2:16 AMNote Center Text: ([id number]) A ttestation signed by Taun Camargo at 06/18/2017 2:38 PMI discussed with the resident and agree with resident's findings and plan asdocumented in the resident's note.Tuan Camargo MD, FACS, [facility] CONSULT: EGS SERVICESERVICE DATE: 06/18/2017SERVICE TIME: 2:05 AMREASON FOR CONSULT: Gallbladder hydrops?REQUESTING PHYSICIAN: Dr. NailsCLEARSKY REHABILITATION HOSP[facility] AVONDALEMara CARE PHYSICIAN: Demetri Collado [facility] HospitalDevika Layton is a 42 year old female who presents for hematemesis andjaundice. She has been using alcohol heavily recently and starting tohave jaundice and vomiting blood. 10 bouts of dark emesis with epigastricpain. Her pain has improved slightly since her admission to the hospital. She is having normal bowel movements. She has been itching on her chestand arms for the past few days.CT A/P - performed at another hospital, but GB appears distended.RUQ US - No cholelithiasis, no GB thickening, no pericholecystic fluid,(-) sonographic Mruphy's, CBD 2 mm.FUNCTIONAL STATUS: IndependentPAST MEDICAL HISTORYDiagnosis Date- Alcohol abuse- Asthma- Depression- Hypertension- Seizure in childhood (HCC)- Spina bifida occultaNo past surgical history on file.No family history on file.Social HistorySubstance Use Topics- Smoking status: Never Smoker- Smokeless tobacco: Never Used- Alcohol use 4.5 oz/week 3 Glasses of Wine (5oz) per weekPrescriptions Prior to Admission:PROAIR HFA 90 mcg/actuation inhaler Disp: Rfl:buPROPion SR (ZYBAN SR; WELLBUTRIN SR) 150 mg 12 hr tablet Disp: Rfl:clonazePAM (KLONOPIN) 0.5 mg tablet Disp: Rfl:Diltiazem HCl 420 mg 24 hr capsule Disp: Rfl:FLUoxetine HCl (PROZAC) 40 mg capsule Disp: Rfl:montelukast (SINGULAIR) 10 mg tablet Disp: Rfl:SPRINTEC 0.25-35 mg-mcg per tablet Disp: Rfl:predniSONE (DELTASONE) 20 mg tablet Disp: Rfl:Lactobac. rhamnosus GG-inulin (CULTURELLE PROBIOTICS) 10 billion cell -200mg cpSP Take 1 capsule by mouth twice daily as needed. Disp: 30 capsuleRfl: 0[facility] medications:pantoprazole 40 mg injection (PROTONIX) 40 mg INTRAVENOUS q 12 HR[START ON 06/20/2017] pantoprazole 40 mg injection (PROTONIX) 40 mgINTRAVENOUS DAILY (6 AM)octreotide 500 mcg in D5W 100 mL (SandoSTATIN) 50 mcg/hr INTRAVENOUSCONTINUOUSalbuterol HFA 90 mcg/actuation 2 Puff (PROVENTIL HFA, VENTOLIN HFA) 2 PuffINHALATION q 4 H PRNpotassium chloride 80-120 mEq oral liquid 80-120 mEq ORAL/FEEDING TUBE PRNpotassium chloride iv piggyback 20 mEq in sterile water 100 mL 20 mEqINTRAVENOUS PRNmagnesium sulfate in water 2 g in sterile water 50 ml 2 g INTRAVENOUS PRNsodium phosphate 45 mmol in NaCl 0.9% 250 mL 45 mmol INTRAVENOUS PRNcalcium gluconate 4 g in NaCl 0.9% 250 mL 4 g INTRAVENOUS PRNLORazepam 2 mg (ATIVAN) 2 mg ORAL q 1 H PRNLORazepam 2 mg injection (ATIVAN) 2 mg INTRAVENOUS q 1 H PRNLORazepam 4 mg (ATIVAN) 4 mg ORAL q 1 H PRNLORazepam 4 mg injection (ATIVAN) 4 mg INTRAVENOUS q 1 H PRNondansetron 4 mg tab(s) (ZOFRAN) 4 mg ORAL q 6 H PRNondansetron (PF) 4 mg injection (ZOFRAN) 4 mg INTRAVENOUS q 6 H PRNciprofloxacin 400 mg in D5W 200 mL (CIPRO) 400 mg INTRAVENOUS q 12 HmetroNIDAZOLE 500 mg PREMIX piggyback (FLAGYL) 500 mg INTRAVENOUS q 8 HNaCl 0.9% iv infusion 100 mL/hr INTRAVENOUS CONTINUOUSthiamine 100 mg injection 100 mg OTHER TIDAllergies As of Date: 06/17/2017Allmushtaq Noted ReactionAMOXICILLIN 04/20/2016 HivesFully Assessed 06/17/2017COMPLETE REVIEW OF SYSTEMS:10 pt ROS performed and negative except as in HPIOBJECTIVEPHYSICAL EXAM:Gen - laying in bed, NAD, [id number] - NG in place with dark bloody drainage, Scleral icterus.CV - HR and BP WNL on monitors.Resp - unlabored.Abd - soft, non distended, minimally tender in epigastric and LUQ.Ext - ROJAS. No edema.Patient Vitals for the past 24 hrs: BP Temp Temp src Pulse Resp SpO2 Height Ougowl88/04/17 0200 105/72 - - 117 19 95 % - -06/18/17 0000 125/93 36.5 ?C (97.7 ?F) Axillary (!) 129 18 96 % - -06/17/17 2300 112/95 - - (!) 135 23 99 % - -06/17/17 2200 129/98 - - (!) 135 25 91 % - -06/17/17 2115 109/73 36.5 ?C (97.7 ?F) Axillary (!) 134 20 100 % 149.9 cm(4' 11) 66.6 kg (146 lb 13.2 oz)Body mass index is 29.66 kg/(m2).DATA:Diagnostic tests reviewed for today's visit:CBC, Coags, BMP, Mg, PhosRecent Labs 06/17/1722WBC -- 8.18HB 9.9* 10.4*HCT 27.1* 28.7*PLT -- 200NA -- 137K -- 2.7*CHLOR -- 100CO2 -- 20*BUN -- 11CREAT -- 0.75GLUC -- 97CA -- 7.0*MG 1.7 --P 2.0* --Liver Function, Amylase, AND LipaseRecent Labs 12/04/875137 12/03/059798ZGZDO -- 4.5*ALB -- 1.6*ALT -- 78AST -- 175*ALKPHOS -- 181*TBILI -- 12.9*LACT 3.8* 5.1*IMPRESSION/RECOMMENDATIONSPrincipal Problem: Upper GI bleed POA: Yes Assessment AND Plan:Active Problems: Jaundice POA: Yes Assessment AND Plan: Lactic acidosis POA: Yes Assessment AND Plan: High anion gap metabolic acidosis POA: Yes Assessment AND Plan: Transaminitis POA: Yes Assessment AND Plan: Gallbladder hydrops POA: Yes Assessment AND Plan: Acute blood loss anemia POA: Yes Assessment AND Plan: Macrocytosis POA: Yes Assessment AND Plan: Prolonged Q-T interval on ECG POA: Yes Assessment AND Plan: Sepsis (HCC) POA: Yes Assessment AND Plan: Acute cholecystitis POA: Yes Assessment AND Plan: Hypokalemia POA: Yes Assessment AND Plan: UGI bleed POA: Yes Assessment AND Plan:42 YOF with acute alcoholic hepatitis and UGIB. Surgery consulted forhydropic appearing gallbladder on CT.- US with normal appearing gallbladder and patient has no RUQ abdominalpain or tenderness.- The LFT elevations and Tbili elevation are most likely related to heracute hepatitis.- GI consulted for hepatitis and assistance with UGIB work up.- There is no acute surgical intervention needed for her gallbladder.Case discussed with chief resident and Dr. Camargo.SIGNATURE: Yg Tovar MD PATIENT NAME: Nancy Minaya KinjalDATE: June 18, 2017 : 2:05 AM PAGER: [id number] folate on 4 Folate 2.20 3.10-17.50 ng/mL Low 06-18-[address] [facility] ([id number]) Comment: Performed By: #### P14 ####A [place] [address] nursing prog on 01-25-04 NURSING HNO ID: [id number]: Ann-Marie hedrick (Rn) Tejas, NICOLLEervice: (none)Author Type: Registered NurseType: Normal 06-18-2017 [facility] Nursing Progress NoteFiled: 06/18/2017 1:32 PMNote Text: Nursing Progress NotePatient Name: Nancy Minaya KinjalMRN: [id number] Location: [place] [address] [address]* EGD Center done at bedside per .This note was completed by: Ivette Lazaro RN ([id number]) NURSING HNO ID: [id number]: Ann-Maire hedrick (Rn) [place] RNService: (none)Author Type: Registered NurseType: Normal 06-18-2017 [facility] Nursing Progress NoteFiled: 06/18/2017 10:20 AMNote Text: Nursing Progress NotePatient Name: Nancy Minaya BauerMRN: [id number] Location: [place] [address] [address]* Center Rounds with , [facility] nts, and RN.This note was completed by: Ivette Lazaro RN ([id number]) mdrd gfr on 2017-06 eGFR (non-black) >60 >60mL/min/1.73m2 mL/min/{1.73_m2} Normal 06-18-2017 [facility] ([id number]) Comment: Result Comment: If the patie nt is , multiply the result by 1.210. Performed By: #### P14 ####A [place] [address] eGFR (non-black) >60 >60mL/min/1.73m2 mL/min/{1.73_m2} Normal 06-18-2017 [facility] (02156) Comment: Result Comment: If the patie nt is , multiply the result by 1.210. Performed By: #### GFR ####A [place] [address] [place], [place] [address] hemogram/diff on 20 01-07-04 Abs Immature Grans 0.05 0.00-0.05 thou/cmm Normal 06-18-2017 [facility] (00 000) Comment: Performed By: #### P14 ####A [address] [address] Abs. Baso 0.03 0.01-0.08 thou/cmm Normal 06-18-2017 [facility] (53669) Comment: Performed By: #### P14 ####A [place] [address] Abs. [place] 0.53 0.27-0.70 thou/cmm Normal 06-18-2017 [facility] (10164) Comment: Performed By: #### P14 ####A [address] [address] Abs. Neut 4.68 1.56-6.13 thou/cmm Normal 06-18-2017 [facility] (13182) Comment: Performed By: #### P14 ####A [address] [address] Basophils/100 WBC Auto (Bld) 0.5 % Normal 1 08-19-2016 [facility] (07773) Comment: Performed By: #### P14 ####A [address] [address] Eosinophils 0.03 0.00-0.31 thou/cmm Normal 06-18-[address] [facility] (56794) Comment: Performed By: #### P14 ####A [address] [address] Eosinophils/100 leukocytes 0.5 % Normal [facility] (10015) Comment: Performed By: #### P14 ####A [address] [address] Erythrocyte distribution 15.3 11.7-14.4 % High 06-18 [facility] width Auto Ratio (RBC) System (24834) Comment: Performed By: #### P14 ####A [address] [address] Erythrocytes (RBC) 2.49 3.93-5.22 mil/cmm Low 06-18-2017 [facility] (52868) Comment: Performed By: #### P14 ####A [address] [address] Hematocrit (HCT) 26.0 34.1-44.9 % Low 06-18-2017 [facility] (82269) Comment: Performed By: #### P14 ####A [address] [address] Hemoglobin mass conc (Bld) 9.1 11.2-15.7 g/dL Low [facility] (00 000) Comment: Performed By: #### P14 ####A [address] [address] Immature Grans 0.80 % Normal 06-18-2017 [facility] (34183) Comment: Performed By: #### P14 ####A [address] [address] Lymphocytes 0.93 1.18-3.74 thou/cmm Low 06-18-[address] [facility] (40376) Comment: Performed By: #### P14 ####A [address] [address] Lymphocytes/100 leukocytes 14.9 % Normal [facility] (33312) Comment: Performed By: #### P14 ####A [address] [address] MCH 36.5 25.6-32.2 pg High 06-18-2017 [facility] (83637) Comment: Performed By: #### P14 ####A [address] [address] MCHC mass conc (RBC) 35.0 31.6-34.8 % High 7 [facility] (53359) Comment: Performed By: #### P14 ####A [address] [address] MCV 104.4 79.4-94.8 fl High 06-18-2017 [facility] (05489) Comment: Performed By: #### P14 ####A [address] [address] Monocytes/100 leukocytes 8.5 % Normal 06-18 [facility] (48495) Comment: Performed By: #### P14 ####A [address] [address] Platelet mean volume (PMV) 11.7 9.4-12.3 fl Normal [facility] (00 000) Comment: Performed By: #### P14 ####A [address] [address] Platelets 156 182-369 thou/cmm Low 06-18-2017 [facility] (10421) Comment: Performed By: #### P14 ####A [address] [address] RDW SD 58.2 36.4-46.3 fl High 06-18-2017 [facility] (00166) Comment: Performed By: #### P14 ####A [place] [id number] Seg Neutrophil 74.8 % Normal 06-18-2017 [facility] (87245) Comment: Performed By: #### P14 ####A [address] [address] WBC (Leukocytes) 6.26 3.98-10.04 thou/cmm Normal 06-18-2017 [facility] (00 000) Comment: Performed By: #### P14 ####A [address] [address] Abs Immature Grans 0.10 0.00-0.05 thou/cmm High 06-18-2017 [facility] (00 000) Comment: Performed By: #### CBCD1 ### [address] [address] Abs. Baso 0.03 0.01-0.08 thou/cmm Normal 06-18-2017 [facility] (59462) Comment: Performed By: #### CBCD1 ### #[facility] [place] [address] Abs. [place] 0.73 0.27-0.70 thou/cmm High 06-18-2017 [facility] (29366) Comment: Performed By: #### CBCD1 ### #[place] [address] Abs. Neut 6.59 1.56-6.13 thou/cmm High 06-18-2017 [facility] (04023) Comment: Performed By: #### CBCD1 ### #[place] [address] Basophils/100 WBC Auto (Bld) 0.4 % Normal 1 08-19-2016 [facility] (50458) Comment: Performed By: #### CBCD1 ### #[place] [address] Eosinophils 0.01 0.00-0.31 thou/cmm Normal 06-18-2017 [facility] (93254) Comment: Performed By: #### CBCD1 ### #[place] [address] Eosinophils/100 leukocytes 0.1 % Normal [facility] (72138) Comment: Performed By: #### CBCD1 ### #[place] [address] Erythrocyte distribution 15.2 11.7-14.4 % High 06-18 [facility] width Auto Ratio (RBC) System (36021) Comment: Performed By: #### CBCD1 ### #[place] [address] Erythrocytes (RBC) 2.82 3.93-5.22 mil/cmm Low 06-18-2017 [facility] (58343) Comment: Performed By: #### CBCD1 ### [address], [place] [address] Hematocrit (HCT) 28.7 34.1-44.9 % Low 06-18-2017 [facility] (51462) Comment: Performed By: #### CBCD1 ### [address] [address] Hemoglobin mass conc (Bld) 10.4 11.2-15.7 g/dL Low [facility] (00 000) Comment: Performed By: #### CBCD1 ### [address] [address] Immature Grans 1.20 % Normal 06-18-2017 [facility] (32033) Comment: Performed By: #### CBCD1 ### [address] [address] Lymphocytes 0.72 1.18-3.74 thou/cmm Low 06-18-[address] [facility] (83950) Comment: Performed By: #### CBCD1 ### [address] [address] Lymphocytes/100 leukocytes 8.8 % Normal [facility] (64084) Comment: Performed By: #### CBCD1 ### [address] [address] MCH 36.9 25.6-32.2 pg High 06-18-2017 [facility] (19803) Comment: Performed By: #### CBCD1 ### [address] [address] MCHC mass conc (RBC) 36.2 31.6-34.8 % High 7 [facility] (18808) Comment: Performed By: #### CBCD1 ### [address] [address] MCV 101.8 79.4-94.8 fl High 06-18-2017 [facility] (90338) Comment: Performed By: #### CBCD1 ### [address] [address] Monocytes/100 leukocytes 8.9 % Normal 06-18 [facility] (44293) Comment: Performed By: #### CBCD1 ### [address] [address] Platelet mean volume (PMV) 11.3 9.4-12.3 fl Normal [facility] (00 000) Comment: Performed By: #### CBCD1 ### [address] [address] Platelets 200 182-369 thou/cmm Normal 06-18-2017 [facility] (95489) Comment: Performed By: #### CBCD1 ### [address] [address] RDW SD 56.5 36.4-46.3 fl High 06-18-2017 [facility] (32786) Comment: Performed By: #### CBCD1 ### [address] [address] Seg Neutrophil 80.6 % Normal 06-18-2017 [facility] (95061) Comment: Performed By: #### CBCD1 ### [address] [address] WBC (Leukocytes) 8.18 3.98-10.04 thou/cmm Normal 06-18-2017 [facility] (00 000) Comment: Performed By: #### CBCD1 ### [address] [address] procalcitonin on 01-07-04 Procalcitonin 0.97 ng/mL Normal 06-18-2017 [facility] (63874) Comment: Result Comment: Levels <0.50 ng/mL represent a low risk of severe sepsis and/orseptic shock, while le vels >2.00 ng/mL represent an elevatedrisk of severe sepsis and/or septic shock. Levels <0.50 ng/mLdo not exclude infection, as infections or systemic infectionsin early stages (<6hrs) can be associated with lowconcen trations. Levels between 0.50-2.00 ng/mL should beinterpreted in the clinica l context of the patient, as a varietyof conditions such as wu, tr auma, surgery and severecardiogenic shock can cause procalcitonin elevatio ns. Performed By: #### P14 ####A [facility] [place], [place] [address] nutrition on 2016-07 NUTRITION HNO ID: [id number]: Heidi (Geoff) Meir stiles 06-18-2017 [facility] Jeaneth, RDService: [facility] TherapyAuthor Type: Registered ([id number]) DietitianType: NutritionFiled: 06/18/2017 1:58 PMNote Text:NUTRITION THERAPY INITIAL ASSESSMENTSERVICE DATE: 06/18/2017SERVICE TIME: 1335RECOMMENDED MALNUTRITION DIAGNOSIS: NO MALNUTRITION IDENTIFIEDNUTRITION CARE PLAN:Nutrition evaluation. EGD completed. Superficial erosions/ucler shown perRN. Etoh abuse. Jaundice. Liver enzymes up. 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 Patientsleepy post EGD. No physical signs of fat/protein depletion upon exam.Altered GI function related to upper GI bleed as evidenced by patientchart/blood emesis notedIntervention:Recommend: NPO continues. RN stated clear liquids soon per GI findings viaEGD.Recommend: Start clears as able, recommend: no red foods/drinks.Encourage po intake and start supplements per po intake. Rd to followwith patient on follow up regarding po hx. Recommend: Continue folate andthiamin due etoh abuseCollaborated with RNGoal: Meet >75% of estimated needsMonitor fluid/electrolyte balanceMonitor labs, I/Os, vital signs, weightDischarge Nutrition Recommendations:To be determinedPer HPI: Ms Layton is a 42 year old white woman with PMH significant forasthma, GERD, HTN, anxiety depression, spinia bifida occulta, and alcoholabuse comes in for complaints of nausea, abdominal pain, jaundice, andbloody emesis. Jaundice started a day ago and the rest today. She hashad 10 bouts of emesis with dark red blood. She has had epigastric,constant abdominal pain and now getting better. ROS significant fordecreased appetite and weight loss. No prior GI bleed issues. Rest ROSis negative. Last alcohol drink was this afternoon. Used to drink 2bottles of wine but now has cut down. 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 Yes , GI Bleed notedANTHROPOMETRICSHeight: 149.9 cm (4' 11)Admission Weight: 66.6 kg (146 lb 13.2 oz)Current Weight: 69.2 kg (152 lb 8.9 oz)Body mass index is 30.81 kg/(m2). class 1 obesityWeight has decreased by 2.2 kg over 2 months representing 3.1 % weightchange.Last Wt108/19/16 : 69.2 kg (152 lb 8.9 oz)04/20/16 : 71.2 kg (157 lb)[place] Body Weight: 45.4kgResting Metabolic Rate: 1270Estimated kilocalorie needs: 1400 kilocalories determined by 30 kcal/kgEstimated protein needs: 54 grams determined by 1.2 [place] weightEstimated fluid needs: 1400 milliliters based on 1 mL per kcalNUTRITION FOCUSED PHYSICAL EXAM:Subcutaneous Fat LossOrbital No fat lossTriceps No fat lossMid-axillary at the iliac crest Unable to determine at this timeMuscle Loss Locations:Temporalis No muscle lossPectoralis Unable to determine at this timeDeltoids No muscle lossInterosseous No muscle lossLatissimus dorsi, trapezius Unable to determine at this timeQuadriceps No muscle lossGastrocnemius No muscle lossPotential micronutrient deficiency revealed in: Unable to determine atthis timeEdema: NoAscites: NoAssessment of Functional Status: Unable to assessTemperature Max in 24 hours: Temp (24hrs), Av.3 ?C (97.4 ?F), Min:36.1?C (97 ?F), Max:36.5 ?C (97.7 ?F) BP 106/83 Pulse 104 Temp 36.2 ?C (97.2 ?F) Resp 18 Ht 149.9 cm(4' 11) Wt 69.2 kg (152 lb 8.9 oz) SpO2 97% BMI 30.81 kg/u6Qwycks Labs 06/18/1704GLUC -- 86 --BUN -- 8 --CREAT -- 0.71 --NA -- 138 --K -- 3.2* --CHLOR -- 104 --CO2 -- 21 --ALB 1.6* -- --HB -- 9.1* 9.9*HCT -- 26.0* 27.1*WBC -- 6.26 --P -- -- 2.0*MG -- -- 1.7Potential Signs of Inflammation: hypoalbuminemiaCurrent Facility-Administered Medications:diphenhydrAMINE 25 mg injection (BENADRYL) 25 mg INTRAVENOUS q 6 H PRNpotassium-sodium phosphates 1 Packet (NEUTRA-PHOS,PHOS-NAK) 1 Packet ORALTID after MEALSmagnesium sulfate in water 2 g in sterile water 50 ml 2 g INTRAVENOUS ONCEfolic acid 1 mg tab(s) 1 mg ORAL DAILYcefTRIAXone iv piggyback 2 g in dextrose (iso-osmotic) 50 mL (ROCEPHIN) 2g INTRAVENOUS q 24 Hvancomycin 1.25 g in D5W 250 mL (VANCOCIN) 1.25 g INTRAVENOUS q 12 HRpantoprazole 40 mg injection (PROTONIX) 40 mg INTRAVENOUS q 12 HRoctreotide 500 mcg in D5W 100 mL (SandoSTATIN) 50 mcg/hr INTRAVENOUSCONTINUOUSalbuterol HFA 90 mcg/actuation 2 Puff (PROVENTIL HFA, VENTOLIN HFA) 2 PuffINHALATION q 4 H PRNpotassium chloride 80-120 mEq oral liquid 80-120 mEq ORAL/FEEDING TUBE PRNpotassium chloride iv piggyback 20 mEq in sterile water 100 mL 20 mEqINTRAVENOUS PRNmagnesium sulfate in water 2 g in sterile water 50 ml 2 g INTRAVENOUS PRNsodium phosphate 45 mmol in NaCl 0.9% 250 mL 45 mmol INTRAVENOUS PRNcalcium gluconate 4 g in NaCl 0.9% 250 mL 4 g INTRAVENOUS PRNLORazepam 2 mg (ATIVAN) 2 mg ORAL q 1 H PRNOrLORazepam 2 mg injection (ATIVAN) 2 mg INTRAVENOUS q 1 H PRNLORazepam 4 mg (ATIVAN) 4 mg ORAL q 1 H PRNOrLORazepam 4 mg injection (ATIVAN) 4 mg INTRAVENOUS q 1 H PRNondansetron 4 mg tab(s) (ZOFRAN) 4 mg ORAL q 6 H PRNOrondansetron (PF) 4 mg injection (ZOFRAN) 4 mg INTRAVENOUS q 6 H PRNmetroNIDAZOLE 500 mg PREMIX piggyback (FLAGYL) 500 mg INTRAVENOUS q 8 HNaCl 0.9% iv infusion 100 mL/hr INTRAVENOUS CONTINUOUSthiamine 100 mg injection 100 mg OTHER TIDIntake/Output 06/17/17 0700 - 06/18/17 0659 06/18/17 0700 - 06/19/17 0659 Intake (ml) 1960 697 Output (ml) 525 310 Net (ml) 1435 387MNT Billing Type: Initial Assess/15 min 3 unitsSIGNATURE: Heidi Eric RD PATIENT NAME: Nancy FlanneryTE: June 18, 2017 : 1:35 PM PAGER: [phone] magnesium blood on 2017-06-18 Magnesium 1.7 1.6-2.6 mg/dL Normal 06-18-2017 [facility] ([id number]) Comment: Performed By: #### P14 ####A [address] [address] phosphorus blood on 2017-06-18 Phosphate 2.0 2.5-4.9 mg/dL Low 06-18-2017 [facility] ([id number]) Comment: Performed By: #### PHOS #### [address] [address] urine hcg, qual. on 2017-06-18 HCG.beta subunit Negative Negative Normal 06-18-2017 [facility] ( test) Ql (U) System (11824) Comment: Performed By: #### HCGUR ### [address] [address] Specific [place], Ur 1.033 1.005-1.030 High 017 [facility] ([id number]) Comment: Performed By: #### HCGUR ### [address] [address] protime on INR Coag RelTime (PPP) 1.16 {INR} Normal 017 [facility] ([id number]) Comment: Result Comment: Standard The rapy 2.0-3.0High Dose 2.5-3.5 Performed By: #### GFR ####A [place] [address] Prothrombin time (PT) Coag 12.2 9.3-11.9 sec High [facility] time (PPP) System (0 0000) Comment: Performed By: #### GFR ####A [place] [address] hgb on 2017-06-18 Hemoglobin mass conc (Bld) 8.5 11.2-15.7 g/dL Low [facility] (00 000) Comment: Performed By: #### GFR ####A [place] [address] Hemoglobin mass conc (Bld) 9.9 11.2-15.7 g/dL Low [facility] (00 000) Comment: Performed By: #### HGBI #### [place] [address] tsh, 3rd generation on 2017-06-18 TSH, 3rd generation 0.694 0.358-3.740 uIU/mL Normal 06-18-20 17 [facility] (00 000) Comment: Performed By: #### GFR ####A [place] [address] hepatic panel on 01-07-04 Alanine aminotransferase (ALT) 70 12-78 U/L Normal 06-18-2017 [facility] (00 000) Comment: Performed By: #### GFR ####A [place] [address] Albumin 1.6 3.4-5.0 g/dL Low 06-18-2017 [facility] ([id number]) Comment: Performed By: #### GFR ####A [place] [address] Alkaline phosphatase (ALP) 170 46-116 U/L High [facility] [facility] ([address]42) Comment: Performed By: #### GFR ####A [place] [id number] Aspartate aminotransferase (AST) 178 9-37 U/L High 06-18-2017 [facility] (00 000) Comment: Performed By: #### GFR ####A [place] [id number] Bilirubin (total) 9.61 0.00-0.20 mg/dL High 06-18-2017 [facility] (82305) Comment: Performed By: #### GFR ####A [place] [address] Bilirubin Ql (U) 12.0 0.2-1.0 mg/dL High 06-18-2017 [facility] (71682) Comment: Performed By: #### GFR ####A [place] [id number] Protein 4.2 6.4-8.2 g/dL Low 06-18-2017 [facility] ([id number]) Comment: Performed By: #### GFR ####A [place] [address] therapy nt on 06-18 THERAPY NT HNO ID: [id number]: Smiley (Pt) Normal 06-18-2017 [facility] Shaw[facility]GAervice: Physical TherapyAuthor Type: General Physical TherapistType: Therapy Medical (PT/OT/Speech/Resp)Filed: 06/18/2017 12:04 Center PMNote Text:Physical Therapy ([id number]) EvaluationSERVICE DATE: 06/18/2017SERVICE TIME: 1120 to 1137ROOM: [id number] Discharge Disposition: HomePT Recommendations to Nursing: Ambulate without device;To bathroom;OOB formealsPT 6 Clicks Score: 23ASSESSMENT :Patient presents with a medically stable condition and presents atbaseline level of functional mobility required for safe discharge home.The patient does not require further acute care physical therapyintervention during this hospital admission..Tolerated Full SessionPatient /Caregiver Goals: Go HomeGoals for Plan of Care:Pt with independent functional mobility and has no further acute PT needsRehab Potential: GoodPLAN:Treatment Frequency (times per week): Discontinue Therapy ServicesReasons Therapy Services Discontinued: Independent in all functionalmobility Current admissionPlan of Care developed with: PatientTREATMENT INTERVENTIONS:Therapy Diagnosis: No Skilled NeedInterventions Provided: Evaluation$ Evaluation-Low (91871) Billed Units: 1 unitTotal Treatment Time (minutes): 17FUNCTIONAL G CODE:PT 6 Clicks Score: 23 (06/18/17 1120)Mobility: Walking and Moving Around Current Status (G8978): CI ()Mobility: Walking and Moving Around Goal Status (G8979): CI ()Mobility: Walking and Moving Around Discharge Status (G8980): CI ()Based on clinical assessment and the score on the 6 Clicks FunctionalAssessment Tool, the G code and corresponding severity modifiers aredocumented above.SUBJECTIVE:Current Hospital Course: Chart reviewed;Ms Layton is a 42 year old white woman with PMH significant for asthma,GERD, HTN, anxiety depression, spinia bifida occulta, and alcohol abusecomes in for complaints of nausea, abdominal pain, jaundice, and bloodyemesisThere is no acute surgical intervention needed for her gallbladderPatient Report: Pt denies complaints. Agreeable to PT. Family present.Home EnvironmentPatient Lives With: FamilyAssistance Available: Part timeEntry To Home: StairsNumber Of Stairs Into Home: 3Number Of Stairs To Bed/Bath: full flightEquipment Owned: Wheeled Walker;Commode-Bedside;Commode-RaisedPrior Functional Level: Within Functional LimitsOBJECTIVE:CURRENT FUNCTIONAL STATUS:Current Functional Mobility Assist Level Additional InformationRolling IndependentSupine to Sit IndependentSit to Supine IndependentScootingSit to Stand SupervisionStand to Sit SupervisionBed to Chair SupervisionToilet/CommodeGait Supervision Gait Device: None Gait Distance (feet): 60StairsCurb StepCar TransferPlease see discipline specific clinical documentation flowsheet forcomplete details for this therapy evaluation/treatment.SIGNATURE: Smiley Izaguirre PT PATIENT NAME: Nancy LaytonDATE: June 18, 2017 : 12:02 PM PAGER/CONTACT #: [phone] THERAPY NT HNO ID: [id number]: Jacinta (Otr/L) Normal 06-18-2017 Marlon NowakidService: Occupational TherapyAuthor General Type: Occupational TherapistType: Therapy Medical (PT/OT/Speech/Resp)Filed: 06/18/2017 11:46 Center AMNote Text:Occupational Therapy (47095) EvaluationSERVICE DATE: 06/18/2017SERVICE TIME: 1115 to 1130ROOM: [id number] Discharge Disposition: HomeRecommended Discharge Disposition Comments: d/c ot patient indep with selfcare and transfersOT Recommendations to Nursing: Assist of 1 person to bathroom forADL?s;Encourage patient participation in ADL?s;OOB for mealsOT 6 Clicks Score: 24ASSESSMENT:OT Evaluation Low Complexity:Occupational Profile - Brief review of patient's medical record completed(please see current hospital course of evaluation).Occupational Performance - Pt presents with no deficits.Complexity in Clinical Decision Making - The extent of clinical reasoningwas low, no need for modifications during the evaluation process, nocomorbidities present to affect patient's occupational performance.Tolerated Full SessionOccupational Therapy Problem List: (none)Patient /Caregiver Goals: Go HomeGoals for Plan of Care: NonePLAN:Treatment Frequency (times per week): Discontinue Therapy ServicesReasons Therapy Services Discontinued: Independent in all functionalmobility;No skilled needsPlan of Care developed with: PatientTREATMENT INTERVENTIONS:Therapy Diagnosis: No Skilled NeedInterventions Provided: Evaluation$ Evaluation-Low (28482) Billed Units: 1 unitTotal Treatment Time (minutes): 15FUNCTIONAL G CODE:OT 6 Clicks Score: 24 (06/18/17 1115)Self Care Current Status (G8987): CH (06/18/17 111)Self Care Goal Status (G8988): (06/18/17 1115)Self Care Discharge Status (G8989): (06/18/17 1115)Based on clinical assessment and the score on the 6 Clicks FunctionalAssessment Tool, the G code and corresponding severity modifiers aredocumented above.SUBJECTIVE:Current Hospital Course: Chart reviewed; . Ms Layton is a 42 year old whitewoman with PMH significant for asthma, GERD, HTN, anxiety depression,spinia bifida occulta, and alcohol abuse comes in for complaints ofnausea, abdominal pain, jaundice, and bloody emesisThere is no acute surgical intervention needed for her gallbladder.Patient Report: Found supine in bed, agreeable to therapy, denies pain. Ihave been getting up to the [facility].Home EnvironmentPatient Lives With: FamilyAssistance Available: Part timeEntry To Home: StairsNumber Of Stairs Into Home: 3Number Of Stairs To Bed/Bath: full flightEquipment Owned: Wheeled Walker;Commode-Bedside;Commode-RaisedPrior Functional Level: Within Functional LimitsOBJECTIVE: Responsiveness: Alert;AwakeFollows Commands: 3-step CommandsVision Deficits: Wears glassesCURRENT FUNCTIONAL STATUS:Current Activities of Daily Living Assist LevelFeeding Set UpGrooming Set UpBathing Upper Body SupervisionBathing Lower Body SupervisionDressing Upper Body SupervisionDressing Lower Body SupervisionToileting SupervisionFunctional Mobility Assist LevelRollingSupine to Sit SupervisionSit to Supine SupervisionScooting SupervisionSit to Stand SupervisionStand to Sit SupervisionBed to ChairToilet/Commode SupervisionFunctional Mobility SupervisionBalance: Static Standing;Dynamic StandingStatic Standing Balance: SupervisionDynamic Standing Balance: Supervision Returned to bed at the end of session, call light in reach.Please see discipline specific clinical documentation flowsheet forcomplete details for this therapy evaluation/treatment.SIGNATURE: Jacinta Haddad OTR/[facility] PATIENT NAME: Nancy LaytonDATE: June 18, 2017 : 11:42 AM PAGER: [phone] hct on 2017-06-18 Hematocrit (HCT) 24.9 34.1-44.9 % Low 06-18-2017 [facility] ([id number]) Comment: Performed By: #### GFR ####A [address] [address] Hematocrit (HCT) 27.1 34.1-44.9 % Low 06-18-2017 [facility] (49699) Comment: Performed By: #### HCTI #### [address] [place] [address] lactic acid on 2016 Lactate 5.7 0.4-2.0 mEq/L Critically high 06-18-2017 [facility] (87268) Comment: Performed By: #### GFR ####A [address] [address] Lactate 5.5 0.4-2.0 mEq/L Critically high 06-18-2017 [facility] (41461) Comment: Performed By: #### GFR ####A [address] [address] Lactate 3.0 0.4-2.0 mEq/L Critically high 06-18-2017 [facility] (98971) Comment: Performed By: #### GFR ####A [place] [address] Lactate 2.5 0.4-2.0 mEq/L Critically high 06-18-2017 [facility] (48150) Comment: Performed By: #### P14 ####A [address] [address] Lactate 3.8 0.4-2.0 mEq/L Critically high 06-18-2017 [facility] (88162) Comment: Performed By: #### LAC ####A [address] [address] Lactate 5.1 0.4-2.0 mEq/L Critically high 06-18-2017 [facility] (80741) Comment: Performed By: #### LAC ####A [address] [address] progress on 2017-06 PROGRESS HNO ID: [id number] Normal 06-18-2017 [facility] Author: Kaleigh RuizMary [facility]ke [facility] Service: Critical Care ([id number]) Author Type: Resident Type: Progress Notes Filed: 06/18/2017 9:04 PM Note Text: Patients lactic acid is going up likely secondary liver dysf unction. Will stop trending LA. PROGRESS HNO ID: [id number]: Tremaine Lanier Normal 06-18-2017 Marlon Gorman (Pharmacist)[facility] Type: PharmacistType: Progress ([id number]) NotesFiled: 06/18/2017 2:26 PMNote Text:MEDICATION HISTORYPatient Name:Vijay LaytonMRN: [id number]: 1975Source of history:Pharm[facility] records: [facility] [place] Nonadherence Identified: ForgetfulThe above information represents the best possible medication history: YesAdditional comments: Please note the following medications that wereremoved secondary to no fills within last 6 months:*Bupropion 150 mg BID (90d filled in November 2016)*Diltiazem CD 420 mg (last filled July 2016)*Prozac 40 mg (last filled November 2016)*Lactobacillus (no refills, no fill record)*Prednisone 20 mg (taper dose filled Dec 2016)Clonazepam left on list; due to filled in January. However, please noteunable to confirm with [facility], but did confirm at [facility]. 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 Medications:Prior to Admission medications as of 06/18/17 1422Medication Sig Last Dose TakingPROAIR HFA 90 mcg/actuation inhaler Inhale 1 Puff as instructed every 4hours as needed for Wheezing/Shortness of Breath.clonazePAM (KLONOPIN) 0.5 mg tablet Take 0.5 mg by mouth twice daily asneeded for Anxiety.montelukast (SINGULAIR) 10 mg tablet Take 10 mg by mouth daily at bedtime.SPRINTEC 0.25-35 mg-mcg per tablet Take 1 tablet by mouth once daily.TREMAINE LANIER PHARMACISTDekj 2016 2:23 PM PROGRESS HNO ID: [id number]: Viral Normal 06-18-2017 Marlon Gorman RudickService: Critical CareAutholland hospital Type: Medical Center PhysicianType: Progress NotesFiled: ([id number]) 06/18/2017 3:16 PMNote Text:MICU - PROGRESS NOTESERVICE DATE: 06/18/2017SERVICE TIME: 8:01 AMAdmission Date: 06/17/2017AGE: 42 year oldLOS: 1 daysSUBJECTIVEREASON FOR ICU ADMISSION: GI BleedingNo acute overnight events. Patient states that she feels much improvedsince admission. States she is very itchy but Benadryl is helping.States that abdominal pain is tolerable, but has become more right-sidedrather than generalized and left-sided. States pain increasessignificantly with palpation of RUQ. Patient denies nausea. Patient deniesHA/fevers/chills/night sweats/CP/SOB. No s/s of EtOH withdrawal - notremors, hallucinations, anxiety. No other concerns per patient. Noconcerns per nursing.OBJECTIVEPROBLEMS: ACTIVE PROBLEM LISTUpper GI BleedJaundiceLactic AcidosisHigh Anion Gap Metabolic AcidosisTransaminitisGallbladder HydropsAcute Blood Loss AnemiaMacrocytosisProlonged Q-T Interval On EcgSepsis (Hcc)Acute CholecystitisHypokalemiaUgi BleedPAST MEDICAL HISTORYDiagnosis Date- Alcohol abuse- Asthma- Depression- Hypertension- Seizure in childhood (HCC)- Spina bifida occultaNo past surgical history on file.Social History Marital status: Spouse name: Years of education: Number of children:Social History Main Topics Smoking status: Never Smoker Smokeless status: Never Used Alcohol use: Yes 4.5 oz/week 3 Glasses of Wine (5oz) per week Drug use: NoVITAL SIGNS (last 24hrs min/max):Temp Av.4 ?C (97.6 ?F) Min: 36.3 ?C (97.3 ?F) Max: 36.5 ?C (97.7?F)Pulse Av.4 Min: 106 Max: 135No Data RecordedCuff BP Min: 105/72 Max: 129/98Pain Score: 0/10Vital signs reviewed.BP 106/84 Pulse 115 Temp (Src) 97.3 (Axillary) Resp 19 Ht 4' 11(1.50m) Wt 152 lb 8.9 oz (69.2kg) SpO2 96% BMI 30.80 kg/(m2).Temp (24hrs), Av.4 ?C (97.6 ?F), Min:36.3 ?C (97.3 ?F), Max:36.5 ?C(97.7 ?F)NET FLUID BALANCEIntake/Output Summary (Last 24 hours) at 06/18/17 0801Last data filed at 06/18/17 0600 Gross per 24 hourIntake 1960 mlOutput 525 mlNet 1435 mlMEDICATIONSCurrent Facility-Administered Medications:diphenhydrAMINE 25 mg injection (BENADRYL) 25 mg INTRAVENOUS q 6 H PRNpantoprazole 40 mg injection (PROTONIX) 40 mg INTRAVENOUS q 12 HRoctreotide 500 mcg in D5W 100 mL (SandoSTATIN) 50 mcg/hr INTRAVENOUSCONTINUOUSalbuterol HFA 90 mcg/actuation 2 Puff (PROVENTIL HFA, VENTOLIN HFA) 2 PuffINHALATION q 4 H PRNpotassium chloride 80-120 mEq oral liquid 80-120 mEq ORAL/FEEDING TUBE PRNpotassium chloride iv piggyback 20 mEq in sterile water 100 mL 20 mEqINTRAVENOUS PRNmagnesium sulfate in water 2 g in sterile water 50 ml 2 g INTRAVENOUS PRNsodium phosphate 45 mmol in NaCl 0.9% 250 mL 45 mmol INTRAVENOUS PRNcalcium gluconate 4 g in NaCl 0.9% 250 mL 4 g INTRAVENOUS PRNLORazepam 2 mg (ATIVAN) 2 mg ORAL q 1 H PRNOrLORazepam 2 mg injection (ATIVAN) 2 mg INTRAVENOUS q 1 H PRNLORazepam 4 mg (ATIVAN) 4 mg ORAL q 1 H PRNOrLORazepam 4 mg injection (ATIVAN) 4 mg INTRAVENOUS q 1 H PRNondansetron 4 mg tab(s) (ZOFRAN) 4 mg ORAL q 6 H PRNOrondansetron (PF) 4 mg injection (ZOFRAN) 4 mg INTRAVENOUS q 6 H PRNciprofloxacin 400 mg in D5W 200 mL (CIPRO) 400 mg INTRAVENOUS q 12 HmetroNIDAZOLE 500 mg PREMIX piggyback (FLAGYL) 500 mg INTRAVENOUS q 8 HNaCl 0.9% iv infusion 100 mL/hr INTRAVENOUS CONTINUOUSthiamine 100 mg injection 100 mg OTHER TIDLines, Drains, and Airways Line Peripheral 06/17/17 Admission to Hospital Left Antecubital 20 Gauge 1 day Peripheral 06/17/17 Admission to Hospital Right Arm 22 Gauge 1 day Drain GI Feed/Drain 06/17/17 Admission to Hospital Nasogastric Right 1 dayPHYSICAL EXAM PERFORMED:Cardiovascular: Regular tachycardia. No M/G/R. PPP.Respiratory: Clear to auscultation. Decreased breath sounds RLL with somedullness to percussion RLL. On room air. No respiratory distress withsymmetric chest expansion.Abdomen: Soft, non-distended. Positive bowel sounds. TTP RUQ. Norebounding/guarding/peritoneal signs. NG to LIWS w/ brown/bloody drainage.Hepatomegaly noted.Extremities: Edema- NoNeurologic: Awake, oriented, Alert, Follows commands and Moving allextremities. PERRL. Scleral icterus.Skin: Spider angiomata to cheeks. Jaundiced skin.Respiratory/Nursing Documentation:O2 Therapy: Room Air (06/18/17 0600)HEMODYNAMIC DATA: ReviewedNUTRITION:Enteral Feeds: NoNPODATA: Diagnostic tests reviewed for today's visit, films/specimens werepersonally reviewed by me:Most recent labs and imaging results.Most recent labsMost recent imagingMost recent EKGEKG: QT/QTc 426/563LABS:Recent Labs 450 06/17/1722WBC 6.26 -- 8.18RBC 2.49* -- 2.82*HB 9.1* 9.9* 10.4*HCT 26.0* 27.1* 28.7*MCV 104.4* -- 101.8*PLT 156* -- 200GLUC 86 -- 97BUN 8 -- 11CREAT 0.71 -- 0.75NA 138 -- 137K 3.2* -- 2.7*CHLOR 104 -- 100CO2 21 -- 20*TPROT -- -- 4.5*ALB -- -- 1.6*CA 6.5* -- 7.0*ALKPHOS -- -- 181*TBILI -- -- 12.9*AST -- -- 175*ALT -- -- 78MG -- 1.7 --06/18/2017 00:30Magnesium: 1.7Phosphorus: 2.0 (L)06/18/2017 04:50Sodium: 138Potassium: 3.2 (L)Chloride: 104CO2: 21BUN: 8Creatinine: 0.71Glucose: 86Calcium: 6.5 (L)06/18/2017 04:50Lactic Acid: 2.5 (HH)PCT 0.97B12: 924Folate: 2.21Blood Culture pendingInvalid input(s): [id number]/PLANIMPRESSION:Critic al Care Documentation: The patient has the following organ/systemimpairment(s): Acute blood loss, Severe electrolyte imbalance and Severeprotein-calorie malnutritionACTIVE PROBLEM LISTUpper GI BleedJaundiceLactic AcidosisHigh Anion Gap Metabolic AcidosisTransaminitisGallbladder HydropsAcute Blood Loss AnemiaMacrocytosisProlonged Q-T Interval On EcgSepsis (Hcc)Acute CholecystitisHypokalemiaUgi BleedMMPCRITICAL CARE PLAN:1. Acute Blood Loss Anemia 2/2 Upper GI Bleed 2/2 (PUD vs Varicies vsEsophagitis)- Hb 10.4 -> 9.1; stable and slight decrease likely dilutional. Willobtain q8h Hb.- Patient on Octreotide infusion and receiving IV PPI.- Patient NPO. NG to LIWS.- NS at 100 mL/hr for IVF resuscitation.- Consult GI - patient with probable need for EGD.2. Acute Alcoholic Hepatitis- Patient jaundiced w/ scleral icterus.- Continue IV Benadryl for itching.- Transaminitis - AST 175, ALT 78, AP 181, TBili 12.9 (16 at outsidefacility)- Obtain hepatitis panel. Check PT/INR.- Will check Lipase/Amylase/TSH.3. Sepsis 2/2 Possible Acute Cholecystitis w/ Gallbladder Hydrops- Will trend lactate.- IVF resuscitation.- Patient tachycardic, but hemodynamically stable. Not on pressors.- Will monitor CBC/temperature.- Patient on Vanco, Flagyl, Rocephin.- Await blood culture results.4. Hyperbilirubinemia- As above in # 2, 35. Lactic Acidosis (High Anion Gap Metabolic Acidosis) 2/2 GI Bleed vsAlcoholic Liver Disease vs Sepsis- Lactate 9->5.1->3.8->2.5. Will trend.- AG now 13. Will monitor daily.- Continue IVF resuscitation.6. Possible Acute Cholecystitis AND Gallbladder Hydrops- CT from OSH: gallbladder wall thickening.- US RUQ: Hepatic steatosis; No cholelithiasis, thickening, orpericholecystic fluid.- Consult general surgery - appreciate recommendations. No acute surgicalintervention.- Patient on Cipro, Flagyl. Will d/c Cipro and change to Rocephin due toprolonged QTc. Will add IV Vanco for Enterococci coverage.7. Hypokalemia (3.2), Hypophosphatemia (2.0), Hypomagnesemia (1.7)- Likely 2/2 vomiting and poor oral intake.- Replete as instructed.8. Tachycardia w Prolonged QT Interval On EKG- Likely 2/2 #7.- Will replete electrolytes and continue IVF resuscitation.- Will repeat EKG and monitor QTc.- Will monitor for medications causing prolonged QTc.9. Macrocytosis 2/2 EtOH Abuse AND Folate Deficiency- Replete Folate AND Thiamine.- Encourage EtOH cessation.10. Alcohol Abuse- Encouraged and educated patient on importance of alcohol cessation.- [facility] protocol.- No current s/s of alcohol withdrawal.- Consult Social Work.11. Hypoalbuminemia (1.6)/Malnourishment 2/2 #10.- Dietary consultation.- Will trial NG clamp w/ administration of medications.12. History of Asthma- Not in any current respiratory distress. On room air. Continue tomonitor.- Decreased breath sounds + dullness to percussion to RLL - will checkCXR.13. History of Depression AND Anxiety- Stable; continue to monitor.14. DVT + GI ppx- Patient w/ active bleeding. Will use SCD for DVT ppx- Patient already receiving IV Protonix - will continue.This patient has a high probability of sudden, clinically significantdeterioration, which requires the highest level of physician preparednessto intervene urgently. I managed/supervised life or organ supportinginterventions that required frequent physician assessment. I devoted myfull attention to the direct care of this patient for the amount of timeindicated below. Time I spent with family or surrogate(s) is includedonly if the patient was incapable of providing the necessary informationor participating in medical decision making. Time devoted to teaching isnot included.Discussed with staff/patient/familyTime spent providing critical care services: 40 minutes excludingprocedures.SIGNATURE: Kaleigh De Jesus MD PATIENT NAME: Nancy LaytonDATE: June 18, 2017 : 8:01 [facility] STAFF PHYSICIAN NOTE OF PERSONAL INVOLVEMENT IN CAREI have reviewed the progress note obtained and documented by the residentand I personally participated in the camacho components. I have discussed thecase and management of the patient's care. The following comments reviseor confirm relevant camacho components of the note.IMPRESSION:ASSESSMENT/PLAN:1. Acute blood loss anemia - ICD9: 285.1, ICD10: D622. Acute cholecystitis - ICD9: 575.0, ICD10: K81.03. Gallbladder hydrops - ICD9: 575.3, ICD10: K82.14. High anion gap metabolic acidosis - ICD9: 276.2, ICD10: E87.25. Hypokalemia - ICD9: 276.8, ICD10: E87.66. Jaundice - ICD9: 782.4, ICD10: R177. Lactic acidosis - ICD9: 276.2, ICD10: E87.28. Macrocytosis - ICD9: 289.89, ICD10: D75.899. Prolonged Q-T interval on ECG - ICD9: 794.31, ICD10: R94.3110. Sepsis, due to unspecified organism (HCC) - ICD9: 038.9, 995.91,ICD10: A41.911. Transaminitis - ICD9: 790.4, ICD10: R74.012. Upper GI bleed - ICD9: 578.9, ICD10: K92.213. Hematemesis - ICD9: 578.0, ICD10: K92.014. Folic acid yeelwqofgs68. Asthma by . EtOH usePLAN:Hemodynamically stableChange Cipro to Ceftriaxone, add Vanco to cover possible EnterococcusAwait GI evalCheck serum amylase, lipaseFollow Hb/HctCheck TSHstart folic acid down NGsupplement PO4CXR follow upPatient/Family Updated: Patient, Nancy Layton, patient's sister updatedregarding the goals of care, medical plan for the day, consultantrecommendations, medical disposition and current medicalcondition/prognosis as and if clinically indicated. All questions andconcerns were answered and addressed at this juncture.They were notified on June 18, 2017 at 10:15. The duration of theconversation was 10 minutes.This patient has a high probability of sudden, clinically significantdeterioration, which requires the highest level of physician preparednessto intervene urgently. I managed/supervised life or organ supportinginterventions that required frequent physician assessment. I devoted myfull attention to the direct care of this patient for the amount of timeindicated below. Time I spent with family or surrogate(s) is includedonly if the patient was incapable of providing the necessary informationor participating in medical decision making. Time devoted to teaching andto any procedures I billed separately is not included.Critical Care Documentation: The patient has the following organ/systemimpairment(s): Acute blood loss, acute UGI bleed, cholecystitis,hyperbilirubinemiaTime spent providing critical care services: 40 minutes.SIGNATURE: DAVIS MoralezPAGER:[phone] of SERVICE: 06/18/17TIME of SERVICE: 1:12 PM PROGRESS HNO ID: [id number]: Liza (Res) Normal 06-18-2017 [facility] Type: ResidentType: Progress NotesFiled: ([id number]) 06/18/2017 7:04 AMNote Text: -----Attestation signed by Serg Silva at 06/18/2017 4:15 PMAttending NoteI evaluated the patient and personally participated in the camacho components. Iagree with the resident's findings and plan as documented and have discussedthe case and management of the patient's care with the resident.42 year old female admitted with upper GI bleed. Evaluated on AM rounds. Noneed for surgical intervention. Gallbladder unlikely etiology for abdominalpain. Gastroenterology performed upper endoscopy noting gastric erosions andesophagitis with exudate.Agree with management.Signature: Serg Silva, MDDate: 06/18/2017Time: 4:03 PM --Emergency General Surgery Progress NoteSERVICE DATE: 06/18/2017SUBJECTIVE:No overnight events. NPO. +F. BM yesterday. Pain yesterday was on leftside of abdomen, now has moved to right side.Tolerating diet DIET NPOOBJECTIVE:Vitals:Temp (24hrs), Av.4 ?C (97.6 ?F), Min:36.3 ?C (97.3 ?F), Max:36.5 ?C(97.7 ?F)BP 106/84 Pulse 115 Temp 36.3 ?C (97.3 ?F) (Axillary) Resp 19 Ht149.9 cm (4' 11) Wt 69.2 kg (152 lb 8.9 oz) SpO2 96% BMI 30.81kg/m2O2 [facility] 06[facility]17/176[address] - 06/18/17 0659 06/18/17 07 - 06/19/17 0659Shift 0952-4703 7303-4605 9465-1439 24 Hour Total 4037-1218 [id number] 24 Hour TotalINTAKE IV 100 1860 1960 NS 0.9% 100 1500 1600 Cipro IV 200 200 Octreotide IV 60 60 Flagyl IV 100 100 Shift Total 100 1860 1960OUTPUT Urine 150 375 525 Void (ml) 150 375 525 Shift Total 150 375 525Weight (kg) 66.6 69.2 69.2 69.2 69.2 69.2 69.2MEDICATIONSCurrent Facility-Administered Medications:diphenhydrAMINE 25 mg injection (BENADRYL) 25 mg INTRAVENOUS q 6 H PRNpantoprazole 40 mg injection (PROTONIX) 40 mg INTRAVENOUS q 12 HRoctreotide 500 mcg in D5W 100 mL (SandoSTATIN) 50 mcg/hr INTRAVENOUSCONTINUOUSalbuterol HFA 90 mcg/actuation 2 Puff (PROVENTIL HFA, VENTOLIN HFA) 2 PuffINHALATION q 4 H PRNpotassium chloride 80-120 mEq oral liquid 80-120 mEq ORAL/FEEDING TUBE PRNpotassium chloride iv piggyback 20 mEq in sterile water 100 mL 20 mEqINTRAVENOUS PRNmagnesium sulfate in water 2 g in sterile water 50 ml 2 g INTRAVENOUS PRNsodium phosphate 45 mmol in NaCl 0.9% 250 mL 45 mmol INTRAVENOUS PRNcalcium gluconate 4 g in NaCl 0.9% 250 mL 4 g INTRAVENOUS PRNLORazepam 2 mg (ATIVAN) 2 mg ORAL q 1 H PRNOrLORazepam 2 mg injection (ATIVAN) 2 mg INTRAVENOUS q 1 H PRNLORazepam 4 mg (ATIVAN) 4 mg ORAL q 1 H PRNOrLORazepam 4 mg injection (ATIVAN) 4 mg INTRAVENOUS q 1 H PRNondansetron 4 mg tab(s) (ZOFRAN) 4 mg ORAL q 6 H PRNOrondansetron (PF) 4 mg injection (ZOFRAN) 4 mg INTRAVENOUS q 6 H PRNciprofloxacin 400 mg in D5W 200 mL (CIPRO) 400 mg INTRAVENOUS q 12 HmetroNIDAZOLE 500 mg PREMIX piggyback (FLAGYL) 500 mg INTRAVENOUS q 8 HNaCl 0.9% iv infusion 100 mL/hr INTRAVENOUS CONTINUOUSthiamine 100 mg injection 100 mg OTHER TIDLabs:Recent Labs 06/18/1700NA 138 -- 137K 3.2* -- 2.7*CHLOR 104 -- 100CO2 21 -- 20*BUN 8 -- 11CREAT 0.71 -- 0.75GLUC 86 -- 97ANION 16 -- 20*CA 6.5* -- 7.0*MG -- 1.7 --P -- 2.0* --ALB -- -- 1.6*AST -- -- 175*ALT -- -- 78ALKPHOS -- -- 181*TBILI -- -- 12.9*WBC 6.26 -- 8.18HB 9.1* 9.9* 10.4*HCT 26.0* 27.1* 28.7*PLT 156* -- 200LACT 2.5* 3.8* 5.1*Exam:GENERAL: No distressNEURO: FWLUOl1JJGPM: normocephalic, atraumaticLUNGS: Unlabored breathingCARDIAC: TachycardicABDOMEN: Soft, non-distended, ttp RUQEXTREMITIES: No edemaSKIN: JaundicedASSESSMENT AND PLAN:Active Hospital Problems Diagnosis Date Noted- Upper GI bleed 06/17/2017- Jaundice 06/17/2017- Lactic acidosis 06/17/2017- High anion gap metabolic acidosis 06/17/2017- Transaminitis 06/17/2017- Gallbladder hydrops 06/17/2017- Acute blood loss anemia 06/17/2017- Macrocytosis 06/17/2017- Prolonged Q-T interval on ECG 06/17/2017- Sepsis (HCC) 06/17/2017- Acute cholecystitis 06/17/2017- Hypokalemia 06/17/2017- UGI bleed 06/17/201742 year old female with alcoholic hepatitis, hyperbilirubinemia, UGIB- US wnl - no stones, no thickening, no pericholecystic fluid- No acute surgical intervention- Care per MICU; await GI consultAbigail MD BrettGeneral Surgery Chief ResidentDebanner estrella medical center 2016 6:57 [facility] #: Pager: [phone] [facility] CASE MGT HNO ID: [id number]: Farzaneh (Rn) Price queen 06-18-2017 [facility] NICOLLE Evanservice: Care Medical ManagementAuthor Type: Registered Center NurseType: Care Mgt Initial ([id number]) AssessmentFiled: 06/18/2017 3:12 PMNote Text:CARE MANAGEMENT: ASSESSMENT AND DISCHARGE PLANSERVICE DATE: 06/18/2017SERVICE TIME: 1455PRIMARY CARE PHYSICIAN:SERGIO [place]: [phone] STATUS: InpatientPOTENTIAL DISCHARGE PLANSHomePatient/Park Landscape Architect Stated Goals:Health Insurance: Blue Card PPOLiving Arrangement: HomeLives With: FatherFinancial Resources: Employed: ...Primary Contact:Extended Emergency Contact InformationPrimary Emergency Contact: Olivia Heller Ibosibex: FatherSecondary Emergency Contact: Toro Apodaca Qazuhpzw: MotherSupportive: YesOther Important Patient Contacts: NoneCAREGIVER ASSESSMENT:Caregiver is ready, willing and able to meet the patient's needs asrecommended by the inter-professional team? YesPatient's transition needs and plan for meeting these needs:Does the patient have an acute stroke diagnosis, or has the patient had astroke during this admission? NoADVANCE DIRECTIVES:Does Patient Have Advance Directives? SW c/s for HCPOADoes Patient Have Concerns About Advance Directives? NoPRIOR TO ADMISSION:Baseline Mental Status: Alert AND Oriented, Person, Place , Time andSituationFunctional Status: IndependentDoes Patient Currently Receive Any Community Services or Home Care? NoneEquipment Prior to Admission: NoneHEALTH:Health Issues Impacting Discharge Plan: NoneHealth Literacy Issues: NoPSYCHOSOCIAL:Is the Patient Psychosocially Complex? NoFamily/Patient Understanding of Illness/Diagnosis:Medication Adherence:Do you forget to take your medications? I do not forget to take mymedicationHave you ever stopped taking medications because you felt worse? None ofthe timeHave you ever taken less of your medication than what was prescribed byyour doctor? None of the timeIn the past 3 months, have you had issues obtaining one or more of yourmedications? None of the timeAre you interested in bedside delivery of your medications? NoFood Concerns:In the Last Month, Have You had Trouble Getting Food? No trouble gettingfoodDuring the Last Month, Have You Worried Whether Your Food Would Run OutBefore You Had Enough Money to Buy More? NoPsychosocial Needs: NoneUTILIZATION:Last Admission Date: noneIs this Within the Past 30 days? NoHas the Patient Been in a Correction Facility in the Past 30 days? NoFREEDOM OF CHOICE EXPLAINED:N/LINDA COMMUNICATION:NAChart reviewed. Pt IND w/ ADLS. Lives w/ father. +RX cov, No DME. Pt livesin one story home. PT recommends home. Plan to return to [place] at [place]. Noneeds noted. CM to follow.SIGNATURE: Farzaneh Evans RN PATIENT NAME: Nancy LaytonDATE: June 18, 2017 : 2:55 PM PAGER/CONTACT #: basic panel on 2016 Creatinine 0.71 0.51-0.95 mg/dL Normal 06-18-[address] [facility] ([id number]) Comment: Performed By: #### P14 ####A [facility] [place], [place] [address] Anion gap 16 8-16 mmol/L Normal 06-18-2017 [facility] ([id number]) Comment: Performed By: #### P14 ####A [address] [address] Calcium 6.5 8.5-10.1 mg/dL Low 06-18-2017 [facility] ([id number]) Comment: Performed By: #### P14 ####A [address] [address] CO2 21 21-32 mEq/L Normal 06-18-2017 [facility] ([id number]) Comment: Performed By: #### P14 ####A [place] [address] Glucose mass conc 86 70-99 mg/dL Normal 06-18-[address] [facility] ([id number]) Comment: Performed By: #### P14 ####A [place] [address] Urea nitrogen 8 7-18 mg/dL Normal 06-18-2017 [facility] ([id number]) Comment: Performed By: #### P14 ####A [place] [address] Chloride 104 98-107 mEq/L Normal 06-18-2017 [facility] ([id number]) Comment: Performed By: #### P14 ####A [address] [address] Potassium molar conc 3.2 3.5-5.1 mEq/L Low 7 [facility] ([id number]) Comment: Performed By: #### P14 ####A [place] [address] Sodium 138 136-145 mEq/L Normal 06-18-2017 [facility] ([id number]) Comment: Performed By: #### P14 ####A [place] [address] activated ptt on 01-07-04 aPTT 24.5 22.0-34.0 sec Normal 06-18-2017 [facility] ([id number]) Comment: Performed By: #### P14 ####A [facility] [place], [place] [address] hosp on 2017-06-17 HOSP Patient:Nancy Layton EMRN: He ight:4' 11(1.499 m)Weight:152 lb 8.9 oz (69.2 kg)Outpatient Normal 06-17-2017 [facility] Medications as of 06/18/17:LA OAIR HFA 90 mcg/actuation inhalerbuPROPion SR (ZYBAN SR; General WELLBUTRIN SR) 150 mg 12 hr tabletclonazePAM (KLONOPIN) 0.5 mg tabletDiltiazem HCl 420 mg 24 Medical hr capsuleFLUoxetine HCl (LA OZAC) 40 mg capsulemontelukast (SINGULAIR) 10 mg tabletSPRINTEC Center 0.25-35 mg-mcg per tabletpre dniSONE (DELTASONE) 20 mg tabletLactobac. rhamnosus GG-inulin (96929) (CULTURELLE PROBIOTICS) 10 b illion cell -200 mgcpSPAdmission/Clinic Administered Medications as of 06/18/17:diphenhydrAMIN E 25 mg injection (BENADRYL)potassium-sodium phosphates 1 Packet (NEUTRA-PHOS,PHOS-NAK)magnes ium sulfate in water 2 g in sterile water 50 mlfolic acid 1 mg tab(s)cefTRIAXone iv piggyba ck 2 g in dextrose (iso-osmotic) 50 mL (ROCEPHIN)vancomycin 1.25 g in D5W 250 mL (VANCOCIN)pant oprazole 40 mg injection (PROTONIX)pantoprazole 40 mg injection (PROTONIX)octreotide 500 mcg in D5W 100 mL (SandoSTATIN)albuterol HFA 90 mcg/actuation 2 Puff (PROVENTIL HFA, VENTOLIN HFA )potassium chloride 80-120 mEq oral liquidpotassium chloride iv piggyback 20 mEq in sterile water 100 mLmagnesium sulfate in water 2 g in sterile water 50 mlsodium phosphate 45 mmol i n NaCl 0.9% 250 mLcalcium gluconate 4 g in NaCl 0.9% 250 mLLORazepam 2 mg (ATIVAN)JESSENIA azepam 2 mg injection (ATIVAN)LORazepam 4 mg (ATIVAN)LORazepam 4 mg injection (ATIVAN)ondanse leslie 4 mg tab(s) (ZOFRAN)ondansetron (PF) 4 mg injection (ZOFRAN)metroNIDAZOLE 500 mg PREMIX piggyback (FLAGYL)NaCl 0.9% iv infusionthiamine 100 mg injectionProblem List:Upper GI bleed [K92.2]Jaundice [R17]Lactic acidosis [E87.2]High anion gap metabolic acidosis [E87. 2]Transaminitis [R74.0]Gallbladder hydrops [K82.1]Acute blood loss anemia [D62]Macrocytosis [D7 5.89]Prolonged Q-T interval on ECG [R94.31]Sepsis (HCC) [A41.9]Acute cholecystitis [ K81.0]Hypokalemia [E87.6]UGI bleed [K92.2]Hematemesis [K92.0]Allergies:Amoxicillin Date Verified: 06/18/17Lab ValuesLab Value Units Date High LowPOTA* 3.2 mEq/L 06/18/2017 5.1 3.5 ROSARIO* 26.0 % 06/18/2017 44.9 34.1Progress Notes ():Yousuf Saul MD 06/17/2017 10:58 PM SignedMICU ADMISSION HISTORY AND PHYSICAL NOTECCHS STAFF PHYSICIAN NOTE OF PERSONAL I NVOLVEMENT IN CAREI have reviewed the HANDP note obtained and documented by the resident sal kessler Ipersonally participated in the camacho components. I have discussed the case andmanage ment of the patient's care. The following comments revise or confirmrelevant camacho componen ts of the note and have added additional documentation asneeded.History:Ms Layton is a 42 year old white woman with PMH significant for asthma, GERD,HTN, anxiety depression , spinia bifida occulta, and alcohol abuse comes in forcomplaints of nausea, abdominal pain, j aundice, and bloody emesis. Jaundicestarted a day ago and the rest today. She has had 10 bouts of emesis with darkred blood. She has had epigastric, constant abdominal pain and now getti ngbetter. ROS significant for decreased appetite and weight loss. No prior GIbleed issues. Res t ROS is negative.Last alcohol drink was this afternoon. Used to drink 2 bottles of wine but nowhas cut down. Going through a divorce and so stressful.Exam:[id number], 134/mi n, 20, 36.5, 100% on RANADA, O times 4, no FNDAppears dryNG in place - some bloody discharg e notedCTA BTachy but regularSoft but has non- specific tenderness all over, no free fluid, BS presentVisibly jaundicedNo pedal edemaData:WCC 8.8, Hb 10.4, Plt 200 (10:10 pm)Labs at 1:10 P M (OSH): Hgb was 13.7. INR was 1.1 and PT was 13.9.BMP showed: Na- 134, K- 2.6, Cl- 93, CO2- 20 , AG-21 - corrected AG of 25,Cr-1.0, BUN-11 Total Bili: 16.4, Direct Bili: 12.89, AST- 212 , ALT- 96, AP- 274,Total Protein: 5.8, Alb- 2.3, Lipase- 129.Lactic Acid- 7.5 --> 5.1 Alcohol 72CXR - normalCT abdo and pelvis personally reviewed and shows GB hydrops and thicken ed GBwall along with hepatomegaly.IMPRESSION:Ms Layton is a 42 year old white woman with PMH sig nificant for asthma, GERD,HTN, anxiety depression, spinia bifida occulta, and alcohol abuse c omes in forcomplaints of nausea, abdominal pain, jaundice, and bloody emesis.1. Acute blood loss anemia from GI bleed2. Acute UGIB, likely PUD but can't exclude EV related bleed3. S epsis from acute cholecystitis with hydrops, needs urgent evaluation4. Hyperbilirubine jasvir secondary to # 3 and alcoholic liver disease5. Alcoholic hepatitis6. Sinus tachy7. Hy povolemia8. Severe hypokalemia with prolonged QTc9. Lactic acidosis from GI bleed and l iver swnurhn61. Alcohol abuse11. Anxiety and depression with a lot of stress kqcfix60. History of . MMPPLAN:- ICU monitoring- monitor HH Q8 times 3- transfuse as needed- IV flui ds - 30 cc/ kg- PPI BID- start octreotide as well- GI to see- needs Abx for acute cholecys titis - cipro and flagyl- aggressive replacement of K; check mag- check EKG in the am after co rrection of hypokalemia- BCx and PCT- urgent surgical evaluation- likely needs IR guided percu taneous cholecystostomy tube drainage- monitor lactate- SCDs- no lovenox for now- NPO and IV fluidsThis patient has a high probability of sudden, clinically significantdeterioration, wh ich requires the highest level of physician preparedness tointervene urgently. I maria victoria ged/supervised life or organ supporting interventionsthat required frequent physician assessmen t. I devoted my full attention to thedirect care of this patient for the amount of time indic ated below. Time Ispent with family or surrogate(s) is included only if the patient was inca pableof providing the necessary information or participating in medical decisionmaking. Time devoted to teaching and to any procedures I billed separately isnot included.PATIENT CHECK LISTAre restraints necessary: NoDeep vein thrombosis prophylaxis administered? No. Contraindi cated.Stress ulcer prophylaxis? YesFoley catheter necessary? NoIs central line essential? NoPa tient/Family Updated: dw mom at the bedside and updated her about all of theabovePROGNOSIS: Fa irCode status: FullDiscussed with Respiratory therapist, Registered Nurse, Pharmacist and Residentsand performed multidisciplinary rounds.Critical Care Documentation: The patient h as the following organ/systemimpairment(s):Acute blood loss, Severe electrolyte imbalance , Severe metabolic disorder andsepsis from acute cholecystitisTime spent providing critical car e services: 40 minutes.SIGNATURE: NATHAN RaymundoESPIRATORY INSTITUTEPAGER:1030 ==Resident note: Admission D ate: 06/17/2017Time: 9:18 PMAGE: 42 year oldLOS: 0 daysReason for ICU admission: Acute blood l ossThe Medical Centeref complaint: Abdominal pain, nausea, bloody emesisHistory of present illness: Patient is a 42 yo white F w/ PMHx significant forasthma controlled with ProAir and Ventolin inhalers , acid reflux on Prilosec,HTN not currently on medications, Anxiety/Depression not curre ntly onmedications, and spina bifida occulta as well as one childhood seizure. Patientgo peres has history of alcohol abuse for the past 2 years secondary to divorce andstress. She drank 2 bottles of alcohol daily for 2 years and quit 2 months ago.She now only drinks an occasiona l glass when out with friends.Patient is presenting with chief complaint of abdominal pain, nausea, jaundice,and bloody emesis. Patient states that she has had decreased appetite for t hepast few weeks, accompanied by some weight loss, and has been more tiredrecently. She says that she noticed yesterday that her eyes and skin beganturning yellow. Today she was out at lunch with a friend and on the car ridehome began having abdominal pain and nausea, a nd then began having bloodyemesis. She has vomited >10 times today. She states that the e mesis is dark redin color. She has not vomited since she was in the [facility]. She does not feelnauseous now and only has some residual upper abdominal pain from her multipleepisodes of emesis. She denies fever/chills/dizziness/blurryvision/SOB/CP/STACK/diarrhea/constipation/dysuria.Mary ent states that she had bloodwork on which showed elevated liverenzymes but she has no history of liver problems. She also sta corona that she hasbeen taking 4 tablets of Tylenol daily for the past week due to muscle pain fromher new job which requires many hours of standing.ER/ hospital course: Patient preeti young was in the [facility] and [facility]. Patient received Zosyn, Flagyl,Levaquin, Phenergan, Protonix 80mg IV, and 1L NS while there.Review of Systems ROS: GENERAL: Positive for significant weight loss, anorexiaHEENT: No changes in hearing or vision, no nose bleeds or other nasal problemsand Negative for frequent or sig nificant headachesNECK: Negative for lumps, goiter, pain and significant neck swellingRES PIRATORY: Negative for cough, wheezing and shortness of breathCARDIOVASCULAR: Negati ve for chest pain, leg swelling and palpitationsGI: Positive for abdominal discomfort and dio n, anorexia over past 3 weeks,heart burn for past 10 years, nausea for 1 day, vomiting blood for 1 dayGU: Negative for dysuria, frequency and incontinenceMUSCULOSKELETAL: Negative for joint pain or swelling, back pain, and musclepain.SKIN: Positive fo r changes in pigmentation: jaundicePSYCH: Positive for marital problems: Patient is current ly going through adivorceENDOCRINE: Negative for cold or heat intolerance, polyuria, polyd ipsia andgoiter.NEURO: NegativePAST MEDICAL HISTORYDiagnosis Date- Alcohol abuse- Asthma- Depre ssion- Hypertension- Seizure in childhood (HCC)- Spina bifida occultaNo past surgical hist ory on file.No family history on file.Social History Marital status: Spouse name : Years of education: Number of children:Social History Main Topics Smoking status: Never Smoker Smokeless status: Never UsedNo current facility-administered medica tions on file prior to encounter.Current Outpatient Prescriptions on File Prior to Encounter:P ROAIR HFA 90 mcg/actuation inhalerbuPROPion SR (ZYBAN SR; WELLBUTRIN SR) 150 mg 12 hr tabletclonazePAM (KLONOPIN) 0.5 mg tabletDiltiazem HCl 420 mg 24 hr capsuleFLUoxetine HCl (LA OZAC) 40 mg capsulemontelukast (SINGULAIR) 10 mg tabletSPRINTEC 0.25-35 mg-mcg per tabletpre dniSONE (DELTASONE) 20 mg tabletLactobac. rhamnosus GG-inulin (CULTURELLE PROBIOTICS) 10 b illion cell -200 mgcpSP Take 1 capsule by mouth twice daily as needed.ALLERGIESAllergen Clemencia ctions- Amoxicillin HivesPHYSICAL EXAMVITAL SIGNS (last 24hrs min/max):Temp- 36.5 CPulse- 134Resp- 20BP- 109/73Sp02- 100% on RA24 hour Intake AND Output:Intake/Output Summary (Last 24 hours) at 06/17/17 2210Last data filed at 06/17/17 2100 Gross per 24 hourIntake 0 ml Output 150 mlNet -150 mlCNS: Alert and oriented Awake, oriented, Alert and Follows commandsGC S: Eyes: 4. SpontaneousVerbal: 5: OrientedMotor: 6: Obeys Motor commandsTotal: 15Oral Mucosa : Dry mucous membranesFeeding Tube: NG tube in placeEyes: PERRLA and Sclera yellowNeck: Unrem arkable; No adenopathy or JVDCardiovascular: Regular tachycardiaRespiratory: Suad r to auscultationAbdomen: Tender to palpation in all 4 quadrants, hepatomegaly, abdominal stri aepresent, voluntary guarding, no rebound, no rigidityExtremities: Edema- NoPeripheral Pulses- Present all extremitiesCapillary Refill- less than 3 secondsSkin: Abnormalities- Yes; skin is yellow/jaundicedINDWELLING CATHETERS:Central Line: NoneArterial Line: NoneFoley Catheter: No nePeripheral Line: 2Data:Labs at 1:10 PM: Hgb was 13.7. INR was 1.1 and PT was 13.9. BMP danielle wed: Na- 134,K- 2.6, Cl- 93, CO2- 20, AG-25, Cr- 1.0, BUN-11 Total Bili: 16.4, Direct Bili:12.8 9, AST- 212, ALT- 96, AP- 274, Total Protein: 5.8, Alb- 2.3, Lipase- 129.Lactic Acid- 7.5 .7:00 PM: Lactic Acid- 5.1Urinalysis at 3:51 PM: Protein- 15, Ketones- 50, Urine occult bl ood- 25,Nitrite- Negative, Bili- 6, Urobilinogen- 8, LE- 25, Epithelial cells- 10-25,Rare yeastUTox: Alcohol level- 72Gastric occult blood: PositiveCT abdomen w/ IV contrast: Hepa tomegaly, hepatic steatosis, distendedgallbladder w/ enhancement of gallbladder wall suggesti ve of possible hydropsand cholecystitisKUB: NG tube at gastric fundusCXR: No acute abnormal ityEKG: Sinus tachycardia, QTc- 561ASSESSMENT:1. Upper GI bleed2. Jaundice, transaminitis, dis tended gallbladder w/ possible hydrops andcholecystitis3. Hepatomegaly and hepatic maribel atosis likely 2/2 alcohol abuse4. Questionable alcoholic hepatitis5. High AG Metaboli c Acidosis likely 2/2 lactic acidosis6. Sinus tachycardia with prolonged QT interval7. Hypo kalemiaPLAN:1. NPO2. IVF3. IV PPI4. GI c/s, likely need for endoscopy5. Trend lactic aci d and H/H6. Repeat EKG7. Replete electrolytes8. Stat RUQ US9. Continue levaquin and Flagyl for possible cholecystitis (Patient is allergicto penicillin)10. Consider surgery consult for possible ieddybieahfzixp67. [facility] Discriminant Function Score: 20, no need for steroids at this time12. [facility] protocolCode status: FullFamily/ NOK details:Patient/sister/mothe r were all in the room and plan discussed with them.PATIENT CHECKLIST? Are restraints ne cessary: No? VTE prophylaxis administered? No. Contraindicated.? Stress ulcer prophylaxis? Ye sSIGNATURE: Laisha Quinones MDDATE: June 17, 2017TIME: 9:18 PMPAGER/CONTACT #: [id number] Previous Bernabe Tovar MD 06/18/2017 2:16 AM Cosign NeededCONSULT: EGS SERVICESERVICE DATE: 06/18/2017SERVICE TIME: 2:05 AMREASON FOR CONSULT: Zara dder hydrops?REQUESTING PHYSICIAN: Dr. Cleveland [facility] SICIAN: VICTOR MANUEL BurkUBJECTIVEMsDevika Layton is a 42 year old female who presents for rosario temesis and jaundice.She has been using alcohol heavily recently and starting to have jaundic e andvomiting blood. 10 bouts of dark emesis with epigastric pain. Her pain hasimproved slightl y since her admission to the hospital. She is having normalbowel movements. She has been itch ing on her chest and arms for the past fewdays.CT A/P - performed at another hospital, but GB appears distended.RUQ US - No cholelithiasis, no GB thickening, no pericholecystic fluid, (-)so nographic Mruphy's, CBD 2 mm.FUNCTIONAL STATUS: IndependentPAST MEDICAL HISTORYDiagnosis Yoni e- Alcohol abuse- Asthma- Depression- Hypertension- Seizure in childhood (HCC)- Spina bifid a occultaNo past surgical history on file.No family history on file.Social HistorySubstance Use Topics- Smoking status: Never Smoker- Smokeless tobacco: Never Used- Alcohol use 4.5 oz/week 3 Glasses of Wine (5oz) per weekPrescriptions Prior to Admission:PROAIR HFA 90 mcg/ actuation inhaler Disp: Rfl:buPROPion SR (ZYBAN SR; WELLBUTRIN SR) 150 mg 12 hr tablet Disp: Rf l:clonazePAM (KLONOPIN) 0.5 mg tablet Disp: Rfl:Diltiazem HCl 420 mg 24 hr capsule Disp: Rfl:F LUoxetine HCl (PROZAC) 40 mg capsule Disp: Rfl:montelukast (SINGULAIR) 10 mg tablet Dis p: Rfl:SPRINTEC 0.25-35 mg-mcg per tablet Disp: Rfl:predniSONE (DELTASONE) 20 mg tablet Dis p: Rfl:Lactobac. rhamnosus GG-inulin (CULTURELLE PROBIOTICS) 10 billion cell -200 mgcpSP Elroy e 1 capsule by mouth twice daily as needed. Disp: 30 capsule Rfl: 0Current hospital medication s:pantoprazole 40 mg injection (PROTONIX) 40 mg INTRAVENOUS q 12 HR[START ON 06/20/2017] panto prazole 40 mg injection (PROTONIX) 40 mg INTRAVENOUSDAILY (6 AM)octreotide 500 mcg in D5W 100 mL (SandoSTATIN) 50 mcg/hr INTRAVENOUS CONTINUOUSalbuterol HFA 90 mcg/actuation 2 Puff (PROVENTIL HFA, VENTOLIN HFA) 2 PuffINHALATION q 4 H PRNpotassium chloride 80-120 mEq oral liq uid 80-120 mEq ORAL/FEEDING TUBE PRNpotassium chloride iv piggyback 20 mEq in sterile water 100 mL 20 mEqINTRAVENOUS PRNmagnesium sulfate in water 2 g in sterile water 50 ml 2 g I NTRAVENOUS PRNsodium phosphate 45 mmol in NaCl 0.9% 250 mL 45 mmol INTRAVENOUS PRNcalcium gluco oscar 4 g in NaCl 0.9% 250 mL 4 g INTRAVENOUS PRNLORazepam 2 mg (ATIVAN) 2 mg ORAL q 1 H PRN LORazepam 2 mg injection (ATIVAN) 2 mg INTRAVENOUS q 1 H PRNLORazepam 4 mg (ATIVAN) 4 mg ORAL q 1 H PRNLORazepam 4 mg injection (ATIVAN) 4 mg INTRAVENOUS q 1 H PRNondanse leslie 4 mg tab(s) (ZOFRAN) 4 mg ORAL q 6 H PRNondansetron (PF) 4 mg injection (ZOFRAN) 4 mg INTR AVENOUS q 6 H PRNciprofloxacin 400 mg in D5W 200 mL (CIPRO) 400 mg INTRAVENOUS q 12 HmetroNIDAZ OLE 500 mg PREMIX piggyback (FLAGYL) 500 mg INTRAVENOUS q 8 HNaCl 0.9% iv infusion 100 mL/hr I NTRAVENOUS CONTINUOUSthiamine 100 mg injection 100 mg OTHER TIDAllergies As of Date: 09/2016Allergen Noted ReactionAMOXICILLIN 04/20/2016 HivesFully Assessed 06/17/2017COMPLETE REVIEW OF SYSTEMS:10 pt ROS performed and negative except as in HPIOBJECTIVEPHYSICAL EXAM:Ge n - laying in bed, NAD, [id number] - NG in place with dark bloody drainage, Scleral ict erus.CV - HR and BP WNL on monitors.Resp - unlabored.Abd - soft, non distended, minimally ten vanda in epigastric and LUQ.Ext - ROJAS. No edema.Patient Vitals for the past 24 hrs: BP Temp Tem p src Pulse Resp SpO2 Height Gmxojt39/04/17 0200 105/72 - - 117 19 95 % - -06/18/17 0000 125/93 36.5 ?C (97.7 ?F) Axillary (!) 129 18 96 % - - 06/17/17 2300 112/95 - - (!) 135 23 99 % - -06/17/17 2200 129/98 - - (!) 135 25 91 % - - 06/17/17 2115 109/73 36.5 ?C (97.7 ?F) Axillary ( !) 134 20 100 % 149.9 cm (4'11) 66.6 kg (146 lb 13.2 oz)Body mass index is 29.66 kg/(m2).DATA: Diagnostic tests reviewed for today's visit:CBC, Coags, BMP, Mg, PhosRecent Labs 06/17/1722WBC -- 8.18HB 9.9* 10.4*HCT 27.1* 28.7*PLT -- 200NA -- 137K -- 2.7*CHLOR -- 100C O2 -- 20*BUN -- 11CREAT -- 0.75GLUC -- 97CA -- 7.0*MG 1.7 --P 2.0* --Liver Function, Amylase, A ND LipaseRecent Labs 06/17/1722TPROT -- 4.5*ALB -- 1.6*ALT -- 78AST -- 175*ALKPHOS -- 181*TBILI -- 12.9*LACT 3. 8* 5.1*IMPRESSION/RECOMMENDATIO NSPrincipal Problem: Upper GI bleed POA: Yes Assessment AND Plan:Active Problems: Jaundi ce POA: Yes Assessment AND Plan: Lactic acidosis POA: Yes Assessment AND Plan: High an ion gap metabolic acidosis POA: Yes Assessment AND Plan: Transaminitis POA: Yes Asses sment AND Plan: Gallbladder hydrops POA: Yes Assessment AND Plan: Acute blood loss anemia POA: Yes Assessment AND Plan: Macrocytosis POA: Yes Assessment AND Plan: Prolonged Q-T interval on ECG POA: Yes Assessment AND Plan: Sepsis (HCC) POA: Yes Assessment AND Plan: Acute c holecystitis POA: Yes Assessment AND Plan: Hypokalemia POA: Yes Assessment AND Plan: UGI ble ed POA: Yes Assessment AND Plan:42 YOF with acute alcoholic hepatitis and UGIB. Surgery consulted for hydropicappearing gallbladder on CT.- US with normal appearing gallbladder and pa robert has no RUQ abdominal pain ortenderness.- The LFT elevations and Tbili elevation are most likely related to her acutehepatitis.- GI consulted for hepatitis and assistance with UGIB wor k up.- There is no acute surgical intervention needed for her gallbladder.[facility] Dr. Camargo.SIGNATURE: Yg Tovar MD PATIENT NAME: Nancy Mcwilliams ATE: June 18, 2017 : 2:05 AM PAGER: [phone] West MD 06/18/2017 7:0 4 AM Cosign NeededEmergency General Surgery Progress NoteSERVICE DATE: 06/18/2017SUBJECTIVE:No overnight events. NPO. +F. BM yesterday. Pain yesterday was on left side ofabdomen, now has moved to right side.Tolerating diet DIET NPOOBJECTIVE:Vitals:Temp (24hrs), Av.4 ?C (97.6 ? F), Min:36.3 ?C (97.3 ?F), Max:36.5 ?C (97.7?F)BP 106/84 Pulse 115 Temp 36.3 ?C (97.3 ?F) (Axillary) Resp 19 Ht 149.9cm (4' 11) Wt 69.2 kg (152 lb 8.9 oz) SpO2 96% BMI 30. 81 kg/m2O2 Therapy: Room AirIANDO:Date 06/17/17699 - 06/18/17 0659 06/18/17699 - 7 0659Shift 1958-5728 7145-4214 1106-1942 24 Hour Total 3603-5578 8056-1060 2300-950696 Hour T otalINTAKE IV 100 1860 1960 NS 0.9% 100 1500 1600 Cipro IV 200 200 Octreotide IV 60 60 Flagyl I V 100 100 Shift Total 100 1860 1960OUTPUT Urine 150 375 525 Void (ml) 150 375 525 Shift Total 150 375 525Weight (kg) 66.6 69.2 69.2 69.2 69.2 69.2 69.2MEDICATIONSCurrent Facil ity-Administered Medications:diphenhydrAMINE 25 mg injection (BENADRYL) 25 mg INTRAVENOUS q 6 H PRNpantoprazole 40 mg injection (PROTONIX) 40 mg INTRAVENOUS q 12 HRoctreotid e 500 mcg in D5W 100 mL (SandoSTATIN) 50 mcg/hr INTRAVENOUS CONTINUOUSalbuterol HFA 90 m cg/actuation 2 Puff (PROVENTIL HFA, VENTOLIN HFA) 2 PuffINHALATION q 4 H PRNpotassium chloride 80-120 mEq oral liquid 80-120 mEq ORAL/FEEDING TUBE PRNpotassium chloride iv piggyback 20 mEq in sterile water 100 mL 20 mEqINTRAVENOUS PRNmagnesium sulfate in water 2 g in sterile water 5 0 ml 2 g INTRAVENOUS PRNsodium phosphate 45 mmol in NaCl 0.9% 250 mL 45 mmol INTRAVENOUS PRNca lcium gluconate 4 g in NaCl 0.9% 250 mL 4 g INTRAVENOUS PRNLORazepam 2 mg (ATIVAN) 2 mg ORAL q 1 H PRNOrLORazepam 2 mg injection (ATIVAN) 2 mg INTRAVENOUS q 1 H PRNLORazep am 4 mg (ATIVAN) 4 mg ORAL q 1 H PRNOrLORazepam 4 mg injection (ATIVAN) 4 mg INTRAVENOUS q 1 H PRNondansetron 4 mg tab(s) (ZOFRAN) 4 mg ORAL q 6 H PRNOrondansetron (PF) 4 mg i njection (ZOFRAN) 4 mg INTRAVENOUS q 6 H PRNciprofloxacin 400 mg in D5W 200 mL (CIPRO) 400 mg INTRAVENOUS q 12 HmetroNIDAZOLE 500 mg PREMIX piggyback (FLAGYL) 500 mg INTRAVENOUS q 8 HNaCl 0.9% iv infusion 100 mL/hr INTRAVENOUS CONTINUOUSthiamine 100 mg injection 100 mg OTHER TIDLa bs:Recent Labs 06/18/1700NA 138 -- 137K 3.2* -- 2.7*CHLOR 104 - - 100CO2 21 -- 20*BUN 8 -- 11CREAT 0.71 -- 0.75GLUC 86 -- 97ANION 16 -- 20*CA 6.5* -- 7.0*MG - - 1.7 --P -- 2.0* --ALB -- -- 1.6*AST -- -- 175*ALT -- -- 78ALKPHOS -- -- 181*TBILI -- -- 12.9*WBC 6.26 -- 8.18HB 9.1* 9.9* 10.4*HCT 26.0* 27.1* 28.7*PLT 156* -- 200LACT 2.5 * 3.8* 5.1*Exam:GENERAL: No distressNEURO: [id number]: normocephalic, atraumaticLUN GS: Unlabored breathingCARDIAC: TachycardicABDOMEN: Soft, non-distended, ttp RUQEXTREM ITIES: No edemaSKIN: JaundicedASSESSMENT AND PLAN:Active Hospital Problems Diagnosis Date Note d- Upper GI bleed 06/17/2017- Jaundice 06/17/2017- Lactic acidosis 06/17/2017- High anion gap m etabolic acidosis 06/17/2017- Transaminitis 06/17/2017- Gallbladder hydrops 06/17/20 17- Acute blood loss anemia 06/17/2017- Macrocytosis 06/17/2017- Prolonged Q-T interval on EC G 06/17/2017- Sepsis (HCC) 06/17/2017- Acute cholecystitis 06/17/2017- Hypokalemia 09/2016- UGI bleed 06/17/201742 year old female with alcoholic hepatitis, hyperbilirubinemi a, UGIB- US wnl - no stones, no thickening, no pericholecystic fluid- No acute surgical int ervention- Care per MICU; await GI consultLiza West MDGeneral Surgery Chief Resi Jean 2016 6:57 [facility] #: Pager: [phone] Ariana Lake CNP, C EQUITIES ANALYST 06/18/2017 9:39 AM SignedCONSULT: GASTROENTEROLOGY SERVICESERVICE DATE: 06/18/20 17SERVICE TIME: 9:00 AMREASON FOR CONSULT: Upper GIB and alcoholic hepatitisREQUESTING PHYSICIA N: [facility] PHYSICIAN: VICTOR MANUEL BurkUBJECTIVEMsDevika Layton is a 42 year old femal e who presented to the ED for hematemesis andjaundiced. She was transferred to [facility] for evaluation of abdominal CT.She stated her hematemesis started yesterday. She had about >10 acute episodesof maroon to coffee ground emesis. She stated drinking heavy about 2 years ago.She was drinking about 2 bottles of white wine daily due to personal issues. Shestated s he cut back about 2 months ago which she only drinks a glass of wine onweekends. Her last do se was yesterday. She had nausea and LUQ abdominal painassociated with the hematemesis. Her pa in was described as sharp andintermittent without radiation which her pain have now moved to R UQ. Herjaundiced also started yesterday. She stated her father noticed her eyes wereyellow and she thought she just had a caal. She stated this was the first timeshe had hematemesis and jaundice. She did go to her PCP last month for a coughand was told her LFT's were slightly elev ated and she was anemic. She had EGDover 15 years ago for GERD.,FUNCTIONAL STATUS: Ind ependentPAST MEDICAL HISTORYDiagnosis Date- Alcohol abuse- Asthma- Depression- Hypertension- Se izure in childhood (HCC)- Spina bifida occultaNo past surgical history on file.No family hi story on file.Social HistorySubstance Use Topics- Smoking status: Never Smoker- Smokeless toba cigar tobacco rehandler: Never Used- Alcohol use 4.5 oz/week 3 Glasses of Wine (5oz) per weekPrescriptions Prior to Admission:PROAIR HFA 90 mcg/actuation inhaler Disp: Rfl:buPROPion SR (ZYBAN SR; WELLBUTRIN SR) 150 mg 12 hr tablet Disp: Rfl:clonazePAM (KLONOPIN) 0.5 mg tablet Disp: Rfl:Dilt iazem HCl 420 mg 24 hr capsule Disp: Rfl:FLUoxetine HCl (PROZAC) 40 mg capsule Disp: Rfl:monique elukast (SINGULAIR) 10 mg tablet Disp: Rfl:SPRINTEC 0.25-35 mg-mcg per tablet Disp: Rfl:predniS ONE (DELTASONE) 20 mg tablet Disp: Rfl:Lactobac. rhamnosus GG-inulin (CULTURELLE PROBIO TICS) 10 billion cell -200 mgcpSP Take 1 capsule by mouth twice daily as needed. Disp: 30 ca psule Rfl: 0Current hospital medications:diphenhydrAMINE 25 mg injection (BENADRYL) 25 mg I NTRAVENOUS q 6 H PRNpantoprazole 40 mg injection (PROTONIX) 40 mg INTRAVENOUS q 12 HR[START ON 06/20/2017] pantoprazole 40 mg injection (PROTONIX) 40 mg INTRAVENOUSDAILY (6 AM)octre otide 500 mcg in D5W 100 mL (SandoSTATIN) 50 mcg/hr INTRAVENOUS CONTINUOUSalbuterol HFA 90 m cg/actuation 2 Puff (PROVENTIL HFA, VENTOLIN HFA) 2 PuffINHALATION q 4 H PRNpotassium chloride 80-120 mEq oral liquid 80-120 mEq ORAL/FEEDING TUBE PRNpotassium chloride iv piggyback 20 mEq in sterile water 100 mL 20 mEqINTRAVENOUS PRNmagnesium sulfate in water 2 g in sterile water 5 0 ml 2 g INTRAVENOUS PRNsodium phosphate 45 mmol in NaCl 0.9% 250 mL 45 mmol INTRAVENOUS PRNca lcium gluconate 4 g in NaCl 0.9% 250 mL 4 g INTRAVENOUS PRNLORazepam 2 mg (ATIVAN) 2 mg ORAL q 1 H PRNLORazepam 2 mg injection (ATIVAN) 2 mg INTRAVENOUS q 1 H PRNLORazep am 4 mg (ATIVAN) 4 mg ORAL q 1 H PRNLORazepam 4 mg injection (ATIVAN) 4 mg INTRAVENOUS q 1 H PRNondansetron 4 mg tab(s) (ZOFRAN) 4 mg ORAL q 6 H PRNondansetron (PF) 4 mg inj ection (ZOFRAN) 4 mg INTRAVENOUS q 6 H PRNciprofloxacin 400 mg in D5W 200 mL (CIPRO) 400 mg IN TRAVENOUS q 12 HmetroNIDAZOLE 500 mg PREMIX piggyback (FLAGYL) 500 mg INTRAVENOUS q 8 HNaCl 0.9 % iv infusion 100 mL/hr INTRAVENOUS CONTINUOUSthiamine 100 mg injection 100 mg OTHER TIDAl lergies As of Date: 06/17/2017Allergen Noted ReactionAMOXICILLIN 04/20/2016 HivesFully Assess ed 06/17/2017COMPLETE REVIEW OF SYSTEMS:PAIN ASSESSMENT: CURRENTLY HAVING PAIN; see HPIGENERAL: No weight loss, malaise or feversRESPIRATORY: Negative for hemoptysis, wheezing, COPD, dyspnea or shortness ofbreathCARDIOVASCULAR: Negative for chest pain, leg swelling, hyperten alok, CHF orpalpitationsGI: See HPIHEMATOLOGY/LYMPHOLOGY: Negative for prolonged bleeding, brui sing easily orswollen nodesOBJECTIVEPHYSICAL EXAM: GENERAL: Alert and oriented X 3 in no acute distress, cooperativeand following commandsSKIN: Skin color warm, dry, and intact with right u pper arm ecchymotic area andjaundiced in upper chestEYES: PERRLA, EOMI with b/l scleral icteru sLUNGS: Lungs clear to auscultation and unlabored b/lCARDIAC: Normal S1 and S2 with no rub s, murmurs, or gallops, sinustachycardiaABDOMEN: Abdomen soft with + BS X 4, no distention, gua rding, rebound, masses ororganomegaly, RUQ tenderness on palpation, right nare NG-wal l suction withmaroon/bilious drainagePULSES: 2+ radialPatient Vitals for the past 24 hrs: BP Temp Temp src Pulse Resp SpO2 Height Bkxnqg91/04/17 0600 106/84 - - 115 19 96 % - -06/18/17 0400 111/79 36.3 ?C (97.3 ?F) A xillary 106 17 97 % - 69.2 kg (152 lb8.9 oz)06/18/17 0200 105/7 2 - - 117 19 95 % - -06/18/17 0000 125/93 36.5 ?C (97.7 ?F) Axillary (!) 129 18 96 % - - 06/17/17 2300 112/95 - - (!) 135 23 99 % - - 06/17/17 2200 129/98 - - (!) 135 25 91 % - - 7 2115 109/73 36.5 ?C (97.7 ?F) Axillary (!) 134 20 100 % 149.9 cm (4'11) 66.6 kg (146 lb 13.2 oz)Body mass index is 30.81 kg/(m2).DATA:Diagnostic tests reviewed for today's visit:M ost recent labs and imaging results.IMPRESSION/RECOMMENDATIONS1). Upper GI bleed r/o esophagea l varices Assessment AND Plan: Continue PPI and octreotide, monitor H/H, transfuse asnee ded, EGD will discuss with Dr. Navas2). Alcoholic hepatitis Assessment AND Plan: Monitor LFT's, coags ordered, total cessationencouraged3) Jaundice likely secondary to # 2 Assessment AND Plan: Monitor LFT's4). Acute blood loss anemia Assessment AND Plan: Monitor H/H, transfuse as needed, continue PPISIGNATURE: Jeet Lake, RESOURCE ANALYST PATIENT NAME: Nancy LaytonDATE: Jun : 9:00 AM PAGER:Ivette Lazaro, RN, RN 06/18/2017 10:20 AM Signed Nu rsing Progress NotePatient Name: Nancy LaytonMRN: [id number] Location: [place] [address]* Rounds with , [facility], and RN.This note was completed by: Shona Ogden OTR/L 06/18/2017 11: 46 AM SignedOccupational Therapy EvaluationSERVICE DATE: 06/18/2017SERVICE TIME: 1115 to 1130ROOM: [place] [address]-Recommended Discharge Disposition: HomeRecommended Discharge Di sposition Comments: d/c ot patient indep with self careand transfersOT Recommendations to Nursing: Assist of 1 person to bathroom forADL?s;Encourage patient participation in ADL ?s;OOB for mealsOT 6 Clicks Score: 24ASSESSMENT:OT Evaluation Low Complexity:Occupational Prof ile - Brief review of patient's medical record completed(please see current hospital course of evaluation).Occupational Performance - Pt presents with no deficits.Complexity in Clini pearl Decision Making - The extent of clinical reasoning waslow, no need for modifications durin g the evaluation process, no comorbiditiespresent to affect patient's occupational perfo rmance.Tolerated Full SessionOccupational Therapy Problem List: (none)Patient /Caregiver Goa ls: Go HomeGoals for Plan of Care: NonePLAN:Treatment Frequency (times per week): Discontinu e Therapy ServicesReasons Therapy Services Discontinued: Independent in all functiona l mobility;Noskilled needsPlan of Care developed with: PatientTREATMENT INTERVENTIO NS:Therapy Diagnosis: No Skilled NeedInterventions Provided: Evaluation$ Evaluation-Low ( 02356) Billed Units: 1 unitTotal Treatment Time (minutes): 15FUNCTIONAL G CODE:OT 6 Cli cks Score: 24 (06/18/17 1115)Self Care Current Status (G8987): CH (06/18/17 111)Self Care Goa l Status (G8988): (06/18/17 111)Self Care Discharge Status (G8989): (06/18/171114)B ased on clinical assessment and the score on the 6 Clicks Functional AssessmentTool, t he G code and corresponding severity modifiers are documented above.SUBJECTIVE:Current Hos pital Course: Chart reviewed; . Ms Layton is a 42 year old white womanwith PMH significant fo r asthma, GERD, HTN, anxiety depression, spinia bifidaocculta, and alcohol abuse comes in for c omplaints of nausea, abdominal pain,jaundice, and bloody emesisThere is no acute surg ical intervention needed for her gallbladder.Patient Report: Found supine in bed, agreeable to therapy, denies pain. I havebeen getting up to the [facility]Home EnvironmentPatient Lives Wit h: FamilyAssistance Available: Part timeEntry To Home: StairsNumber Of Stairs Into Home: 3Number Of Stairs To Bed/Bath: full flightEquipment Owned: Wheeled Walker;Commode-Bedsi de;Commode-RaisedPrior Functional Level: Within Functional LimitsOBJECTIVE: Responsiven ess: Alert;AwakeFollows Commands: 3-step CommandsVision Deficits: Wears glassesCURRENT FUNCTIO NAL STATUS:Current Activities of Daily Living Assist LevelFeeding Set UpGrooming Set UpBathing Upper Body SupervisionBathing Lower Body SupervisionDressing Upper Body SupervisionDressi ng Lower Body SupervisionToileting SupervisionFunctional Mobility Assist LevelRollingSupine to Sit SupervisionSit to Supine SupervisionScooting SupervisionSit to Stand SupervisionStand to Sit SupervisionBed to ChairToilet/Commode SupervisionFunctional Mobility SupervisionBalance: Static Standing;Dynamic StandingStatic Standing Balance: SupervisionDynamic Standing Balance: Supervision Returned to bed at the end of session, call light in reach.Please see di scipline specific clinical documentation flowsheet for completedetails for this the rapy evaluation/treatment.SIGNATURE: Jacinta Haddad OTR/L PATIENT NAME: Nancy LaytonDATE: Jun : 11:42 AM PAGER: [phone] Izaguirre PT 06/18/2017 12:04 PM SignedPhysical Therapy EvaluationSERVICE DATE: 06/18/2017SERVICE TIME: 1120 to 1137ROOM: [id number] Discharge Disposition: HomePT Recommendations to Nursing: Ambulate without device;To bathroom;OOB for mealsPT 6 Clicks Score: 23ASSESSMENT :Patient presents with a medically stable condition and presents at baselinelevel of functional mobility required for safe discharge home. The patient doesnot require further acute care physical therapy interventi on during thishospital admission..Tolerated Full Se ssionPatient /Caregiver Goals: Go HomeGoals for Plan of Care:Pt with independent functional mobility and has no further acute PT needsRehab Potential: GoodPLAN:Treatment Frequency (times per week): Discontinue Therapy ServicesReasons Therapy Services Discontinued: Indep endent in all functional mobility Current admissionPlan of Care developed with: PatientTREAT MENT INTERVENTIONS:Therapy Diagnosis: No Skilled NeedInterventions Provided: Evaluation$ Evalua tion-Low (55079) Billed Units: 1 unitTotal Treatment Time (minutes): 17FUNCTIONAL G CO DE:PT 6 Clicks Score: 23 (06/18/17 1120)Mobility: Walking and Moving Around Current Status (G8978): CI (06/18/17 1120)Mobility: Walking and Moving Around Goal Status (G8979): CI (10/30 1120)Mobility: Walking and Moving Around Discharge Status (G8980): CI (06/18/17 1120)B ased on clinical assessment and the score on the 6 Clicks Functional AssessmentTool, t he G code and corresponding severity modifiers are documented above.SUBJECTIVE:Current Hos pital Course: Chart reviewed;Ms Layton is a 42 year old white woman with PMH significant for ast hma, GERD,HTN, anxiety depression, spinia bifida occulta, and alcohol abuse comes in forco mplaints of nausea, abdominal pain, jaundice, and bloody emesisThere is no acute surg ical intervention needed for her gallbladderPatient Report: Pt denies complaints. Agreeable to PT. Family present.Home EnvironmentPatient Lives With: FamilyAssistance Available: Part timeEntry To Home: StairsNumber Of Stairs Into Home: 3Number Of Stairs To Bed/Bath: full flightEquipment Owned: Wheeled Walker;Commode-Bedside;Commode-RaisedPri or Functional Level: Within Functional LimitsOBJECTIVE:CURRENT FUNC TIONAL STATUS:Current Functional Mobility Assist Level Additional InformationRolling Independe ntSupine to Sit IndependentSit to Supine IndependentScootingSit to Stand SupervisionStand to Si t SupervisionBed to Chair SupervisionToilet/CommodeGait Supervision Gait Device: Non e Gait Distance (feet): 60StairsCurb StepCar TransferPlease see discipline specific clinical documentation flowsheet for completedetails for this therapy evaluation/treatment.SIGNATU RE: Smiley Izaguirre PT PATIENT NAME: Nancy LaytonDATE: June 18, 2017 : 12:02 PM PAGER/CONTACT #: [phone] history physical on 2017-06-17 HISTORY HNO ID: [id number]: Verónica AlonsoaiyazminService: Critical CareAuthor Normal 06-17-2017 [place] PHYSICAL Type: PhysicianType: HANDPFi led: 06/17/2017 10:58 PMNote Text:MICU ADMISSION HISTORY General AND PHYSICAL NOTECCHS STAFF PHYSICIAN NOTE OF PERSONAL INVOLVEMENT IN CAREI have Medical reviewed the HANDP note ob[place] cy[place] and documented by the resident and Ipersonally Center participated in the camacho comp onents. I have discussed the caseand management of the (26173) patient's care. The followin g comments revise orconfirm relevant camacho components of the note and have added cherelle tionaldocumentation as needed.History:Ms Layton is a 42 year old white woman with PM H significant for asthma,GERD, HTN, anxiety depression, spinia bifida occulta, and a lcohol abusecomes in for complaints of nausea, abdominal pain, jaundice, and bloodyem esis. Jaundice started a day ago and the rest today. She has had 10bouts of emesis with dark red blood. She has had e pigastric, constantabdominal pain and n ow getting better. ROS significant for decreasedappetite and weight loss. No prior GI bleed issues. Rest ROS isnegative.Last alcohol drink was this afternoon. Used to drink 2 alvin les of winebut now has cut down. Going through a divorce and so str essful.Exam:[id number], 134/min, 20, 36.5, 100% on RANADA, O times 4, no FNDAppears dryNG in place - some bloody discharge notedCTA BTachy but regularSoft but has non-specific tenderness all over, no wing e fluid, BS presentVisibly jaundicedNo p edal edemaData:WCC 8.8, Hb 10.4, Plt 200 (10:10 pm)Labs at 1:10 PM (OSH): Hgb was 13 .7. INR was 1.1 and PT was 13.9.BMP showed: Na- 134, K- 2.6, Cl- 93, CO2- 20, AG-21 - corrected AG of 25,Cr-1.0, BUN-11 Total Bili: 16.4, Direct Bili: 12.89, AST- 212 , ALT- 96,AP- 274, Total Protein: 5.8, Alb- 2.3, Lipase- 129.Lactic Acid- 7.5 --> 5.1 Alcohol 72CXR - normalCT abdo and pelvis personally reviewed and shows GB hydrops and thickenedGB wall along wit h hepatomegaly.IMPRESSION:Ms Kori ortega is a 42 year old white woman with PMH significant for asthma,GERD, HTN, anxiety depression, spinia bifid a occulta, and alcohol abusecomes in for complaints of nausea, abdominal pain, wilfredo dice, and bloodyemesis.1. Acute blood loss anemia from GI bleed2. Acute UGIB, likely PUD but can't exclude EV related ble ed3. Sepsis from acute cholecystitis with hydrops, needs urgent evaluation4. Hyperbilirubinemia secondary to # 3 an d alcoholic liver disease5. Alcoholic hepatiti s6. Sinus tachy7. Hypovolemia8. Severe hypokalemia with prolonged QTc9. Lactic acido sis from GI bleed and liver wqoxjia55. Alcohol abuse11. Anxiety and depression with a lot of stress iwflcr93. History of . MMPPLAN:- ICU monitoring- monitor HH Q 8 times 3- transfuse as needed- IV fluids - 30 cc/ kg- PPI BID- start octreotide as well- GI to see- needs Abx for acute cholecystitis - cipro and flagyl- aggressive replacement of K; check mag- check EKG in the am after correction of hypokalemia- B Cx and PCT- urgent surgical evaluation- likely needs IR guided percutaneous cholecys tostomy tube drainage- monitor lactate- SCDs- no lovenox for now- NPO and IV fluidsTh is patient has a high probability of sudden, clinically significantdeterioration, which requires the highest level o f physician preparednessto intervene urgently. I managed/supervised life or organ supportinginterventions that required fr equent physician assessment. I devoted myfull attention to the dire ct care of this patient for the amount of timeindicated below. Time I spent with fam floridalma or surrogate(s) is includedonly if the patient was incapable of providing the n ecessary informationor participating in medical decision making. Time devoted to teac sanjiv andto any procedures I billed separately is not included.PATIENT CHECKLISTAre restraints necessary: NoDeep v ein thrombosis prophylaxis administered? No . Contraindicated.Stress ulcer prophylaxis? YesFoley catheter necessary? NoIs preet tral line essential? NoPatient/Family Updated: dw mom at the bedside and updated her about all ofthe abovePROGN OSIS: FairCode status: FullDiscussed with Respirato ry therapist, Registered Nurse, Pharmacist andResidents and performed multidisciplin steffany rounds.Critical Care Documentation: The patient has the following organ/systemimpairment(s):Acute blood lo ss, Severe electrolyte imbalance, Severe metabolic disorderand sepsis from acute cholecystitisTime spent providing critical care serv ices: 40 minutes.SIGNATURE: IVANNA Raymundo INSTITUTEPAGER:[id number] ==Re sident note: Admi ssion Date: 06/17/2017Time: 9:18 PMAGE: 42 year oldLOS: 0 daysReason for ICU admission: Acute bloo d lossChief complaint: Abdominal pain, nausea, bloody emesisHistory of present illness: Patient is a 42 yo white F w/ PMHx significantfor asthma contro lled with ProAir and Ventolin inhalers, acid reflux onPrilosec, HTN not currentl y on medications, Anxiety/Depression notcurrently on medications, and spina bifid a occulta as well as onechildhood seizure. Patient also has history of alcohol abuse for the past2 years secondary to divorce and stress. She drank 2 bottles of alcoh oldaily for 2 years and quit 2 months ago. She now only drinks an occasionalglass wh en out with friends.Patient is presenting with chief complaint of abdominal pain, nausea,jaundice, and bloody emesis. Patient states that she has had decreasedappetit e for the past few weeks, accompanied by some weight loss, and hasbeen more tired recently. She says that she noticed yesterday that hereyes and skin began turni ng yellow. Today she was out at lunch with afriend and on the car ride home began h aving abdominal pain and nausea,and then began having bloody emesis. She has vomit ed >10 times today. Shestates that the emesis is dark red in color. She has not vo mited since shewas in the [place] [facility]. She does not feel nauseous now and only has someresidual upper abd ominal pain from her multiple episodes of emesis. Shedenies fever/chills/dizziness/blurryvision/SOB/CP/STACK/diarrhea/constipation/dysuria.Mary ent states that she had bloodwor k on 06/04 which showed elevated liverenzymes but she has no history of liver prob lems. She also states that shehas been taking 4 tablets of Tylenol daily for the pas t week due to musclepain from her new job which requires many hours of standing.ER/ h ospital course: Patient initially was in the [place] [facility] and [facility]. Kathy hawk received Zosyn,Flagyl, Levaquin, Phen ergan, Protonix 80mg IV, and 1L NS while there.Review of Systems ROS: GENERAL: Positi ve for significant weight loss,anorexiaHEENT: No changes in hearing or vision, no nose bleeds or other nasalpro blems and Negative for frequent or significant headachesNECK: Negative for lumps, goiter, pain and significant neck swellingRES PIRATORY: Negative for cough, wheezing and shortness of breathCARDIOVASCULAR: Negati ve for chest pain, leg swelling and palpitationsGI: Positive for abdominal disco mfort and pain, anorexia over past 3weeks, heart burn for past 10 years, nausea for 1 day, vomiting blood fo r1 dayGU: Negative for dysuria, frequency and incontinenceMUSCU LOSKELETAL: Negative for joint pain or swelling, back pain, andmusc le pain.SKIN: Positive for changes in pigmentation: jaundicePSYCH: Positive for marital problems: Patient is currently going through adivorceENDOCRINE: Negative for cold or heat intolerance, polyuria, polydipsia andgoiter.NEURO: NegativePAS T MEDICAL HISTORYDiagnosis Date- Alcohol abuse- Asthma- Depression- Hypertension- Se izure in childhood (HCC)- Spina bifida occultaNo past surgical history on file.No family history on file.Social History Marital status: Spouse name: Years of education: Number of children:Social History Main Topics Smoking status: Never Smoker Smokeless status: Never UsedNo current facility-administered medica tions on file prior to encounter.Current Outpatient Prescriptions on File Prior to Encounter:PROAIR HFA 90 mcg/a ctuation inhalerbuPROPion SR (ZYBAN SR; WELLBUTRIN SR) 150 mg 12 hr tabletclonazePAM (KLONOPIN) 0.5 mg tabletDilt iazem HCl 420 mg 24 hr capsuleFLUoxetine HCl (PROZAC) 40 mg capsulemontelukast (SINGULAIR) 10 mg tabletSPRINTEC 0.25- 35 mg-mcg per tabletpredniSONE (DELTASONE) 20 mg tabletLactobac. rhamnosus GG-inulin (CULTURELLE PROBIOTICS) 10 billion cell -200mg cpSP Take 1 capsule by mouth twice daily as needed.ALLERGIESAllergen Calhoun ctions- Amoxicillin HivesPHYSICAL EXAMVITAL SIGNS (last 24hrs min/max):Temp- 36.5 CPulse- 134Res p- 20BP- 109/73Sp02- 100% on RA24 hour Intake AND Output:Intake/Out put Summary (Last 24 hours) at 06/17/17 2210Last data filed at 06/17/17 2100 Gross per 24 hourIntake 0 mlOutput 150 mlNet -150 mlCNS: Alert and oriented Awake, oriented, Alert and Follows comm andsGCS: Eyes: 4. SpontaneousVerbal: 5: [place] edMotor: 6: Obeys Motor commandsTotal: 15Oral Mucosa: Dry mucous membranesFeeding Tube: NG tube in placeEyes: PERR LA and Sclera yellowNeck: Unremarkable; No adenopathy or JVDCardiovascular : Regular tachycardiaRespiratory: Suad r to auscultationAbdomen: Tender to palpation in all 4 quadrants, hepatomegaly, abd ominalstriae present, voluntary guarding, no rebound, no rigidityExtremities: Edema- NoPeripheral Pulses- Present all extremitiesCapillary Refill- less than 3 secondsSkin: Abnormalities- Yes; skin is yellow/jaundicedINDWELLING C ATHETERS:Central Line: NoneArterial Line: NoneFoley Catheter: NonePeripheral Emily e: 2Data:Labs at 1:10 PM: Hgb was 13.7. INR was 1.1 and PT was 13.9. BMP showed:Na- 134, K- 2.6, Cl- 93, CO2- 20, AG-25, Cr-1.0, BUN-11 Total Bili: 16.4,Direct Bili : 12.89, AST- 212, ALT- 96, AP- 274, Total Protein: 5.8, Alb-2.3, Lipase- 129. Lactic Acid- 7.5.7:00 PM: Lactic Acid- 5.1Urinalysis at 3:51 PM: Protein- 15, Ketones- 50 , Urine occult blood- 25,Nitrite- Negative, Bili- 6, Urobilinogen- 8, LE- 25, Epi thelial cells-10-25, Rare yeastUTox: Alcohol level- 72Gastric occult blood: Posi tiveCT abdomen w/ IV contrast: Hepatomegaly, hepatic steatosis, distendedgallblad vanda w/ enhancement of gallbladder wall suggestive of possiblehydrops and cholecystitisKUB: NG tube at gastr ic fundusCXR: No acute abnormalityEKG: Sinus tachyc ardia, QTc- 561ASSESSMENT:1. Upper GI bleed2. Jaundice, transaminitis, distended gallbladder w/ possible hydrops a ndcholecystitis3. Hepatomegaly and hepatic maribel atosis likely 2/2 alcohol abuse4. Questionable alcoholic hepatitis5. High AG Metabolic Acidosis likely 2/2 lactic aci dosis6. Sinus tachycardia with prolonged Q T interval7. HypokalemiaPLAN:1. NPO2. IVF3. IV PPI4. GI c/s, likely need for endosco py5. Trend lactic acid and H/H6. Repeat EKG7. Replete electrolytes8. Stat RUQ US9. Continue levaquin and Flagyl for possible cholecystitis (Patient isallergic to penicillin)10. Consider surgery con sult for possible jaffpljynytvekf35. Mickie James iscriminant Function Score: 20, no need for steroids at pxfnlkci20. [place] protocolCod e status: FullFamily/ NOK details:Patient/sister/mother were all in the room and samantha n discussed with them.PATIENT CHECKLIST? Are restraints necessary: No? VTE prophylax is administered? No. Contraindicated.? Stress ulcer prophylaxis? YesSIGNATURE: Tigist Quinones, MDDATE: June 17, 2017TIME: 9:18 PMPAGER/CONTACT #: [id number] cult blood on 06-17 Cult Blood Test performed at [facility] Normal 06-17-2017 [facility] No growth System (00 000) Comment: Performed By: #### LAC ####[place] [id number] Vital Signs Vital Sign Description Value / Unit Date Location The following section is limited to 5 en tries per type and includes entries from the following time range: 20170601 - [id number] 2. BMI (Body Mass Index) 28.71 kg/m2 06-06-2017 - 06-06-2017 [facility] ([id number]) BMI (Body Mass Index) 30.45 kg/m2 06-01-2017 - 06-01-2017 [facility] ([id number]) Body Temperature 96.7 [degF] 06-06-2017 - 06-06-2017 [facility] ([id number]) Body Temperature 98.2 [degF] 06-01-2017 - 06-01-2017 [facility] ([id number]) Height 152.4 cm 06-06-2017 - 06-06-2017 [facility] ([id number]) Height 149.86 cm 06-01-2017 - 06-01-2017 [facility] ([id number]) Pulse (Heart Rate) 118 /min 06-06-2017 - 06-06-2017 [facility] N ow Clinic ([id number]) Pulse (Heart Rate) 108 /min 06-01-2017 - 06-01-2017 [facility] ([id number]) Respiratory Rate 16 /min 06-06-2017 - 06-06-2017 [facility] ([id number]) Respiratory Rate 15 /min 06-01-2017 - 06-01-2017 [facility] Now [facility] ([id number]) Weight 66.68 kg 06-06-2017 - 06-06-2017 [facility] ([id number]) Weight 68.4 kg 06-01-2017 - 06-01-2017 [facility] ([id number]) Encounters Date Type Reason Provider Location 08-20-2017 - Ambulatory CARIDAD (RESOURCE ANALYST) [facility] 08-20-2017 RUTOMAR LUCILA (RESOURCE ANALYST) [facility] ([id number]) 08-07-2017 - Ambulatory LUCILA (RESOURCE ANALYST) [facility] 08-07-2017 [facility] ([id number]) 06-26-2017 - Ambulatory LUCILA (RESOURCE ANALYST) [facility] 06-27-2017 [facility] ([id number]) 06-17-2018 Emergency Hali . [facility] department patient UNKNOWN PROVIDER Wilder mckeon ([id number]) visit PCP No 06-17-2017 - Evaluation and Acute posthemorrhagic H S [place] Z[place] Facility:[facility] 06-22-2017 management of anemia [facility] SILVER ALICEA Procedures Procedure Name Date Provider Location *CMP Complete Metabolic Panel 06-11-2017 - Perry A Garrett [employer] 06-11-2017 [facility] ([id number]) Assay of amylase 06-11-2017 - Perry A Garrett [employer] 06-11-2017 [facility] ([id number]) Assay of glutamyltrase gamma 06-11-2017 - Perry A Garrett [employer] 06-11-2017 [facility] ([id number]) Lipase [Enzymatic 06-11-2017 - Perry A Garrett [employer] activity/volume] in Serum or 06-11-2017 Med icine ([id number]) Plasma *CMP Complete Metabolic Panel 06-11-2017 A Garrett [employer] [facility] ([id number]) 06-11-2017 Amylase 06-11-2017 A Garrett [employer] [facility] ([id number]) 06-11-2017 Assay of GGT 06-11-2017 A Garrett [employer] [facility] ([id number]) 06-11-2017 Lipase 06-11-2017 Perry A Garrett [employer] [facility] ([id number]) 06-11-2017 *CBC with Differential 06-06-2017 A Garrett [employer] Internal 06-06-2017 Medicine ([id number]) *CMP Complete Metabolic Panel 06-06-2017 A Garrett [employer] 06-11-2017 [facility] ([id number]) Assay of glutamyltrase gamma 06-06-2017 A Garrett [employer] [facility] 06-11-2017 Medicine ([id number]) Chest x-ray 06-06-2017 A Garrett [employer] [facility] nternal 2017 Medicine ([id number]) Follow Up Appt 2 weeks 06-06-2017 A Garrett [employer] Internal 06-11-2017 Medicine ([id number]) Referral to 06-06-2017 - Perry A Garrett [employer] [facility] nternal patient registration representative 06-07-2017 Medicine ([id number]) Thyrotropin [Units/volume] in 06-06-2017 - Perry A Garrett [employer] [facility] Serum or Plasma 06-11-2017 Medicine ([id number]) Thyroxine (T4) free 06-06-2017 A [facility] [employer] [Mass/volume] in Serum or 06-11-2017 Medici ne ([id number]) Plasma *CBC with Differential 06-06-2017 A Garrett [employer] [facility] No w Clinic ([id number]) 06-06-2017 *CMP Complete Metabolic Panel 06-06-2017 A Garrett [employer] [facility] ([id number]) 06-15-2017 Assay of GGT 06-06-2017 - Perry A Garrett [employer] [facility] ([id number]) 06-11-2017 Chest x-ray 06-06-2017 - Perry A Garrett [employer] [facility] ([id number]) 2017 Follow Up Appt 2 weeks 06-06-2017 - Perry Sal LizGarrett [employer] [facility] No w Clinic ([id number]) 06-11-2017 Referral to 06-06-2017 - Perry A Garrett [employer] [facility] ([id number]) patient registration representative 06-07-2017 Thyroid stimulating hormone 06-06-2017 - Perry A Garrett [employer] ([id number]) (TSH) 06-11-2017 Thyroxine (T4) free 06-06-2017 - Perry Sal Garrett [employer] [facility] Now C linic ([id number]) 06-11-2017 Plan of Treatment Plan Description Date Location Appointment Appointment 06-20-2017 - [facility] Inte rna 06-20-2017 Medicine ([id number]) US Liver US Liver 06-15-2017 - [facility] 06-15-2017 ([id number]) *CMP Complete Metabolic *CMP Complete Metabolic 06-11-2017 - [facility] Panel Panel 06-11-2017 Medicine ([id number]) Amylase Amylase 06-11-2017 - [facility] Inte rna 06-11-2017 Medicine ([id number]) GGT GGT 06-11-2017 - [facility] Inte rna 06-11-2017 Medicine ([id number]) *Lipase *Lipase 06-11-2017 - [facility] rna 06-11-2017 Medicine ([id number]) *CMP Complete Metabolic *CMP Complete Metabolic 06-11-2017 - [facility] Panel Panel 06-11-2017 ([id number]) Amylase Amylase 06-11-2017 - [facility] 06-11-2017 ([id number]) GGT GGT 06-11-2017 - [facility] 06-11-2017 ([id number]) *Lipase *Lipase 06-11-2017 - [facility] 06-11-2017 ([id number]) *CBC with Differential *CBC with Differential 06-06-2017 - [facility] Internal 06-06-2017 Medicine ([id number]) *CMP Complete Metabolic *CMP Complete Metabolic 06-06-2017 - [facility] Panel Panel 06-11-2017 Medicine ([id number]) GGT GGT 06-06-2017 - [facility] Inte rnal 06-11-2017 Medicine ([id number]) X-Ray, Chest, PA & Lateral X-Ray, Chest, PA & Lateral 06-06-2017 - [facility] 06-11-2017 Medicine ([id number]) Follow Up Appt 2 weeks Follow Up Appt 2 weeks [facility]-06-[facility] [place] [place] 06-11-2017 Medicine ([id number]) Gastroenterology Referral Gastroenterology Referral 06-06-2017 - [facility], [address] [facility], [address] [facility] 06-11-2017 Medicine ([id number]) [facility], [address], [facility], [address], [place], [address] [place], [address] *TSH *TSH 06-06-2017 - [facility] Inte rnal 06-11-2017 Medicine ([id number]) *T4 free *T4 free 06-06-2017 - [facility] Inte rnal 06-11-2017 Medicine ([id number]) Appointment Appointment 06-06-2017 - [facility] Inte rnal 06-06-2017 Medicine ([id number]) *CBC with Differential *CBC with Differential 06-06-2017 - [facility] Now Clinic 06-06-2017 ([id number]) *CMP Complete Metabolic *CMP Complete Metabolic 06-06-2017 - [facility] Panel Panel 06-11-2017 ([id number]) GGT GGT 06-06-2017 - [facility] 06-11-2017 ([id number]) X-Ray, Chest, PA & Lateral X-Ray, Chest, PA & Lateral 06-06-2017 - [facility] 06-11-2017 ([id number]) Follow Up Appt 2 weeks Follow Up Appt 2 weeks 06-06-2017 - [facility] 06-11-2017 ([id number]) Gastroenterology Referral Gastroenterology Referral 06-06-2017 - [facility] Now [facility], [address] [facility], [address] [facility] 06-11-2017 ([id number]) [facility], [address], [facility], [address], [place], [address] [place], [address] *TSH *TSH 06-06-2017 - [facility] 06-11-2017 ([id number]) *T4 free *T4 free 06-06-2017 - [facility] 06-11-2017 ([id number]) Follow Up with Primary Follow Up with Primary 06-01-[facility] [place] Care Physician Care Physician 06-01-2017 Medicine ([id number]) Follow Up with Primary Follow Up with Primary 06-01-2017 [facility] Care Physician Care Physician 06-01-2017 ([id number]) The following information is from the original human readable content Type Date Detail Referral Gastroenterology Ref da [place], [address] [facility], [address], [place], [address] Pending order US Liver Pending order *CMP Complete [place] Panel Pending order GGT Pending order Amylase Pending order *Lipase Pending order Follow Up Appt 2 wee ks Pending order X-Ray, Chest, PA & L ateral Pending order *CBC with Differenti al Pending order *CMP Complete [place] Panel Pending order *TSH Pending order *T4 free Pending order GGT Pending order [facility] Type Date Detail Appointment 09:30 AM Perry TAPIA, [address] [facility], [address], [place], [address], Appointment 01:00 PM Toni James, [address], [address], [place], [place], [phone], Referral Gastroenterology Ref da [place], [address] [facility], [address], [place], [address] Pending order *CMP Complete [place] Panel Pending order GGT Pending order Amylase Pending order *Lipase Pending order Follow Up Appt 2 wee ks Pending order X-Ray, Chest, PA & L ateral Pending order *CBC with Differenti al Pending order *CMP Complete [place] Panel Pending order *TSH Pending order *T4 free Pending order GGT Pending order Follow Up with Prima ry Care Physician Type Date Detail Appointment 01:00 PM Toni James, [address] [facility], [address], [place], [place], [phone], Referral Gastroenterology Ref da Reich [place], [address], [address], [place], [address] Pending order *CMP Complete [place] Panel Pending order GGT Pending order Amylase Pending order *Lipase Pending order Follow Up Appt 2 werei ks Pending order X-Ray, Chest, PA & L ateral Pending order *CBC with Differenti al Pending order *CMP Complete [place] Panel Pending order *TSH Pending order *T4 free Pending order GGT Pending order Follow Up with Prima ry Care Physician Type Date Detail Appointment 09:30 AM Perry TAPIA, [address], [address], [place], [address], Pending order Follow Up with Prima ry Care Physician Type Date Detail Pending order Follow Up with [facility] Physician Payers Payer Name Policy Number Location BLUE CARD PPO [id number] [facility] ([id number]) [facility] ([id number]) [id number] [facility] ([id number]) The following information is from the original human readable content ENCOUNTER GUARANTOR PAYER SUBSCRIBER SOURCE 2017 NANCY IVYB: Primary KAM BADEEPDOB: Marlon Martínez eneral Insurance:[email or web address] [id number] [employer] Syst em SCOVEL [place] HIRA PPOPolicy Reposit [facility] [address]Hti: (843) Number: [phone] () [id number] ve Date: ENCOUNTER GUARANTOR PAYER SUBSCRIBER SOURCE 2018 Nancy Cruz Re[facility] StarlingDOB: Insurance:Netuitive StarlingDOB: System Repo sitory [facility] [id number] Scovel Number: Effective Date: [place] [address]Gzp: (HP) Summary Purpose DATE CREATED AUTHOR AUTHOR'S ORGANIZATIO N 01/07/2018 [facility] DATE CREATED AUTHOR AUTHOR'S ORGANIZATIO N 01/08/2018 [facility] DATE CREATED AUTHOR AUTHOR'S ORGANIZATIO N 01/08/2018 [facility] DATE CREATED AUTHOR AUTHOR'S ORGANIZATIO N 06/25/2018 [facility] Family History No Family History Records Found Advance Directives No Advanced Directives Records Found Additional Source Comments FOR RECORDS PERTAINING TO PATIENTS WHO ARE OR HAVE BEEN ENROLLED IN A CHEMICAL DEPENDENCY/SUBSTANCE ABUSE PROGRAM, SOME INFORMATION MAY BE OMITTED. This clinical summary was aggregated from multiple sources. Caution should be exercised in using it in the provision of clinical care. This summary normalizes information from multiple sources, and as a consequence, information in this document may materially changethe coding, format and clinical context of patient data. In addition, data may be omittedin some cases. CLINICAL DECISIONS SHOULD BE BASED ON THE PRIMARY CLINICAL RECORDS. [facility] provides no warranty or guarantee of the accuracy or completeness of information in this document. UNRECOGNIZED CONTENT PROVIDED BELOW FOR UNRECOGNIZED SECTION INFORMATION SOURCE DATE CREATED AUTHOR AUTHOR'S ORGANIZATIO N 06/25/2018 [facility] DATE CREATED AUTHOR AUTHOR'S ORGANIZATIO N 01/08/2018 [facility] DATE CREATED AUTHOR AUTHOR'S ORGANIZATIO N 01/08/2018 [facility] DATE CREATED AUTHOR AUTHOR'S ORGANIZATIO N 01/07/2018 [facility] Keven bray
== END 2018-08-15 17:40 | disposition home or self-care (01) | DRG 775 ==
PROVIDERS: Admitting Provider Internal Medicine; Family Provider Nurse Practitioner Family; PCP Nurse Practitioner Family; Referring Provider Internal Medicine; Visit Provider Internal Medicine
DX: F10.239 Alcohol dependence with withdrawal, unspecified (principal); G40.909 Epilepsy, unspecified, not intractable, without status epilepticus; I10 Essential (primary) hypertension; J06.9 Acute upper respiratory infection, unspecified; B97.89 Other viral agents as the cause of diseases classified elsewhere; F32.9 Major depressive disorder, single episode, unspecified; F41.9 Anxiety disorder, unspecified; J45.40 Moderate persistent asthma, uncomplicated; Z79.899 Other long term (current) drug therapy
CPT/HCPCS: 36415; 80053; 80177; 80307; 80320; 85025; 87633; 99218; A4216; G0378; G0379; G0480

== ENCOUNTER → 2018-08-19 10:14 | Outpatient (CLI) | payer MEDICAID, SELFPAY ==
[2018-08-12 13:52] VITALS: BMI 26.5
--- NOTE | 2018-08-19 10:19 | BI_ITS ---
MAMMOGRAPHY - BILATERAL SCREENING REASON FOR EXAM: Female, 43 years old. Routine annual screening examination. PERTINENT HISTORY: Non-contributory. TECHNIQUE: Digital bilateral breast asif (3D mammographic acquisition) in the CC and MLO projections. 2-D mediolateral oblique (MLO) and craniocaudad (CC) views of both breasts were obtained. CAD: Full Field Digital Mammography with Computer Added Detection was performed. COMPARISON: None. Baseline examination. FINDINGS: Breast Composition: The breasts are heterogeneously dense, which may obscure small masses. There are no dominant masses or suspicious calcifications. No other significant abnormalities are identified. BI/SCREENING MAMM (CAD), BILAT IMPRESSION: Negative screening mammogram. Yearly followup mammogram recommended. (A) ASSESSMENT CATEGORY: BIRADS Category 1: Negative. A letter regarding these results will be sent to the patient by the facility within 30 days. Approximately 10% of breast cancers are not detected by mammography. A normal mammogram should not delay biopsy of a clinically suspicious abnormality. [id number] Electronically Signed: Yousif Avila MD at 11:17 EST , Service support ,
== END ==
DX: Z12.31 Encounter for screening mammogram for malignant neoplasm of breast (principal)
CPT/HCPCS: 77063; 77067

== ENCOUNTER 2019-11-12 16:13 | Emergency (ER) | payer OTHER, SELFPAY ==
[2019-11-07 08:28] VITALS: BMI 25.8
[2019-11-12 16:14] VITALS: BP 153/101; PULSE 122; RESP 16; TEMP 36.9; O2SAT 96; BMI 29.7
[2019-11-12 16:35] VITALS: BP 124/95; PULSE 112; RESP 13; TEMP 36.9; O2SAT 96
[2019-11-12 16:36] VITALS: O2SAT 93
[2019-11-12 17:16] LABS: Absolute Lymphocyte Count 1.51 X10^3/uL (0.83-4.51); Absolute Neutrophil Count 2.2 X10^3/uL (2.0-7.7); Basophil# 0.03 X10^3/uL; Basophil% 0.7 % (0-1); Eosinophil# 0.05 X10^3/uL; Eosinophils% 1.2 % (0-5); Hematocrit 38.4 % (37-47); Hemoglobin 13.2 g/dL (12.0-15.0); Lymphocyte # 1.51 X10^3/ul (4.0); Lymphocyte % 36.6 % (19-41); Mean Corp Hgb Conc 34.4 g/dL (32-36); Mean Corpuscular Hgb 33.6 pg (27.0-32.0); Mean Corpuscular Volume 97.7 fL (81-99); Mean Platelet Vol. 9.5 fl (6.2-12.0); Monocyte# 0.29 X10^3/uL; NRBC Flagged by Analyzer 0 % (0-5); Neutrophil # 2.24 X10^3/uL (2.7-7.7); Neutrophil % 54.3 % (47-70); Platelet Count 159 K/mm3 (150-450); RBC Distribution Width CV 13.8 % (11.6-14.6); RBC Distribution Width SD 49.1 fl (35.1-43.9); Red Blood Count 3.93 M/mm3 (4.2-5.4); White Blood Count 4.1 K/mm3 (4.4-11.0)
--- NOTE | 2019-11-12 17:20 | RAD_ITS ---
STUDY: X-RAY CHEST REASON FOR EXAM: Female, 44 years old. sob with cough TECHNIQUE: AP portable COMPARISON: March 18, 2017 FINDINGS: Nonspecific elevation of right hemidiaphragm. The lungs are clear.. There is no demonstrated pleural abnormality. Normal size heart. Normal mediastinum and anthony. Normal visualized pulmonary arteries. Normal visualized aortic arch and descending thoracic aorta. Normal visualized thoracic spine. Normal visualized ribs, clavicles, and shoulders. Small hiatal hernia is present There is no demonstrated abnormality of the visualized soft tissue structures of the upper abdomen. No change since previous study RAD/Chest 1 View (Portable) IMPRESSION: No acute cardiopulmonary pathology Electronically Signed: Austin Jensen MD at 17:38 EDT , Service support ,
[2019-11-12 17:29] LABS: ALB/GLOB Ratio 1.2 RATIO (0.9-2.4); AST(SGOT) 45 U/L (15-37); Alanine Aminotransfer ALT/SGPT 22 U/L (13-56); Albumin, Serum 3.7 g/dL (3.2-5.0); Alkaline Phosphatase 73 U/L (45-117); Anion Gap 6 (5-15); BUN 6 mg/dL (7-18); BUN/Creat Ratio 8.8 RATIO (10-20); Calcium,Total 8.1 mg/dL (8.5-10.1); Chloride 109 mmol/L (98-107); Creatinine, Serum 0.68 mg/dL (0.55-1.02); EST Glomerular Filtration Rate 101 mL/min (>60); Est Glom Filt Rate - Afr Amer 122 mL/min (>60); Estimated Creatinine Clearance 113.65 ml/min; Globulin 3.2 g/dL (2.2-4.2); Glucose 119 mg/dL (74-106); Potassium 2.8 mmol/L (3.5-5.1); Protein, Total 6.9 g/dL (6.4-8.2); Sodium Level 144 mmol/L (136-145)
--- NOTE | 2019-11-12 17:29 | ED.VISSUMM ---
- ER Visit Summary Date of Service: 11/12/19 Chief Complaint: Shortness of breath History of Present Illness: The patient is a 44 F who presents with shortness of breath that has been getting worse over the past week. Patient states it is gradually gotten worse. Patient states nothing makes it better or worse. Patient admits to a cough with a sore throat. Patient states she has some pain in her chest but describes it as I cannot breathe. Patient admits to some diarrhea over the past week. Patient states she had some nausea and vomiting a week ago but denies any current nausea or vomiting. Patient denies any fevers or chills. Physical Examination: Vital signs are stable except for tachycardia of 122. Patient is afebrile. Patient is in no acute distress. Oral mucosa is pink and moist. Neck is supple. Trachea is midline. There is no JVD. Heart was regular rate and rhythm. Lungs showed mild expiratory wheezing. There is good respiratory effort noted. Abdomen is soft. Bowel sounds are normal. There is no tenderness. Cranial nerves II through XII are intact. There are no focal motor or sensory deficits noted. Extremities are intact. There is no calf tenderness or edema. Test Results: CBC was normal. Comprehensive metabolic profile showed a hypokalemia of 2.8. RSV, influenza, and strep swabs were all negative. Portable chest x-ray was obtained. There is no acute cardiopulmonary process. This was interpreted by the radiologist and reviewed by myself. Emergency Department Course and Treatment: Patient was given a DuoNeb here. Patient was given a dose of oral potassium here. Patient was instructed to follow-up with her primary care physician in 5 to 7 days. Patient was instructed to continue her inhalers. Patient was instructed on COVID-19 precautions. Patient was instructed to return if worse in any way. Patient understood and was agreeable with the plan. All questions were answered. Disposition: Discharge home Impression: 1. Asthma exacerbation 2. Hypokalemia 3. Viral upper respiratory infection This note was generated with [employer] dictation software. It may contain incorrect words, spelling, and punctuation that were not noted in review of the chart prior to signing ED Disposition - Plan for ED Patient: Disposition: Home or Assisted Living Diagnosis: Asthma, Viral upper respiratory infection, Hypokalemia Instructions: ED URI Viral, ED Potassium Deficiency, ED REACTIVE AIRWAY DISEASE Adult Referrals: Swihart,Nasima, MOBILE APPLICATION DEVELOPER-C [Primary Care Provider] - 5-7 Days
[2019-11-12 17:50] VITALS: PULSE 113; RESP 15; O2SAT 98
[2019-11-12] MEDS: Ipratropium/Albuterol Sulfate 3 ML AMPUL.NEB INHALATION (17:50)
--- NOTE | 2019-11-12 19:15 | ED.RN ---
THIS NURSE SPOKE WITH DR MEDLEY ABOUT COVID TEST LAB RECEIVED FROM [facility] AND WAS APPROVED BY [facility]. THIS NURSE AND KASHIF Lock RN SPOKE TO THE PT ABOUT THE COVID TEST. PT STATES I DON'T KNOW. BUT I HAVE BEEN HERE A LONG TIME AND I WANT TO GO HOME. I DON'T THINK I EVEN NEED THE TEST. THIS INFORMATION WAS SHARED WITH DR MEDLEY. DR MEDLEY NOT CONCERNED AND DOES NOT PLAN ON ORDERING A COVID TEST. THIS NURSE SPOKE WITH PAXTON AND VALERIE SCOTT FROM [facility]. VALERIE UNSURE WHY THE TEST WAS ORDERED. VALERIE INFORMED OF THE PT STATEMENT ALSO. VALERIE INFORMED THIS NURSE SHE WOULD FOLLOW UP ON THE ISSUE TOMORROW AND IF THE ER DOCTOR DOES NOT FEEL THE PT NEEDS THE TEST DO NOT DO IT AT THIS TIME. VALERIE AGAIN TOLD ME SHE WOULD FOLLOW UP TOMORROW TO DETERMINE WHY TEST WAS ORDERED.
[2019-11-12 19:50] VITALS: BP 112/82; PULSE 106; RESP 18; TEMP 36.9; O2SAT 96
[2019-11-12 20:16] VITALS: BP 132/87; PULSE 122; RESP 18; O2SAT 96
== END 2019-11-12 20:27 | disposition home or self-care (01) ==
PROVIDERS: Emergency Provider Emergency Medicine; PCP Nurse Practitioner Family
DX: J45.901 Unspecified asthma with (acute) exacerbation (principal); E87.6 Hypokalemia; J06.9 Acute upper respiratory infection, unspecified; I10 Essential (primary) hypertension; Z79.899 Other long term (current) drug therapy
CPT/HCPCS: 71045; 80053; 85025; 87804; 87807; 87880; 94640; 99285

== ENCOUNTER → 2019-11-21 10:47 | Outpatient (CLI) | payer OTHER, SELFPAY ==
[2019-11-07 08:28] VITALS: BMI 25.8
[2019-11-12 16:14] VITALS: BMI 29.7
--- NOTE | 2019-11-21 10:49 | BI_ITS ---
MAMMOGRAPHY - BILATERAL SCREENING REASON FOR EXAM: Female, 44 years old. Routine annual screening examination. PERTINENT HISTORY: Non-contributory. TECHNIQUE: Digital bilateral breast zackery (3D mammographic acquisition) in the CC and MLO projections. 2-D mediolateral oblique (MLO) and craniocaudad (CC) views of both breasts were obtained. CAD: Full Field Digital Mammography with Computer Added Detection was performed. COMPARISON: Comparison is made with prior study dated August 19, 2018. FINDINGS: Breast Composition: There are scattered areas of fibroglandular density. There are no dominant masses or suspicious calcifications. No other significant abnormalities are identified. There has been no significant change since the prior study. BI/SCREEN MAMM (CAD) W/ZACKERY BILAT IMPRESSION: Stable bilateral screening mammogram. Yearly follow-up mammogram recommended. (A) ASSESSMENT CATEGORY: BIRADS Category 1: Negative. A letter regarding these results will be sent to the patient by the facility within 30 days. Approximately 10% of breast cancers are not detected by mammography. A normal mammogram should not delay biopsy of a clinically suspicious abnormality. [id number] Electronically Signed: Yousif Avila, at 12:27 EDT , Service support ,
== END ==
DX: Z12.31 Encounter for screening mammogram for malignant neoplasm of breast (principal)
CPT/HCPCS: 77063; 77067

== ENCOUNTER 2020-02-04 10:47 | Emergency (ER) | payer MEDICAID, SELFPAY ==
--- NOTE | 2020-02-04 | CT_ITS ---
We are attempting to reach an attending provider to discuss findings. An addendum with communication details will be sent when the communication is complete. STUDY: CTA CHEST REASON FOR EXAM: Female, 44 years old. ELEV DDIMER RADIATION DOSAGE (If Supplied By Facility): CTDIvol = ( 13.92 ) mGy, DLP = ( 384.51 ) mGycm TECHNIQUE: The examination was performed with the intravenous administration of Isovue 300 75ml. Post-processing of the angiographic images was performed, with multiplanar reformation and 3D reconstruction. Individualized dose optimization techniques were used for this CT. COMPARISON: None. FINDINGS: Normal enhancement of the main pulmonary artery and right and left pulmonary arteries. Normal enhancement of the bilateral peripheral pulmonary arteries. Filling defects within segmental branches of the descending left pulmonary artery consistent with pulmonary embolism. Normal thoracic aorta and visualized great vessels. There is no demonstrated aortic dissection. Normal heart and pericardium. Normal mediastinum. Normal hilar regions. Normal visualized trachea and bronchi. The lungs are well expanded. Normal pulmonary parenchyma. Normal pleura. Normal chest wall structures. Normal osseous structures. Normal visualized upper abdomen. CT/CTA Chest W/WO Contrast IMPRESSION: Positive for pulmonary embolism in the left lower lobe. Electronically Signed: Calvin Adams MD at 12:43 EDT Tel , Service support ,
[2020-02-04 10:48] VITALS: BP 116/82; PULSE 128; RESP 18; TEMP 36.8; O2SAT 100; BMI 29.7
--- NOTE | 2020-02-04 10:55 | EKG12_ITS ---
Test Reason : SYNCOPE Blood Pressure : / mmHG Vent. Rate : 114 BPM Atrial Rate : 114 BPM P-R Int : 122 ms QRS Dur : 072 ms QT Int : 352 ms P-R-T Axes : 043 018 056 degrees QTc Int : 485 ms Sinus tachycardia Otherwise normal ECG Confirmed by OCTAVIO CHOI ([id number]), communications editor ABDON KEITH ([id number]) on 02/09/2020 12:04:23 PM Referred By: Confirmed By:OCTAVIO CHOI
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
[2020-02-04 10:59] VITALS: BP 109/80; PULSE 113; RESP 20; TEMP 36.8; O2SAT 100
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
[2020-02-04 11:18] LABS: Absolute Lymphocyte Count 0.91 X10^3/uL (0.83-4.51); Absolute Neutrophil Count 7.3 X10^3/uL (2.0-7.7); Basophil# 0.05 X10^3/uL; Basophil% 0.6 % (0-1); Eosinophil# 0.04 X10^3/uL; Eosinophils% 0.5 % (0-5); Hematocrit 25.9 % (37-47); Hemoglobin 8.6 g/dL (12.0-15.0); Lymphocyte # 0.91 X10^3/ul (4.0); Lymphocyte % 10.5 % (19-41); Mean Corp Hgb Conc 33.2 g/dL (32-36); Mean Corpuscular Hgb 33.9 pg (27.0-32.0); Mean Platelet Vol. 10.7 fl (6.2-12.0); Monocyte# 0.26 X10^3/uL; NRBC Flagged by Analyzer 0.2 % (0-5); Neutrophil # 7.32 X10^3/uL (2.7-7.7); Neutrophil % 84.6 % (47-70); POSITIVE MORPHOLOGY YES; Platelet Count 171 K/mm3 (150-450); RBC Distribution Width CV 18.5 % (11.6-14.6); RBC Distribution Width SD 66.7 fl (35.1-43.9); Red Blood Count 2.54 M/mm3 (4.2-5.4); White Blood Count 8.7 K/mm3 (4.4-11.0)
[2020-02-04 11:22] LABS: Differential Indicated SCAN CRITERIA MET
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
[2020-02-04 11:28] LABS: Internal QC Validated? YES +Cl - CLEAR BKGD; Pregnancy, Serum, hCG Quali. NEGATIVE Negative
[2020-02-04 11:30] LABS: D-Dimer Quantitative (DVT/PE) 1.11 FEU/ug/m (0.27-0.49)
[2020-02-04 11:39] LABS: Alcohol, Blood (Medical)-Serum < 3.0 mg/dL
[2020-02-04 11:50] LABS: Differential Comment SCANNED; Red Cell Morphology N CHROM NORMAL (NORM C&C)
[2020-02-04 11:51] LABS: Anisocytosis 1+
[2020-02-04 11:56] LABS: Anion Gap 15 (5-15); BUN 7 mg/dL (7-18); BUN/Creat Ratio 6.5 RATIO (10-20); Calcium,Total 7.5 mg/dL (8.5-10.1); Chloride 104 mmol/L (98-107); Creatinine, Serum 1.08 mg/dL (0.55-1.02); EST Glomerular Filtration Rate 59 mL/min (>60); Est Glom Filt Rate - Afr Amer 71 mL/min (>60); Estimated Creatinine Clearance 71.56 ml/min; Glucose 166 mg/dL (74-106); Potassium 2.6 mmol/L (3.5-5.1); Sodium Level 138 mmol/L (136-145)
[2020-02-04] MEDS: levETIRAcetam 500 MG Tablet PO (12:15)
[2020-02-04] MEDS: 0.9% Normal Saline 1,000 ML 1000 ML IV (12:15)
[2020-02-04] MEDS: LORazepam 2 MG/ML Syringe 1 MG IV (12:25)
[2020-02-04] MEDS: levETIRAcetam IV 1,000 MG/100 ML BAG 400 MG IV (12:51)
[2020-02-04 12:57] VITALS: BP 129/78; PULSE 124; RESP 18; O2SAT 100
[2020-02-04 13:28] LABS: Amphetamine Urine VISTA NEGATIVE (<1000 ng/mL); Barbiturate Urine VISTA NEGATIVE (< 200 ng/mL); Benzodiazepine Urine VISTA NEGATIVE (< 200 ng/mL); Cocaine Urine VISTA NEGATIVE (< 300 ng/mL); Ecstacy Urine VISTA NEGATIVE (< 500 ng/mL); Methadone Urine VISTA NEGATIVE (< 300 ng/mL); PCP Urine VISTA NEGATIVE (< 25 ng/mL); THC Urine VISTA NEGATIVE (< 50 ng/mL); Vista UDS pH Range 7
--- NOTE | 2020-02-04 13:41 | NURSING ---
DR AYO CUTLER
--- NOTE | 2020-02-04 13:54 | NURSING ---
CALLED [facility] FOR TRANSFER. TALKED TO DEJA, TRANSFER LINE
[2020-02-04 14:27] VITALS: BP 95/62; PULSE 109; RESP 18; O2SAT 98
--- NOTE | 2020-02-04 14:28 | NURSING ---
[facility] 7W ROOM 738A NURSE TO NURSE [phone]
[2020-02-04 14:40] LABS: Bedside Glucose 128 mg/dL (70-110)
[2020-02-04 14:58] LABS: Partial Thromboplast Time 22.2 Seconds (24.1-36.2)
[2020-02-04] MEDS: Heparin Injection (Vial) 5,000 UNIT/ML VIAL 4500 UNIT IV (15:19)
[2020-02-04] MEDS: HEPARIN/D5w 25,000 UNITS 25,000 UNITS/250 ML IV.SOLN. 10 UNITS IV (15:20)
[2020-02-04 15:21] VITALS: BP 112/75; PULSE 116; RESP 18; O2SAT 97
== END 2020-02-04 15:22 | disposition short-term general hospital (02) ==
LOC: ED 12:18
PROVIDERS: Emergency Provider Emergency Medicine
DX: G40.909 Epilepsy, unspecified, not intractable, without status epilepticus (principal); I26.99 Other pulmonary embolism without acute cor pulmonale; F10.239 Alcohol dependence with withdrawal, unspecified; D64.9 Anemia, unspecified; E87.6 Hypokalemia; J45.909 Unspecified asthma, uncomplicated; I10 Essential (primary) hypertension; Z79.51 Long term (current) use of inhaled steroids; Z79.899 Other long term (current) drug therapy; V47.0XXA Car driver injured in collision with fixed or stationary object in nontraffic accident, initial encounter; Y93.I9 Activity, other involving external motion; Y92.410 Unspecified street and highway as the place of occurrence of the external cause; Y99.8 Other external cause status
CPT/HCPCS: 70450; 71045; 71275; 72125; 80048; 80307; 80320; 82274; 82962; 84484; 84703; 85025; 85379; 85730; 93005; 96365; 96375; 99285; J7030; Q9967; A4216; G0480

== ENCOUNTER 2020-08-11 10:34 | Emergency (ER) | payer MEDICAID, SELFPAY ==
[2020-08-11 10:35] VITALS: BP 153/87; PULSE 103; RESP 18; TEMP 35.6; O2SAT 99; BMI 31.6
--- NOTE | 2020-08-11 10:56 | ED.VIS.GEN ---
History of Present Illness Chief Complaint: Vag Bleeding Narrative: 45-year-old female presents with heavy vaginal bleeding. Patient states that she began to have vaginal bleeding on Sunday and today it is very heavy. She denies any significant cramping or pain. She states that she used to be on control but due to a pulmonary embolism she was discontinued from that last February. Since then she has had irregular bleeding approximately every 2 weeks. She does not currently have a vocational trainer. She saw Dr. Ramos in the past. She has a history of being ASCUS HPV positive. Patient states that she does not want to be in the emergency department. She was at group therapy today and mention what was going on and they encouraged her to go see a doctor. She states she went to urgent care and was told to come to emergency. She has not attempted to make an appointment with a vocational trainer. She is no longer on anticoagulation (previously on Eliquis). Patient denies any lightheadedness palpitations shortness of breath or syncope/fatigue. She denies risk of . Past Medical History - Allergies and Home Meds Allergies/Adverse Reactions: Allergies amoxicillin Allergy (Verified 08/11/20 10:35) [facility] Primary Care Physician: Natalie Galo MD [STAFF PHYSICIAN] - As soon as possible Surgical History: tonsillectomy, - - Surgery on the face to remove precancerous birthmark Smoking Status: Never smoker - Family History Maternal Family History: Family History (Last Updated 11/24/19 @ 14:50 by Kateryna Liang) Father Myocardial infarction Cancer Other Alcoholism Arthritis Diabetes Heart disease Hyperlipemia Hypertension Skin cancer Family History: Reports: No pertinent history Paternal Family History: Family History (Last Updated 11/24/19 @ 14:50 by Kateryna Liang) Father Myocardial infarction Cancer Other Alcoholism Arthritis Diabetes Heart disease Hyperlipemia Hypertension Skin cancer Family History: Reports: - - Pancreatic cancer Review of Systems General: Denies: Chills, Fever, Sweats Eyes: Denies: Visual changes - bilaterally, Diplopia ENT: Denies: Rhinorrhea, Sore throat Cardiovascular: Denies: Chest pain, Palpitations Respiratory: Denies: Dyspnea, Cough, Dyspnea on exertion Gastrointestinal: Denies: Abdominal pain, Nausea, Vomiting, Diarrhea, Melena, Hematochezia Genitourinary: Reports: - - Menorrhagia. Denies: Dysuria, Hematuria, Frequency Musculoskeletal: Denies: Back pain, Extremity Pain Skin: Denies: Rash, Wounds Neurological: Denies: Headache, Weakness, Numbness Physical Exam Vital Signs/Narrative: Vital Signs Temp Pulse Resp BP Pulse Ox 08/11/20 10:35 96.0 F L 103 H 18 153/87 H 99 Inital Vital Signs reviewed: Yes General: Well nourished, Well developed, No Acute Distress Head: Normocephalic, Atraumatic Eyes: Perrl, EOMI ENT: Moist mucous membranes, No rhinorrhea Neck: Supple, Nontender Cardiovascular: Regular rate, Regular rhythm, No murmurs Respiratory: No distress, CTA bilaterally, Chest nontender Abdomen: Soft, Nontender, Nondistended, Normal bowel sounds : - - Deferred at patient's request Back: Nontender, Normal Inspection Extremities: Nontender, No edema Skin: Normal color, No rash Neurological: Alert, Oriented x3, Cranial nerves II-XII grossly intact, Normal Strength, Normal Sensation Psychological: Normal affect, Normal Mood Diagnostic/Tx/Re-eval Laboratory Last Values WBC 5.8 K/mm3 (4.4-11.0) 08/11/20 11:20 RBC 4.82 M/mm3 (4.2-5.4) 08/11/20 11:20 Hgb 13.1 g/dL (12.0-15.0) 08/11/20 11:20 Hct 41.2 % (37-47) 08/11/20 11:20 MCV 85.5 fL (81-99) 08/11/20 11:20 MCH 27.2 pg (27.0-32.0) 08/11/20 11:20 MCHC 31.8 g/dL (32-36) L 08/11/20 11:20 RDW Std Deviation 53.0 fl (35.1-43.9) H 08/11/20 11:20 RDW Coeff of Luda 17.2 % (11.6-14.6) H 08/11/20 11:20 Plt Count 260 K/mm3 (150-450) 08/11/20 11:20 MPV 10.0 fl (6.2-12.0) 08/11/20 11:20 Immature Gran % (Auto) 0.300 % (0.0-0.9) 08/11/20 11:20 Neut % (Auto) 69.4 % (47-70) 08/11/20 11:20 Lymph % (Auto) 23.2 % (19-41) 08/11/20 11:20 [place] % (Auto) 5.0 % (0-10) 08/11/20 11:20 Eos % (Auto) 0.9 % (0-5) 08/11/20 11:20 Baso % (Auto) 1.2 % (0-1) H 08/11/20 11:20 Absolute Neuts (auto) 4.0 X10^3/uL (2.0-7.7) 08/11/20 11:20 Absolute Lymphs (auto) 1.34 X10^3/uL (0.83-4.51) 08/11/20 11:20 Nucleated RBC % 0 % (0-5) 08/11/20 11:20 Serum , Qual NEGATIVE Negative 08/11/20 11:20 Clinical Impression(s) from Imaging Studies Transvaginal US 08/11/20 12:13 IMPRESSION: Multiple cysts in the left ovary. The largest measures 3.6 cm x 3 cm x 2.4 cm. Electronically Signed: Yousif Avila MD at 13:57 EST , Service support , - Medical Decision Making She tells me that she does not want to make any decisions on her health care but wants to be told what to do. I informed her that this is a shared decision making and I laid out several options for her care here today. She has decided that she would like to proceed with checking her hemoglobin and obtaining a ultrasound. These were negative except for some ovarian cyst on the left. Case was discussed with on-call vocational trainer Dr. Watson. They will be happy to follow-up with the patient in the office. ED Disposition - Plan for ED Patient: Disposition: Home or Assisted Living Diagnosis: Menorrhagia Instructions: ED Dysfunctional Uterine Bleeding Referrals: Natalie Galo MD [STAFF PHYSICIAN] - As soon as possible
[2020-08-11 11:32] LABS: Absolute Lymphocyte Count 1.34 X10^3/uL (0.83-4.51); Basophil# 0.07 X10^3/uL; Basophil% 1.2 % (0-1); Eosinophil# 0.05 X10^3/uL; Eosinophils% 0.9 % (0-5); Hematocrit 41.2 % (37-47); Hemoglobin 13.1 g/dL (12.0-15.0); Lymphocyte # 1.34 X10^3/ul (4.0); Lymphocyte % 23.2 % (19-41); Mean Corp Hgb Conc 31.8 g/dL (32-36); Mean Corpuscular Hgb 27.2 pg (27.0-32.0); Mean Corpuscular Volume 85.5 fL (81-99); Monocyte# 0.29 X10^3/uL; NRBC Flagged by Analyzer 0 % (0-5); Neutrophil % 69.4 % (47-70); Platelet Count 260 K/mm3 (150-450); RBC Distribution Width CV 17.2 % (11.6-14.6); Red Blood Count 4.82 M/mm3 (4.2-5.4); White Blood Count 5.8 K/mm3 (4.4-11.0)
--- NOTE | 2020-08-11 12:13 | US_ITS ---
STUDY: ULTRASOUND OF THE FEMALE PELVIS - COMPLETE REASON FOR EXAM: Female, 45 years old. PT C/O HEAVY VAGINAL BLEEDING X 2 YEARS. PT STATES THAT SHE IS HAVING A PERIOD EVERY 2 WEEKS. LMP: 08/04/2020. TECHNIQUE: Transvaginal TECHNICAL QUALITY: Adequate. COMPARISON: None. FINDINGS: The uterus is retroverted and is tilted to the left side of the pelvis. The uterus measures 7.2 cm x 4.3 cm x 3.1 cm. There is a Nabothian cyst of the cervix. The endometrium measures 2 mm in thickness, and is hyperechoic. There is no demonstrated endometrial mass. There is no demonstrated myometrial mass. I.U.D. - The patient does not have an I.U.D. The right ovary is non-visualized. The left ovary is visualized. The left ovary measures 4.2 cm x 4.4 cm x 2.5 cm. Multiple cysts are seen. The largest measures 3.6 cm x 3 cm x 2.4 cm. There is no visualized left adnexal mass or complex lesion. There is normal arterial and normal venous vascularity. There is no fluid in the cul-de-sac. US/Transvaginal Non- IMPRESSION: Multiple cysts in the left ovary. The largest measures 3.6 cm x 3 cm x 2.4 cm. Electronically Signed: Yousif Avila MD at 13:57 EST , Service support ,
[2020-08-11 12:18] LABS: Internal QC Validated? YES +Cl - CLEAR BKGD; Pregnancy, Serum, hCG Quali. NEGATIVE Negative
[2020-08-11 14:50] VITALS: BP 121/95; RESP 18
== END 2020-08-11 14:51 | disposition home or self-care (01) ==
PROVIDERS: Emergency Provider Emergency Medicine
DX: N92.0 Excessive and frequent menstruation with regular cycle (principal); N83.202 Unspecified ovarian cyst, left side; Z86.711 Personal history of pulmonary embolism
CPT/HCPCS: 76830; 84703; 85025; 99283

== ENCOUNTER → 2020-08-17 | Outpatient (CLI) | payer MEDICAID, SELFPAY ==
[2020-08-17 08:25] VITALS: BMI 30.7
--- NOTE | 2020-08-17 08:46 | EMB_PTH ---
PATIENT: RENE JUAREZ LOC: [facility] U#:[id number] AGE/SX: 45/F ROOM: RE08/17/[address]: KE Tariq : 1975 BED: DIS: 08/17/2020 SPEC #: [id number] RECD: 08/17/20 12:13 STATUS: KADE RETA #: [id number] ADDIE: 08/17/20 08:[address]: Calli Bosch NP DEPT: SURGICAL PATHOLOGY RECD BY: Eva Zuñiga ENTERED: 08/17/20 13:19 SP TYPE: ENDOM BX/C KISHAN DR: No Primary Care Phys Tissues: Endometrium, NOS Procedures: Surgery Specimen Level IV HEADER OPERATION: Endometrial biopsy PRE-OP DIAGNOSIS: Abnormal uterine bleeding TISSUE SUBMITTED: Endometrial biopsy MICROSCOPIC DIAGNOSIS Endometrium, biopsy: Secretory endometrium with minimal disorder. AM:radha 08/18/2020 MICROSCOPIC DESCRIPTION Slides are reviewed. GROSS DESCRIPTION Received is one container labeled with the patient's name and not further designated. The specimen consists of multiple irregular fragments of light caal soft tissue that in aggregate measure 2 x 1 x 0.1 cm. The specimen is totally submitted in one cassette. / AM:radha 08/17/20 TC:5 CPT: 79949
[2020-08-19 20:46] LABS: HPV APTIMA, High Risk Negative (Negative)
== END | disposition home or self-care (01) ==
LOC: LABSPEC 12:55
PROVIDERS: Referring Provider Nurse Practitioner Women's Health; Visit Provider Nurse Practitioner Women's Health
DX: N85.8 Other specified noninflammatory disorders of uterus (principal); Z12.4 Encounter for screening for malignant neoplasm of cervix
CPT/HCPCS: 87624; 88175; 88305; G0145

== ENCOUNTER → 2020-08-19 14:10 | Outpatient (CLI) | payer MEDICAID, SELFPAY ==
[2020-08-17 08:25] VITALS: BMI 30.7
--- NOTE | 2020-08-19 14:12 | US_ITS ---
STUDY: ULTRASOUND OF THE FEMALE PELVIS - COMPLETE REASON FOR EXAM: Female, 45 years old. PAIN R/O TORSION LMP UNKNOWN LMP: TECHNIQUE: Transabdominal and Transvaginal TECHNICAL QUALITY: Adequate. COMPARISON: Comparison is made with prior study dated 08/11/2020. FINDINGS: The uterus is anteverted and is in a midline position. The uterus measures 6.5 cm x 4.4 cm x 3 cm. Normal uterine cervix. The endometrium measures 4.4 mm in thickness, and is hyperechoic. There is no demonstrated endometrial mass. There is no demonstrated myometrial mass. I.U.D. - The patient does not have an I.U.D. The right ovary is visualized. The right ovary measures 2.4 cm x 1.6 cm x 1.3 cm. A dominant follicle is seen within the ovary measuring 1.1 cm x 1 cm x 0.9 cm. There is no visualized right adnexal mass or complex lesion. There is normal arterial and normal venous vascularity. The left ovary is visualized. The left ovary measures 3.3 cm x 1.9 cm x 1.5 cm. There is a persistent 2.5 cm x 1.8 cm x 1.4 cm left ovarian cyst. There is no visualized left adnexal mass or complex lesion. There is normal arterial and normal venous vascularity. There is no fluid in the cul-de-sac. The pre void volume of the bladder was 151 ml. Polycystic ovary disease: No. US/Pelvic (Non ) IMPRESSION: Persistent left ovarian cyst. Dominant follicle in the right ovary. There is no evidence of ovarian torsion. Electronically Signed: Yousif Avila MD at 15:10 EST , Service support ,
--- NOTE | 2020-08-19 14:12 | US_ITS ---
STUDY: ULTRASOUND OF THE FEMALE PELVIS - COMPLETE REASON FOR EXAM: Female, 45 years old. PAIN R/O TORSION LMP UNKNOWN LMP: TECHNIQUE: Transabdominal and Transvaginal TECHNICAL QUALITY: Adequate. COMPARISON: Comparison is made with prior study dated 08/11/2020. FINDINGS: The uterus is anteverted and is in a midline position. The uterus measures 6.5 cm x 4.4 cm x 3 cm. Normal uterine cervix. The endometrium measures 4.4 mm in thickness, and is hyperechoic. There is no demonstrated endometrial mass. There is no demonstrated myometrial mass. I.U.D. - The patient does not have an I.U.D. The right ovary is visualized. The right ovary measures 2.4 cm x 1.6 cm x 1.3 cm. A dominant follicle is seen within the ovary measuring 1.1 cm x 1 cm x 0.9 cm. There is no visualized right adnexal mass or complex lesion. There is normal arterial and normal venous vascularity. The left ovary is visualized. The left ovary measures 3.3 cm x 1.9 cm x 1.5 cm. There is a persistent 2.5 cm x 1.8 cm x 1.4 cm left ovarian cyst. There is no visualized left adnexal mass or complex lesion. There is normal arterial and normal venous vascularity. There is no fluid in the cul-de-sac. The pre void volume of the bladder was 151 ml. Polycystic ovary disease: No. US/Transvaginal Non- IMPRESSION: Persistent left ovarian cyst. Dominant follicle in the right ovary. There is no evidence of ovarian torsion. Electronically Signed: Yousif Avila MD at 15:10 EST , Service support ,
== END ==
PROVIDERS: Referring Provider Nurse Practitioner Women's Health; Visit Provider Nurse Practitioner Women's Health
DX: R10.2 Pelvic and perineal pain (principal); N83.209 Unspecified ovarian cyst, unspecified side
CPT/HCPCS: 76830; 76856; 93976

== ENCOUNTER 2020-08-20 18:26 | Emergency (ER) | payer MEDICAID, SELFPAY ==
[2020-08-17 08:25] VITALS: BMI 30.7
[2020-08-20 18:26] VITALS: BP 150/105; PULSE 131; RESP 18; TEMP 37.3; O2SAT 98; BMI 30.2
[2020-08-20 18:52] LABS: Absolute Lymphocyte Count 2.21 X10^3/uL (0.83-4.51); Absolute Neutrophil Count 5.7 X10^3/uL (2.0-7.7); Basophil# 0.08 X10^3/uL; Basophil% 0.9 % (0-1); Eosinophils% 1.1 % (0-5); Hematocrit 35.8 % (37-47); Hemoglobin 11.9 g/dL (12.0-15.0); Lymphocyte # 2.21 X10^3/ul (4.0); Lymphocyte % 25.3 % (19-41); Mean Corp Hgb Conc 33.2 g/dL (32-36); Mean Corpuscular Volume 87.1 fL (81-99); Mean Platelet Vol. 9.6 fl (6.2-12.0); Monocyte# 0.63 X10^3/uL; Monocyte% 7.2 % (0-10); NRBC Flagged by Analyzer 0 % (0-5); Neutrophil % 65.3 % (47-70); Platelet Count 219 K/mm3 (150-450); RBC Distribution Width CV 19.4 % (11.6-14.6); RBC Distribution Width SD 58.5 fl (35.1-43.9); Red Blood Count 4.11 M/mm3 (4.2-5.4); White Blood Count 8.7 K/mm3 (4.4-11.0)
[2020-08-20 18:59] LABS: Anion Gap 8 (5-15); BUN 7 mg/dL (7-18); BUN/Creat Ratio 10.6 RATIO (10-20); Calcium,Total 8.2 mg/dL (8.5-10.1); Chloride 112 mmol/L (98-107); Creatinine, Serum 0.66 mg/dL (0.55-1.02); EST Glomerular Filtration Rate 104 mL/min (>60); Est Glom Filt Rate - Afr Amer 126 mL/min (>60); Estimated Creatinine Clearance 118.05 ml/min; Glucose 113 mg/dL (74-106); Potassium 3.5 mmol/L (3.5-5.1); Sodium Level 143 mmol/L (136-145)
[2020-08-20 19:04] LABS: Internal QC Validated? YES +Cl - CLEAR BKGD; Pregnancy, Serum, hCG Quali. NEGATIVE Negative
--- NOTE | 2020-08-20 19:50 | CT_ITS ---
STUDY: CT ABDOMEN AND PELVIS WITH CONTRAST REASON FOR EXAM: Female, 45 years old. Abdominal pain for one week. Left ovarian cyst on ultrasound at [facility] [employer] office. Nausea. RADIATION DOSAGE (If Supplied By Facility): CTDIvol = ( 13.775 ) mGy, DLP = ( 715.05 ) mGycm TECHNIQUE: Transaxial images were obtained from the dome of the diaphragm to the symphysis pubis with oral contrast. Oral and amp; IV Gastrografin and amp; 100mL Isovue-370 was administered. Sagittal and coronal images were reconstructed. Individualized dose optimization techniques were used for this CT. COMPARISON: Pelvic ultrasound, 08/19/2020. CT the abdomen and pelvis, 06/17/2017. FINDINGS: The visualized lung bases are unremarkable. The visualized portions of the heart are within normal limits. Normal liver. Normal gallbladder and extrahepatic biliary system. Normal spleen. Normal pancreas. Normal bilateral adrenal glands. Normal right kidney. Normal left kidney. Small hiatal hernia. The stomach is otherwise unremarkable. Normal small intestine. Normal colon. There is non-visualization of the appendix. Normal abdominal aorta. Normal inferior vena cava. Normal retroperitoneum. Normal urinary bladder. Normal uterus. There is a 1.5 cm cyst versus dominant follicle in the left ovary. The right ovary is unremarkable. No pelvic lymphadenopathy. No free air or free fluid is seen within the peritoneal cavity. Normal abdominal wall. There is anterolisthesis of L5 on S1 with bilateral pars defects. This is a stable finding. CT/Abdomen/Pelvis WITH Contrast IMPRESSION: 1. Left ovarian cyst versus dominant follicle. 2. Decreased size of the liver when compared to prior CT. There is resolution of fatty infiltration seen in the previous study. 3. Otherwise stable findings. Electronically Signed: Kvng Bill DO at 22:33 EST Tel [phone], Service support ,
--- NOTE | 2020-08-20 19:51 | ED.DCSUM_ITS ---
History of Present Illness Chief Complaint: Abd Pain Informant: Patient Onset: Weeks - 1 week Context: Gradual Onset Timing: Waxes and wanes Current Severity: Moderate Maximum Severity: Moderate Narrative: Patient presents with 1 week history of mid abdominal pain. She states that she developed some heavy vaginal bleeding and thought it was OPERATIONS AND MAINTENANCE TECHNICIAN related. She has been to her OPERATIONS AND MAINTENANCE TECHNICIAN several times this week and had 2 ultrasounds. She does have evidence of a left ovarian cyst but no evidence of torsion. Patient states that she was taken off her oral contraceptive pills last February secondary to pulmonary embolism. She was on blood thinners for a while but is currently off of those as well. She states since stopping her control pills her periods have been very irregular. - Past Medical History (1) Ovarian cyst Status: Chronic (2) Moderate persistent asthma Status: Chronic (3) Seizure Status: Chronic Past Medical History - Allergies and Home Meds Allergies/Adverse Reactions: Allergies amoxicillin Allergy (Verified 08/20/20 18:28) Hives Primary Care Physician: Care Physician,No Primary [Primary Care Provider] - Surgical History: tonsillectomy, - - Surgery on the face to remove precancerous birthmark Smoking Status: Never smoker Alcohol: Occasional - Daily - Family History Maternal Family History: Family History (Last Reviewed 08/19/20 @ 09:52 by Mary Ann Powers) Father Myocardial infarction Cancer Other Alcoholism Arthritis Diabetes Heart disease Hyperlipemia Hypertension Skin cancer Family History: Reports: No pertinent history Paternal Family History: Family History (Last Reviewed 08/19/20 @ 09:52 by Mary Ann Powers) Father Myocardial infarction Cancer Other Alcoholism Arthritis Diabetes Heart disease Hyperlipemia Hypertension Skin cancer Family History: Reports: - - Pancreatic cancer Review of Systems General: Denies: Chills, Fever Eyes: Denies: Visual changes - bilaterally ENT: Denies: Bilateral ear pain Cardiovascular: Denies: Chest pain Respiratory: Denies: Dyspnea, Cough Gastrointestinal: Reports: Abdominal pain. Denies: Vomiting, Diarrhea Genitourinary: Denies: Dysuria, Frequency Musculoskeletal: Denies: Extremity Pain Skin: Denies: Rash Hematologic: Denies: Easy bruising Allergy: Denies: Uticaria Physical Exam Vital Signs/Narrative: Vital Signs Temp Pulse Resp BP Pulse Ox 08/20/20 18:26 99.2 F H 131 H 18 150/105 H 98 Inital Vital Signs reviewed: Yes General: Well nourished, Well developed Head: Normocephalic ENT: Moist mucous membranes Neck: Supple Cardiovascular: Regular rate, Regular rhythm Respiratory: No distress, CTA bilaterally Abdomen: Soft, Normal bowel sounds, Tender - Moderate mid abdominal tenderness to palpation.. Negative for: Guarding, Rebound tenderness Extremities: Nontender Skin: Normal color Neurological: Alert, Oriented x3 Psychological: Normal affect Diagnostic/Tx/Re-eval Impressions Abdomen/Pelvis CT 08/20/20 19:50 IMPRESSION: 1. Left ovarian cyst versus dominant follicle. 2. Decreased size of the liver when compared to prior CT. There is resolution of fatty infiltration seen in the previous study. 3. Otherwise stable findings. Electronically Signed: Kvng Bill DO at 22:33 EST Tel [phone], Service support , 08/20/20 19:50 Abdomen/Pelvis WITH Contrast [CT] Stat Laboratory Results 08/20/20 08/20/20 08/20/20 18:35 18:35 18:35 WBC 8.7 RBC 4.11 L Hgb 11.9 L Hct 35.8 L MCV 87.1 MCH 29.0 MCHC 33.2 RDW Std Deviation 58.5 H RDW Coeff of Luda 19.4 H Plt Count 219 MPV 9.6 Immature Gran % (Auto) 0.200 Neut % (Auto) 65.3 Lymph % (Auto) 25.3 Finney % (Auto) 7.2 Eos % (Auto) 1.1 Baso % (Auto) 0.9 Absolute Neuts (auto) 5.7 Absolute Lymphs (auto) 2.21 Nucleated RBC % 0 Sodium 143 Potassium 3.5 Chloride 112 H Carbon Dioxide 23.0 Anion Gap 8 BUN 7 Creatinine 0.66 Estim Creat Clear Calc 118.05 Est GFR (MDRD) Af Amer 126 Est GFR (MDRD) Non-Af 104 BUN/Creatinine Ratio 10.6 Glucose 113 H Calcium 8.2 L Total Bilirubin Direct Bilirubin AST ALT Alkaline Phosphatase Total Protein Albumin Globulin Lipase Serum , Qual NEGATIVE Urine Color Urine Clarity Urine pH Ur Specific [place] Urine Protein Urine Glucose (UA) Urine Ketones Urine Occult Blood Urine Nitrite Urine Bilirubin Urine Urobilinogen Ur Leukocyte Esterase Urine RBC Urine WBC Ur Squamous Epith Cells Urine Bacteria Urine Mucus 08/20/20 08/20/20 08/20/20 18:35 18:35 20:50 WBC RBC Hgb Hct MCV MCH MCHC RDW Std Deviation RDW Coeff of Luda Plt Count MPV Immature Gran % (Auto) Neut % (Auto) Lymph % (Auto) Finney % (Auto) Eos % (Auto) Baso % (Auto) Absolute Neuts (auto) Absolute Lymphs (auto) Nucleated RBC % Sodium Potassium Chloride Carbon Dioxide Anion Gap BUN Creatinine Estim Creat Clear Calc Est GFR (MDRD) Af Amer Est GFR (MDRD) Non-Af BUN/Creatinine Ratio Glucose Calcium Total Bilirubin 0.20 Direct Bilirubin 0.08 AST 24 ALT 18 Alkaline Phosphatase 106 Total Protein 7.0 Albumin 3.6 Globulin 3.4 Lipase 299 Serum , Qual Urine Color Yellow Urine Clarity Sl. Cloudy Urine pH 6.0 Ur Specific [place] 1.025 Urine Protein 30 H Urine Glucose (UA) Normal Urine Ketones Negative Urine Occult Blood 150 H Urine Nitrite Negative Urine Bilirubin Negative Urine Urobilinogen Normal Ur Leukocyte Esterase 100 H Urine RBC 5-10 SEEN Urine WBC 5-10 SEEN Ur Squamous Epith Cells 0-5 SEEN Urine Bacteria 2+ Urine Mucus 0 SEEN - Medical Decision Making Patient was given morphine and Zofran here for pain. Blood work is unremarkable. Urinalysis clean. CT scan shows ovarian cyst but no other acute findings. Patient had a pelvic ultrasound done yesterday that showed no torsion. Pain is not significantly changed since then. Patient will be given a prescription for [place] to help with pain will follow up with her REGULATORY ASSISTANT. ED Disposition - Plan for ED Patient: Disposition: Home or Assisted Living Diagnosis: Abdominal pain, Ovarian cyst Instructions: ED Ovarian Cyst Prescriptions: Hydrocodone Bitart/Apap 5-325 [[place] 5MG-325MG] 1 tablet PO Q6H PRN PRN 3 Days #10 tablet PRN Reason: Pain Transmission Status: Received by SONYA DREW-[address] Referrals: Calli Bosch NP, [employer]HICLE MECHANIC-C [Nurse Practitioner] -
[2020-08-20] MEDS: Ondansetron 4 MG/2 ML Vial IV (19:58)
[2020-08-20] MEDS: Morphine 4 MG/ML Syringe IV (19:58)
[2020-08-20] MEDS: 0.9% Normal Saline 1,000 ML 150 ML IV (19:59)
[2020-08-20 20:25] LABS: Lipase 299 U/L (73-393)
[2020-08-20 20:37] LABS: AST(SGOT) 24 U/L (15-37); Alanine Aminotransfer ALT/SGPT 18 U/L (13-56); Albumin, Serum 3.6 g/dL (3.2-5.0); Alkaline Phosphatase 106 U/L (45-117); Bilirubin, Direct 0.08 mg/dL (0.00-0.30); Globulin 3.4 g/dL (2.2-4.2)
[2020-08-20 20:57] LABS: Color, Urine Yellow (Yellow); Glucose, Dipstick Normal (Normal); Ketone-Dipstick Negative (Negative); Leukocyte Esterase-Dipstick 100 /ul (Negative); Mucous, Urine 0 SEEN /hpf (<or=2+); Nitrite-Dipstick Negative (Negative); Occult Blood-Urine 150 /ul (Negative); Protein-Dipstick 30 mg/dl (Negative); Specific Gravity, Urine 1.025 (1.002-1.030); Urine Bilirubin Dipstick Negative (Negative); Urine Clarity Sl. Cloudy (Clear); Urine Urobilinogen Normal (Normal)
[2020-08-20 21:04] LABS: Bacteria 2+ /hpf (None Seen); Red Blood Cells-Urine 5-10 SEEN /hpf (0-5); Squamous Epithelial Cells - UA 0-5 SEEN /hpf (5-10); White Blood Cells 5-10 SEEN /hpf (0-5)
[2020-08-20 21:32] VITALS: PULSE 116; RESP 16; O2SAT 97
[2020-08-20 22:47] VITALS: BP 132/74; PULSE 109; RESP 15; O2SAT 98
[2020-08-20] MEDS: HYDROcodone Bitartrate/Apap 5/325 Tablet PO (22:51)
== END 2020-08-20 22:52 | disposition home or self-care (01) ==
PROVIDERS: Emergency Provider Emergency Medicine
DX: N83.202 Unspecified ovarian cyst, left side (principal); N93.9 Abnormal uterine and vaginal bleeding, unspecified; J45.40 Moderate persistent asthma, uncomplicated; G40.909 Epilepsy, unspecified, not intractable, without status epilepticus; Z86.711 Personal history of pulmonary embolism; Z79.899 Other long term (current) drug therapy
CPT/HCPCS: 74177; 80048; 80076; 81001; 83690; 84703; 85025; 96361; 96374; 96375; 99284; J7030; Q9967; A4216; J2405

== ENCOUNTER → 2020-08-26 | Outpatient (CLI) | payer MEDICAID, SELFPAY ==
[2020-08-26 14:48] VITALS: BMI 31.1
== END | disposition home or self-care (01) ==
LOC: LABSPEC 16:40
PROVIDERS: Referring Provider Obstetrics & Gynecology; Visit Provider Obstetrics & Gynecology
DX: Z00.00 Encounter for general adult medical examination without abnormal findings (principal)

== ENCOUNTER 2020-10-08 14:11 | Outpatient (RCR) | payer MEDICAID, SELFPAY ==
[2020-08-26 14:48] VITALS: BMI 31.1
== END 2020-12-21 23:59 ==
LOC: IMMUN 14:11
PROVIDERS: Visit Provider Family Medicine
DX: Z23 Encounter for immunization (principal)
CPT/HCPCS: 0001A; 0002A; 91300